=== PATIENT | female | born 1980 | race Caucasian/White ===

== ENCOUNTER 2020-10-21 21:32 | Emergency (ER) | payer SELFPAY ==
[2020-10-21 23:12] LABS: Urine Blood Trace-intact (Negative); Urine Glucose Negative (Negative); Urine Protein Negative (Negative); Urine Specific Gravity 1.025 (1.005-1.030)
[2020-10-21 23:42] LABS: Urine Specific Gravity/Preg 1.025 (1.005-1.030)
[2020-10-21 23:48] LABS: Absolute Lymphocytes (CBC) 2.7 K/uL (0.7-4.9); Basophils % 0.4 % (0-1.3); Hematocrit 35.7 % (36.0-45.0); MPV 7.8 fL (7.6-11.3); RBC Red Blood Cell Count 4.11 M/uL (3.86-4.86)
[2020-10-22 00:04] LABS: ALT/SGPT 15 U/L (12-78); AST/SGOT 9 U/L (15-37); Alkaline Phosphatase 53 U/L (45-117); BUN Blood Urea Nitrogen 12 mg/dL (7-18); Bicarbonate 26 mmol/L (21-32); Bilirubin Direct < 0.1 mg/dL (0-0.2); Bilirubin Total 0.3 mg/dL (0.2-1.0); Glucose Level 130 mg/dL (74-106); Lipase 76 U/L (73-393); Potassium 3.9 mmol/L (3.5-5.1); Protein, Total 6.5 g/dL (6.4-8.2); Sodium Level 141 mmol/L (136-145)
[2020-10-22 00:08] LABS: Urine Bacteria <20 /HPF (<20); Urine RBC <5 /HPF (NONE SEEN)
[2020-10-22] MEDS ORDERED: ONDANSETRON 4 MG/2 ML VIAL ONE (00:38)
[2020-10-22] MEDS ORDERED: NA CHLORIDE 0.9% 1,000 ML ONE (00:38)
[2020-10-22] MEDS ORDERED: KETOROLAC 30 MG/ML INJ ONE (00:38)
[2020-10-22] MEDS ORDERED: HYDROMORPHONE HCL 1 MG/ML INJ ONE (02:13)
--- NOTE | 2020-10-22 02:59 | EDPHYS ---
Physician Documentation [facility] Name: Jo Ann Kowalski Age: 40 yrs Sex: Female : 1980 Arrival Date: 10/21/2020 Time: 21:34 Bed 8 Private MD: ED Physician Krishna Reeves HPI: 10/22 02:57 This 40 yrs old Female presents to ER via Ambulatory with complaints of Flank ma2 Pain, Breathing Difficulty. 02:57 This 40 yrs old Female presents to ER via Ambulatory with complaints of right ma2 lower abdominal pain. 02:57 Onset: The symptoms/episode began/occurred gradually, 2 day(s) ago. Associated signs ma2 and symptoms: Pertinent negatives: fever, headache, hematuria, nausea. Severity of pain: At its worst the pain was moderate in the emergency department the pain is unchanged. The patient has not experienced similar symptoms in the past. 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 - Social history:: Smoking status: Patient denies any tobacco usage or history of. - Family history:: not pertinent. ROS: 10/22 02:57 Constitutional: Negative for fever, chills, and weight loss. ma2 All other systems are negative. Exam: 02:57 Constitutional: This is a well developed, well nourished patient who is awake, alert, ma2 and in no acute distress. Chest/axilla: Normal chest wall appearance and motion. Nontender with no deformity. No lesions are appreciated. Cardiovascular: Regular rate and rhythm with a normal S1 and S2. No gallops, murmurs, or rubs. Normal PMI, no JVD. No pulse deficits. Respiratory: Lungs have equal breath sounds bilaterally, clear to auscultation and percussion. No rales, rhonchi or wheezes noted. No increased work of breathing, no retractions or nasal flaring. Abdomen/GI: Soft, non-tender, with normal bowel sounds. No distension or tympany. No guarding or rebound. No evidence of tenderness throughout. Back: No spinal tenderness. No costovertebral tenderness. Full range of motion. Skin: Warm, dry with normal turgor. Normal color with no rashes, no lesions, and no evidence of cellulitis. MS/ Extremity: Pulses equal, no cyanosis. Neurovascular intact. Full, normal range of motion. Neuro: Awake and alert, GCS 15, oriented to person, place, time, and situation. Cranial nerves II-XII grossly intact. Motor strength 5/5 in all extremities. Sensory grossly intact. Cerebellar exam normal. Normal gait. Vital Signs: 10/21 22:15 BP 128 / 67; Pulse 83; Resp 18; Temp 98.4(O); Pulse Ox 99% on R/A; Weight 86.18 kg (R); lp1 Height 4 ft. 11 in. (149.86 cm); Pain 5/10; 10/22 01:27 BP 108 / 80; Pulse 63; Resp 18; Pulse Ox 97% ; ea 02:06 BP 115 / 72; Pulse 69; Resp 19; Pulse Ox 98% ; rr5 03:16 BP 113 / 62; Pulse 70; Resp 17; Pulse Ox 99% ; rr5 10/21 22:15 Body Mass Index 38.37 (86.18 kg, 149.86 cm) lp1 MDM: 10/21 23:40 Patient medically screened. ma2 10/22 02:57 Differential diagnosis: nephrolithiasis, pyelonephritis, UTI, pancreatitis. Data ma2 reviewed: vital signs, nurses notes. Counseling: I had a detailed discussion with the patient and/or guardian regarding: the historical points, exam findings, and any diagnostic results supporting the discharge/admit diagnosis, the presence of at least one elevated blood pressure reading (>120/80) during this emergency department visit, the need for outpatient follow up. Response to treatment: the patient's symptoms have resolved after treatment. 10/21 23:11 Order name: Urine Dipstick-Ancillary; Complete Time: 01:07 EDMS 10/21 23:20 Order name: Urine --Ancillary (enter results) mw2 10/21 23:20 Order name: Urine --Ancillary; Complete Time: 01:07 EDMS 10/21 23:22 Order name: Urine Microscopic Only rr5 10/21 23:22 Order name: Basic Metabolic Panel rr5 10/21 23:22 Order name: CBC with Diff; Complete Time: 01:07 rr5 10/21 23:22 Order name: Hepatic Function; Complete Time: 01:07 rr5 10/21 23:22 Order name: Lipase; Complete Time: 01:07 rr5 10/21 23:23 Order name: Urine Microscopic Only; Complete Time: 01:07 EDMS 10/21 23:23 Order name: Basic Metabolic Panel; Complete Time: 01:07 EDMS 10/22 01:41 Order name: Abdomen EDMS 10/21 22:50 Order name: Urine Dipstick-Ancillary (obtain specimen); Complete Time: 23:47 lp1 10/21 22:50 Order name: Urine Test (obtain specimen); Complete Time: 23:47 lp1 10/21 23:22 Order name: IV Saline Lock; Complete Time: 23:47 rr5 10/21 23:22 Order name: Labs collected and sent; Complete Time: 23:47 rr5 Administered Medications: 00:24 Drug: Zofran (Ondansetron) 4 mg Route: IVP; Site: left antecubital; ea 01:29 Follow up: Response: No adverse reaction ea 00:25 Drug: NS 0.9% 1000 ml Route: IV; Rate: 1 bolus; Site: left antecubital; ea 01:30 Follow up: Response: No adverse reaction; IV Status: Completed infusion; IV Intake: rr5 1000ml 00:25 Drug: TORadol (ketorolac) 30 mg Route: IVP; Site: left antecubital; ea 01:30 Follow up: Response: No adverse reaction ea 01:55 Drug: Dilaudid (HYDROmorphone) 1 mg {Note: rass 0.} Route: IVP; Site: left forearm; rr5 03:16 Follow up: Response: No adverse reaction; Pain is decreased; RASS: Alert and Calm (0) rr5 Disposition: 10/22/20 02:58 Discharged to Home. Impression: Other ovarian cysts - right. - Condition is Stable. - Discharge Instructions: Ovarian Cyst, [id number]. - Prescriptions for Diclofenac Sodium 75 mg Oral Tablet Sustained Release - take 1 tablet by ORAL route 2 times per day; 30 tablet. - Medication Reconciliation Form, Thank You Letter, Antibiotic Education, Prescription Opioid Use form. - Follow up: Private Physician; When: Tomorrow; Reason: Continuance of care. - Notes: folow up with obgyn for ovarian ultrasound, return to er for any new symptoms or if pain recure Signatures: Dispatcher [employer] [facility] Virginia Sanderson RN RN lp1 Chelsea Arrington RN Krihsna Pichardo ea, MD MD ma2 Deon Olmstead RN RN rr5 Corrections: (The following items were deleted from the chart) 01:41 00:08 Abdomen Pelvis W Con+CT.RAD.BRZ ordered. [facility] 03:17 02:58 10/22/2020 02:58 Discharged to Home. Impression: Other ovarian cysts - right. rr5 Condition is Stable. Forms are Medication Reconciliation Form, Thank You Letter, Antibiotic Education, Prescription Opioid Use. Follow up: Private Physician; When: Tomorrow; Reason: Continuance of care. ma2
--- NOTE | 2020-10-22 02:59 | ER ---
Nurse's Notes [facility] Name: Jo Ann Kowalski Age: 40 yrs Sex: Female : 1980 Arrival Date: 10/21/2020 Time: 21:34 Bed 8 Private MD: Diagnosis: Other ovarian cysts-right Presentation: 10/21 22:11 Chief complaint: Patient states: Pain to right lower abdomen x 2 days; reports pain lp1 makes her short of breath, stabbing pain that is constant; Denies pain with urination; reports when she voids, the pain is intense to RLQ of abdomen; Denies fever; reports noticing bilateral feet swelling today that is painful. Coronavirus screen: Client denies travel out of the [place] in the last 14 days. At this time, the client does not indicate any symptoms associated with coronavirus-19. Ebola Screen: No symptoms or risks identified at this time. Risk Assessment: Do you want to hurt yourself or someone else? Patient reports no desire to harm self or others. Onset of symptoms was October 21, 2020. 22:11 Method Of Arrival: Ambulatory lp1 22:11 Acuity: RAMESH 3 lp1 22:15 Initial Sepsis Screen: Does the patient meet any 2 criteria? No. Patient's initial lp1 sepsis screen is negative. Does the patient have a suspected source of infection? No. Patient's initial sepsis screen is negative. Triage Assessment: 23:30 Respiratory: the patient has mild shortness of breath. 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 - Social history:: Smoking status: Patient denies any tobacco usage or history of. - Family history:: not pertinent. Screenin:14 Abuse screen: Denies threats or abuse. Denies injuries from another. Nutritional lp1 screening: No deficits noted. Tuberculosis screening: No symptoms or risk factors identified. Fall Risk None identified. Assessment: 23:30 General: Appears in no apparent distress. uncomfortable, Behavior is calm, cooperative, rr5 appropriate for age. 23:30 Pain: Complains of pain in right lower quadrant Pain currently is 5 out of 10 on a pain rr5 scale. Quality of pain is described as aching, Pain began gradually. Neuro: Level of Consciousness is awake, alert, obeys commands, Oriented to person, place, time. Cardiovascular: Capillary refill < 3 seconds Patient's skin is warm and dry. Rhythm is regular. Respiratory: Airway is patent Respiratory effort is even, unlabored, Respiratory pattern is regular, symmetrical, GI: Abdomen is round non-distended, Reports lower abdominal pain. : No signs and/or symptoms were reported regarding the genitourinary system. EENT: No signs and/or symptoms were reported regarding the EENT system. Derm: Skin is intact, is healthy with good turgor, Skin temperature is warm. Musculoskeletal: Capillary refill < 3 seconds. 10/22 01:27 Reassessment: Patient and/or family updated on plan of care and expected duration. Pain ea level reassessed. Patient is alert, oriented x 3, equal unlabored respirations, skin warm/dry/pink. 01:50 Reassessment: Patient appears in no apparent distress at this time. Patient is alert, rr5 oriented x 3, equal unlabored respirations, skin warm/dry/pink. complaint of abdominal pain, ED provider aware with order made and carried out. 03:16 Reassessment: Patient appears in no apparent distress at this time. Patient is alert, rr5 oriented x 3, equal unlabored respirations, skin warm/dry/pink. discharge instruction given and explained without complaints made. Vital Signs: 10/21 22:15 BP 128 / 67; Pulse 83; Resp 18; Temp 98.4(O); Pulse Ox 99% on R/A; Weight 86.18 kg (R); lp1 Height 4 ft. 11 in. (149.86 cm); Pain 09/17; 10/22 01:27 BP 108 / 80; Pulse 63; Resp 18; Pulse Ox 97% ; ea 02:06 BP 115 / 72; Pulse 69; Resp 19; Pulse Ox 98% ; rr5 03:16 BP 113 / 62; Pulse 70; Resp 17; Pulse Ox 99% ; rr5 06/13 22:15 Body Mass Index 38.37 (86.18 kg, 149.86 cm) lp1 ED Course: 10/21 21:34 Patient arrived in ED. es 22:13 Triage completed. lp1 22:13 Arm band placed on right wrist. lp1 23:20 Deon Olmstead RN is Primary Nurse. rr5 23:40 Krishna Reeves MD is Attending Physician. ma2 23:40 Patient has correct armband on for positive identification. Bed in low position. Call rr5 light in reach. Pulse ox on. NIBP on. 23:40 Inserted saline lock: 20 gauge in left forearm, using aseptic technique. Blood rr5 collected. 10/22 01:50 Abdomen In Process Unspecified. EDMS 03:15 No provider procedures requiring assistance completed. IV discontinued, intact, rr5 bleeding controlled, No redness/swelling at site. Pressure dressing applied. Administered Medications: 00:24 Drug: Zofran (Ondansetron) 4 mg Route: IVP; Site: left antecubital; ea 01:29 Follow up: Response: No adverse reaction ea 00:25 Drug: NS 0.9% 1000 ml Route: IV; Rate: 1 bolus; Site: left antecubital; ea 01:30 Follow up: Response: No adverse reaction; IV Status: Completed infusion; IV Intake: rr5 1000ml 00:25 Drug: TORadol (ketorolac) 30 mg Route: IVP; Site: left antecubital; ea 01:30 Follow up: Response: No adverse reaction ea 01:55 Drug: Dilaudid (HYDROmorphone) 1 mg {Note: rass 0.} Route: IVP; Site: left forearm; rr5 03:16 Follow up: Response: No adverse reaction; Pain is decreased; RASS: Alert and Calm (0) rr5 Intake: 01:30 IV: 1000ml; Total: 1000ml. rr5 Outcome: 02:58 Discharge ordered by . ma2 03:15 Discharged to home ambulatory, with family. rr5 03:15 Condition: stable 03:15 Discharge instructions given to patient, Instructed on discharge instructions, follow up and referral plans. medication usage, Demonstrated understanding of instructions, follow-up care, medications, Prescriptions given X 1. 03:17 Patient left the ED. rr5 Signatures: Dispatcher [employer] Taina Watkins Laura, RN RN lp1 Chelsea Arrington RN RN Krishna Carlson MD MD ma2 Deon Olmstead RN RN rr5 Corrections: (The following items were deleted from the chart) 10/21 22:17 22:11 Chief complaint: Patient states: Pain to right lower abdomen x 2 days; reports lp1 pain makes her short of breath, stabbing pain that is constant; Denies pain with urination; reports when she voids, the pain is intense to RLQ of abdomen; Denies fever lp1
[2020-10-22 03:25] VITALS: TEMP 98.4
[2020-10-22 03:30] VITALS: BP 113/62; O2SAT 99
--- NOTE | 2020-10-22 19:36 | RAD REPORT ---
EXAM DESCRIPTION: Abdomen Pelvis Wo Contrast 10/22/2020 2:13 AM CDT CLINICAL HISTORY: 40 years, Female, rlq abd pain;Abd pain COMPARISON: None. TECHNIQUE: Multiple transaxial tomograms of the abdomen and pelvis were performed from the lung base s to the symphysis pubis 5 mm slice thickness at 5 mm interval reconstruction, without administration of IV and oral contrast. Multiplanar reformats in the sagittal and coronal plane were generated and reviewed. This exam was performed according to our departmental dose-optimization protocol, which includes auto mated exposure control, adjustment of the mA and/or kV according to patient size and/or use of iterat duke reconstruction technique. FINDINGS: The lack of IV and oral contrast limits evaluation of solid organs, subtle lesions cannot be excluded. The lung bases demonstrate to be clear. Grossly the unopacified liver, pancreas, spleen and adrenal glands demonstrate to be within normal li mits, no significant focal lesions were identified. The gallbladder was contracted with no gross ab normalities. The kidneys demonstrate grossly unremarkable. The right kidney demonstrate to be unremarkable. Ther e is no evidence for right hydronephrosis and/or right nephrolithiasis. The left kidney demonstrated the presence of a tiny ossification along the upper pole measuring appro ximately 1.5 mm on image 27 and mid pole calculus measuring 2.6 cm on image 33. There is no evidence for left hydronephrosis is/or left hydroureter. Grossly the unopacified stomach, small bowel and large bowel demonstrate to be within normal limits. There is no evidence for bowel dilatation/or free air. The appendix is normal. The urinary bladder demonstrate to be within normal limits. The uterus demonstrate to be normal. Ther e is a large right ovarian cyst measuring 7.2 x 6.4 cm. The aorta demonstrate to be within normal rubin its. There is no retroperitoneal lymphadenopathy. There is no evidence for ascites. The rest of t he soft tissue demonstrate to be grossly unremarkable. IMPRESSION: 7.2 cm probably benign ovarian cyst. Recommend follow-up pelvic MRI with IV contrast o r surgical evaluation. Reference: J Am Francisco Radiol 2013;10:675-681 Left nephrolithiasis with no evidence for hydronephrosis. Electronically signed by: Stephane Rose MD 10/22/2020 2:18 AM CDT Due to temporary technical issues with the PACS/Fluency reporting system, reports are being signed by the in house radiologists without review as a courtesy to insure prompt reporting. The interpreting radiologist is fully responsible for the content of the report.
== END 2020-10-22 03:17 | disposition home or self-care (01) ==
LOC: ER 21:32
DX: N83.291 Other ovarian cyst, right side (principal); Z88.5 Allergy status to narcotic agent; Z91.040 Latex allergy status; Z91.048 Other nonmedicinal substance allergy status
CPT/HCPCS: 36415; 74176; 80048; 80076; 81003; 81015; 81025; 83690; 85025; 99284; J1170; J2405; J7030

== ENCOUNTER 2020-10-23 18:40 | Emergency (ER) | payer SELFPAY ==
--- OUTSIDE RECORDS SUMMARY | 2020-10-23 18:45 | XMS REPORT | Continuity of Care Document ---
:1980 Author Organization [facility] t Address [address] [place] [address] Care Team Providers Name Role Phone Sylwia Dinh Attending Clinician Klever Attending Clinician Francisco J Lord Attending Clinician Sylwia Dinh Admitting Clinician Payers Payer Name Policy Type Policy Number Effective Date Expiration Date S ource Problems Condition Condition Condition Status Onset Resolution Last Treating Co mments Source Name Details Category Date Date Treatment Clinician Date ACUTE Diagnosis Active 2019-06-01 Mem [facility]ria CHOLECYSTI 05-30 12:26:00 l TIS ACUTE 00:00: [place] CHOLECYSTI 00 TIS Active 05/30/2019 [facility] ABD PAIN Diagnosis Active 2019-05-30 M emoria 05-30 20:57:00 l ABD PAIN 00:00: Marco Antonio n 00 Active 05/30/2019 [facility] CHEST PAIN Diagnosis Active 2014-052015-02-09 [facility]oria 0-01 01:08:00 l CHEST 00:00: [place] PAIN 00 Active 02/08/2015 [facility] SOB/CHEST Diagnosis Active 2014-07-10 [facility] PAINS 3-01 01:33:00 l 00:00: [place] SOB/CHEST 00 PAINS Active 07/09/2014 [facility] EYE Diagnosis Active 2011-052012-03-28 Mem oria BURNING 05-28 16:08:00 l EYE 00:00: [place] BURNING 00 Active 03/28/2012 [facility] OTHER Diagnosis Active 2011-052012-03-18 Mem oria 05-18 23:35:00 l OTHER 20:00: [place] 00 Active 03/18/2012 [facility] V65.3, Diagnosis Active 2011-052012-03-04 Mem oria 789.09, 0-16 11:30:00 l 536.8, V65.3, 00:00: [place] 278.01, 789.09, 00 787.99, 536.8, V18.51, 278.01, V16.0 787.99, V18.51, V16.0 Active 02/24/2012 [facility] V65.3, Diagnosis Active 2011-052012-04-06 Mem oria 789.09, 0-16 15:42:00 l 536.8, V65.3, 00:00: [place] 278.01, 789.09, 00 787.99, V1 536.8, 278.01, 787.99, V1 Active 02/24/2012 [facility] SHORTNESS Diagnosis Active 2011-12-27 [facility] OF BREATH/ - 22:11:00 l CHEST PAIN 15:00: Marco Antonio n SHORTNESS 00 OF BREATH/ CHEST PAIN Active 12/27/2011 [facility] FOOT Diagnosis Active 2011-11-24 [facility] INJURY 7-02 17:20:00 l FOOT 20:00: [place] INJURY 00 Active 11/10/2011 [facility] VOMITING Diagnosis Active 2011-06-27 M emoria 2-16 23:33:00 l VOMITING 15:00: Marco Antonio n 00 Active 06/26/2011 [facility] BACK Diagnosis Active 2011-01-21 Mem oria PAIN/FELL - 20:55:00 l DEEDEE BACK 00:00: [place] PAIN/FELL 00 DEEDEE Active 01/21/2011 [facility] ABDOMINAL Diagnosis Active 2009-052011-01-21 [facility] PAIN, 2-15 20:55:00 l EVALUATION 20:00: Marco Antonio n OF RIGHT ABDOMINAL 00 ECTOPIC PAIN, EVALUATION OF RIGHT ECTOPIC Active 04/24/2010 [facility] WRIST PAIN Diagnosis Active 2009-052011-01-21 Memoria 1-13 20:55:00 l WRIST 15:30: [place] PAIN 00 Active 03/23/2010 [facility] DIZZY Diagnosis Active 2008-052011-01-21 Mem oria 0-16 20:55:00 l DIZZY 06:00: [place] 00 Active 02/23/2009 [facility] WRIST Diagnosis Active 2011-01-21 Mem o[facility] INJURY - 20:55:00 l WRIST 00:00: [place] INJURY 00 Active 01/26/2009 [facility] ABD PAIN, Diagnosis Active 2006-052011-01-21 [facility] HEADACHE - 20:55:00 l ABD 06:00: [place] PAIN, 00 HEADACHE Active 03/27/2007 [facility] SOB Diagnosis Active 2011-01-21 Mem oria - 20:55:00 l SOB 21:00: [place] 00 Active 12/15/2004 [facility] Anemia Problem Resolve 2019-06-03 Jasper emily (disorder) d 22:34:38 l Anemia [place] (disorder) Resolved Problem 06/03/2019 [facility] Ectopic Problem Active 2012-03-30 Jasper emily 09:28:58 l Ectopic [place] Active Problem 03/30/2012 [facility] Asthma Problem Active 2019-06-03 Memor ia (disorder) 22:34:38 l Asthma [place] (disorder) Active Problem 06/03/2019 [facility] Ectopic Problem Active 2019-06-03 Jasper emily 22:34:38 l (disorder) Ectopic Her stokes (disorder) Active Problem 06/03/2019 [facility] History of Past Illness Condition Condition Condition Status Onset Resolution Last Treating Co mments Source Name Details Category Date Date Treatment Clinician Date Discharge Problem 2014-052015-02-12 2015-02-12 [facility] Diagnosis: 0-02 05:58:15 05:58:15 l Palpitatio 05:00: Marco Antonio holt ns Discharge 00 Diagnosis: Palpitatio ns 02/09/2015 02/12/2015 [facility] Discharge Problem 2014-07-12 2014-07-12 [facility] Diagnosis: 3-02 14:36:00 14:36:00 l Chest pain 06:00: Marco Antonio n Discharge 00 Diagnosis: Chest pain 07/10/2014 07/12/2014 [facility] Allergies, Adverse Reactions, Alerts Allergy Allergy Status Severity Reaction(s) Onset Inactive Treating Comm ents Source Name Type Date Date Clinician iodine DA Active MO 2020-0 [facility] 2[facility] [place] [facility] morphine DA Active [place] 2020-0 [facility] 2[facility]28 [place] [facility] meperidi DA Active MO 2020-0 [facility] ne 2-28 [place] 00:[facility]: [facility] latex DA Active MO 2020-0 [facility] 2[facility]28 [place] 00:[facility]: e [facility] iodine DA Active MO 2020-0 [facility] 2[facility]27 [place] [facility]: e [facility] morphine DA Active MO 2020-0 [facility] 2-27 [place] 00:[facility]: e [facility] meperidi DA Active MO 2020-0 [facility] ne 2-27 [place] 00:00: e 00 [facility] latex DA Active MO 2020-0 [facility] 2-27 [place] 00:[facility]: e [facility] iodine DA Active MO 2019-0 [facility] 7-16 [place] 00:[facility]: e [facility] morphine DA Active MO 2019-0 [facility] 7-16 [place] 00:[facility]: e [facility] meperidi DA Active MO 2019-0 [facility] ne 7-16 [place] 00:00: e 00 [facility] latex DA Active MO 2019-0 [facility] 7-16 [place] 00:[facility]: e [facility] iodine DA Active MO 2018-1 [facility] 1-17 [place] 00:00: Ir[place] 00 [facility] morphine DA Active MO 2018-1 [facility] 1-17 Clear 00:00: Ir[place] 00 [facility] meperidi DA Active MO 2018-1 [facility] ne 1-17 Clear 00:00: Irwin 00 [facility] latex DA Active MO 2018-1 [facility] 1-17 Clear 00:00: Irwin 00 [facility] iodine DA Active MO 2017-0 [facility] 9-30 [place] [facility] e [facility] morphine DA Active MO 2017-0 [facility] 9-30 [place] 00:[facility]: e [facility] meperidi DA Active MO 2017-0 [facility] ne 9-30 [place] 00:[facility]: e [facility] latex DA Active MO 2017-0 [facility] 9-30 [place] [facility]: e [facility] Demerol Demerol Active [facility] HCl HCl l [place] iodine iodine Active [facility] topical topical l [place] morphine morphine Active Memori a l [facility] tetracyc tetracyc Active Memori a lic lic l antidepr antidepr Marco Antonio n essants essants Vicodin Vicodin Active [facility]oria l [facility] codeine codeine Active [facility]oria l [facility] Latex Latex Active Memoria l [place] contrast contrast Active Memori a media media l (iodine- (iodine- Marco Antonio n based) based) Social History Social Habit Start Date Stop Date Quantity Comments Source Social History 2019-05-31 2019-05-31 [facility] 07:49:34 07:49:34 Medications Ordered Filled Start Stop Current Ordering Indication Dosage Frequency Signature Comments Components Source Medication Medication Date Date Medication? Clinician (SIG) Name Name tramadol No Notes: Not Mem oria hydrochlori 06-01 to exceed l de 50 MG 02:30: 400mg/day. Her stokes Oral Tablet 00 (Same As: Ultram) Ibuprofen No Notes: Memori a 400 MG Oral 06-01 (Same as: l Tablet 02:11: Motrin) [place] 00 "Do Not Crush" Give with food. omeprazole Yes 40 mg = 1 Me moria 40 mg oral 05-31 cap, PO, l delayed 20:29: Daily, # Marco Antonio n release 00 30 cap, 1 capsule Refill(s) Dilaudid No Notes: Memoria 05-31 Same as: l 08:17: Dilaudid Lactated 2019-0 No 1,000 mL, Jasper emily Ringers IV 05-31 Rate: 75 l 1,000 mL 08:17: ml/hr, Infuse over: 13.3 hr, Route: IV, Dosing Weight 86.273 kg, Total Volume: 1,000, Priority: STAT, Start date: 05/31/19 2:17:00 [employer], Duration: 30 day, Stop date: 06/30/19 2:16:00 [employer], 1.93, m2, 0 Dextrose 2019-0 No 12.5 gm, Memor ia 50% Syringe 05-31 25 mL, l (D50W) 08:15: Route: Amor 00 IVP, Drug Form: INJ, Dosing Weight 86.273, kg, PRN, PRN Blood Glucose Results, Start date: 05/31/19 2:15:00 [employer], Duration: 30 day, Stop date: 06/30/19 2:14:00 [employer], 0 Glucagon 2020-0 No 1 mg, Memoria 05-31 Route: IM, l 08:15: Drug form: Amor 00 PDR/INJ, PRN, Dosing Weight 86.273, kg, PRN Blood Glucose Results, Start date: 05/31/19 2:15:00 [employer], Duration: 30 day, Stop date: 06/30/19 2:14:00 [employer], 0 Ondansetron 2020-0 No Notes: Jasper emily - (Same as: l 08:15: Zofran) [place] 00 MEDICATION WASTE Product Size: 4 mg Product Wasted: ___ mg Acetaminoph 2019-0 No Notes: Do M emoria en 05-31 not exceed l 08:15: 4 gm/day. Amor 00 (Same as: Tylenol) Zofran 2020-0 No Notes: Mem[facility] 05-31 (Same as: l 05:47: Zofran) [place] 00 MEDICATION WASTE Product Size: 4 mg Product Wasted: ___ mg Dilaudid 2020-0 No Notes: Memoria - (Same as: l 04:48: Dilaudid) [place] 00 Pepcid 2019-0 No 40 mg, 4 Memoria 1-21 mL, Route: l 03:12: IVP, Drug [place] 00 form: INJ, ONCE, Dosing Weight 77.273, kg, Priority: STAT, Start date: 05/30/19 21:12:00 [employer], Stop date: 05/30/19 21:12:00 [employer], 0 Ketorolac 2020-0 No 4 days Memor ia - l 03:12: MEDICATION [place] WASTE Product Size: 30 mg Product Wasted: ___ mg Sodium 2020-0 No 1,000 mL, Memori a Chloride - 1000 l 0.9% 03:09: ml/hr, Amor (Bolus) IV 00 Infuse Over: 1 hr, Route: IV, 1,000, Drug form: INJ, ONCE, Priority: STAT, Dosing Weight 77.273 kg, Start date: 05/30/19 21:09:00 [employer], Stop date: 05/30/19 21:09:00 [employer], 0 Aspirin 2014- No 325 mg, Memoria 0- Route: PO, l 07:33: Drug form: Amor 00 TAB, ONCE, Dosing Weight 84.091, kg, Priority: STAT, Start date: 02/09/15 2:33:00, Stop date: 02/09/15 2:33:00 Ketorolac No 15 mg, Memori a 07-10 Route: l 07:00: IVP, ONCE, Dosing Weight 81.818, kg, Priority: STAT, Start date: 07/10/14 1:00:00, Stop date: 07/10/14 1:00:00 aspirin No 324 mg, Memoria 07-10 Route: PO, l 07:00: ONCE, [place] 00 Dosing Weight 81.818, kg, Priority: STAT, Start date: 07/10/14 1:00:00, Stop date: 07/10/14 1:00:00 Saline No Notes: Memoria Flush 0.9% 07-10 (Same as: l 07:00: BD [place] Posiflush) omeprazole 2011-05 Yes Substituti M emoria 1-18 on Allowed l 21:39: [place] 51 [place] Yes Sadi Posey 1 tab, PO, Jasper emily 10/325 oral 8-19 Andrés Q6H, PRN, l tablet 04:17: 15 tab, Amor 06 for pain, Substituti on Allowed, Soft Stop Medrol Yes Sadi Posey As Silveriooria Dosepak 4 8-19 Andrés directed l mg Tablet 04:16: on package He rmann 40 instructio ns, PO, Daily, 1 Pack, Substituti on Allowed, Take with or without foodTake with or without food Tylenol Yes Marcos 1 tab, PO, Mem oria with 7-03 Garces Q6H, PRN, l Codeine #3 04:49: 16 tab, Herm caesar oral tablet 24 for pain, Substituti on Allowed, Soft Stop ibuprofen Yes Marcos 600 mg, Jasper emily 600 mg oral 7-03 Garces PO, Q6H, l tablet 04:49: PRN, 30 Amor 16 tab, Pain, Substituti on Allowed, Take with foodTake with food acetaminoph No Marcos 1 tab, Mem oria en-hydrocod 11-10 Garces Route: PO, l one 325 03:50: Drug Form: Herm caesar mg-5 mg 00 TAB, ONCE, oral tablet STAT, Start date: 11/10/11 22:50:00, Stop date: 11/10/11 22:50:00 TussiCaps 4 Yes Shakeel A 1 tab, PO, Memoria mg-5 mg 2-18 Epstein Q6H, 20 l oral 05:23: tab, Amor capsule, 55 Substituti extended on release Allowed, Maintenanc e Azithromyci Yes Shakeel A See Memoria n 5 Day 2-18 Epstein Instructio l Dose Pack 05:23: ns, 1 pkg, He rmann 250 mg oral 49 Substituti tablet on Allowed, FORREST Vital Signs Vital Name Observation Time Observation Value Comments Source Temperature Oral (F) 2019-06-01 13:36:00 97.7 F [facility] [place] Heart Rate 2019-06-01 13:36:00 [facility] [place] Respitory Rate 2019-06-01 13:36:00 Memori al [place] Systolic (mm Hg) 2019-06-01 13:36:00 Jasper rial [place] Diastolic (mm Hg) 2019-06-01 13:36:00 Mem orial [place] Temperature Oral (F) 2019-06-01 05:11:00 98.2 F [facility] [place] Heart Rate 2019-06-01 05:11:00 [facility] [place] Respitory Rate 2019-06-01 05:11:00 Memori al [place] Systolic (mm Hg) 2019-06-01 05:11:00 Jasper rial [place] Diastolic (mm Hg) 2019-06-01 05:11:00 Mem orial [place] Temperature Oral (F) 2019-05-31 21:13:00 98.6 F [facility] [place] Heart Rate 2019-05-31 21:13:00 [facility] [place] Respitory Rate 2019-05-31 21:13:00 Memori al [place] Systolic (mm Hg) 2019-05-31 21:13:00 Jasper rial [place] Diastolic (mm Hg) 2019-05-31 21:13:00 Mem orial [facility] Height 2019-05-31 07:31:00 149.86 cm [facility] [place] Weight 2019-05-31 07:31:00 [facility] BMI Calculated 2019-05-31 07:31:00 Memori al [place] Height 2019-05-31 01:44:00 149.86 cm [facility] [place] BMI Calculated 2019-05-31 01:44:00 Memori al [place] Weight 2019-05-31 01:44:00 [facility] [place] Systolic (mm Hg) 2015-02-09 10:08:00 Jasper rial [place] Diastolic (mm Hg) 2015-02-09 10:08:00 Mem orial [place] Temperature Oral (F) 2015-02-09 10:08:00 97.8 F [facility] [place] Respitory Rate 2015-02-09 10:08:00 Memori al [place] Heart Rate 2015-02-09 10:08:00 [facility] Temperature Oral (F) 2015-02-09 09:26:00 97.8 F [facility] Heart Rate 2015-02-09 09:26:00 [facility] [place] Respitory Rate 2015-02-09 09:26:00 Memori al [place] Systolic (mm Hg) 2015-02-09 09:26:00 Jasper rial [place] Diastolic (mm Hg) 2015-02-09 09:26:00 Mem orial [place] Weight 2015-02-09 05:41:00 [facility] [place] Temperature Oral (F) 2015-02-09 05:41:00 97.9 F [facility] [place] Systolic (mm Hg) 2015-02-09 05:41:00 Jasper rial [place] Diastolic (mm Hg) 2015-02-09 05:41:00 Mem orial [place] Heart Rate 2015-02-09 05:41:00 [facility] [place] Respitory Rate 2015-02-09 05:41:00 Memori al [place] Temperature Oral (F) 2014-07-10 09:21:00 98 F [facility] [place] Respitory Rate 2014-07-10 09:21:00 Memori al [place] Systolic (mm Hg) 2014-07-10 09:21:00 Jasper rial [place] Diastolic (mm Hg) 2014-07-10 09:21:00 Mem orial [place] Heart Rate 2014-07-10 09:21:00 [facility] [place] Heart Rate 2014-07-10 06:47:00 [facility] [place] Systolic (mm Hg) 2014-07-10 06:47:00 Jasper rial [place] Diastolic (mm Hg) 2014-07-10 06:47:00 Mem orial [place] Respitory Rate 2014-07-10 06:47:00 Memori al [place] Temperature Oral (F) 2014-07-10 03:57:00 98.1 F [facility] [place] Respitory Rate 2014-07-10 03:57:00 Memori al [place] Heart Rate 2014-07-10 03:57:00 [facility] [place] Systolic (mm Hg) 2014-07-10 03:57:00 Jasper rial [facility] Diastolic (mm Hg) 2014-07-10 03:57:00 Mem orial [place] Weight 2012-03-28 20:48:00 [facility] Height 2012-03-28 20:48:00 149.86 cm [facility] Weight 2011-11-11 03:05:00 [facility] Height 2011-11-11 03:05:00 149.86 cm [facility] [place] Weight 2011-06-28 02:47:00 [facility] [place] Height 2011-06-28 02:47:00 152.40 cm [facility] Procedures Procedure Date / Time Performed Performing Clinician Sour e section [facility] Marco Antonio n Colonoscopy [facility] Dilation and curettage [facility] Upper GI endoscopy [facility] Herm caesar Encounters Start End Encounter Admission Attending Care Care Encounter Source Date/Time Date/Time Type Type Clinicians Facility Department ID 2019-05-30 2019-06-01 Outpatient RAO Dinh [facility] [id number] 19:13:02 11:25:00 Ekatarina 18 Goukasova 2019-05-31 2019-05-31 Outpatient E RAO ISMAEL [id number] MH 00:25:00 00:25:[address] [facility] [facility] 2015-02-09 2015-02-09 Outpatient Klever [facility] [id number] 00:40:00 05:10:00 Zahraa 17 2014-07-09 2014-07-10 Outpatient Risa [facility] [id number] 21:55:00 03:27:00 Nadim B 16 Results Test Description Test Time Test Comments Results Result Comments Source STOMACH 2019-07-12 16:50:00 RUN DATE: 07/12/19 [facility]3] PAGE 1 RUN TIME: 1650 Specimen Inquiry RUN USER: INTERFACE PATIENT: SHANKAR ARROYO LOC: ChrisOBS U #: [id number] AGE/SX: 39/F ROOM: [facility] RE07/10/19REG DR: Ronni Jarrett MD : 76 BED: A DIS: 07/12/19 STATUS: DIS IN TLOC: SPEC #: [id number] RECD: 07/11/19 STATUS: DARON REQ #: [id number] BRITTANY: 07/11/19- SUBM DR: Rodney Sotelo MD ENTERED: 07/11/19 SP TYPE: STOMACH OTHR DR: No Primary or Family Physician Miguel Salazar MD, Alberto J MDORDERED: GROSS COPIES TO: No Primary or Family Physician Rodney Sotelo MD [address] [place] [address] Miguel Salazar MD [address] [place], [place] [id number] José Hylton MD [address] [place], [place] [id number] PROCEDURES: GROSS (07/12/19-1420) TISSUES: 1. DUODENUM, NOS - BX 2. GASTRIC CORPUS - BX 3. COLON, NOS - TERMINAL ILEUM BX CLINICAL HISTORY COLLECTION DATE: 07/11/19 HEMATEMESIS, MELENA, EPIGASTRIC PAIN FINAL DIAGNOSIS Duodenum, biopsy: DUODENAL MUCOSA WITH NO PATHOLOGIC ALTERATION Gastric tissue, biopsy: REACTIVE GASTROPATHY GASTRIC MUCOSA WITH NO PATHOLOGIC ALTERATION NEGATIVE FOR HELICOBACTER ORGANISMS CONTINUED ON NEXT PAGE RUN DATE: 07[facility]12/[facility] 2 RUN TIME: 1650 Specimen Inquiry RUN USER: INTERFACE SPEC #: [id number] PATIENT: SHANKAR ARROYO #[id number] (Continued)--------- --- FINAL DIAGNOSIS (Continued) NEGATIVE FOR MALIGNANCY Terminal ileum, biopsy: SMALL BOWEL MUCOSA WITH UNREMARKABLE VILLOUS ARCHITECTURE AND PROMINENT LYMPHOID AGGREGATES NEGATIVE FOR MALIGNANCY RRB/sm D [id number], 00820 MACROSCOPIC The first specimen is received in formalin, labeled with the patient's name, and identified as "duodenum", and consists of multiple pink biopsy tissue measuring 0.35 cm in aggregate, submitted as (1). The second specimen is received in formalin, labeled with the patient's name, and identified as "gastric", and consists of multiple light pink-contreras biopsy tissue measuring 0.3 cm in aggregate, submitted as (2). The third specimen is received in formalin, labeled with the patient's name, and identified as "terminal ileum", and consists of three of pink-contreras biopsy tissue measuring 0.35 cm in aggregate, submitted as (3). GROSS PERFORMED AT [facility] [address] [place] [address] (p)[phone] MICROSCOPIC All of the stains, including any controls performed, stain appropriately. MICROSCOPIC PERFORMED AT [facility] [address] [place], [place] [address] (p)[phone] PERFORMING SITE Diagnosis performed at: [facility], [place] [id number] CONTINUED ON NEXT PAGE RUN DATE: 07/12/19 [facility]3] PAGE 3 RUN TIME: 1650 Specimen Inquiry RUN USER: INTERFACE SPEC #: [id number] PATIENT: SHANKAR ARROYO #[id number] (Continued)--------- --- PERFORMING SITE (Continued) [phone]-------- ---- Signed SIGNATURE ON FILE Evangelista Danielle MD 07/12/19 6645 END OF REPORT HEPATIC FUNCTION PANEL 2019-07-12 05:45:00 Test Item Value Reference Range Interpretation Comme nts TOTAL PROTEIN (test code = PROT) 6.1 gram/dL 6.4-8.2 L ALBUMIN (test code = ALB) 2.8 g/dL 3.4-5.0 L GLOBULIN (test code = GLOB) 3.3 gram/dL 2.7-4.2 N ALBUMIN/GLOBULIN RATIO (test 0.9 0.75-1.50 N code = A/G) BILIRUBIN TOTAL (test code = 0.30 mg/dL 0.0-1.0 N BILT) BILIRUBIN DIRECT (test code = 0.08 mg/dL 0.0-0.20 N BILD) SGOT/AST (test code = AST) 16 IUnit/L 15-37 N SGPT/ALT (test code = ALT) 25 IUnit/L 12-78 N ALKALINE PHOSPHATASE TOTAL (test 51 IUnit/L 45-117 N Note change in reference code = ALKP) range due to ch ger in reagent. [id number] 05:45:00 Test Item Value Reference Range Interpretation Comments LIPASE (test code = LIP) 91 U/L 73.0-393.0 N CBC W/AUTO [id number] 07:11:00 Test Item Value Reference Range Interpretation Comments WHITE BLOOD CELL (test 6.4 K/mm3 4.5-12.5 N code = WBC) RED BLOOD CELL (test 4.29 mill/mm3 3.7-5.2 N code = RBC) HEMOGLOBIN (test code 12.4 gram/dL 11.5-15.5 N = HGB) HEMATOCRIT (test code 36.9 % 36.0-46.0 N = HCT) MEAN CELL VOLUME (test 86.0 fL 80-98 N code = MCV) MEAN CELL HGB (test 28.9 picogram 27.0-33.0 N code = MCH) MEAN CELL HGB 33.6 gram/dL 33.0-36.0 N CONCETRATION (test code = MCHC) RED CELL DISTRIBUTION 12.6 % 11.6-16.2 N WIDTH (test code = RDW) RED CELL DISTRIBUTION 39.2 fL 37.0-51.0 N WIDTH SD (test code = RDW-SD) PLATELET COUNT (test 234 K/mm3 150-450 RESULT VERIFIED BY code = PLT) REPEAT ANALYSIS MEAN PLATELET VOLUME 9.6 fL 6.7-11.0 N (test code = MPV) NEUTROPHIL % (test 58.6 % 39.0-69.0 N code = NT%) IMMATURE GRANULOCYTE % 0.2 % 0.0-5.0 N (test code = IG%) LYMPHOCYTE % (test 34.5 % 25.0-55.0 N code = LY%) MONOCYTE % (test code 5.6 % 0.0-10.0 N = MO%) EOSINOPHIL % (test 0.9 % 0.0-5.0 N code = EO%) BASOPHIL % (test code 0.2 % 0.0-1.0 N = BA%) NUCLEATED RBC % (test 0.0 % 0-0 N code = NRBC%) NEUTROPHIL # (test 3.76 K/mm3 1.8-7.7 N code = NT#) IMMATURE GRANULOCYTE # 0.01 x10 3/uL 0-0.03 N (test code = IG#) LYMPHOCYTE # (test 2.21 K/mm3 1.0-5.0 N code = LY#) MONOCYTE # (test code 0.36 K/mm3 0-0.8 N = MO#) EOSINOPHIL # (test 0.06 K/mm3 0.0-0.5 N code = EO#) BASOPHIL # (test code 0.01 K/mm3 0.0-0.2 N = BA#) NUCLEATED RBC # (test 0.00 K/mm3 0.0-0.1 N code = NRBC#) HGB [id number] 18:13:00 Test Item Value Reference Range Interpretation Comments HEMOGLOBIN (test code = HGB) 12.1 gram/dL 11.5-15.5 N HEMATOCRIT (test code = HCT) 36.4 % 36.0-46.0 N HGB [id number] 12:15:00 Test Item Value Reference Range Interpretation Comments HEMOGLOBIN (test code 12.7 gram/dL 11.5-15.5 RESULT VERIFIED BY = HGB) REPEAT ANALYSIS HEMATOCRIT (test code 38.6 % 36.0-46.0 N = HCT) - CT ABD PELVIS W/O [id number] 00:05:00 Name: SHANKAR ARROYO [facility] : 1980 Age/S: 39 / F [address] [facility] Unit #: [id number] Loc: JAIR[place] [address] Phys: Waldemar Ortez MD Acct: [id number] Dis Date: Status: ADM IN PHONE #: [phone] Exam Date: 07/07/2019 2335 FAX #: [phone] Reason: mid abd pain vomiting blood and blood in stool EXAMS: CPTCODE: [id number] CT ABD PELVIS W/O CONT 08287 CT abdomen and pelvis without IV contrast. Indication: Mid abdominal pain with vomiting Location: R16 Comparison: Technique: CT images of the abdomen and pelvis were obtained from the diaphragm to the pubic symphysis without the administration ofintravenous contrast contrast. Coronal reformats are provided. One or more of the following dose reduction techniques were used: Automated exposure control, adjustment of the mA and/or kV according to patient size, and/or utilization of iterative reconstruction technique. Findings: Lungs bases: Unremarkable. Liver: Noncontrast appearance is unremarkable. Gallbladder: Noncontrast appearance is unremarkable. Pancreas: Noncontrast appearance is unremarkable. Spleen: Noncontrast appearance is unremarkable.Adrenal glands: Noncontrast appearance is unremarkable. Kidneys: Noncontrast appearance is unremarkable with the exception of nonobstructing bilateral renal calculi. Bowel: No bowel obstruction. The appendix is unremarkable. Peritoneum: Small volume of fluid is seen within thepelvis. Questionable cervical thickening may reflect cervicitis. Clinical setting Pelvis: Likely small 1.2 cm is seen within the left adnexa Skeletal: No acute fracture.. Impression: Exam findings limited by absence of oral andIV contrast No hydronephrosis. Bilateral punctate nonobstructing renal calculi are n oted. Small volume of fluid is seen within the pelvis. Questionable cervical thickening may reflect cervicitis. Additional findings as detailed above PAGE 1 Signed Report (CONTINUED) Name: SHANKAR ARROYO [facility] : 1980 Age/S: 39 / F [address] [facility] Unit #: [id number] Loc: [place] [address] Phys: Waldemar Ortez MD Acct: [id number] Dis Date: Status: ADM IN PHONE #: [phone] Exam Date: 07/07/2019 2335 FAX #: [phone] Reason: mid abd pain vomiting blood and blood in stool EXAMS: CPT CODE: [id number] CT ABD PELVIS W/O CONT 67544 <Continued> at 0005 Reported and signed by: Lorrie Welch M.D. CC: Waldemar Ortez MD Technologist:RADHA AGUILA CTDI: DLP: Trnscb Date/Time: 07/08/2019 (0005) [email or web address] Orig Print D/T: S: 07/08/2019 (7346) PAGE 2 Signed Report- US ABDOMEN [id number] 23:54:00 Name: SHANKAR ARROYO [facility] : 1980 Age/S: 39 / F [address] [facility] Unit #: [id number] Loc: [place] [address] Phys: Waldemar Ortez MD Acct: [id number] Dis Date: Status: REG ER PHONE #: [phone] Exam Date: 07/07/2019 2330 FAX #: [phone] Reason: ruq pain ho gallbladder problem EXAMS: CPTCODE: [id number] US ABDOMEN LTD 28470 DICTATION LOCATION: H48 HISTORY: Female, 39 years of age with right upper quadrant pain, history of gallbladder disease EXAM: ULTRASOUND OF THE RIGHT UPPER QUADRANT COMPARISON: Previous right upper quadrant ultrasound performed 03/25/2019; CT abdomen and pelvis without contrast performed 11/23/2018 TECHNIQUE: Real-time grayscale 2-D imaging, Doppler spectral analysis, and Doppler color flow imaging were performed with the variablemegahertz curved array transducer transabdominally. STATEMENT: Exam quality is acceptable. FINDINGS: PANCREAS: Head and body within normal limits. Tail obscured by bowel gas. GALLBLADDER: Gallbladder is partially contracted. No obvious stones, sludge, or significant wall thickening. There is no pericholecystic fluid. COMMON BILE DUCT:2.3 mm, normal caliber. LIVER: Normal in echogenicity. No focal mass or enlargement. Portal vein is patent with appropriate hepatopedal flow. RIGHT KIDNEY: Unremarkable. OTHER: There is no ascites. IMPRESSION: Unremarkable right upper quadrant ultrasound and no significant change since prior study. at 9855 Reported and signed by: Shelby Anderson MD CC: Waldemar Ortez MD Technologist: DALIA AGARWAL RDMS Trnscb Date/Time: 07/07/2019 (6904) Jeffrey.CLW Orig Print D/T: S: 07/07/2019 (0938) Probe: PAGE 1 Signed ReportBASIC METABOLIC [id number] 23:00:00 Test Item Value Reference Range Interpretation Comments SODIUM (test code = 139 mmol/L 136-145 N NA) POTASSIUM (test code 3.9 mmol/L 3.5-5.1 N = K) CHLORIDE (test code = 107.0 mmol/L 98-107 N CL) CARBON DIOXIDE (test 27.0 mmol/L 21-32 N code = CO2) ANION GAP (test code 8.9 10-20 L = GAP) GLUCOSE (test code = 105 mg/dL 74-106 N GLU) BLOOD UREA NITROGEN 18 mg/dL 7-18 N (test code = BUN) GLOMERULAR FILTRATION > 60 mL/min >=60 Estima dar GFR by RATE (test code = using Nayeli fied MDRD GFR) formula.Chronic kidney disease is defined as eith er kidney damageor GFR <60 mL/min/1.73 m2 for >3 months. CREATININE (test code 0.80 mg/dL 0.55-1.02 N Note change in = CREAT) reference range due to change in reagent. BUN/CREATININE RATIO 22.5 10-20 H (test code = BUN/CREA) CALCIUM (test code = 9.4 mg/dL 8.5-10.1 N CA) HEPATIC FUNCTION [id number] 23:00:00 Test Item Value Reference Range Interpretation Comments TOTAL PROTEIN (test 8.1 gram/dL 6.4-8.2 N code = PROT) ALBUMIN (test code = 3.8 g/dL 3.4-5.0 N ALB) GLOBULIN (test code = 4.3 gram/dL 2.7-4.2 H GLOB) ALBUMIN/GLOBULIN RATIO 0.9 0.75-1.50 N (test code = A/G) BILIRUBIN TOTAL (test 0.50 mg/dL 0.0-1.0 N code = BILT) BILIRUBIN DIRECT (test 0.10 mg/dL 0.0-0.20 N code = BILD) SGOT/AST (test code = 8 IUnit/L 15-37 L AST) SGPT/ALT (test code = 16 IUnit/L 12-78 N ALT) ALKALINE PHOSPHATASE 70 IUnit/L 45-117 N Note change in TOTAL (test code = reference range due ALKP) to change in reagent. [id number] 23:00:00 Test Item Value Reference Range Interpretation Comments LIPASE (test code = LIP) 90 U/L 73.0-393.0 N HCG SERUM [id number] 23:00:00 Test Item Value Reference Range Interpretation Comments HCG SERUM QUAL (test NEGATIVE NEGATIVE This HC GQL test is NOT code = HCGQL) applicable for MALE patients.Check with nurse about probable order error.If Tumor Marker Test needed, nu rse should order test "HCG TU"(Test #550.33461)---- - [id number] 23:00:00 Test Item Value Reference Range Interpretation Comments TROPONIN-I (test code = TROPI) <0.015 ng/mL 0-0.045 N PROTHROMBIN [id number] 22:44:00 Test Item Value Reference Range Interpretation Comments PROTHROMBIN TIME 12.8 seconds 9.0-14.0 N PATIENT (test code = PTP) INTERNATIONAL NORMAL 1.1 0.8-1.2 N The the rapeutic range RATIO (test code = for oral INR) anticoagulant t herapy formost indicat ions is an internati onal normalized rati o (INR)of between 2.0 and 3.0. The recommended therapeutic INR range for various cli nical situations is l isted below: Clinical Situat ion INR range Pulmonary embol ism treatment (2.0-3.0)Venou s thrombosis treatmentVenous thrombosis prophylaxis (hi gh risk surgery)Prevent ion of systemic emboli sm from: A cute myocardial infa rction Valvula r heart disease Atrial fibrilla tion Mechanical pros thetic heart valves (2.5-3.5) IS PATIENT ON ANTICOAGULANTS? NTHROMBOPLASTIN TIME [id number] 22:44:00 Test Item Value Reference Range Interpretation Comments THROMBOPLASTIN TIME PARTIAL 34.5 seconds 25.0-36.5 N (test code = PTT) IS PATIENT ON ANTICOAGULANTS? NBASIC METABOLIC [id number] 22:40:00 Test Item Value Reference Range Interpretation Comments SODIUM (test code = NA) mmol/L 136-145 POTASSIUM (test code = K) mmol/L 3.5-5.1 CHLORIDE (test code = CL) mmol/L 98-107 CARBON DIOXIDE (test code = CO2) mmol/L 21-32 ANION GAP (test code = GAP) 10-20 GLUCOSE (test code = GLU) mg/dL 74-106 BLOOD UREA NITROGEN (test code = BUN) mg/dL 7-18 GLOMERULAR FILTRATION RATE (test code mL/min >=60 = GFR) CREATININE (test code = CREAT) mg/dL 0.55-1.02 BUN/CREATININE RATIO (test code = 10-20 BUN/CREA) CALCIUM (test code = CA) mg/dL 8.5-10.1 HEPATIC FUNCTION [id number] 22:40:00 Test Item Value Reference Range Interpretation Comments TOTAL PROTEIN (test code = PROT) gram/dL 6.4-8.2 ALBUMIN (test code = ALB) g/dL 3.4-5.0 GLOBULIN (test code = GLOB) gram/dL 2.7-4.2 ALBUMIN/GLOBULIN RATIO (test code = 0.75-1.50 A/G) BILIRUBIN TOTAL (test code = BILT) mg/dL 0.0-1.0 BILIRUBIN DIRECT (test code = BILD) mg/dL 0.0-0.20 SGOT/AST (test code = AST) IUnit/L 15-37 SGPT/ALT (test code = ALT) IUnit/L 12-78 ALKALINE PHOSPHATASE TOTAL (test IUnit/L 45-117 code = ALKP) [id number] 22:40:00 Test Item Value Reference Range Interpretation Comments LIPASE (test code = LIP) U/L 73.0-393.0 HCG SERUM [id number] 22:40:00 Test Item Value Reference Range Interpretation Comments HCG SERUM QUAL (test NEGATIVE NEGATIVE This HC GQL test is NOT code = HCGQL) applicable for MALE patients.Check with nurse about probable order error.If Tumor Marker Test needed, nu rse should order test "HCG TU"(Test #550.59160)---- - [id number] 22:40:00 Test Item Value Reference Range Interpretation Comments TROPONIN-I (test code = TROPI) ng/mL 0-0.045 CBC W/O [id number] 22:36:00 Test Item Value Reference Range Interpretation Comments WHITE BLOOD CELL (test code = 10.5 K/mm3 4.5-12.5 N WBC) RED BLOOD CELL (test code = 5.01 mill/mm3 3.7-5.2 N RBC) HEMOGLOBIN (test code = HGB) 14.7 gram/dL 11.5-15.5 N HEMATOCRIT (test code = HCT) 44.0 % 36.0-46.0 N MEAN CELL VOLUME (test code = 87.8 fL 80-98 N MCV) MEAN CELL HGB (test code = MCH) 29.3 picogram 27.0-33.0 N MEAN CELL HGB CONCETRATION 33.4 gram/dL 33.0-36.0 N (test code = MCHC) RED CELL DISTRIBUTION WIDTH 12.6 % 11.6-16.2 N (test code = RDW) PLATELET COUNT (test code = 299 K/mm3 150-450 N PLT) MEAN PLATELET VOLUME (test code 9.7 fL 6.7-11.0 N = MPV) CBC W/O [id number] 22:34:00 Test Item Value Reference Range Interpretation Comments WHITE BLOOD CELL (test code = K/mm3 4.5-12.5 WBC) RED BLOOD CELL (test code = RBC) mill/mm3 3.7-5.2 HEMOGLOBIN (test code = HGB) 14.7 gram/dL 11.5-15.5 N HEMATOCRIT (test code = HCT) 44.0 % 36.0-46.0 N MEAN CELL VOLUME (test code = fL 80-98 MCV) MEAN CELL HGB (test code = MCH) picogram 27.0-33.0 MEAN CELL HGB CONCETRATION (test gram/dL 33.0-36.0 code = MCHC) RED CELL DISTRIBUTION WIDTH % 11.6-16.2 (test code = RDW) PLATELET COUNT (test code = PLT) K/mm3 150-450 MEAN PLATELET VOLUME (test code fL 6.7-11.0 = MPV) [id number] 14:35:0012.9[facility] CajizbyJMPIZDUFJN9407-95-14 14:35:00 38.6[facility] PmodofaCTDFPMALKM9913-55-55 14:35:0087.0[facility]annHEMATOLOGY 2019-05-31 14:35:00 Test Item Value Reference Range Interpretation Comments MCH (test code = MCH) 29.1 pg 27.0-31.0 [id number] 14:35:0033.5[facility]annHEMATOLOGY 2019-05-31 14:35:0013.4[facility] LrnjcttCCIFCUVDCG8228-58-74 14:35:44841Yjjnmnni JuljwdhZWZLXBOEYF3346-66-74 14:35:007.7[facility] ZezqpajGLUJLIZKTE1365-76-21 14:35:00 Test Item Value Reference Range Interpretation Comments PT (test code = PT) 13.6 s 12.0-14.7 [facility] Hospit[id number] 14:35:00 Test Item Value Reference Range Interpretation Comments INR (test code = INR) 1.04 1 0.85-1.17 [facility] HospitalMtewfqqBBFQCQMYZW5384-03-15 14:35:00 Test Item Value Reference Range Interpretation Comments PTT (test code = PTT) 27.8 s 22.9-35.8 [facility] HospitalMflsfpvUVUHWOPQQB4080-65-19 14:35:0058.8[facility]annHEMATOLOGY 2019-05-31 14:35:0033.1[facility] NhbxzqqFOPCZYWEAX5619-43-62 14:35:006.7[facility] DvgkxsmKZNCCWHXPL2582-20-68 14:35:001.1[facility] TiwfzknPGFZBWYPXQ7003-29-85 14:35:000.3[facility] YpxhkpwSHILRKFDPK6877-76-16 14:35:003.6[facility] SWNCYLGGMU0292-40-64 14:35:002.0[facility] OhtkjuoQQDTSGACWF6104-61-29 14:35:000.4 [facility] KqjgvfcDZNVYNETLG9645-61-70 14:35:000.1[facility]annCHEM PANEL 2019-05-31 14:35:0096[facility]annCHEM [id number] 14:35:0016[facility]annCHEM APNFL7562-15-06 14:35:000.69[facility]annCHEM HPRRS0423-18-26 14:35:86476Mzrfvdxo HermannCHEM ZPBQE2052-74-43 14:35:004.2[facility]annCHE[facility] RKCVP7588-63-85 14:35:32844Olmrhxnt HermannCHEM TJUOL9038-77-74 14:35:0028 [facility]annCHE[facility] PBYPK4660-02-96 14:35:008.3[facility]annCHEM PANEL 2019-05-31 14:35:007.2[facility]annCHEM THQSK5667-69-15 14:35:80363Xkwckevo HermannCHEM NODUU7351-92-46 14:35:006.3[facility]annCHE[facility] TJMOB4124-60-03 14:35:003.2[facility]annCHE[facility] DNDES6918-29-22 14:35:0015[facility]annCHE[facility] XCKQW0130-27-55 14:35:007[facility]annCHE[facility] JKAYJ3044-51-61 14:35:0054[facility]annCHE[facility] HAVIF6329-80-74 14:35:000.4[facility]annCHE[facility] XXJDP3082-85-62 14:35:000.1[facility]annCHE[facility] NSQLJ8410-23-53 14:35:003.1[facility]annCHE[facility] MKWFR0110-63-51 14:35:00 Test Item Value Reference Range Interpretation Comments A/G Ratio (test code = A/G Ratio) 1.0 1 0.7-1.6 [facility]annCHE[facility] [id number] 14:35:000.3[facility]annHEMATOLOGY 2019-05-31 14:35:006.1[facility] DjtqlvmHFOOEELISQ1561-60-50 14:35:004.44[facility]annCHEM MCRLO6635-56-91 01:51:16964Rpvrwskq HermannCHEM SMUAW4537-44-32 01:51:0017[facility]annCHEM UNZPC3577-11-83 01:51:000.70[facility]annCHEM VIGLO1026-64-31 01:51:05759Zacpkkzj HermannCHEM APQGV2716-45-75 01:51:004.1 [facility]annCHE[facility] HPNWZ4410-47-36 01:51:90319Xuztmeey HermannCHEM PANEL 2019-05-31 01:51:0028[facility]annCHEM EEVEF6230-83-70 01:51:009.3[facility]annCHE[facility] TWIOO1702-77-23 01:51:007.7[facility]annCHEM RBQXU2795-63-70 01:51:003.9[facility]annCHEM PHBLX5127-19-37 01:51:0017[facility]annCHEM UFIZH0319-71-90 01:51:0011[facility]annCHEM BRISC7479-12-86 01:51:0064 [facility]annCHE[facility] KKRQL9041-45-31 01:51:000.5[facility]annCHEM PANEL 2019-05-31 01:51:008.1[facility]annCHEM VKAFC8175-27-10 01:51:00 Test Item Value Reference Range Interpretation Comments B/C Ratio (test code = B/C Ratio) 24 1 6-25 [facility]annCHE[facility] QWBCM5988-70-13 01:51:003.8[facility]annCHEM PANEL 2019-05-31 01:51:00 Test Item Value Reference Range Interpretation Comments A/G Ratio (test code = A/G Ratio) 1.0 1 0.7-1.6 [facility]annCHEM INSQC7496-84-29 01:51:64111Mikhdhvm HermannCHEM PANEL 2019-05-31 01:51:95561Kcgdbdna PwmmifkECAEFEUMHFDNC2026-31-15 01:51:00Negative *NA*(05/30/19 7:51 PM)[facility] MchfinhMOTMZETSQE9406-17-38 01:51:007.9[facility] RmfkcvyWYQXAGJFSO5473-98-53 01:51:004.88[facility] CaithneEXTNZFOCUC3606-30-65 01:51:0014.1[facility] KsmvgtoKRIAHBEDHR9427-37-08 01:51:0042.2[facility] OJSANLSOHK8580-62-52 01:51:0086.6[facility] RpatutqWJYPKIURRC4434-38-44 01:51:00 Test Item Value Reference Range Interpretation Comments MCH (test code = MCH) 29.0 pg 27.0-31.0 [facility] ZwjrqmpTBDHKNTJWC6523-15-28 01:51:0033.5[facility]annHEMATOLOGY 2019-05-31 01:51:0013.0[facility] RssljssZIVLRWCSXP9774-91-17 01:51:96584Jfnrmnhv TruuagvPFFVQIINVP4671-30-84 01:51:007.6[facility] KcbhcneQBALSHWERB9793-26-88 01:51:0061.5[facility] YivaejsXTIYKOCOAQ1970-07-10 01:51:0032.4[facility] TIVYHLPLLR0716-65-87 01:51:004.8[facility] BiahkenWQVDDAVSNI4804-92-80 01:51:001.0 [facility] VjemzmpHVRLDVJQHU2612-46-58 01:51:000.3[facility]annHEMATOLOGY 2019-05-31 01:51:004.8[facility] HmeusrcOGOVHHKGFZ1216-08-46 01:51:002.5[facility] ZyqizljQPQFUXNWDU7367-53-45 01:51:000.4[facility] FhjvfipYORJIKSURE7279-62-79 01:51:000.1[facility]annURINE AND OZGQJ2968-06-37 01:51:00Clear (05/30/19 7:51 PM)[facility] AND NBOXI8981-11-57 01:51:00 Test Item Value Reference Range Interpretation Comments UA Spec Grav (test code = UA Spec 1.008 1 Grav) [facility] [id number] 01:51:00 Test Item Value Reference Range Interpretation Comments UA pH (test code = UA pH) 7.0 1 5.0-8.0 [facility] DLTMX6405-45-27 01:51:00Negative *NA*(05/30/19 7:51 PM) [facility] LVSOT7591-18-38 01:51:00Small *ABN*(05/30/19 7:51 PM) [facility] NLANC9621-51-59 01:51:00Negative (05/30/19 7:51 PM) [facility] FWLLC3534-93-11 01:51:00Small *ABN*(05/30/19 7:51 PM) [facility] THANF1206-02-80 01:51:001[facility] HUEJZ5717-24-50 01:51:001[facility]annURINALYSIS IPWPQTWJ6455-60-98 21:44:00 Test Item Value Reference Range Interpretation Comments UA COLOR (test code = YELLOW YELLOW COLU) UA APPEARANCE (test code CLEAR CLEAR = APPU) UA GLUCOSE DIPSTICK (test NEGATIVE mg/dL NEGATIVE code = DGLUU) UA BILIRUBIN DIPSTICK NEGATIVE mg/dL NEGATIVE (test code = BILU) UA KETONE DIPSTICK (test 20 (1+) mg/dL NEGATIVE A code = KETU) UA SPECIFIC GRAVITY (test 1.033 1.001-1.035 code = SGU) UA BLOOD DIPSTICK (test 0.1 mg/dL (1+) mg/dL NEGATIVE A code = KRISTIE) UA PH DIPSTICK (test code 5.5 5.0-8.0 = SHANNAN) UA PROTEIN DIPSTICK (test 10 (Trace) mg/dL NEGATIVE A code = PROU) UA UROBILINIOGEN DIPSTICK Normal mg/dL NEGATIVE (test code = URO) UA NITRITE DIPSTICK (test NEGATIVE NEGATIVE code = TACO) UA LEUKOCYTE ESTERASE W 75 Malvin/uL (1+) NEGATIVE A REFLEX (test code = Malvin/uL LEUUR) UA WBC (test code = WBCU) 0-5 per HPF 0-5 UA RBC (test code = RBCU) 3-5 #/HPF 0-5 UA EPITHELIAL CELLS (test FEW per HPF FEW code = EPIU) UA BACTERIA (test code = FEW #/HPF NONE A BACU) UA MUCUS (test code = FEW #/LPF FEW MUCU) Urine Source? Clean CatchURINALYSIS [id number] 21:39:00 Test Item Value Reference Range Interpretation Comments UA COLOR (test code = YELLOW YELLOW COLU) UA APPEARANCE (test code CLEAR CLEAR = APPU) UA GLUCOSE DIPSTICK (test NEGATIVE mg/dL NEGATIVE code = DGLUU) UA BILIRUBIN DIPSTICK NEGATIVE mg/dL NEGATIVE (test code = BILU) UA KETONE DIPSTICK (test 20 (1+) mg/dL NEGATIVE A code = KETU) UA SPECIFIC GRAVITY (test 1.033 1.001-1.035 code = SGU) UA BLOOD DIPSTICK (test 0.1 mg/dL (1+) mg/dL NEGATIVE A code = KRISTIE) UA PH DIPSTICK (test code 5.5 5.0-8.0 = SHANNAN) UA PROTEIN DIPSTICK (test 10 (Trace) mg/dL NEGATIVE A code = PROU) UA UROBILINIOGEN DIPSTICK Normal mg/dL NEGATIVE (test code = URO) UA NITRITE DIPSTICK (test NEGATIVE NEGATIVE code = TACO) UA LEUKOCYTE ESTERASE W 75 Malvin/uL (1+) NEGATIVE A REFLEX (test code = Malvin/uL LEUUR) UA WBC (test code = WBCU) per HPF 0-5 UA RBC (test code = RBCU) per HPF 0-5 UA EPITHELIAL CELLS (test per HPF Few code = EPIU) UA BACTERIA (test code = per HPF NONE BACU) Urine Source? Clean Catch- XR CHEST 1 [id number] 20:59:00 FAX: RITESH ELMORE NP [place]: B St: REG Name: SHANKAR ARROYO [facility] : 1980 Age/S: 39/F [address] [facility] Unit#: [id number] Loc: [place] [address] Phys: RITESH ELMORE NP Acct: [id number] Dis Date: Status: REG ER PHONE #: [phone] Exam Date: 03/25/20191940 FAX #: [phone] Reason: Abdominal Pain EXAMS: CPT CODE: [id number] XR CHEST 1 V 96921 EXAM: Chest X-ray, 1 view; CLINICAL HISTORY: Abdominal pain; FINDINGS: The lungs are clear, no infiltrates, no edema; no effusions; no pneumothorax; normal cardiomediastinal silhouette. IMPRESSION: Normal chest x-ray. Location code: [facility] at 2058 Reported and signed by: Fito Shah M.D. CC: RITESH ELMORE NP Technologist: Ayde Jason) Trnscrd Date/Time/By: 03/25/2019 (2058) : By: KaleGRW Orig Print D/T: S: 03/25/2019 (2101) PAGE 1 Signed ReportBASIC METABOLIC [id number] 20:49:00 Test Item Value Reference Range Interpretation Comments SODIUM (test code = 140 mmol/L 136-145 N NA) POTASSIUM (test code 3.8 mmol/L 3.5-5.1 N = K) CHLORIDE (test code = 107.0 mmol/L 98-107 N CL) CARBON DIOXIDE (test 26.0 mmol/L 21-32 N code = CO2) ANION GAP (test code 10.8 10-20 N = GAP) GLUCOSE (test code = 99 mg/dL 74-106 N GLU) BLOOD UREA NITROGEN 15 mg/dL 7-18 N (test code = BUN) GLOMERULAR FILTRATION > 60 mL/min >=60 Estima dar GFR by RATE (test code = using Nayeli fied MDRD GFR) formula.Chronic kidney disease is defined as ei er kidney damageor GFR <60 mL/min/1.73 m2 for >3 months. CREATININE (test code 0.70 mg/dL 0.55-1.02 N Note change in = CREAT) reference range due to change in reagent. BUN/CREATININE RATIO 21.6 10-20 H (test code = BUN/CREA) CALCIUM (test code = 8.7 mg/dL 8.5-10.1 N CA) HEPATIC FUNCTION [id number] 20:49:00 Test Item Value Reference Range Interpretation Comments TOTAL PROTEIN (test 7.5 gram/dL 6.4-8.2 N code = PROT) ALBUMIN (test code = 3.8 g/dL 3.4-5.0 N ALB) GLOBULIN (test code = 3.7 gram/dL 2.7-4.2 N GLOB) ALBUMIN/GLOBULIN RATIO 1.0 0.75-1.50 N (test code = A/G) BILIRUBIN TOTAL (test 0.40 mg/dL 0.0-1.0 N code = BILT) BILIRUBIN DIRECT (test 0.11 mg/dL 0.0-0.20 N code = BILD) SGOT/AST (test code = 7 IUnit/L 15-37 L AST) SGPT/ALT (test code = 14 IUnit/L 12-78 N ALT) ALKALINE PHOSPHATASE 55 IUnit/L 45-117 N Note change in TOTAL (test code = reference range due ALKP) to change in reagent. [id number] 20:49:00 Test Item Value Reference Range Interpretation Comments LIPASE (test code = LIP) 99 U/L 73.0-393.0 N HCG SERUM [id number] 20:49:00 Test Item Value Reference Range Interpretation Comments HCG SERUM QUAL (test NEGATIVE NEGATIVE This HC GQL test is NOT code = HCGQL) applicable for MALE patients.Check with nurse about probable order error.If Tumor Marker Test needed, nu rse should order test "HCG TU"(Test #550.15578)---- - - ABDOMEN [id number] 20:45:00 Name: SHANKAR ARROYO [facility] : 1980 Age/S: 39 / F [address] [facility] Unit #: [id number] Loc: [place] [address] Phys: RITESH ELMORE NP Acct: [id number] Dis Date: Status: REG ER PHONE #: [phone] Exam Date: 03/25/20191943 FAX #: [phone] Reason: Abdominal Pain EXAMS: CPT CODE: [id number] US ABDOMEN LTD 34662 EXAM: Ultrasound of the abdomen, limited; INFORMATION: Abdominal pain; FINDINGS: The liver is of normal size and shape and shows homogeneous echotexture without focal lesions; the gallbladder is of normal diameter and wall thickness; no evidence of gallstones; no dilatation of intra or extrahepatic bile ducts. Pancreatic head and body show no abnormalities; the right kidney is of normal size and shape. It measures 11 x 4.2 x 4.9 cm; Imaged portions of the abdominal aorta and IVC are unremarkable. IMPRESSION: Normal ultrasound of the right upper quadrant; Location code: [facility] at 2044 Reported and signed by: Fito Shah M.D. CC: RITESH ELMORE NP Technologist: Ambreen Landeros RDMS Trnscb Date/Time: 03/25/2019 (2044) Michela Orig Print D/T: S: 03/25/2019 (2047) Probe: PAGE 1 Signed ReportCBC W/O [id number] 20:39:00 Test Item Value Reference Range Interpretation Comments WHITE BLOOD CELL (test code = 10.3 K/mm3 4.5-12.5 N WBC) RED BLOOD CELL (test code = 4.49 mill/mm3 3.7-5.2 N RBC) HEMOGLOBIN (test code = HGB) 13.2 gram/dL 11.5-15.5 N HEMATOCRIT (test code = HCT) 38.8 % 36.0-46.0 N MEAN CELL VOLUME (test code = 86.4 fL 80-98 N MCV) MEAN CELL HGB (test code = MCH) 29.4 picogram 27.0-33.0 N MEAN CELL HGB CONCETRATION 34.0 gram/dL 33.0-36.0 N (test code = MCHC) RED CELL DISTRIBUTION WIDTH 13.1 % 11.6-16.2 N (test code = RDW) PLATELET COUNT (test code = 270 K/mm3 150-450 N PLT) MEAN PLATELET VOLUME (test code 9.8 fL 6.7-11.0 N = MPV) BASIC METABOLIC [id number] 20:37:00 Test Item Value Reference Range Interpretation Comments SODIUM (test code = NA) mmol/L 136-145 POTASSIUM (test code = K) mmol/L 3.5-5.1 CHLORIDE (test code = CL) mmol/L 98-107 CARBON DIOXIDE (test code = CO2) mmol/L 21-32 ANION GAP (test code = GAP) 10-20 GLUCOSE (test code = GLU) mg/dL 74-106 BLOOD UREA NITROGEN (test code = BUN) mg/dL 7-18 GLOMERULAR FILTRATION RATE (test code mL/min >=60 = GFR) CREATININE (test code = CREAT) mg/dL 0.55-1.02 BUN/CREATININE RATIO (test code = 10-20 BUN/CREA) CALCIUM (test code = CA) mg/dL 8.5-10.1 HEPATIC FUNCTION [id number] 20:37:00 Test Item Value Reference Range Interpretation Comments TOTAL PROTEIN (test code = PROT) gram/dL 6.4-8.2 ALBUMIN (test code = ALB) g/dL 3.4-5.0 GLOBULIN (test code = GLOB) gram/dL 2.7-4.2 ALBUMIN/GLOBULIN RATIO (test code = 0.75-1.50 A/G) BILIRUBIN TOTAL (test code = BILT) mg/dL 0.0-1.0 BILIRUBIN DIRECT (test code = BILD) mg/dL 0.0-0.20 SGOT/AST (test code = AST) IUnit/L 15-37 SGPT/ALT (test code = ALT) IUnit/L 12-78 ALKALINE PHOSPHATASE TOTAL (test IUnit/L 45-117 code = ALKP) [id number] 20:37:00 Test Item Value Reference Range Interpretation Comments LIPASE (test code = LIP) U/L 73.0-393.0 HCG SERUM [id number] 20:37:00 Test Item Value Reference Range Interpretation Comments HCG SERUM QUAL (test NEGATIVE NEGATIVE This HC GQL test is NOT code = HCGQL) applicable for MALE patients.Check with nurse about probable order error.If Tumor Marker Test needed, nu rse should order test "HCG TU"(Test #550.83413)---- - BASIC METABOLIC [id number] 20:37:00 Test Item Value Reference Range Interpretation Comments SODIUM (test code = NA) 140 mmol/L 136-145 N POTASSIUM (test code = K) 3.8 mmol/L 3.5-5.1 N CHLORIDE (test code = CL) 107.0 mmol/L 98-107 N CARBON DIOXIDE (test code = CO2) mmol/L 21-32 ANION GAP (test code = GAP) 10-20 GLUCOSE (test code = GLU) mg/dL 74-106 BLOOD UREA NITROGEN (test code = mg/dL 7-18 BUN) GLOMERULAR FILTRATION RATE (test mL/min >=60 code = GFR) CREATININE (test code = CREAT) mg/dL 0.55-1.02 BUN/CREATININE RATIO (test code 10-20 = BUN/CREA) CALCIUM (test code = CA) mg/dL 8.5-10.1 HEPATIC FUNCTION [id number] 20:37:00 Test Item Value Reference Range Interpretation Comments TOTAL PROTEIN (test code = PROT) gram/dL 6.4-8.2 ALBUMIN (test code = ALB) g/dL 3.4-5.0 GLOBULIN (test code = GLOB) gram/dL 2.7-4.2 ALBUMIN/GLOBULIN RATIO (test code = 0.75-1.50 A/G) BILIRUBIN TOTAL (test code = BILT) mg/dL 0.0-1.0 BILIRUBIN DIRECT (test code = BILD) mg/dL 0.0-0.20 SGOT/AST (test code = AST) IUnit/L 15-37 SGPT/ALT (test code = ALT) IUnit/L 12-78 ALKALINE PHOSPHATASE TOTAL (test IUnit/L 45-117 code = ALKP) [id number] 20:37:00 Test Item Value Reference Range Interpretation Comments LIPASE (test code = LIP) U/L 73.0-393.0 HCG SERUM [id number] 20:37:00 Test Item Value Reference Range Interpretation Comments HCG SERUM QUAL (test NEGATIVE NEGATIVE This HC GQL test is NOT code = HCGQL) applicable for MALE patients.Check with nurse about probable order error.If Tumor Marker Test needed, nu rse should order test "HCG TU"(Test #550.31707)---- - CBC W/O [id number] 20:35:00 Test Item Value Reference Range Interpretation Comments WHITE BLOOD CELL (test code = K/mm3 4.5-12.5 WBC) RED BLOOD CELL (test code = RBC) mill/mm3 3.7-5.2 HEMOGLOBIN (test code = HGB) 13.2 gram/dL 11.5-15.5 N HEMATOCRIT (test code = HCT) 38.8 % 36.0-46.0 N MEAN CELL VOLUME (test code = fL 80-98 MCV) MEAN CELL HGB (test code = MCH) picogram 27.0-33.0 MEAN CELL HGB CONCETRATION (test gram/dL 33.0-36.0 code = MCHC) RED CELL DISTRIBUTION WIDTH % 11.6-16.2 (test code = RDW) PLATELET COUNT (test code = PLT) K/mm3 150-450 MEAN PLATELET VOLUME (test code fL 6.7-11.0 = MPV) - CT ABD PELVIS W/O [id number] 18:38:00 Name: SHANKAR ARROYO [facility] : 1980 Age/S: 38 / F [address] [facility] Unit #: [id number] Loc: JAIRO Gross [address] Phys: Marianna Baeza DO Acct: [id number] Dis Date: Status: REG ER PHONE #: [phone] Exam Date: 11/23/2018 2620 FAX #: [phone] Reason: FLANK PAIN EXAMS: CPTCODE: [id number] CT ABD PELVIS W/O CONT [id number] REASON FOR EXAM: FLANK PAIN EXAM ORDER DATE: 11/23/2018 4:31 PM Ordering Quentin: DO Stevan PROCEDURE: - CT ABD PELVIS W/O CONT noncontrast axial CT images were acquired through the abdomen/pelvis at 5 mm intervals. Sagittal and coronal reformatted images were generated. Automated exposure control was utilized for this reduction.Phases of contrast: None COMPARISON: CT of the abdomen and pelvis December 31, 2016 FINDINGS: The absence of IV contrast limits sensitivity of this exam for the detection of soft tissue pathology Visualized thorax: Normal Hepatobiliary system: Normal Pancreas: Normal Spleen: Normal Adrenal glands: Normal Genitourinary system: Tiny hyperdensities measuring less than 2 mm in size are seen in both kidneys (2/42 left kidney and 2/50 right kidney). No stones in the ureters. No hydronephrosis or hydroureter and no perinephric or periureteral fat stranding. Gastrointestinal tract and appendix: Normal Abdominal vascular structures: Normal Peritoneum and retroperitoneum: No free fluid or free air. No omental or mesenteric masses. No abnormal lymph nodes. Musculoskeletal structures and abdominalwall: Normal IMPRESSION: PAGE 1 Signed Report (CONTINUED) Name: SHANKAR ARROYO [facility] :1980 Age/S: 38 / F [address] [facility] Unit #: [id number] [place]: [place] [address] Phys: Marianna Baeza DO Acct: [id number] Dis Date: Status: REG ER PHONE #: [phone] Exam Date: 11/23/2018 1759 FAX #: [phone] Reason: FLANK PAIN EXAMS: CPT CODE: [id number] CT ABD PELVIS W/O CONT 99682 <Continued> Punctate nonobstructing renal stones bilaterally. Electronic ally Signed by Devendra Rose MD on 11/23/2018 at 1838 Reported and signed by: Devendra Rose MD CC: Marianna Baeza DO Technologist:Ivonne Call RT(R) CTDI: DLP: Trnscb Date/Time: 11/23/2018 (183) [email or web address] Orig Print D/T: S: 11/23/2018 (9217) PAGE 2 Sig olivia ReportURINALYSIS [id number] 18:19:00 Test Item Value Reference Range Interpretation Comments UA COLOR (test code = COLU) COLORLESS YELLOW A UA APPEARANCE (test code = SLIGHT CLOUDY CLEAR A APPU) UA GLUCOSE DIPSTICK (test NEGATIVE mg/dL NEGATIVE code = DGLUU) UA BILIRUBIN DIPSTICK (test NEGATIVE mg/dL NEGATIVE code = BILU) UA KETONE DIPSTICK (test code TRACE mg/dL NEGATIVE A = KETU) UA SPECIFIC GRAVITY (test 1.005 1.001-1.035 code = SGU) UA BLOOD DIPSTICK (test code Negative mg/dL NEGATIVE = KRISTIE) UA PH DIPSTICK (test code = 6.0 5.0-8.0 SHANNAN) UA PROTEIN DIPSTICK (test NEGATIVE mg/dL NEGATIVE code = PROU) UA UROBILINIOGEN DIPSTICK Normal mg/dL NEGATIVE (test code = URO) UA NITRITE DIPSTICK (test NEGATIVE NEGATIVE code = TACO) UA LEUKOCYTE ESTERASE W NEGATIVE Malvin/uL NEGATIVE REFLEX (test code = LEUUR) UA WBC (test code = WBCU) 0-5 per HPF 0-5 UA RBC (test code = RBCU) 0-2 #/HPF 0-5 UA EPITHELIAL CELLS (test MOD per HPF FEW code = EPIU) UA BACTERIA (test code = FEW #/HPF NONE A BACU) Urine Source? Clean CatchHCG SERUM [id number] 17:17:00 Test Item Value Reference Range Interpretation Comments HCG SERUM QUAL (test NEGATIVE NEGATIVE This HC GQL test is NOT code = HCGQL) applicable for MALE patients.Check with nurse about probable order error.If Tumor Marker Test needed, nu rse should order test "HCG TU"(Test #[id number])---- - BASIC METABOLIC [id number] 15:54:00 Test Item Value Reference Range Interpretation Comments SODIUM (test code = 136 mmol/L 136-145 N NA) POTASSIUM (test code 3.9 mmol/L 3.5-5.1 N = K) CHLORIDE (test code = 103.0 mmol/L 98-107 N CL) CARBON DIOXIDE (test 26.0 mmol/L 21-32 N code = CO2) ANION GAP (test code 10.9 10-20 N = GAP) GLUCOSE (test code = 150 mg/dL 74-106 H GLU) BLOOD UREA NITROGEN 14 mg/dL 7-18 N (test code = BUN) GLOMERULAR FILTRATION > 60 mL/min >=60 Estima dar GFR by RATE (test code = using Nayeli fied MDRD GFR) formula.Chronic kidney disease is defined as [facility] er kidney damageor GFR <60 mL/min/1.73 m2 for >3 months. CREATININE (test code 0.80 mg/dL 0.55-1.02 N Note change in = CREAT) reference range due to change in reagent. BUN/CREATININE RATIO 17.0 10-20 N (test code = BUN/CREA) CALCIUM (test code = 8.9 mg/dL 8.5-10.1 N CA) [id number] 15:54:00 Test Item Value Reference Range Interpretation Comments TROPONIN-I (test code = TROPI) <0.015 ng/mL 0-0.045 N - XR CHEST 1 [id number] 15:52:00 FAX: Marianna Baeza DO [place]: B St: REG Name: SHANKAR ARROYO [facility] : 1980 Age/S: 38/F [address] [facility] Unit#: [id number] Loc: [place] [address] Phys: Marianna Baeza DO Acct: [id number] Dis Date: Status: REG ER PHONE #: [phone] Exam Date: 11/23/2018 5314 FAX #: [phone] Reason: CHEST PAIN EXAMS: CPT CODE: [id number] XR CHEST 1 V 19640 REASON FOR EXAM: CHEST PAIN Exam Order Date: 11/23/2018 3:23 PM Ordering MDiamond: Marianna Baeza DO PROCEDURE: - XR CHEST 1 V COMPARISON: 2 view chest x-ray March 27, 2018 FINDINGS: The lungs are clear. There is no pleural effusion or pneumothorax. Pulmonary vascularityis within normal limits. Cardiomediastinal silhouette is normal in size for technique.The mediastinal contours are within normal limits. Musculoskeletal structures are within normal limits. The visualized upper abdomen is within normal limits. IMPRESSION: No acute cardiopulmonary process. at 1552 Reported and signed by: Devendra Rose MD CC: Marianna Baeza DO Technologist: FRANCISCO JAVIER ADAM; STUDENT TECHNOLOGIST Trnscrd Date/Time/By: 11/23/2018 (1043) : By: [email or web address] Orig Print D/T: S: 11/23/2018 (3629) PAGE 1 Signed ReportBASIC METABOLIC [id number] 15:45:00 Test Item Value Reference Range Interpretation Comments SODIUM (test code = NA) 136 mmol/L 136-145 N POTASSIUM (test code = K) 3.9 mmol/L 3.5-5.1 N CHLORIDE (test code = CL) 103.0 mmol/L 98-107 N CARBON DIOXIDE (test code = CO2) mmol/L 21-32 ANION GAP (test code = GAP) 10-20 GLUCOSE (test code = GLU) mg/dL 74-106 BLOOD UREA NITROGEN (test code = mg/dL 7-18 BUN) GLOMERULAR FILTRATION RATE (test mL/min >=60 code = GFR) CREATININE (test code = CREAT) mg/dL 0.55-1.02 BUN/CREATININE RATIO (test code 10-20 = BUN/CREA) CALCIUM (test code = CA) mg/dL 8.5-10.1 [id number] 15:45:00 Test Item Value Reference Range Interpretation Comments TROPONIN-I (test code = TROPI) ng/mL 0-0.045 CBC W/O [id number] 15:37:00 Test Item Value Reference Range Interpretation Comments WHITE BLOOD CELL (test code = 9.1 K/mm3 4.5-12.5 N WBC) RED BLOOD CELL (test code = 4.48 mill/mm3 3.7-5.2 N RBC) HEMOGLOBIN (test code = HGB) 12.9 gram/dL 11.5-15.5 N HEMATOCRIT (test code = HCT) 39.9 % 36.0-46.0 N MEAN CELL VOLUME (test code = 89.1 fL 80-98 N MCV) MEAN CELL HGB (test code = MCH) 28.8 picogram 27.0-33.0 N MEAN CELL HGB CONCETRATION 32.3 gram/dL 33.0-36.0 L (test code = MCHC) RED CELL DISTRIBUTION WIDTH 13.5 % 11.6-16.2 N (test code = RDW) PLATELET COUNT (test code = 259 K/mm3 150-450 N PLT) MEAN PLATELET VOLUME (test code 9.5 fL 6.7-11.0 N = MPV) CBC W/O [id number] 15:34:00 Test Item Value Reference Range Interpretation Comments WHITE BLOOD CELL (test code = K/mm3 4.5-12.5 WBC) RED BLOOD CELL (test code = RBC) mill/mm3 3.7-5.2 HEMOGLOBIN (test code = HGB) 12.9 gram/dL 11.5-15.5 N HEMATOCRIT (test code = HCT) 39.9 % 36.0-46.0 N MEAN CELL VOLUME (test code = fL 80-98 MCV) MEAN CELL HGB (test code = MCH) picogram 27.0-33.0 MEAN CELL HGB CONCETRATION (test gram/dL 33.0-36.0 code = MCHC) RED CELL DISTRIBUTION WIDTH % 11.6-16.2 (test code = RDW) PLATELET COUNT (test code = PLT) K/mm3 150-450 MEAN PLATELET VOLUME (test code fL 6.7-11.0 = MPV) CARDIAC [id number] 06:50:000.9[facility]ann[facility]ARD[facility]AC DDHKWJA5799-51-10 06:50:0011[facility]annCARDIAC FTDFZCD6596-13-17 06:50:00<0.02[facility]annCARD[facility]AC IDHYVWS0032-19-70 06:50:0065[facility]annCARD[facility]AC ENZYMES 2015-02-09 06:50:000.6[facility] MtxcfpjLYGWYBRNUASX2957-14-72 06:50:003.8[facility] GezfnbfOOIIKZBUADEH7680-21-87 06:50:56512Otblyamr JrxubfoOSOETYGKYSJP3303-62-69 06:50:92565Srzpgtzi OxgbznsHVFJFHATGFYV5313-44-50 06:50:0083[facility] JSKGEAEGFMEC4919-22-22 06:50:000.9[facility] QbwwaxmRDZTARHDDFUA9971-42-00 06:50:003.4[facility] EbymgpdHILCMDAPFNTS3789-96-17 06:50:003.7[facility] QRGBOGLSZJIT4703-74-43 06:50:007[facility] GgsrurpOCYKPZDHDUNA5546-99-03 06:50:00 21[facility] MwpzoqyNEKZPZKBWQSW8013-62-62 06:50:008.8[facility] HermannELECTROLYTES 2015-02-09 06:50:0012[facility] RybnqvvZMRLTATTMOUX8673-67-58 06:50:007.1[facility] SskptjnJGPRJMDECVYE7345-97-84 06:50:008.5[facility] PsaawuuIBDRUKYIRDRG3481-36-26 06:50:000.9[facility] NexehjdIJUYDXWYUZRK1994-11-03 06:50:0011[facility] TJMJOHGLNBGY8351-92-89 06:50:000.3[facility] NxslmzhDHNPLXSPVRXN9158-93-74 06:50:0064[facility] EgdbuqlGMBFVQWSKRXO3032-54-08 06:50:0027[facility] NSSGSQMUGTBT3382-98-82 06:50:41506Nttruorj UzbdmmjENONCRZBMI1024-37-63 06:50:00 0.1[facility] UomhvwoQDQFEGUBRK2966-70-92 06:50:000.5[facility] HermannHEMATOLOGY 2015-02-09 06:50:002.6[facility] KfvfcoyWORWAYGCQV9458-43-64 06:50:0057.8[facility] JgpmszyPLHMEYUVEE3278-12-21 06:50:0034.6[facility] BgqsfpcOHPHWURMJQ4752-89-90 06:50:006.1[facility] FzeuvhoJJUJSIRKHD4429-87-17 06:50:001.1[facility] KAPTRZTOGZ8749-26-78 06:50:000.4[facility] PobacdwKRIBSWPUHY5493-15-59 06:50:004.3 [facility] VcgrzzvLJYPCOUTYT9205-98-11 06:50:000.22[facility]annHEMATOLOGY 2015-02-09 06:50:008.2[facility] OfxvlgcAGZSKUJHNY3634-77-80 06:50:74801Vfckyqnw JztbnjjHUUISXHERJ2792-62-28 06:50:0013.1[facility] FqompvkPZROCOAOXL6707-56-45 06:50:00 Test Item Value Reference Range Interpretation Comments MCH (test code = MCH) 28.1 pg 27.0-31.0 [facility] GoaltqlTNPKGYAWJU0162-49-64 06:50:0032.7[facility] HermannHEMATOLOGY 2015-02-09 06:50:0041.0[facility] ClkhiecSYQRWVGJHU4976-40-25 06:50:0086.0[facility] VsgnuhySYYBEGCGPT2581-27-60 06:50:007.5[facility] MonlyxnPJBQHTVCWH3024-97-06 06:50:004.76[facility] HjatccsJYYQPTNYLL2570-84-05 06:50:0013.4[facility] CARDIAC WPHRGIR2845-54-75 07:17:0055[facility]annCARDIAC ITFJQTO6261-34-60 07:17:00<0.02[facility]annCARDIAC IBDTVLU3956-09-80 07:17:000.7[facility]annCARDIAC GOPGAMH5341-32-75 07:17:0010[facility]annCARDIAC ENZYMES 2014-07-10 07:17:001.3[facility] HermannCHEM XQNQA0909-92-62 07:17:006.6[facility] HermannCHEM ZDEOQ1615-98-49 07:17:008.4[facility] HermannCHEM GQWEH9956-94-12 07:17:0095[facility] HermannCHEM WQHMS0661-22-32 07:17:0063[facility] HermannCHEM ABFWA4584-17-66 07:17:000.3[facility] HermannCHEM TIZWM4985-86-11 07:17:003.2 [facility]annCHEM SZHLT5508-73-82 07:17:009.7[facility] HermannCHEM PANEL 2014-07-10 07:17:0017[facility] HermannCHEM LXRAB1927-92-46 07:17:008[facility] HermannCHEM THMZR4392-09-89 07:17:000.9[facility] HermannCHEM WTJNT5084-12-86 07:17:0012[facility] HermannCHEM EVPYP4570-18-29 07:17:003.4[facility] HermannCHEM SIDXI1629-51-68 07:17:0029[facility] HermannCHEM CZEAP2499-89-07 07:17:06463 [facility] HermannCHEM OKAWP4363-83-03 07:17:0010[facility] HermannCHEM PANEL 2014-07-10 07:17:000.8[facility] HermannCHEM FERTE3299-44-58 07:17:80683Zqedkezc HermannCHEM MVUXK6932-38-72 07:17:003.7[facility] HermannCHEM VGUQV4386-65-74 07:17:65570Pzauluhd OzyueldPUUOQAODAB3964-54-34 07:17:83541Jadymzcv Amor FWFBGWERUK8208-66-35 07:17:008.0[facility] SthfpswCRUNSKVWKS1704-53-85 07:17:00 34.3[facility] AonbfszKEMCDMNSWV4378-28-96 07:17:0013.1[facility] HermannHEMATOLOGY 2014-07-10 07:17:00 Test Item Value Reference Range Interpretation Comments MCH (test code = MCH) 29.2 pg 27.0-31.0 [facility] JskwsdsJWKRHSTOIK3411-94-28 07:17:0037.7[facility] HermannHEMATOLOGY 2014-07-10 07:17:0085.2[facility] VgjyrtiICABUWNNWL9547-02-40 07:17:0012.9[facility] TxqrkjcZWZFQLOEGO0460-01-11 07:17:008.3[facility] YdhfvzqJIHPQARKNW1834-48-00 07:17:004.42[facility] AuxqbddOFQZKMVLDS7296-79-37 07:17:001.3[facility] ZIYTJDCGUZ1038-31-92 07:17:0030.8[facility] TwfrweiSGXQNSYDGD2646-10-97 07:17:00 5.5[facility] FrpffvyJJOROJRCSJ3688-46-50 07:17:0061.3[facility] HermannHEMATOLOGY 2014-07-10 07:17:001.1[facility] KrdhfsaKSEAQPKPSU8859-88-45 07:17:000.5[facility] BaqbnioSOROASBWMM6097-27-25 07:17:000.1[facility] GtlmymaTMPBKCZYTW1123-57-59 07:17:005.1[facility] QplgtpeKCXTFVTTHE2378-75-84 07:17:002.5[facility] KZFTQKPJUP4690-74-90 07:17:000.1[facility] XrzuaiwOINNNFKGL3227-20-51 03:05:000.8 [facility] OtvgcrbPIKCGNJGW6935-51-36 03:05:0028[facility] HermannCHEMISTRY 2011-12-28 03:05:009.1[facility] BbbsnznEKWBKZFOD7188-98-62 03:05:54739Kmzpxlyl WcyzrwnVOGNJOBZG6568-70-21 03:05:07953Cvcxtriu HpysqqqAPHORBIKL9221-95-36 03:05:003.9[facility] IusnopjAFSVQEQLT4706-44-56 03:05:009.9[facility] XBJMAYGIW0031-68-50 03:05:009[facility] StuekmeTBLIJHPUT3524-60-49 03:05:0098 [facility] UaztvgyOMVMSCVURL8897-75-06 03:05:000.22[facility]
[2020-10-23 19:25] LABS: Urine Blood 3+ (Negative); Urine Glucose Negative (Negative); Urine Protein Negative (Negative); Urine pH 5.5 (5.0-7.0)
[2020-10-23 19:31] LABS: Absolute Lymphocytes (CBC) 1.9 K/uL (0.7-4.9); Basophils % 0.7 % (0-1.3); Hematocrit 39.5 % (36.0-45.0); Lymphocytes % 20.9 % (15.3-44.8); MPV 7.9 fL (7.6-11.3); RBC Red Blood Cell Count 4.62 M/uL (3.86-4.86)
[2020-10-23 19:43] LABS: Urine Bacteria 20-50 /HPF (<20); Urine RBC 20-50 /HPF (NONE SEEN)
[2020-10-23] MEDS ORDERED: HYDROMORPHONE HCL 1 MG/ML INJ ONE (19:46)
[2020-10-23 19:53] LABS: ALT/SGPT 24 U/L (12-78); AST/SGOT 17 U/L (15-37); Albumin 3.4 g/dL (3.4-5.0); Alkaline Phosphatase 67 U/L (45-117); BUN Blood Urea Nitrogen 10 mg/dL (7-18); Bicarbonate 27 mmol/L (21-32); Bilirubin Direct < 0.1 mg/dL (0-0.2); Bilirubin Total 0.3 mg/dL (0.2-1.0); Glucose Level 129 mg/dL (74-106); Lipase 75 U/L (73-393); Potassium 3.9 mmol/L (3.5-5.1); Protein, Total 7.6 g/dL (6.4-8.2); Sodium Level 138 mmol/L (136-145)
--- NOTE | 2020-10-23 20:02 | RAD REPORT ---
EXAM DESCRIPTION: US - Pelvis Complete - 10/23/2020 7:48 pm CLINICAL HISTORY: Pelvic pain COMPARISON: CT October 22, 2020 FINDINGS: The uterus measures 9 x 4 x 6 centimeters. The endometrial stripe measures 7 millimeters. A fibroid is not visualized. Left ovary normal in size and echotexture. Left adnexum unremarkable 6.7 centimeter right ovarian cyst. Blood flow to the right ovary is present. Right adnexal unremarkab le Small amount free fluid IMPRESSION: 6.7 centimeter right ovarian cyst. Right ovary contains blood flow
--- NOTE | 2020-10-23 20:11 | RAD REPORT ---
EXAM DESCRIPTION: CT - Abdomen Pelvis Wo Contrast - 10/23/2020 7:51 pm CLINICAL HISTORY: Abdominal pain COMPARISON: October 22, 2020 TECHNIQUE: Computed axial tomography of the abdomen and pelvis was obtained. IV and oral contrast we re not requested. All CT scans are performed using dose optimization technique as appropriate and may include automated exposure control or mA/KV adjustment according to patient size. FINDINGS: The evaluation of solid organs, vessels and bowel is limited secondary to the lack of con trast administration. The liver, spleen, pancreas, and adrenals appear grossly normal. Tiny nonobstructing bilateral renal calculi The appendix is normal. There is no evidence of diverticulitis. Right ovarian cyst has decreased in size currently measuring 6.7 centimeters. On the prior exam it me asured 7.5 centimeters. Small amount of free fluid within the pelvis. IMPRESSION: Mild leakage of fluid from the right ovarian cyst since the prior exam. The cyst has dec reased in size from 7.5 to 6.7 centimeters
--- NOTE | 2020-10-23 20:36 | EDPHYS ---
Physician Documentation [facility] Name: Jo Ann Kowalski Age: 40 yrs Sex: Female : 1980 Arrival Date: 10/23/2020 Time: 18:41 Bed 18 Private MD: ED Physician Oscar Madrigal HPI: 10/23 19:13 This 40 yrs old Female presents to ER via Wheelchair with complaints of rn Pelvic Pain, RLQ abd pain. 19:13 The patient presents with abdominal pain right lower quadrant. rn 19:14 Onset: The symptoms/episode began/occurred 2 hour(s) ago. The symptoms do not radiate. rn Associated signs and symptoms: Pertinent positives: dysuria, nausea, Pertinent negatives: blood in stools, fever, vaginal discharge, vomiting. The symptoms are described as intermittent, sharp, stabbing. Modifying factors: The symptoms are alleviated by nothing, the symptoms are aggravated by movement, touching the area. Severity of pain: At its worst the pain was moderate in the emergency department the pain is unchanged. The patient has experienced a previous episode. The patient has been recently seen at the [facility] Emergency Department. Reports seen here 2 days ago for similar pain, but got worse 2 hours ago while in shower, reports lower abd pain assoc with nausea, no fever, + mild dysuria. Diagnosed 2 days ago with right sided ovarian cyst. No trauma. . CONTRACT LEAD: 18:46 LMP 10/09/2020 jd3 Historical: - Allergies: 18:46 Demerol; jd3 18:46 Latex, Natural Rubber; jd3 18:46 Morphine; jd3 18:46 Iodine; jd3 - PMHx: 18:46 Asthma; jd3 - PSHx: 18:46 None; jd3 - Immunization history:: Adult Immunizations up to date. - Social history:: Smoking status: Patient denies any tobacco usage or history of. - Family history:: not pertinent. - Hospitalizations: : No recent hospitalization is reported. ROS: 19:14 Constitutional: Negative for fever, chills, and weight loss, Eyes: Negative for injury, rn pain, redness, and discharge, Neck: Negative for injury, pain, and swelling, Cardiovascular: Negative for chest pain, palpitations, and edema, Respiratory: Negative for shortness of breath, cough, wheezing, and pleuritic chest pain, Abdomen/GI: + right lower abd pain and nausea. Back: + lower back pain : + dysuria MS/Extremity: Negative for injury and deformity, Skin: Negative for injury, rash, and discoloration, Neuro: Negative for headache, weakness, numbness, tingling, and seizure. Exam: 19:14 Constitutional: This is a well developed, well nourished patient who is awake, alert, rn appears uncomfortable Head/Face: Normocephalic, atraumatic. Eyes: Periorbital areas with no swelling, redness, or edema. Cardiovascular: Regular rate and rhythm. No pulse deficits. Respiratory: No increased work of breathing, no retractions or nasal flaring. Abdomen/GI: soft, + RLQ tenderness and suprapubic tenderness and guarding, no rebound, no masses Skin: Warm, dry MS/ Extremity: Pulses equal, no cyanosis. Neuro: Awake and alert, GCS 15 Vital Signs: 18:46 BP 134 / 99; Pulse 60; Resp 17 S; Temp 97.8(TE); Pulse Ox 97% on R/A; Weight 83.91 kg jd3 (R); Height 4 ft. 11 in. (149.86 cm) (R); Pain 10/10; 19:30 BP 118 / 62; Pulse 76; Resp 18; Weight 44.91 kg; jb4 20:30 BP 118 / 69; Pulse 66; Resp 12; Pulse Ox 98% on R/A; jb4 19:30 Body Mass Index 20.00 (44.91 kg, 149.86 cm) jb4 MDM: 19:00 Patient medically screened. rn 20:34 Differential diagnosis: appendicitis, non-specific abd pain, Ureterolithiasis, ruptured rn ovarian cyst. Data reviewed: vital signs, nurses notes, lab test result(s), radiologic studies, CT scan, ultrasound, and as a result, I will discharge patient. Counseling: I had a detailed discussion with the patient and/or guardian regarding: the historical points, exam findings, and any diagnostic results supporting the discharge/admit diagnosis, lab results, radiology results, the need for outpatient follow up, to return to the emergency department if symptoms worsen or persist or if there are any questions or concerns that arise at home. Response to treatment: the patient's symptoms have markedly improved after treatment, and as a result, I will discharge patient. Special discussion: Based on the patient's Hx, exam, and Dx evaluation, there is no indication for emergent surgery or inpatient Tx. It is understood by the patient/guardian that if the Sx's persist or worsen they need to return immediately for re-evaluation. I discussed with the patient/guardian in detail that at this point there is no indication for admission to the hospital. It is understood, however, that if the symptoms persist or worsen the patient needs to return immediately for re-evaluation. 20:34 Special discussion: Based on the history and exam findings, there is no indication for rn further emergent testing or inpatient evaluation. I discussed with the patient/guardian the need to see the OB Gyne specialist for further evaluation of the symptoms. 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 10/23 19:10 Order name: Lipase; Complete Time: 20: 10/23 19:10 Order name: Hepatic Function; Complete Time: 20: 10/23 19:10 Order name: Basic Metabolic Panel; Complete Time: 20: 10/23 19:10 Order name: CBC with Diff; Complete Time: : 10/23 19:12 Order name: Urine Microscopic Only; Complete Time: 20: 10/23 19:25 Order name: Urine Dipstick-Ancillary; Complete Time: 19:40 [facility] 10/23 19:10 Order name: IV Saline Lock; Complete Time: 19: 10/23 19:10 Order name: Labs collected and sent; Complete Time: 19: 10/23 19:10 Order name: CT Abd/Pelvis - Without Contrast; Complete Time: 20: 10/23 19:10 Order name: US Pelvis Complete; Complete Time: 20: 10/23 19:32 Order name: Urine --Ancillary (enter results) [facility] 10/23 19:45 Order name: Urine Culture [facility] 10/23 19:12 Order name: Urine Test (obtain specimen); Complete Time: 19: 10/23 19:12 Order name: Urine Dipstick-Ancillary (obtain specimen); Complete Time: 19:26 rn Administered Medications: 19:29 Drug: Dilaudid (HYDROmorphone) 1 mg Route: IVP; Site: left antecubital; jb4 20:00 Follow up: Response: No adverse reaction; Marked relief of symptoms; Pain is decreased; jb4 RASS: Alert and Calm (0) 20:47 Drug: Dilaudid (HYDROmorphone) 0.5 mg Route: IVP; Site: left antecubital; jb4 21:00 Follow up: Response: No adverse reaction; Marked relief of symptoms; Pain is decreased; jb4 RASS: Alert and Calm (0) Disposition: 10/23/20 20:36 Discharged to Home. Impression: Ruptured ovarian cyst. - Condition is Stable. - Discharge Instructions: Ovarian Cyst. - Medication Reconciliation Form, Thank You Letter, Antibiotic Education, Prescription Opioid Use form. - Follow up: Private Physician; When: As needed; Reason: Recheck today's complaints, Re-evaluation by your physician. - Problem is new. - Symptoms have improved. Signatures: Dispatcher [employer] EDMS Jeffrey Zapata PA PA jmm Nieto, Roman, MD MD rn Bryson, James, RN RN jb4 Kevyn Negrete RN RN jd3 Corrections: (The following items were deleted from the chart) 21:10 20:36 10/23/2020 20:36 Discharged to Home. Impression: Ruptured ovarian cyst. Condition jb4 is Stable. Forms are Medication Reconciliation Form, Thank You Letter, Antibiotic Education, Prescription Opioid Use. Follow up: Private Physician; When: As needed; Reason: Recheck today's complaints, Re-evaluation by your physician. Problem is new. Symptoms have improved. rn
--- NOTE | 2020-10-23 20:36 | ER ---
Nurse's Notes [facility] Name: Jo Ann Kowalski Age: 40 yrs Sex: Female : 1980 Arrival Date: 10/23/2020 Time: 18:41 Bed 18 Private MD: Diagnosis: Ruptured ovarian cyst Presentation: 10/23 18:44 Chief complaint: Patient states: "I was here recently and was sent home with a jd3 diagnosis of ovarian cyst, since then the pain has gotten worse and I have not been able to fallow up with my OB. it has gotten to the point today where it can't even walk because a i get dizzy and vomiting.". Coronavirus screen: At this time, the client does not indicate any symptoms associated with coronavirus-19. Ebola Screen: Patient negative for fever greater than or equal to 101.5 degrees Fahrenheit, and additional compatible Ebola Virus Disease symptoms. Initial Sepsis Screen: Does the patient meet any 2 criteria? No. Patient's initial sepsis screen is negative. Does the patient have a suspected source of infection? No. Patient's initial sepsis screen is negative. Risk Assessment: Do you want to hurt yourself or someone else? Patient reports no desire to harm self or others. Onset of symptoms was October 18, 2020. 18:44 Method Of Arrival: Wheelchair jd3 18:44 Acuity: RAMESH 3 jd3 18:46 Note Motrin taken 2 hrs prior to arrival. jd3 PATROL CONDUCTOR: 18:46 LMP 10/09/2020 jd3 Historical: - Allergies: 18:46 Demerol; jd3 18:46 Latex, Natural Rubber; jd3 18:46 Morphine; jd3 18:46 Iodine; jd3 - PMHx: 18:46 Asthma; jd3 - PSHx: 18:46 None; jd3 - Immunization history:: Adult Immunizations up to date. - Social history:: Smoking status: Patient denies any tobacco usage or history of. - Family history:: not pertinent. - Hospitalizations: : No recent hospitalization is reported. Screenin:00 Abuse screen: Denies threats or abuse. Nutritional screening: No deficits noted. jb4 Tuberculosis screening: No symptoms or risk factors identified. Fall Risk None identified. Assessment: 19:00 General: Appears in no apparent distress. uncomfortable, Behavior is calm, cooperative, jb4 appropriate for age. Pain: Complains of pain in pelvis Pain does not radiate. Pain currently is 10 out of 10 on a pain scale. Neuro: Level of Consciousness is awake, alert, obeys commands, Oriented to person, place, time, situation. Cardiovascular: Patient's skin is warm and dry. Respiratory: Airway is patent Respiratory effort is even, unlabored, Respiratory pattern is regular, symmetrical. GI: No signs and/or symptoms were reported involving the gastrointestinal system. : No signs and/or symptoms were reported regarding the genitourinary system. EENT: No signs and/or symptoms were reported regarding the EENT system. Derm: Skin is intact, Skin is pink, warm \\T\\ dry. Musculoskeletal: Circulation, motion, and sensation intact. Range of motion:. 20:30 Reassessment: Patient appears in no apparent distress at this time. Patient and/or jb4 family updated on plan of care and expected duration. Pain level reassessed. Patient is alert, oriented x 3, equal unlabored respirations, skin warm/dry/pink. Patient states feeling better. Vital Signs: 18:46 BP 134 / 99; Pulse 60; Resp 17 S; Temp 97.8(TE); Pulse Ox 97% on R/A; Weight 83.91 kg jd3 (R); Height 4 ft. 11 in. (149.86 cm) (R); Pain 10/10; 19:30 BP 118 / 62; Pulse 76; Resp 18; Weight 44.91 kg; jb4 20:30 BP 118 / 69; Pulse 66; Resp 12; Pulse Ox 98% on R/A; jb4 19:30 Body Mass Index 20.00 (44.91 kg, 149.86 cm) jb4 ED Course: 18:41 Patient arrived in ED. as 18:46 Triage completed. jd3 18:47 Arm band placed on. jd3 19:00 Oscar Madrigal MD is Attending Physician. rn 19:00 Patient has correct armband on for positive identification. Bed in low position. Call jb4 light in reach. Side rails up X 1. Pulse ox on. NIBP on. 19:01 Jim Parikh, SATYA is Primary Nurse. jb4 19:23 Inserted saline lock: 20 gauge in left antecubital area, using aseptic technique. jb5 19:26 Lipase Sent. jb5 19:26 Hepatic Function Sent. jb5 19:26 Basic Metabolic Panel Sent. jb5 19:26 CBC with Diff Sent. jb5 19:48 US Pelvis Complete In Process Unspecified. EDMS 19:51 CT Abd/Pelvis - Without Contrast In Process Unspecified. EDMS 20:42 No provider procedures requiring assistance completed. jb4 21:00 IV discontinued, intact, bleeding controlled, No redness/swelling at site. Pressure jb4 dressing applied. Administered Medications: 19:29 Drug: Dilaudid (HYDROmorphone) 1 mg Route: IVP; Site: left antecubital; jb4 20:00 Follow up: Response: No adverse reaction; Marked relief of symptoms; Pain is decreased; jb4 RASS: Alert and Calm (0) 20:47 Drug: Dilaudid (HYDROmorphone) 0.5 mg Route: IVP; Site: left antecubital; jb4 21:00 Follow up: Response: No adverse reaction; Marked relief of symptoms; Pain is decreased; jb4 RASS: Alert and Calm (0) Outcome: 20:36 Discharge ordered by . rn 21:09 Discharged to home via wheelchair, with family. jb4 21:09 Condition: stable 21:09 Discharge instructions given to patient, Instructed on discharge instructions, follow up and referral plans. Demonstrated understanding of instructions, follow-up care. 21:10 Patient left the ED. jb4 Signatures: Dispatcher [employer] Alondra Jerez Roman, MD MD rn Bryson, James RN RN jb4 Zandra Bolden jb5 Kevyn Negrete RN RN jd3
[2020-10-23] MEDS ORDERED: HYDROMORPHONE HCL 0.5 MG/0.5 ML INJ ONE (21:04)
[2020-10-23 21:35] VITALS: TEMP 97.8
[2020-10-23 21:38] VITALS: BP 118/69; O2SAT 98
== END 2020-10-23 21:10 | disposition home or self-care (01) ==
LOC: ER 18:40
DX: N83.201 Unspecified ovarian cyst, right side (principal); Z88.5 Allergy status to narcotic agent; Z88.8 Allergy status to other drugs, medicaments and biological substances; Z91.040 Latex allergy status; Z91.048 Other nonmedicinal substance allergy status
CPT/HCPCS: 36415; 74176; 76856; 80048; 80076; 81003; 81015; 81025; 83690; 85025; 87086; 87088; 96374; 99284; J1170

== ENCOUNTER 2020-10-25 16:35 | Emergency (ER) | payer SELFPAY ==
--- OUTSIDE RECORDS SUMMARY | 2020-10-25 16:39 | XMS REPORT | Continuity of Care Document ---
:1980 Author Organization [facility] t Address [address] [place] [address] Care Team Providers Name Role Phone Sylwia [...] ABD PAIN Diagnosis Active 2019-05-30 M emoria 1 20:57:00 l ABD PAIN 00:00: Marco Antonio n 00 Active 05/30/2019 [facility] CHEST PAIN Diagnosis Active 2014-052015-02-09 Memoria 0-01 01:08:00 l CHEST 00:00: [place] PAIN 00 Active 02/08/2015 [facility] SOB/CHEST Diagnosis Active 2014-07-10 Memoria PAINS 3-01 01:33:00 l 00:00: [place] SOB/CHEST 00 PAINS Active 07/09/2014 [facility] EYE Diagnosis Active 2011-052012-03-28 Mem oria BURNING 05-28 16:08:00 l EYE 00:00: Amor BURNING 00 Active 03/28/2012 [facility] OTHER Diagnosis Active 2011-052012-03-18 Mem oria 05-18 23:35:00 l OTHER 20:00: [place] 00 Active 03/18/2012 [facility] V65.3, Diagnosis Active 2011-052012-03-04 Mem oria 789.09, 0-16 11:30:00 l 536.8, V65.3, 00:00: [place] 278.01, 789.09, 00 787.99, 536.8, V18.51, 278.01, V16.0 787.99, V18.51, V16.0 Active 02/24/2012 [facility] V65.3, Diagnosis Active 2011-052012-04-06 Mem oria 789.09, 0-16 15:42:00 l 536.8, V65.3, 00:00: [place] 278.01, 789.09, 00 787.99, V1 536.8, 278.01, [...] PAIN, EVALUATION OF RIGHT ECTOPIC Active 04/24/2010 [facility] WRIST PAIN Diagnosis Active 2009-052011-01-21 Memoria 1-13 20:55:00 l WRIST 15:30: Amor PAIN 00 Active 03/23/2010 [facility] DIZZY Diagnosis Active 2008-052011-01-21 Mem oria 0-16 20:55:00 l DIZZY 06:00: [place] 00 Active 02/23/2009 [facility] WRIST Diagnosis Active 2011-01-21 Mem oria INJURY - 20:55:00 l WRIST 00:00: Amor INJURY 00 Active 01/26/2009 [facility] ABD PAIN, Diagnosis Active 2006-052011-01-21 Memoria HEADACHE - 20:55:00 l ABD 06:00: [place] PAIN, 00 HEADACHE Active 03/27/2007 [facility] SOB Diagnosis Active 2011-01-21 Mem oria - 20:55:00 l SOB 21:00: Amor 00 Active 12/15/2004 [facility] Anemia Problem Resolve 2019-06-03 Jasper emily (disorder) d 22:34:38 l Anemia [place] (disorder) Resolved Problem 06/03/2019 [facility] Ectopic Problem Active 2012-03-30 [place] emily 09:28:58 l Ectopic Amor Active Problem 03/30/2012 [facility] Asthma Problem Active 2019-06-03 Memor ia (disorder) 22:34:38 l Asthma [place] (disorder) Active Problem 06/03/2019 [facility] Ectopic Problem Active 2019-06-03 [place] emily 22:34:38 l (disorder) Ectopic Her stokes (disorder) Active Problem 06/03/2019 [facility] History of Past Illness Condition Condition Condition [...] Discharge 00 Diagnosis: Chest pain 07/10/2014 07/12/2014 [facility] Allergies, Adverse Reactions, Alerts Allergy Allergy Status [...] [facility] meperidi DA Active [place] 2020-0 [facility] ne 2-27 [place] 00:00: e 00 [facility] latex DA Active MO 2020-0 [facility] 2-27 [place] 00:[facility]: e [facility] iodine DA Active MO 2019-0 [facility] 7-16 [place] 00:[facility]: e [facility] morphine DA Active MO 2019-0 [facility] 7-16 [place] 00:00: e 00 [facility] meperidi DA Active MO 2019-0 [facility] ne 7-16 [place] 00:00: e 00 [facility] latex DA Active MO 2019-0 [facility] 7-16 [place] 00:[facility]: e 00 [facility] iodine DA Active MO 2018-1 [facility] 1-17 Clear 00:00: [place] 00 [facility] morphine DA Active MO 2018-1 [facility] 1-17 Clear 00:00: [place] 00 [facility] meperidi DA Active MO 2018-1 [facility] ne 1-17 Clear 00:00: [place] 00 [facility] latex DA Active MO 2018-1 [facility] 1-17 Clear 00:00: [place] 00 [facility] iodine DA Active MO 2017-0 [facility] 9-30 [...] Quantity Comments Source Social History 2019-05-31 2019-05-31 [facility] 07:49:34 07:49:34 Medications Ordered Filled [...] 06-01 (Same as: l Tablet 02:11: Motrin) [place] 00 "Do Not Crush" Give with food. 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 Amor 00 (Same as: Tylenol) Zofran 2020-0 No Notes: Memoria 05-31 (Same as: l 05:47: Zofran) [place] 00 MEDICATION WASTE Product Size: 4 mg Product Wasted: ___ mg Dilaudid 2020-0 No Notes: Memoria - (Same as: l 04:48: Dilaudid) [place] 00 Pepcid 2019-0 No 40 mg, 4 Memoria 1-21 mL, Route: l 03:12: IVP, Drug Nat[place] 00 form: INJ, ONCE, Dosing Weight 77.273, kg, Priority: STAT, Start date: 05/30/19 21:12:00 PROP[employer] SITE MANAGER, Stop date: 05/30/19 21:12:00 PROPERTY SITE MANAGER, 0 Ketorolac 2020-0 No 4 days Memor ia - l 03:12: MEDICATION Amor WASTE Product Size: 30 mg Product Wasted: ___ mg Sodium 2020-0 No 1,000 mL, Memori a Chloride - 1000 l 0.9% 03:09: ml/hr, Amor (Bolus) IV 00 Infuse Over: 1 hr, Route: IV, 1,000, Drug form: INJ, ONCE, Priority: STAT, Dosing Weight 77.273 kg, Start date: 05/30/19 21:09:00 PROPERTY SITE MANAGER, Stop date: 05/30/19 21:09:00 PROPERTY SITE MANAGER, 0 Aspirin 2014- No 325 mg, Memoria [...] Memoria 07-10 Route: PO, l 07:00: ONCE, Nat[place] 00 Dosing Weight 81.818, kg, Priority: STAT, Start date: 07/10/14 1:00:00, Stop date: 07/10/14 1:00:00 Saline No Notes: Memoria Flush 0.9% 07-10 (Same as: l 07:00: BD [place] Posiflush) omeprazole 2011-05 Yes Substituti M emoria 1-18 on Allowed l 21:39: [place] 51 [place] Yes Sadi Posey 1 tab, PO, Jasper [...] Oral (F) 2019-06-01 13:36:00 97.7 F [facility] [place] Heart Rate 2019-06-01 13:36:00 [facility] Respitory Rate 2019-06-01 13:36:00 Memori al [place] Systolic (mm Hg) 2019-06-01 13:36:00 Jasper rial [place] Diastolic (mm Hg) 2019-06-01 13:36:00 Mem orial [facility] Temperature Oral (F) 2019-06-01 05:11:00 98.2 F [facility] Heart Rate 2019-06-01 05:11:00 [facility] [place] Respitory Rate 2019-06-01 05:11:00 Memori al [place] Systolic (mm Hg) 2019-06-01 05:11:00 Jasper rial Amor Diastolic (mm Hg) 2019-06-01 05:11:00 Mem orial [place] Temperature Oral (F) 2019-05-31 21:13:00 98.6 F [facility] Heart Rate 2019-05-31 21:13:00 [facility] Respitory Rate 2019-05-31 21:13:00 Memori al [place] Systolic (mm Hg) 2019-05-31 21:13:00 Jasper rial [place] Diastolic (mm Hg) 2019-05-31 21:13:00 Mem orial [facility] Height 2019-05-31 07:31:00 149.86 cm [facility] [place] Weight 2019-05-31 07:31:00 [facility] BMI Calculated 2019-05-31 07:31:00 Memori al [facility] Height 2019-05-31 01:44:00 149.86 cm [facility] [place] BMI Calculated 2019-05-31 01:44:00 Memori al [facility] Weight 2019-05-31 01:44:00 [facility] [place] Systolic (mm Hg) 2015-02-09 10:08:00 Jasper rial [place] Diastolic (mm Hg) 2015-02-09 10:08:00 Mem orial [place] Temperature Oral (F) 2015-02-09 10:08:00 97.8 F [facility] [place] Respitory Rate 2015-02-09 10:08:00 Memori al [place] Heart Rate 2015-02-09 10:08:00 [facility] Temperature Oral (F) 2015-02-09 09:26:00 97.8 F [facility] Heart Rate 2015-02-09 09:26:00 [facility] [place] Respitory Rate 2015-02-09 09:26:00 Memori al [place] Systolic (mm Hg) 2015-02-09 09:26:00 Jasper rial [place] Diastolic (mm Hg) 2015-02-09 09:26:00 Mem orial Am[facility] Weight 2015-02-09 05:41:00 [facility] [place] Temperature Oral (F) 2015-02-09 05:41:00 97.9 F [facility] Systolic (mm Hg) 2015-02-09 05:41:00 Jasper rial Amor Diastolic (mm Hg) 2015-02-09 05:41:00 Mem orial [place] Heart Rate 2015-02-09 05:41:00 [facility] [place] Respitory Rate 2015-02-09 05:41:00 Memori al [place] Temperature Oral (F) 2014-07-10 09:21:00 98 F [facility] [place] Respitory Rate 2014-07-10 09:21:00 Memori al [place] Systolic (mm Hg) 2014-07-10 09:21:00 Jasper rial [place] Diastolic (mm Hg) 2014-07-10 09:21:00 Mem orial [place] Heart Rate 2014-07-10 09:21:00 [facility] [place] Heart Rate 2014-07-10 06:47:00 [facility] Systolic (mm Hg) 2014-07-10 06:47:00 Jasper rial [place] Diastolic (mm Hg) 2014-07-10 06:47:00 Mem orial Amor Respitory Rate 2014-07-10 06:47:00 Memori al Amor Temperature Oral (F) 2014-07-10 03:57:00 98.1 F [facility] [place] Respitory Rate 2014-07-10 03:57:00 Memori al [place] Heart Rate 2014-07-10 03:57:00 [facility] [place] Systolic (mm Hg) 2014-07-10 03:57:00 Jasper rial Amor Diastolic (mm Hg) 2014-07-10 03:57:00 Mem orial Amor Weight 2012-03-28 20:48:00 [facility] Height 2012-03-28 20:48:00 149.86 cm [facility] Weight 2011-11-11 03:05:00 [facility] Height 2011-11-11 03:05:00 149.86 cm [facility] [place] Weight 2011-06-28 02:47:00 [facility] [place] Height 2011-06-28 02:47:00 152.40 cm [facility] Procedures Procedure Date / Time Performed Performing Clinician Sour e section [facility] Marco Antonio n Colonoscopy [facility] Dilation and curettage [facility] Upper GI endoscopy [facility] Encounters Start End Encounter Admission Attending Care Care Encounter Source Date/Time Date/Time Type Type Clinicians Facility Department ID 2019-05-30 2019-06-01 Outpatient RAO Dinh [facility] [id number] 19:13:02 11:25:00 Ekatarina 18 Goukasova 2019-05-31 2019-05-31 Outpatient E RAO ISMAEL [id number] [facility] 00:25:00 00:25:[address] [facility] [facility] 2015-02-09 2015-02-09 Outpatient Klever [facility] [id number] 00:40:00 05:10:00 Zahraa 17 2014-07-09 2014-07-10 Outpatient Risa [facility] [id number] 21:55:00 03:27:00 Nadim B 16 Results Test Description Test Time Test Comments Results Result Comments Source STOMACH 2019-07-12 16:50:00 RUN DATE: 07/12/19 [facility] PAGE 1 RUN TIME: 1650 Specimen Inquiry RUN USER: INTERFACE PATIENT: SHANKAR ARROYO LOC: ChrisOBS U #: [id number] AGE/SX: 39/F ROOM: [facility] RE07/10/19REG DR: Ronni Jarrett MD : 76 BED: A DIS: 07/12/19 STATUS: DIS IN TLOC: SPEC #: [id number] RECD: 07/11/19 STATUS: DARON REQ #: [id number] BRITTANY: 07/11/19- SUBM DR: Rodney Sotelo MD ENTERED: 07/11/19 SP TYPE: STOMACH OTHR DR: No Primary or Family Physician Miguel Salazar MD, Alberto J MDORDERED: GROSS COPIES TO: No Primary or Family Physician Rodney Sotelo MD [address] [place] [address] Miguel Salazar MD [address] [place], [place] [id number] José Hylton MD [address] [place], [place] [id number] PROCEDURES: GROSS (07/12/19-1420) TISSUES: 1. DUODENUM, NOS - BX 2. GASTRIC CORPUS - BX 3. COLON, NOS - TERMINAL ILEUM BX CLINICAL HISTORY COLLECTION DATE: 07/11/19 HEMATEMESIS, MELENA, EPIGASTRIC PAIN FINAL DIAGNOSIS Duodenum, biopsy: DUODENAL MUCOSA WITH NO PATHOLOGIC ALTERATION Gastric tissue, biopsy: REACTIVE GASTROPATHY GASTRIC MUCOSA WITH NO PATHOLOGIC ALTERATION NEGATIVE FOR HELICOBACTER ORGANISMS CONTINUED ON NEXT PAGE RUN DATE: [facility] RUN TIME: 1650 Specimen Inquiry RUN USER: INTERFACE SPEC #: [id number] PATIENT: SHANKAR ARROYO #[id number] (Continued)--------- --- FINAL DIAGNOSIS (Continued) NEGATIVE FOR MALIGNANCY Terminal ileum, biopsy: SMALL BOWEL MUCOSA WITH UNREMARKABLE VILLOUS ARCHITECTURE AND PROMINENT LYMPHOID AGGREGATES NEGATIVE FOR MALIGNANCY RRB/sm D [id number], 77942 MACROSCOPIC The first specimen is received in [...] aggregate, submitted as (3). GROSS PERFORMED AT [facility] [address] [place] [address] (p)[phone] MICROSCOPIC All of the stains, including any controls performed, stain appropriately. MICROSCOPIC PERFORMED AT [facility] [address] [place], [place] [address] (p)[phone] PERFORMING SITE Diagnosis performed at: [facility], [place] [id number] CONTINUED ON NEXT PAGE RUN DATE: 07/12/19 [facility] PAGE 3 RUN TIME: 1650 Specimen Inquiry RUN USER: INTERFACE SPEC #: [id number] PATIENT: SHANKAR ARROYO #[id number] (Continued)--------- --- PERFORMING SITE (Continued) [phone]-------- ---- Signed SIGNATURE ON FILE Evangelista Danielle MD 07/12/19 1078 END OF REPORT HEPATIC FUNCTION PANEL 2019-07-12 [...] range due to ch ger in reagent. [id number] 05:45:00 Test Item Value Reference Range Interpretation Comments LIPASE (test code = LIP) 91 U/L 73.0-393.0 N CBC W/AUTO [id number] 07:11:00 Test Item Value Reference Range Interpretation [...] K/mm3 0.0-0.1 N code = NRBC#) HGB [id number] 18:13:00 Test Item Value Reference Range Interpretation Comments HEMOGLOBIN (test code = HGB) 12.1 gram/dL 11.5-15.5 N HEMATOCRIT (test code = HCT) 36.4 % 36.0-46.0 N HGB [id number] 12:15:00 Test Item Value Reference Range Interpretation Comments HEMOGLOBIN (test code 12.7 gram/dL 11.5-15.5 RESULT VERIFIED BY = HGB) REPEAT ANALYSIS HEMATOCRIT (test code 38.6 % 36.0-46.0 N = HCT) - CT ABD PELVIS W/O [id number] 00:05:00 Name: SHANKAR ARROYO [facility] : 1980 Age/S: 39 / F [address] [facility] Unit #: [id number] Loc: JAIR[place] [address] Phys: Waldemar Ortez MD Acct: [id number] Dis Date: Status: ADM IN PHONE #: [phone] Exam Date: 07/07/2019 2335 FAX #: [phone] Reason: mid abd pain vomiting blood and blood in stool EXAMS: CPTCODE: [id number] CT ABD PELVIS W/O CONT 60968 CT abdomen and pelvis without IV contrast. [...] 1 Signed Report (CONTINUED) Name: SHANKAR ARROYO [facility] : 1980 Age/S: 39 / F [address] [facility] Unit #: [id number] Loc: [place] [address] Phys: Waldemar Ortez MD Acct: [id number] Dis Date: Status: ADM IN PHONE #: [phone] Exam Date: 07/07/2019 2335 FAX #: [phone] Reason: mid abd pain vomiting blood and blood in stool EXAMS: CPT CODE: [id number] CT ABD PELVIS W/O CONT 23888 <Continued> at 0005 Reported and signed by: Lorrie Welch M.D. CC: Waldemar Ortez MD Technologist:RADHA AGUILA CTDI: DLP: Trnscb Date/Time: 07/08/2019 (0005) [email or web address] Orig Print D/T: S: 07/08/2019 (2210) PAGE 2 Signed Report- US ABDOMEN [id number] 23:54:00 Name: SHANKAR ARROYO [facility] : 1980 Age/S: 39 / F [address] [facility] #: [id number] Loc: [place] JA[place] [address] Phys: Waldemar Ortez MD Acct: [id number] Dis Date: Status: REG ER PHONE #: [phone] Exam Date: 07/07/2019 2330 FAX #: [phone] Reason: ruq pain ho gallbladder problem EXAMS: CPTCODE: [id number] US ABDOMEN LTD 13716 DICTATION LOCATION: H48 HISTORY: Female, 39 years [...] no significant change since prior study. at 0061 Reported and signed by: Shelby Anderson MD CC: Waldemar Ortez MD Technologist: DALIA AGARWAL RDMS Trnscb Date/Time: 07/07/2019 (2627) Jeffrey.[email or web address] Orig Print D/T: S: 07/07/2019 (2388) Probe: PAGE 1 Signed ReportBASIC METABOLIC [id number] 23:00:00 Test Item Value Reference Range Interpretation [...] 9.4 mg/dL 8.5-10.1 N CA) HEPATIC FUNCTION [id number] 23:00:00 Test Item Value Reference Range Interpretation [...] range due ALKP) to change in reagent. [id number] 23:00:00 Test Item Value Reference Range Interpretation Comments LIPASE (test code = LIP) 90 U/L 73.0-393.0 N HCG SERUM [id number] 23:00:00 Test Item Value Reference Range Interpretation Comments HCG SERUM QUAL (test NEGATIVE NEGATIVE This HC GQL test is NOT code = HCGQL) applicable for MALE patients.Check with nurse about probable order error.If Tumor Marker Test needed, nu rse should order test "HCG TU"(Test #550.47988)---- - [id number] 23:00:00 Test Item Value Reference Range Interpretation Comments TROPONIN-I (test code = TROPI) <0.015 ng/mL 0-0.045 N PROTHROMBIN [id number] 22:44:00 Test Item Value Reference Range Interpretation [...] (2.5-3.5) IS PATIENT ON ANTICOAGULANTS? NTHROMBOPLASTIN TIME [id number] 22:44:00 Test Item Value Reference Range Interpretation Comments THROMBOPLASTIN TIME PARTIAL 34.5 seconds 25.0-36.5 N (test code = PTT) IS PATIENT ON ANTICOAGULANTS? NBASIC METABOLIC [id number] 22:40:00 Test Item Value Reference Range Interpretation [...] code = CA) mg/dL 8.5-10.1 HEPATIC FUNCTION [id number] 22:40:00 Test Item Value Reference Range Interpretation [...] TOTAL (test IUnit/L 45-117 code = ALKP) [id number] 22:40:00 Test Item Value Reference Range Interpretation Comments LIPASE (test code = LIP) U/L 73.0-393.0 HCG SERUM [id number] 22:40:00 Test Item Value Reference Range Interpretation Comments HCG SERUM QUAL (test NEGATIVE NEGATIVE This HC GQL test is NOT code = HCGQL) applicable for MALE patients.Check with nurse about probable order error.If Tumor Marker Test needed, nu rse should order test "HCG TU"(Test #550.39211)---- - [id number] 22:40:00 Test Item Value Reference Range Interpretation Comments TROPONIN-I (test code = TROPI) ng/mL 0-0.045 CBC W/O [id number] 22:36:00 Test Item Value Reference Range Interpretation [...] fL 6.7-11.0 N = MPV) CBC W/O [id number] 22:34:00 Test Item Value Reference Range Interpretation [...] VOLUME (test code fL 6.7-11.0 = MPV) [id number] 14:35:0012.9[facility] BjlcjtnXOATJKGDWU1461-78-42 14:35:00 38.6[facility] WidvmypZPMEDOQZWK5224-40-41 14:35:0087.0[facility] 2019-05-31 14:35:00 Test Item Value Reference Range Interpretation Comments MCH (test code = MCH) 29.1 pg 27.0-31.0 [facility]xickqYOIOSLHSUP4242-05-51 14:35:0033.5[facility] 2019-05-31 14:35:0013.4[facility] AexjotuQDGXDHFYKI3326-03-04 14:35:11303Qjnfukdc ZroekbgBGDJMBMYMM7893-05-96 14:35:007.7[facility] DzphcdkHVMERNGIEU0375-31-86 14:35:00 Test Item Value Reference Range Interpretation Comments PT (test code = PT) 13.6 s 12.0-14.7 [facility] CenterYdwxoqbTAVNQSFHVC1436-53-50 14:35:00 Test Item Value Reference Range Interpretation Comments INR (test code = INR) 1.04 1 0.85-1.17 [facility] CenterOkfzwlfGDBJWARCKH2208-50-34 14:35:00 Test Item Value Reference Range Interpretation Comments PTT (test code = PTT) 27.8 s 22.9-35.8 [facility] CenterAuaicmwDFPVDCIMQN7430-47-66 14:35:0058.8[facility] 2019-05-31 14:35:0033.1[facility] EhkztskQFYPEZFFCX1737-51-24 14:35:006.7[facility] QvdqqplBWCUDGUWAY4491-80-33 14:35:001.1[facility] XnaowzmAJZTFGERGN3877-01-52 14:35:000.3[facility] UcbtzicTJQLPGGCFV5215-06-31 14:35:003.6[facility] QQFRAEDGUP2975-31-66 14:35:002.0[facility] LlxzaqsVCEJOIUEHG5719-80-49 14:35:000.4 [facility] TbklonfGVCRQZMSEW7461-42-09 14:35:000.1[facility]annCHEM PANEL 2019-05-31 14:35:0096[facility]annCHEM [id number] 14:35:0016[facility]annCHEM VAEYJ5521-26-39 14:35:000.69[facility]annCHEM EBHNV9048-02-06 14:35:98524Tocfqlqc HermannCHEM NZJEA4841-72-29 14:35:004.2[facility]annCHEM PCWHJ6110-16-74 14:35:96747Qnevjyzy HermannCHEM NUJOH4962-69-87 14:35:0028 [facility]ann[facility] TRCNR1712-81-66 14:35:008.3[facility]annCHEM PANEL 2019-05-31 14:35:007.2[facility]annCHEM LSQMN7266-41-57 14:35:49441Fdtvlbbr HermannCHEM FBBVN1862-91-80 14:35:006.3[facility]annCHEM [id number] 14:35:003.2[facility]annCHE[facility] CLOIM5147-00-20 14:35:0015[facility]annCHEM CFCPX0201-63-45 14:35:007[facility]annCHE[facility] HTMGI8326-19-66 14:35:0054[facility]annCHEM SMVYI2920-22-08 14:35:000.4[facility]annCHE[facility] CLQOF4630-90-28 14:35:000.1[facility]annCHEM [id number] 14:35:003.1[facility]annCHEM [id number] 14:35:00 Test Item Value Reference Range Interpretation Comments A/G Ratio (test code = A/G Ratio) 1.0 1 0.7-1.6 [facility]ann[facility] [id number] 14:35:000.3[facility]annHEMATOLOGY 2019-05-31 14:35:006.1[facility] AdkxuzcBDNXBOGQZY1494-11-01 14:35:004.44[facility]annCHEM MSJIT0410-71-42 01:51:43736Abpdtxxg HermannCHEM GGXLL1278-03-74 01:51:0017[facility]annCHEM [id number] 01:51:000.70[facility]annCHEM SLAOR7146-01-62 01:51:31517Bmbwjpuh HermannCHEM UNPJE9999-04-12 01:51:004.1 [facility]annCHE[facility] HMOYU3557-04-65 01:51:26444Czwwbqfl HermannCHEM PANEL 2019-05-31 01:51:0028[facility]annCHEM RHFQY0553-35-94 01:51:009.3[facility]annCHEM [id number] 01:51:007.7[facility]annCHEM VSCGI3423-28-21 01:51:003.9[facility]annCHEM BXOMK9260-35-36 01:51:0017[facility] HermannCHEM PBMYJ1292-10-37 01:51:0011[facility]annCHEM XUIWD8683-35-96 01:51:0064 [facility]annCHEM GWQGP1260-08-89 01:51:000.5[facility] HermannCHEM PANEL 2019-05-31 01:51:008.1[facility]annCHEM [id number] 01:51:00 Test Item Value Reference Range Interpretation Comments B/C Ratio (test code = B/C Ratio) 24 1 6-25 [facility]annCHEM [id number] 01:51:003.8[facility] HermannCHEM PANEL 2019-05-31 01:51:00 Test Item Value Reference Range Interpretation Comments A/G Ratio (test code = A/G Ratio) 1.0 1 0.7-1.6 [facility]annCHE[facility] [id number] 01:51:74918Mvajqbqg HermannCHEM PANEL 2019-05-31 01:51:79481Qmpanyyy MxnshofDCOGXILGTZCIC2264-45-39 01:51:00Negative *NA*(05/30/19 7:51 PM)[facility] ZotpqpaPBUXBJUOHJ3969-16-29 01:51:007.9[facility] ObzvmmaCCKUQFPIVW4963-16-65 01:51:004.88[facility] LlmorpmAIFSRUFDNF6598-85-17 01:51:0014.1[facility] QoacocsJIDTDYONIG9912-00-45 01:51:0042.2[facility] [place] VZRPCERTRB8745-30-99 01:51:0086.6[facility] WajcizzWUBYYVOSQL9670-79-17 01:51:00 Test Item Value Reference Range Interpretation Comments MCH (test code = MCH) 29.0 pg 27.0-31.0 [facility] DrazhvkHGPKKDTJKD3819-00-12 01:51:0033.5[facility]annHEMATOLOGY 2019-05-31 01:51:0013.0[facility] DagizbuYHOYKYQPTU2598-95-54 01:51:36207Dloywvfh CanyckzGDKEQXFSKX5391-83-78 01:51:007.6[facility] UsrpuibULYRPVLTMZ9306-20-63 01:51:0061.5[facility] SxgmnxwFXPNNLVJHJ6002-52-07 01:51:0032.4[facility]or NMIDISBAGY5981-45-72 01:51:004.8[facility] FsqlztcXXUTBXWVFE6112-91-96 01:51:001.0 [facility] VylfcmyZDVSFHBQQL4409-23-50 01:51:000.3[facility] 2019-05-31 01:51:004.8[facility] UgcvwbzFENOBALQJO0445-37-24 01:51:002.5[facility] IscpoiiMRIOJHFULX6648-35-23 01:51:000.4[facility] ZwascgrTRUUXNFDJS1444-21-91 01:51:000.1[facility] WKKSQ3906-29-01 01:51:00Clear (05/30/19 7:51 PM)[facility] UFTFH9952-16-66 01:51:00 Test Item Value Reference Range Interpretation Comments UA Spec Grav (test code = UA Spec 1.008 1 Grav) [facility] [id number] 01:51:00 Test Item Value Reference Range Interpretation Comments UA pH (test code = UA pH) 7.0 1 5.0-8.0 [facility] ZKURS2270-92-46 01:51:00Negative *NA*(05/30/19 7:51 PM) [facility] RCEDR3067-07-33 01:51:00Small *ABN*(05/30/19 7:51 PM) [facility] QWJRK4943-38-35 01:51:00Negative (05/30/19 7:51 PM) [facility] VFMCJ8244-31-07 01:51:00Small *ABN*(05/30/19 7:51 PM) [facility] CNJQY9799-86-57 01:51:001[facility] FFJWH1552-30-15 01:51:001[facility]annURINALYSIS CNICLANK9799-73-77 21:44:00 Test Item Value Reference Range Interpretation [...] #/LPF FEW MUCU) Urine Source? Clean CatchURINALYSIS JBLNSSWA3670-59-38 21:39:00 Test Item Value Reference Range Interpretation [...] Urine Source? Clean Catch- XR CHEST 1 [id number] 20:59:00 FAX: RITESH ELMORE NP [place]: B St: REG Name: SHANKAR ARROYO [facility] : 1980 Age/S: 39/F [address] [facility] Unit#: [id number] Loc: [place] [address] Phys: RITESH ELMORE NP Acct: [id number] Dis Date: Status: REG ER PHONE #: [phone] Exam Date: 03/25/20191940 FAX #: [phone] Reason: Abdominal Pain EXAMS: CPT CODE: [id number] XR CHEST 1 V 48592 EXAM: Chest X-ray, 1 view; CLINICAL HISTORY: Abdominal pain; FINDINGS: The lungs are clear, no infiltrates, no edema; no effusions; no pneumothorax; normal cardiomediastinal silhouette. IMPRESSION: Normal chest x-ray. Location code: [facility] at 2058 Reported and signed by: Fito Shah M.D. CC: RITESH ELMORE NP Technologist: Ayde Jason) Trnscrd Date/Time/By: 03/25/2019 (2058) : By: [email or web address] Orig Print D/T: S: 03/25/2019 (2101) PAGE 1 Signed ReportBASIC METABOLIC [id number] 20:49:00 Test Item Value Reference Range Interpretation [...] 8.7 mg/dL 8.5-10.1 N CA) HEPATIC FUNCTION [id number] 20:49:00 Test Item Value Reference Range Interpretation [...] range due ALKP) to change in reagent. [id number] 20:49:00 Test Item Value Reference Range Interpretation Comments LIPASE (test code = LIP) 99 U/L 73.0-393.0 N HCG SERUM [id number] 20:49:00 Test Item Value Reference Range Interpretation Comments HCG SERUM QUAL (test NEGATIVE NEGATIVE This HC GQL test is NOT code = HCGQL) applicable for MALE patients.Check with nurse about probable order error.If Tumor Marker Test needed, nu rse should order test "HCG TU"(Test #550.29235)---- - - ABDOMEN [id number] 20:45:00 Name: SHANKAR ARROYO [facility] : 1980 Age/S: 39 / F [address] [facility] Unit #: [id number] Loc: [place] [address] Phys: RITESH ELMORE NP Acct: [id number] Dis Date: Status: REG ER PHONE #: [phone] Exam Date: 03/25/20191943 FAX #: [phone] Reason: Abdominal Pain EXAMS: CPT CODE: [id number] US ABDOMEN LTD 84641 EXAM: Ultrasound of the abdomen, limited; INFORMATION: [...] of the right upper quadrant; Location code: [facility] at 2044 Reported and signed by: Fito Shah M.D. CC: RITESH ELMORE NP Technologist: Ambreen Landeros RDMS Trnscb Date/Time: 03/25/2019 (2044) Michela Orig Print D/T: S: 03/25/2019 (2047) Probe: PAGE 1 Signed ReportCBC W/O [id number] 20:39:00 Test Item Value Reference Range Interpretation [...] fL 6.7-11.0 N = MPV) BASIC METABOLIC [id number] 20:37:00 Test Item Value Reference Range Interpretation [...] code = CA) mg/dL 8.5-10.1 HEPATIC FUNCTION [id number] 20:37:00 Test Item Value Reference Range Interpretation [...] TOTAL (test IUnit/L 45-117 code = ALKP) [id number] 20:37:00 Test Item Value Reference Range Interpretation Comments LIPASE (test code = LIP) U/L 73.0-393.0 HCG SERUM [id number] 20:37:00 Test Item Value Reference Range Interpretation Comments HCG SERUM QUAL (test NEGATIVE NEGATIVE This HC GQL test is NOT code = HCGQL) applicable for MALE patients.Check with nurse about probable order error.If Tumor Marker Test needed, nu rse should order test "HCG TU"(Test #550.57577)---- - BASIC METABOLIC [id number] 20:37:00 Test Item Value Reference Range Interpretation [...] code = CA) mg/dL 8.5-10.1 HEPATIC FUNCTION [id number] 20:37:00 Test Item Value Reference Range Interpretation [...] TOTAL (test IUnit/L 45-117 code = ALKP) [id number] 20:37:00 Test Item Value Reference Range Interpretation Comments LIPASE (test code = LIP) U/L 73.0-393.0 HCG SERUM [id number] 20:37:00 Test Item Value Reference Range Interpretation Comments HCG SERUM QUAL (test NEGATIVE NEGATIVE This HC GQL test is NOT code = HCGQL) applicable for MALE patients.Check with nurse about probable order error.If Tumor Marker Test needed, nu rse should order test "HCG TU"(Test #550.13077)---- - CBC W/O [id number] 20:35:00 Test Item Value Reference Range Interpretation [...] = MPV) - CT ABD PELVIS W/O [id number] 18:38:00 Name: SHANKAR ARROYO [facility] : 1980 Age/S: 38 / F [address] [facility] Unit #: [id number] Loc: [place] [address] Phys: Marianna Baeza DO Acct: [id number] Dis Date: Status: REG ER PHONE #: [phone] Exam Date: 11/23/2018 0407 FAX #: [phone] Reason: FLANK PAIN EXAMS: CPTCODE: [id number] CT ABD PELVIS W/O CONT 23866 REASON FOR EXAM: FLANK PAIN EXAM ORDER [...] 1 Signed Report (CONTINUED) Name: SHANKAR ARROYO [facility] :1980 Age/S: 38 / F [address] [facility] Unit #: [id number] [place]: [place] [address] Phys: Marianna Baeza DO Acct: [id number] Dis Date: Status: REG ER PHONE #: [phone] Exam Date: 11/23/2018 1759 FAX #: [phone] Reason: FLANK PAIN EXAMS: CPT CODE: [id number] CT ABD PELVIS W/O CONT 26637 <Continued> Punctate nonobstructing renal stones bilaterally. Electronic ally Signed by Devendra Rose MD on 11/23/2018 at 1838 Reported and signed by: Devendra Rose MD CC: Marianna Baeza DO Technologist:Ivonne Call RT(R) CTDI: DLP: Trnscb Date/Time: 11/23/2018 (183) [email or web address] Orig Print D/T: S: 11/23/2018 (4385) PAGE 2 Sig olivia ReportURINALYSIS [id number] 18:19:00 Test Item Value Reference Range Interpretation [...] A BACU) Urine Source? Clean CatchHCG SERUM [id number] 17:17:00 Test Item Value Reference Range Interpretation Comments HCG SERUM QUAL (test NEGATIVE NEGATIVE This HC GQL test is NOT code = HCGQL) applicable for MALE patients.Check with nurse about probable order error.If Tumor Marker Test needed, nu rse should order test "HCG TU"(Test #550.30266)---- - BASIC METABOLIC [id number] 15:54:00 Test Item Value Reference Range Interpretation [...] GFR) formula.Chronic kidney disease is defined as [facility] er kidney damageor GFR <60 mL/min/1.73 m2 for >3 months. CREATININE (test code 0.80 mg/dL 0.55-1.02 N Note change in = CREAT) reference range due to change in reagent. BUN/CREATININE RATIO 17.0 10-20 N (test code = BUN/CREA) CALCIUM (test code = 8.9 mg/dL 8.5-10.1 N CA) [id number] 15:54:00 Test Item Value Reference Range Interpretation Comments TROPONIN-I (test code = TROPI) <0.015 ng/mL 0-0.045 N - XR CHEST 1 [id number] 15:52:00 FAX: Marianna Baeaz DO [place]: B St: REG Name: SHANKAR ARROYO [facility] : 1980 Age/S: 38/F [address] [facility] Unit#: [id number] Loc: [place] [address] Phys: Marianna Baeza DO Acct: [id number] Dis Date: Status: REG ER PHONE #: [phone] Exam Date: 11/23/2018 7847 FAX #: [phone] Reason: CHEST PAIN EXAMS: CPT CODE: [id number] XR CHEST 1 V 46671 REASON FOR EXAM: CHEST PAIN Exam Order [...] JAVIER ADAM; STUDENT TECHNOLOGIST Trnscrd Date/Time/By: 11/23/2018 (3821) : By: [email or web address] Orig Print D/T: S: 11/23/2018 (5872) PAGE 1 Signed ReportBASIC METABOLIC [id number] 15:45:00 Test Item Value Reference Range Interpretation [...] CALCIUM (test code = CA) mg/dL 8.5-10.1 [id number] 15:45:00 Test Item Value Reference Range Interpretation Comments TROPONIN-I (test code = TROPI) ng/mL 0-0.045 CBC W/O [id number] 15:37:00 Test Item Value Reference Range Interpretation [...] fL 6.7-11.0 N = MPV) CBC W/O [id number] 15:34:00 Test Item Value Reference Range Interpretation [...] (test code fL 6.7-11.0 = MPV) CARDIAC [id number] 06:50:000.9[facility]annCARDIAC EIWVCPI6394-17-31 06:50:0011[facility]annCARDIAC YZERUYY3898-22-42 06:50:00<0.02[facility]annCARDIAC AAQWGAK2658-65-57 06:50:0065[facility]annCARDIAC ENZYMES 2015-02-09 06:50:000.6[facility] HuaxyykWKUWARMEKPHR0709-38-64 06:50:003.8[facility] AyolahhKDXIAYVHJEEC1518-41-17 06:50:76620[place]aw RzsanljPNGDLYXFTZUA2082-05-57 06:50:15860Qssfshpm UrkayaxNWAHGLVUXJGI9229-35-46 06:50:0083[facility] LDHNEHVBQMZN3769-96-85 06:50:000.9[facility] LchyjrsOQCPUKAYXYHK1722-88-91 06:50:003.4[facility] SxlntbwJXRUNYVQVHOQ5792-90-73 06:50:003.7[facility] DKFDOADSNBTL5634-64-17 06:50:007[facility] RpjxkmuQDRYEYVOIOCB3646-26-82 06:50:00 21[facility] BwtupzvXBWSRTGOOUEZ4391-50-34 06:50:008.8[facility] HermannELECTROLYTES 2015-02-09 06:50:0012[facility] SujrhwlGZTOLUYLUCZY9063-63-30 06:50:007.1[facility] YhrqholBZYQZOTPTPCL8704-72-55 06:50:008.5[facility] OqjitpyIFKWLRGBGLAQ6585-41-39 06:50:000.9[facility] OvumtjfDEHLRFVIRMHB2934-50-52 06:50:0011[facility] VCTAGSVFPDHF6601-09-04 06:50:000.3[facility] QbgewagOCNFKRZAYPWT7875-44-92 06:50:0064[facility] UdwtcmqZPATOGGMANMH7656-61-74 06:50:0027[facility] FQXUDANIBQEJ3318-75-05 06:50:68755Fggjrlsn TtdvcrjWYTNAJEHVZ5190-74-01 06:50:00 0.1[facility] QbfrbobNUXAFCYVFS3421-67-37 06:50:000.5[facility] HermannHEMATOLOGY 2015-02-09 06:50:002.6[facility] UmabcpoEHWWDECMCL2557-84-67 06:50:0057.8[facility] KwpddmiUITLDJSROY7711-68-83 06:50:0034.6[facility] FsmmjsuHOMTUTWSMP3609-80-16 06:50:006.1[facility] WipokzoUTDBACDJNE7100-12-90 06:50:001.1[facility] BWPONLHNQO9910-13-16 06:50:000.4[facility] EbxuncqWBYMXTBMYE3126-07-87 06:50:004.3 [facility] IasvbqsXDXXFMIDLW0653-70-32 06:50:000.22[facility] HermannHEMATOLOGY 2015-02-09 06:50:008.2[facility] OswwnekRADPFXKNHF0921-16-84 06:50:18966Dlteewen OdwwklwGRRABSSNBU0772-71-93 06:50:0013.1[facility] BdkhxcrRIOBUPALDG0511-00-54 06:50:00 Test Item Value Reference Range Interpretation Comments MCH (test code = MCH) 28.1 pg 27.0-31.0 [facility] SowoqlkNOOIFMYEDX9881-98-31 06:50:0032.7[facility] HermannHEMATOLOGY 2015-02-09 06:50:0041.0[facility] ZdixmmxLUFHEPIDAC5291-75-22 06:50:0086.0[facility] VlfirvhCFBLYLDLEE3865-29-00 06:50:007.5[facility] FbunqcjWMZEWQHNXZ6231-98-32 06:50:004.76[facility] AixxnjdKUNBPPFUUM9188-01-33 06:50:0013.4[facility] CARDIAC KJTQPRV4173-30-10 07:17:0055[facility] HermannCARDIAC DVWZKDK1339-01-43 07:17:00<0.02[facility]annCARDIAC APVATUK4236-41-40 07:17:000.7[facility]annCARDIAC PTURXFA7870-38-28 07:17:0010[facility]annCARDIAC ENZYMES 2014-07-10 07:17:001.3[facility] HermannCHEM YIKRW1956-07-65 07:17:006.6[facility] HermannCHEM SDHVD2962-81-21 07:17:008.4[facility] HermannCHEM JSPMR5334-09-01 07:17:0095[facility] HermannCHEM TCPLS6854-02-35 07:17:0063[facility] HermannCHEM UXHEM5702-89-45 07:17:000.3[facility] HermannCHEM VGTWH1478-29-83 07:17:003.2 [facility] HermannCHEM LSDPM5278-97-19 07:17:009.7[facility] HermannCHEM PANEL 2014-07-10 07:17:0017[facility] HermannCHEM PDHFD4315-07-81 07:17:008[facility] HermannCHEM PPYLI3656-73-60 07:17:000.9[facility] HermannCHEM LHOHL1856-17-38 07:17:0012[facility] HermannCHEM PHTUM5125-65-82 07:17:003.4[facility] HermannCHEM RHILD5586-52-55 07:17:0029[facility] HermannCHEM FVGYS1968-76-42 07:17:59143 [facility] HermannCHEM LPNSQ8967-06-93 07:17:0010[facility] HermannCHEM PANEL 2014-07-10 07:17:000.8[facility] HermannCHEM PIRUN4078-92-08 07:17:97450Dqbyjxxr HermannCHEM MJVHM7209-49-21 07:17:003.7[facility] HermannCHEM TJVTS0304-16-53 07:17:55077Zhjoegiz JwbmylsHDBFFLLTZH4649-27-21 07:17:96072Hfhtexsk Amor JYFVJFYGMQ9787-46-96 07:17:008.0[facility] EfqrwriBQJCFOQVZK5680-08-23 07:17:00 34.3[facility] JodnnjoPMRHJCFSVT0405-78-94 07:17:0013.1[facility] HermannHEMATOLOGY 2014-07-10 07:17:00 Test Item Value Reference Range Interpretation Comments MCH (test code = MCH) 29.2 pg 27.0-31.0 Memorial KtdjvpaGXGGWAIPQQ0315-96-50 07:17:0037.7[facility] HermannHEMATOLOGY 2014-07-10 07:17:0085.2[facility] TbynuunPHHOEUUYJZ5457-40-80 07:17:0012.9[facility] NcpurwbWACPUFKHOZ5363-22-06 07:17:008.3[facility] MhgvgotRDIETREYMH8246-73-81 07:17:004.42[facility] XirpzuvROBRRWFEST6914-59-41 07:17:001.3[facility] CAMTNLXWOF0538-21-39 07:17:0030.8[facility] GysgvyjWHWEBGODFE3140-85-56 07:17:00 5.5[facility] FmdjcikIPTHNQCSIR0649-87-27 07:17:0061.3[facility] HermannHEMATOLOGY 2014-07-10 07:17:001.1[facility] UvlgargUMGJIUXDQK7316-20-96 07:17:000.5[facility] SiccbolPGJOVEVOBO6758-81-44 07:17:000.1[facility] PgtzldqDWVDZYRPAS1504-02-32 07:17:005.1[facility] BzaxkupZHZKFKYNBT7710-56-45 07:17:002.5[facility] EUZPFFQKRN0193-50-12 07:17:000.1[facility] XjjzrtdYGZMMBTUA9931-59-05 03:05:000.8 [facility] AnzfpfzMGGQHKXMG9633-53-89 03:05:0028[facility] HermannCHEMISTRY 2011-12-28 03:05:009.1[facility] IbbeqemITCQZXFFL6476-72-78 03:05:82722Xgdclqof UiuhducPIKSPSTFW9862-71-53 03:05:72738Nnlndqhv YrtihsgRZNWNEHNN5334-85-23 03:05:003.9[facility] XksgzatHWSTLIDLK3232-54-88 03:05:009.9[facility] OOGNJZTKJ9092-60-41 03:05:009[facility] UexnixqKZXHIRUYY0996-54-06 03:05:0098 [facility] NvdcomcPPFEOKSIKV1638-43-01 03:05:000.22[facility]
[2020-10-25 18:05] LABS: BUN Blood Urea Nitrogen 12 mg/dL (7-18); Bicarbonate 26 mmol/L (21-32); Glucose Level 135 mg/dL (74-106); Sodium Level 140 mmol/L (136-145)
[2020-10-25 18:22] LABS: Basophils % 0.4 % (0-1.3); Hematocrit 39.7 % (36.0-45.0); Lymphocytes % 22.2 % (15.3-44.8); MPV 8.3 fL (7.6-11.3); RBC Red Blood Cell Count 4.61 M/uL (3.86-4.86)
--- NOTE | 2020-10-25 19:05 | RAD REPORT ---
EXAM DESCRIPTION: RAD - Chest Single View - 10/25/2020 6:58 pm CLINICAL HISTORY: DYSPNEA Chest pain. COMPARISON: <Comparisons> FINDINGS: Portable technique limits examination quality. The lungs are grossly clear. The heart is normal in size. No displaced fractures. IMPRESSION: No acute intrathoracic process suspected.
[2020-10-25] MEDS ORDERED: PROMETHAZINE INJ 25 MG/ML AMP ONE (19:15)
[2020-10-25] MEDS ORDERED: NA CHLORIDE 0.9% 1,000 ML ONE (19:15)
[2020-10-25] MEDS ORDERED: HYDROMORPHONE HCL 0.5 MG/0.5 ML INJ ONE (19:56)
--- NOTE | 2020-10-25 20:39 | ER ---
Nurse's Notes [facility] Name: Jo Ann Kowalski Age: 40 yrs Sex: Female : 1980 Arrival Date: 10/25/2020 Time: 16:37 Bed 7 Private MD: Diagnosis: Lower abdominal pain, unspecified;Shortness of breath Presentation: 10/25 16:40 Chief complaint: Patient states: about a week ago i started having really bad right tw2 pain on my right side, the dr told me it was a cyst and told me to follow up with ob. i was waiting for an appt and started hurting really bad with shortness of breath when i walked. so i came back. the cyst ruptured down to 7 cm and said i was going to be hurting for a while, but now when i walk i cant breathe. when i stand up i feel like i am going to pass out. i cant keep anything down. the bleeding is heavy and goes through 2 pads. Coronavirus screen: At this time, the client does not indicate any symptoms associated with coronavirus-19. Ebola Screen: Patient denies travel to an Ebola-affected area in the 21 days before illness onset. Initial Sepsis Screen: Does the patient meet any 2 criteria? No. Patient's initial sepsis screen is negative. Does the patient have a suspected source of infection? No. Patient's initial sepsis screen is negative. Risk Assessment: Do you want to hurt yourself or someone else? Patient reports no desire to harm self or others. Onset of symptoms was October 25, 2020. 16:40 Method Of Arrival: Wheelchair tw2 16:40 Acuity: RAMESH 3 tw2 Triage Assessment: 16:43 General: Appears uncomfortable, obese, Behavior is calm, cooperative, appropriate for tw2 age. Pain: Complains of pain in pelvis. GI: Reports lower abdominal pain, intolerance of fluids, intolerance of food, nausea, vomiting. : Reports vaginal bleeding that is bright red. 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 - Social history:: Smoking status: . Screenin:50 Abuse screen: Denies threats or abuse. Denies injuries from another. Nutritional ca1 screening: No deficits noted. Tuberculosis screening: No symptoms or risk factors identified. Fall Risk IV access (20 points). Assessment: 16:50 General: Appears in no apparent distress. uncomfortable, Behavior is calm, cooperative, ca1 appropriate for age. Pain: Complains of pain in right lower quadrant Pain radiates to right low back Pain currently is 10 out of 10 on a pain scale. Pain began a week ago Is intermittent. Neuro: Level of Consciousness is awake, alert, obeys commands, Oriented to person, place, time, situation. Cardiovascular: Heart tones S1 S2 present Capillary refill < 3 seconds Patient's skin is warm and dry. Respiratory: Airway is patent Respiratory effort is even, unlabored, Respiratory pattern is regular, symmetrical, Breath sounds are clear bilaterally. GI: Abdomen is round non-distended, Bowel sounds present X 4 quads. Abd is soft X 4 quads Abdomen is tender to palpation in right upper quadrant and right lower quadrant Reports nausea, vomiting. : No signs and/or symptoms were reported regarding the genitourinary system. EENT: No signs and/or symptoms were reported regarding the EENT system. Derm: Skin is intact, is healthy with good turgor, Skin is pink, warm \T\ dry. Musculoskeletal: Circulation, motion, and sensation intact. Capillary refill < 3 seconds. 17:50 Reassessment: Patient appears in no apparent distress at this time. Patient and/or ca1 family updated on plan of care and expected duration. Pain level reassessed. Patient is alert, oriented x 3, equal unlabored respirations, skin warm/dry/pink. 18:55 Reassessment: Patient appears in no apparent distress at this time. Patient and/or ca1 family updated on plan of care and expected duration. Pain level reassessed. Patient is alert, oriented x 3, equal unlabored respirations, skin warm/dry/pink. 19:30 General: Appears in no apparent distress. uncomfortable, Behavior is calm, cooperative, rr5 appropriate for age, ED provider informed for the abdominal pain with order made and carried out. 19:30 Pain: Complains of pain in anterior aspect of right lateral abdomen, right upper rr5 quadrant and right lower quadrant Pain currently is 6 out of 10 on a pain scale. Quality of pain is described as aching, Pain began gradually, Is intermittent. Neuro: Level of Consciousness is awake, alert, obeys commands, Oriented to person, place, time. Cardiovascular: Capillary refill < 3 seconds Patient's skin is warm and dry. Respiratory: Airway is patent Respiratory effort is even, unlabored, Respiratory pattern is regular, symmetrical. GI: Abdomen is round non-distended, Reports Pain is 6 out of 10 on a pain scale. : No signs and/or symptoms were reported regarding the genitourinary system. EENT: No signs and/or symptoms were reported regarding the EENT system. Derm: Skin is intact, is healthy with good turgor, Skin temperature is warm. Musculoskeletal: Capillary refill < 3 seconds. 20:42 Reassessment: Patient appears in no apparent distress at this time. Patient is alert, rr5 oriented x 3, equal unlabored respirations, skin warm/dry/pink. discharge instruction given and explained without complaints made Patient states feeling better. Patient states symptoms have improved. Vital Signs: 16:40 BP 112 / 98; Pulse 92; Resp 19; Temp 98.6(TE); Pulse Ox 100% on R/A; Weight 86.18 kg; tw2 Height 4 ft. 11 in. (149.86 cm); Pain 10/10; 17:50 BP 125 / 83; Pulse 81; Resp 18 S; Pulse Ox 97% on R/A; ca1 18:55 BP 120 / 75; Pulse 81; Resp 18 S; Pulse Ox 96% on R/A; ca1 19:41 BP 126 / 70; Pulse 80; Resp 19; Temp 98.4; Pulse Ox 98% ; rr5 20:44 BP 101 / 59; Pulse 75; Resp 16; Pulse Ox 98% ; rr5 16:40 Body Mass Index 38.37 (86.18 kg, 149.86 cm) tw2 ED Course: 16:37 Patient arrived in ED. as 16:42 Triage completed. tw2 16:43 Arm band placed on. tw2 16:49 Nelson Hidalgo PA is [facility]. jr8 16:49 Carlos Paige MD is Attending Physician. jr8 16:49 Alyssa Renteria, RN is Primary Nurse. ca1 16:50 Patient has correct armband on for positive identification. Placed in gown. Bed in low ca1 position. Call light in reach. Side rails up X2. Pulse ox on. NIBP on. Warm blanket given. 17:31 Initial lab(s) drawn, by me, sent to lab. Inserted saline lock: 20 gauge in left ca1 antecubital area, using aseptic technique. Blood collected. 18:57 XRAY Chest (1 view) In Process Unspecified. EDMS 20:43 No provider procedures requiring assistance completed. IV discontinued, intact, rr5 bleeding controlled, No redness/swelling at site. Pressure dressing applied. Administered Medications: 18:55 Drug: NS 0.9% 1000 ml Route: IV; Rate: 1000 ml; Site: left antecubital; ca1 20:00 Follow up: Response: No adverse reaction; IV Status: Completed infusion; IV Intake: rr5 1000ml 18:56 Drug: Promethazine 12.5 mg Route: IVP; Site: left antecubital; ca1 20:00 Follow up: Response: No adverse reaction; Marked relief of symptoms rr5 19:37 Drug: Dilaudid (HYDROmorphone) 0.5 mg Route: IVP; Site: left antecubital; ak2 20:30 Follow up: Response: No adverse reaction; RASS: Alert and Calm (0) rr5 Intake: 20:00 IV: 1000ml; Total: 1000ml. rr5 Outcome: 20:39 Discharge ordered by . jr8 20:43 Discharged to home ambulatory, with family. rr5 20:43 Condition: stable 20:43 Discharge instructions given to patient, Instructed on discharge instructions, follow up and referral plans. Demonstrated understanding of instructions, follow-up care. 20:45 Patient left the ED. rr5 Signatures: Dispatcher [employer] EDMS Alondra Almeida Josh, PA PA jr8 Selina Mcmanus RN RN tw2 Deon Olmstead RN RN rr5 Alyssa Renteria, RN RN ca1 Saad Nicole ak2 Corrections: (The following items were deleted from the chart) 19:42 19:01 CORONAVIRUS+MR.LAB.BRZ drawn and sent. [facility] EDMS
--- NOTE | 2020-10-25 20:39 | EDPHYS ---
Physician Documentation [facility] Name: Jo Ann Kowalski Age: 40 yrs Sex: Female : 1980 Arrival Date: 10/25/2020 Time: 16:37 Bed 7 Private MD: ED Physician Carlos Paige HPI: 10/25 17:49 This 40 yrs old Female presents to ER via Wheelchair with complaints of jr8 Nausea/Vomiting, Dizziness, Pelvic Pain. 17:49 Patient seen on the of this month and diagnosed with right ovarian cyst. Had come jr8 in with lower abdominal pain. Came back the next day for increased pain. Had another CT and US completed showing partial rupture of cyst with fluid. Was feeling better and was discharged home to f/u with OB. Today came back because she is now having heaving vaginal bleeding with dizziness, n/v, and shortness of breath. Severity of symptoms: At their worst the symptoms were moderate in the emergency department the symptoms are unchanged. The patient has been recently seen by a physician:. 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 - Social history:: Smoking status: . ROS: 17:49 Eyes: Negative for injury, pain, redness, and discharge, ENT: Negative for injury, jr8 pain, and discharge, Neck: Negative for injury, pain, and swelling, Cardiovascular: Negative for chest pain, palpitations, and edema, Back: Negative for injury and pain, MS/Extremity: Negative for injury and deformity, Skin: Negative for injury, rash, and discoloration, Neuro: Negative for headache, weakness, numbness, tingling, and seizure. Positive for dizziness 17:49 Respiratory: Positive for shortness of breath. 17:49 Abdomen/GI: Positive for abdominal pain, nausea and vomiting, Negative for diarrhea, constipation, abdominal cramps, abdominal distension. 17:49 : Positive for vaginal bleeding. Exam: 19:12 Constitutional: This is a well developed, well nourished patient who is awake, alert, jr8 and in no acute distress. Cardiovascular: Regular rate and rhythm with a normal S1 and S2. No gallops, murmurs, or rubs. Normal PMI, no JVD. No pulse deficits. Respiratory: Lungs have equal breath sounds bilaterally, clear to auscultation and percussion. No rales, rhonchi or wheezes noted. No increased work of breathing, no retractions or nasal flaring. Back: No spinal tenderness. No costovertebral tenderness. Full range of motion. Skin: Warm, dry with normal turgor. Normal color with no rashes, no lesions, and no evidence of cellulitis. MS/ Extremity: Pulses equal, no cyanosis. Neurovascular intact. Full, normal range of motion. Neuro: Awake and alert, GCS 15, oriented to person, place, time, and situation. Cranial nerves II-XII grossly intact. Motor strength 5/5 in all extremities. Sensory grossly intact. Cerebellar exam normal. Normal gait. 19:12 Abdomen/GI: Inspection: obese Bowel sounds: active, all quadrants, Palpation: soft, in all quadrants, mild abdominal tenderness, in the anterior aspect of right lateral abdomen and right lower quadrant, mass, is not appreciated, rebound tenderness, is not appreciated, voluntary guarding, is not appreciated, involuntary guarding, is not appreciated, no appreciated organomegaly, Indicators: McBurney's point is not tender, Overton's sign is negative, Rovsing's sign is negative, Liver: tenderness, is not appreciated. Vital Signs: 16:40 BP 112 / 98; Pulse 92; Resp 19; Temp 98.6(TE); Pulse Ox 100% on R/A; Weight 86.18 kg; tw2 Height 4 ft. 11 in. (149.86 cm); Pain 10/10; 17:50 BP 125 / 83; Pulse 81; Resp 18 S; Pulse Ox 97% on R/A; ca1 18:55 BP 120 / 75; Pulse 81; Resp 18 S; Pulse Ox 96% on R/A; ca1 19:41 BP 126 / 70; Pulse 80; Resp 19; Temp 98.4; Pulse Ox 98% ; rr5 20:44 BP 101 / 59; Pulse 75; Resp 16; Pulse Ox 98% ; rr5 16:40 Body Mass Index 38.37 (86.18 kg, 149.86 cm) tw2 MDM: 16:49 Patient medically screened. jr8 19:12 Data reviewed: vital signs, nurses notes, lab test result(s), radiologic studies, plain jr8 films. Data interpreted: Pulse oximetry: on room air is 96 %. Interpretation: normal. Counseling: I had a detailed discussion with the patient and/or guardian regarding: the historical points, exam findings, and any diagnostic results supporting the discharge/admit diagnosis, lab results, radiology results. 20:37 ED course: Patient doing much better. Labs remain stable. Abdomen without rebounding, jr8 rigidity, or guarding. Will send home to f/u with OB. Return precautions given. 10/25 17:18 Order name: CBC with Diff; Complete Time: 18:28 jr8 10/25 17:18 Order name: Basic Metabolic Panel; Complete Time: 18:08 jr8 10/25 18:43 Order name: XRAY Chest (1 view); Complete Time: 19:09 jr8 10/25 20:42 Order name: SARS-COV-2 RT PCR; Complete Time: 09:16 EDMS 10/25 17:18 Order name: IV; Complete Time: 17:30 jr8 Administered Medications: 18:55 Drug: NS 0.9% 1000 ml Route: IV; Rate: 1000 ml; Site: left antecubital; ca1 20:00 Follow up: Response: No adverse reaction; IV Status: Completed infusion; IV Intake: rr5 1000ml 18:56 Drug: Promethazine 12.5 mg Route: IVP; Site: left antecubital; ca1 20:00 Follow up: Response: No adverse reaction; Marked relief of symptoms rr5 19:37 Drug: Dilaudid (HYDROmorphone) 0.5 mg Route: IVP; Site: left antecubital; ak2 20:30 Follow up: Response: No adverse reaction; RASS: Alert and Calm (0) rr5 Disposition: 10/26 07:11 Co-signature as Attending Physician, Carlos Paige MD I agree with the assessment and kdr plan of care. Disposition: 10/25/20 20:39 Discharged to Home. Impression: Lower abdominal pain, unspecified, Shortness of breath. - Condition is Stable. - Discharge Instructions: Abdominal Pain, Adult, Shortness of Breath. - Medication Reconciliation Form, Thank You Letter, Antibiotic Education, Prescription Opioid Use form. - Follow up: Private Physician; When: 2 - 3 days; Reason: Recheck today's complaints, Continuance of care, Re-evaluation by your physician. - Problem is new. - Symptoms have improved. Signatures: Dispatcher [employer] [facility] Carlos Paige MD MD kdr Roszak, Josh, PA PA jr8 Selina Mcmanus RN RN tw2 Deon Olmstead RN RN rr5 Alyssa Renteria RN RN ca1 Saad Nicole nd2 Corrections: (The following items were deleted from the chart) 10/25 19:42 18:44 CORONAVIRUS+MR.LAB.BRZ ordered. [facility] 20:45 20:39 10/25/2020 20:39 Discharged to Home. Impression: Lower abdominal pain, rr5 unspecified; Shortness of breath. Condition is Stable. Forms are Medication Reconciliation Form, Thank You Letter, Antibiotic Education, Prescription Opioid Use. Follow up: Private Physician; When: 2 - 3 days; Reason: Recheck today's complaints, Continuance of care, Re-evaluation by your physician. Problem is new. Symptoms have improved. jr8
[2020-10-25 20:57] VITALS: TEMP 98.4; O2SAT 98
[2020-10-25 20:58] VITALS: BP 101/59
== END 2020-10-25 20:45 | disposition home or self-care (01) ==
LOC: ER 16:35
DX: R10.30 Lower abdominal pain, unspecified (principal); R06.02 Shortness of breath; Z20.822 Contact with and (suspected) exposure to COVID-19; Z88.5 Allergy status to narcotic agent; Z91.040 Latex allergy status; Z91.048 Other nonmedicinal substance allergy status
CPT/HCPCS: 36415; 71045; 80048; 85025; J1170; J2550; J7030; U0003

== ENCOUNTER 2021-02-04 06:21 | Emergency (ER) | payer SELFPAY ==
[2021-02-04 07:13] LABS: Basophils % 0.2 % (0-1.3); Hematocrit 36.9 % (36.0-45.0); Lymphocytes % 30.7 % (15.3-44.8); MPV 7.3 fL (7.6-11.3); RBC Red Blood Cell Count 4.28 M/uL (3.86-4.86)
[2021-02-04 07:22] LABS: Urine Blood 1+ (Negative); Urine Glucose Negative (Negative); Urine Protein Negative (Negative); Urine Specific Gravity >=1.030 (1.005-1.030); Urine pH 5.5 (5.0-7.0)
[2021-02-04 07:36] LABS: ALT/SGPT 19 U/L (12-78); AST/SGOT 8 U/L (15-37); Albumin 3.3 g/dL (3.4-5.0); Alkaline Phosphatase 64 U/L (45-117); BUN Blood Urea Nitrogen 9 mg/dL (7-18); Bicarbonate 24 mmol/L (21-32); Bilirubin Direct < 0.1 mg/dL (0-0.2); Bilirubin Total 0.3 mg/dL (0.2-1.0); Glucose Level 185 mg/dL (74-106); Lipase 99 U/L (73-393); Protein, Total 6.9 g/dL (6.4-8.2); Sodium Level 140 mmol/L (136-145)
[2021-02-04 07:49] LABS: Urine Specific Gravity/Preg >1.030 (1.005-1.030)
--- NOTE | 2021-02-04 07:56 | RAD REPORT ---
EXAM DESCRIPTION: CT - Abdomen Pelvis Wo Contrast - 02/04/2021 7:39 am CLINICAL HISTORY: ABD PAIN COMPARISON: <Comparisons> TECHNIQUE: Axial [address] imaging of the abdomen and pelvis was performed without IV contrast. No IV contrast was given because of allergy, abnormal renal function, patient refusal or physician re quest. No oral contrast was administered. All CT scans are performed using dose optimization technique as appropriate and may include automated exposure control or mA/KV adjustment according to patient size. FINDINGS: No suspicious findings in the lung bases. The liver, spleen and pancreas show no suspicious findings on non-contrast imaging. Gallbladder and b iliary tree are also without suspicious finding. Liver attenuation is borderline fatty infiltrated. No hydronephrosis or suspicious renal mass. Punctate nonobstructing calyx calcification noted on the left. No significant adrenal finding. Isodense renal masses and pyelonephritis cannot be excluded in the absence of IV contrast. Urinary bladder is contracted which limits assessment. Uterus and ovaries show no suspicious findings. No dilated bowel loops or bowel wall thickening. Appendix is normal. No free air, free fluid or infla mmatory stranding. No hernia, mass or bulky lymphadenopathy. No suspicious bony findings. IMPRESSION: Non-contrast enhanced CT abdomen and pelvis imaging show no acute or emergent finding. No suspicious change from prior examination. Full assessment is limited is the absence of IV contrast.
--- NOTE | 2021-02-04 08:05 | EDPHYS ---
Physician Documentation [facility] Name: Jo Ann Kowalski Age: 40 yrs Sex: Female : 1980 Arrival Date: 02/04/2021 Time: 06:25 Bed 13 Private MD: ED Physician Oscar Madrigal HPI: 02/04 07:05 This 40 yrs old Female presents to ER via Ambulatory with complaints of kb Nausea/Vomiting, Dizziness. 07:05 The patient presents to the emergency department with nausea, vomiting, diarrhea, kb abdominal pain. Onset: The symptoms/episode began/occurred 5 day(s) ago. Possible causes: unknown. The symptoms are aggravated by nothing. The symptoms are alleviated by nothing. Associated signs and symptoms: Pertinent positives: abdominal pain, diarrhea, nausea, vomiting. Severity of symptoms: At their worst the symptoms were moderate in the emergency department the symptoms are unchanged. The patient has not experienced similar symptoms in the past. The patient has not recently seen a physician. Pt reports LLQ pain and diarrhea started 5 days ago. States pain moved to upper abd yesterday and she developed nausea, vomiting and lightheadedness. . 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 - Social history:: Smoking status: Patient denies any tobacco usage or history of. ROS: 07:07 Constitutional: Negative for fever, chills, and weight loss. kb 07:07 Abdomen/GI: Positive for abdominal pain, nausea, vomiting, and diarrhea. 07:07 Neuro: Positive for dizziness. 07:07 All other systems are negative. Exam: 07:06 Constitutional: This is a well developed, well nourished patient who is awake, alert, kb and in no acute distress. ENT: Moist Mucous membranes Respiratory: Respirations even and unlabored. No increased work of breathing, no retractions or nasal flaring. Skin: Warm, dry with normal turgor. Normal color. MS/ Extremity: Pulses equal, no cyanosis. Neurovascular intact. Full, normal range of motion. Neuro: Awake and alert, GCS 15, oriented to person, place, time, and situation. Moves all extremities. Normal gait. Psych: Awake, alert, with orientation to person, place and time. Behavior, mood, and affect are within normal limits. 07:06 Abdomen/GI: Inspection: abdomen appears normal, Bowel sounds: normal, in all quadrants, Palpation: soft, in all quadrants, mild abdominal tenderness, in the right upper quadrant and left upper quadrant. Vital Signs: 06:35 BP 131 / 76; Pulse 80; Resp 18; Temp 98.1(O); Pulse Ox 100% ; Weight 83.91 kg; Height 4 lh3 ft. 11 in. (149.86 cm); 07:50 BP 114 / 60 Supine; Pulse 70; Resp 17; Pulse Ox 100% ; oh 07:50 BP 112 / 61 Sitting; Pulse 64; Resp 17; Pulse Ox 99% ; oh 07:50 BP 105 / 63 Standing; Pulse 70; Resp 19; Pulse Ox 100% ; oh 09:56 BP 109 / 65; Pulse 75; Resp 17; Pulse Ox 100% on R/A; oh 06:35 Body Mass Index 37.37 (83.91 kg, 149.86 cm) lh3 MDM: 06:49 Patient medically screened. kb 07:05 Data reviewed: vital signs, nurses notes. Data interpreted: Pulse oximetry: on room air kb is 100 %. Interpretation: normal. 08:03 Counseling: I had a detailed discussion with the patient and/or guardian regarding: the kb historical points, exam findings, and any diagnostic results supporting the discharge/admit diagnosis, lab results, radiology results, the need for outpatient follow up, a family practitioner, to return to the emergency department if symptoms worsen or persist or if there are any questions or concerns that arise at home. 02/04 06:49 Order name: Basic Metabolic Panel kb 02/04 06:49 Order name: CBC with Diff; Complete Time: 07:23 kb 02/04 06:49 Order name: Hepatic Function; Complete Time: 07:37 kb 02/04 06:49 Order name: Lipase; Complete Time: 07:37 kb 02/04 06:49 Order name: Basic Metabolic Panel; Complete Time: 07:37 EDMS 02/04 07:22 Order name: Urine Dipstick-Ancillary; Complete Time: 07:23 EDMS 02/04 06:49 Order name: IV Saline Lock; Complete Time: 07:14 kb 02/04 06:49 Order name: Labs collected and sent; Complete Time: 07:14 kb 02/04 06:49 Order name: CT Abd/Pelvis - Without Contrast; Complete Time: 08:03 kb 02/04 07:29 Order name: Urine --Ancillary (enter results) bd 02/04 07:29 Order name: Urine --Ancillary; Complete Time: 07:50 EDMS 02/04 06:49 Order name: Orthostatics; Complete Time: 07:52 kb 02/04 06:54 Order name: Urine Dipstick-Ancillary (obtain specimen); Complete Time: 07:23 kb 02/04 06:54 Order name: Urine Test (obtain specimen); Complete Time: 07:23 kb Administered Medications: 08:21 Drug: NS 0.9% 1000 ml Route: IV; Rate: 1000 ml; Site: left antecubital; iw 08:21 Drug: Zofran (Ondansetron) 4 mg Route: IVP; Site: left antecubital; iw 08:21 Drug: Ketorolac 30 mg Route: IVP; Site: left antecubital; iw Point of Care Testing: Urine : 07:25 hCG Reading: Negative; oh Disposition Summary: 02/04/21 08:04 Discharge Ordered Location: Home kb Condition: Stable kb Diagnosis - Upper abdominal pain, unspecified kb Followup: kb - With: Emergency Department - When: As needed - Reason: Worsening of condition Followup: kb - With: Private Physician - When: 2 - 3 days - Reason: Recheck today's complaints, Continuance of care, Re-evaluation by your physician Discharge Instructions: - Discharge Summary Sheet kb - Abdominal Pain, Adult, [id number] kb Forms: - Medication Reconciliation Form kb - Thank You Letter kb - Antibiotic Education kb - Prescription Opioid Use kb Prescriptions: - Zofran 4 mg Oral Tablet - take 1 tablet by ORAL route every 6 hours As needed; 20 tablet; Refills: 0, kb Product Selection Permitted - dicyclomine 20 mg Oral Tablet - take 1 tablet by ORAL route 4 times per day As needed; 20 tablet; Refills: 0, kb Product Selection Permitted Addendum: 02/07/2021 07:03 Co-signature as Attending Physician, Oscar Madrigal MD. r n 07:03 I agree with the assessment and plan of care. Attestation: The patient's history, exam r n findings, diagnostics, and a summary of any interventions or procedures was reviewed in detail with Esme GAMBOA. Signatures: Dispatcher [employer] EDEsme Dawson, BEE SPECIAL INVESTIGATOR-CkKamala Ulloa RN RN iw Nieto, Roman, MD MD rn Hardee, Latisha, RN RN 3
--- NOTE | 2021-02-04 08:05 | ER ---
Nurse's Notes [facility] Name: Jo Ann Kowalski Age: 40 yrs Sex: Female : 1980 Arrival Date: 02/04/2021 Time: 06:25 Bed 13 Private MD: Diagnosis: Upper abdominal pain, unspecified Presentation: 02/04 06:35 Chief complaint: Patient states: that she has been having abdominal pain for the past lh3 couple of days, but it got really worse last night. Patient was going to try and go to work this morning and the pain, nausea and dizziness was worse. Pt states that it started off in the LLQ and has moved to the umbilicus. C/O of bloating, diarrhea (mainly right after eating), and the dizziness. Dizziness is generalized, doesn't really worsen with movement, light, or change in positions. Pain 5/10. Coronavirus screen: Vaccine status: Patient reports being unvaccinated. Ebola Screen: No symptoms or risks identified at this time. Initial Sepsis Screen: Does the patient meet any 2 criteria? No. Patient's initial sepsis screen is negative. Does the patient have a suspected source of infection? No. Patient's initial sepsis screen is negative. Risk Assessment: Do you want to hurt yourself or someone else? Patient reports no desire to harm self or others. Onset of symptoms was February 04, 2021. 06:35 Method Of Arrival: Ambulatory 3 06:35 Acuity: RAMESH 3 3 Triage Assessment: 06:40 General: Appears in no apparent distress. well nourished, Behavior is calm, lh3 cooperative, appropriate for age. Pain: Complains of pain in umbilical area Pain does not radiate. Pain level that patient reports is acceptable is 5 out of 10 on a pain scale. GI: Reports bloating, diarrhea, tolerance of fluids, tolerance of food, since 02.02.21. 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 - Social history:: Smoking status: Patient denies any tobacco usage or history of. Screenin:09 Abuse screen: Denies threats or abuse. Nutritional screening: No deficits noted. cw2 Tuberculosis screening: No symptoms or risk factors identified. Fall Risk None identified. IV access (20 points). Assessment: 07:23 Reassessment: Receive pt from previous shift, urine collected, pt away at CT. GI: oh Reports lower abdominal pain, nausea, vomiting. 07:26 GI: Abdomen is. oh 08:22 Reassessment: Patient appears in no apparent distress at this time. Patient and/or iw family updated on plan of care and expected duration. Pain level reassessed. Patient is alert, oriented x 3, equal unlabored respirations, skin warm/dry/pink. pt medicated per MAR, IV fluids infusing freely to LAC, pt updated on POC, dispo home after fluids. Vital Signs: 06:35 BP 131 / 76; Pulse 80; Resp 18; Temp 98.1(O); Pulse Ox 100% ; Weight 83.91 kg; Height 4 lh3 ft. 11 in. (149.86 cm); 07:50 BP 114 / 60 Supine; Pulse 70; Resp 17; Pulse Ox 100% ; oh 07:50 BP 112 / 61 Sitting; Pulse 64; Resp 17; Pulse Ox 99% ; oh 07:50 BP 105 / 63 Standing; Pulse 70; Resp 19; Pulse Ox 100% ; oh 09:56 BP 109 / 65; Pulse 75; Resp 17; Pulse Ox 100% on R/A; oh 06:35 Body Mass Index 37.37 (83.91 kg, 149.86 cm) 3 ED Course: 06:25 Patient arrived in ED. wm 06:40 Triage completed. lh3 06:40 Arm band placed on right wrist. lh3 06:44 Last Cunningham, SATYA is Primary Nurse. cw2 06:48 Esme Dawkins FNP-C is PHCP. kb 06:49 Oscar Madrigal MD is Attending Physician. kb 07:04 Basic Metabolic Panel Sent. cw2 07:04 CBC with Diff Sent. cw2 07:04 Hepatic Function Sent. cw2 07:04 Lipase Sent. cw2 07:07 No provider procedures requiring assistance completed. Initial lab(s) drawn, by pa, neda sent to lab. Inserted saline lock: 20 gauge in left antecubital area, using aseptic technique. Blood collected. 07:25 Bed in low position. Call light in reach. oh 07:30 faxed chart to [email or web address]. bd 07:39 CT Abd/Pelvis - Without Contrast In Process Unspecified. EDMS 09:57 IV discontinued, bleeding controlled, Pressure dressing applied. oh Administered Medications: 08:21 Drug: NS 0.9% 1000 ml Route: IV; Rate: 1000 ml; Site: left antecubital; iw 08:21 Drug: Zofran (Ondansetron) 4 mg Route: IVP; Site: left antecubital; iw 08:21 Drug: Ketorolac 30 mg Route: IVP; Site: left antecubital; iw Point of Care Testing: Urine : 07:25 hCG Reading: Negative; oh Outcome: 08:04 Discharge ordered by . kb 09:57 Discharged to home oh 09:57 Condition: good 09:57 Discharge instructions given to patient. 09:58 Patient left the ED. oh Signatures: Dispatcher [employer] EDMS Esme Dawkins, TALAT-C WATER METER INSTALLER-CkJenn Kraus Irene, RN RN iw Ayde Garcia Latisha, RN RN 3 Last Cunningham, RN RN 2 Catarino Iverson, RN RN oh Corrections: (The following items were deleted from the chart) 08:24 08:22 Reassessment: Patient appears in no apparent distress at this time. Patient iw and/or family updated on plan of care and expected duration. Pain level reassessed. Patient is alert, oriented x 3, equal unlabored respirations, skin warm/dry/pink. iw
[2021-02-04] MEDS ORDERED: ONDANSETRON 4 MG/2 ML VIAL ONE (08:38)
[2021-02-04] MEDS ORDERED: KETOROLAC 30 MG/ML INJ ONE (08:38)
[2021-02-04] MEDS ORDERED: NA CHLORIDE 0.9% 1,000 ML ONE (08:38)
[2021-02-04 10:08] VITALS: TEMP 98.1; O2SAT 100
[2021-02-04 10:13] VITALS: BP 109/65
== END 2021-02-04 09:58 | disposition home or self-care (01) ==
LOC: ER 06:21
DX: R10.10 Upper abdominal pain, unspecified (principal); Z88.5 Allergy status to narcotic agent; Z91.040 Latex allergy status; Z91.048 Other nonmedicinal substance allergy status
CPT/HCPCS: 36415; 74176; 80048; 80076; 81003; 81025; 83690; 85025; 96374; 96375; 99284; J2405; J7030

== ENCOUNTER 2021-03-05 18:33 | Emergency (ER) | payer SELFPAY ==
[2021-03-05] MEDS ORDERED: IBUPROFEN 400 MG TAB ONE (19:44)
--- NOTE | 2021-03-05 20:23 | RAD REPORT ---
EXAM DESCRIPTION: RAD - Ankle Left 3 View - 03/05/2021 7:43 pm CLINICAL HISTORY: fall, injury COMPARISON: No comparisons FINDINGS: No acute fracture. No malalignment. No significant focal degenerative changes. IMPRESSION: No acute osseous abnormality involving the left ankle.
--- NOTE | 2021-03-05 20:23 | RAD REPORT ---
EXAM DESCRIPTION: RAD - Foot Left 3 View - 03/05/2021 7:43 pm CLINICAL HISTORY: fall COMPARISON: No comparisons FINDINGS: No acute fracture. No malalignment. No significant focal degenerative changes. IMPRESSION: No acute osseous abnormality involving the left foot.
--- NOTE | 2021-03-05 20:24 | RAD REPORT ---
EXAM DESCRIPTION: RAD - Tib Fib Left - 03/05/2021 7:43 pm CLINICAL HISTORY: fall, pain COMPARISON: <Comparisons> FINDINGS: No acute fracture. No malalignment. No significant focal degenerative changes. IMPRESSION: No acute osseous abnormality involving the tibia or fibula.
--- NOTE | 2021-03-05 20:28 | ER ---
Nurse's Notes [facility] Name: Jo Ann Kowalski Age: 41 yrs Sex: Female : 1980 Arrival Date: 03/05/2021 Time: 18:37 Bed 25 Private MD: Diagnosis: Sprain of ankle Presentation: 03/05 18:46 Chief complaint: Patient states: " I was using a step stool to get into the bed and I tw5 guess it was uneven and it wobbles and I fell down then the stool twisted and hit my ankle that I had just twisted falling down. I thought I had heard a crack and it really hurts I cannot put any pressure on it". Coronavirus screen: Vaccine status: Patient reports being unvaccinated. Ebola Screen: Patient negative for fever greater than or equal to 101.5 degrees Fahrenheit, and additional compatible Ebola Virus Disease symptoms Patient denies exposure to infectious person. Patient denies travel to an Ebola-affected area in the 21 days before illness onset. Initial Sepsis Screen: Does the patient meet any 2 criteria? No. Patient's initial sepsis screen is negative. Does the patient have a suspected source of infection? No. Patient's initial sepsis screen is negative. Risk Assessment: Do you want to hurt yourself or someone else? Patient reports no desire to harm self or others. Onset of symptoms was March 05, 2021 at 18:00. 18:46 Method Of Arrival: Wheelchair tw5 18:46 Acuity: RAMESH 4 tw5 Triage Assessment: 18:48 General: Appears uncomfortable, Behavior is calm, cooperative. Pain: Complains of pain tw5 in left lateral ankle Pain currently is 10 out of 10 on a pain scale. Musculoskeletal: Swelling present in left lateral ankle. 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 - Social history:: Smoking status: Patient denies any tobacco usage or history of. Screenin:50 Abuse screen: Denies threats or abuse. Denies injuries from another. Nutritional jw6 screening: No deficits noted. Tuberculosis screening: No symptoms or risk factors identified. Fall Risk Fall in past 12 months (25 points). Ambulatory Aid- None/Bed Rest/Nurse Assist (0 pts). Gait- Impaired (20 pts.). Assessment: 18:50 General: Appears uncomfortable, Behavior is cooperative, restless. Pain: Complains of jw6 pain in left lateral ankle and lateral aspect of left foot Pain does not radiate. Pain currently is 10 out of 10 on a pain scale. Quality of pain is described as sharp, shooting. Neuro: No deficits noted. Cardiovascular: No deficits noted. Respiratory: No deficits noted. GI: No deficits noted. : No deficits noted. EENT: No deficits noted. Derm: No deficits noted. Musculoskeletal: Reports weakness in left lateral ankle and lateral aspect of left foot pain in left lateral ankle and lateral aspect of left foot. Injury Description: swollen L ankle and foot. 19:28 Reassessment: Ice pack placed to left ankle / foot and elevated on 3 blanets. Sock dc2 given for left foot. Pt co pain 10/10 AT THIS TIME. Vital Signs: 18:46 BP 129 / 75; Pulse 82; Resp 18; Temp 97.4; Pulse Ox 100% ; Weight 86.18 kg; Height 4 tw5 ft. 11 in. (149.86 cm); Pain 10/10; 18:48 BP 129 / 79; Pulse 89; Resp 16; Temp 98.9; Pulse Ox 98% on R/A; Weight 86.18 kg; Height jw6 4 ft. 11 in. (149.86 cm); Pain 10/10; 20:00 BP 118 / 73; Pulse 73; Resp 19; Pulse Ox 100% ; Pain 10/10; dc2 20:45 BP 131 / 80; Pulse 72; Resp 18; Temp 97.5(O); Pulse Ox 100% on R/A; Pain 4/10; dc2 18:48 Body Mass Index 38.37 (86.18 kg, 149.86 cm) jw6 ED Course: 18:37 Patient arrived in ED. mr 18:38 Jfefrey Zapata PA is PHCP. [facility] 18:38 Oscar Madrigal MD is Attending Physician. jmm 18:48 Triage completed. tw5 18:48 Cherry Baez is Primary Nurse. jw6 18:48 Arm band placed on right wrist. Patient placed in an exam room, on a stretcher, on tw5 pulse oximetry. 18:50 Patient has correct armband on for positive identification. Call light in reach. Side jw6 rails up X 1. Adult w/ patient. 18:52 No provider procedures requiring assistance completed. jw6 19:29 X-ray(s) taken. dc2 19:43 Ankle Left 3 View XRAY In Process Unspecified. EDMS 19:43 Tib Fib Left XRAY In Process Unspecified. EDMS 19:43 Foot Left 3 View XRAY In Process Unspecified. EDMS 20:28 Andres Barfield MD is Referral Physician. jmm 20:40 Patient did not have IV access during this emergency room visit. dc2 Administered Medications: 19:15 Drug: Ibuprofen 800 mg Route: PO; dc2 20:17 Follow up: Response: Pain is unchanged, physician notified dc2 20:26 Drug: lidocain patch 4% 1 application Route: Topical; Site: affected area; dc2 20:49 Follow up: Response: Pain is decreased dc2 Outcome: 20:28 Discharge ordered by MD. [facility] 20:45 Discharged to home via wheelchair, with crutches. dc2 20:45 Condition: stable 20:45 Discharge instructions given to patient, Instructed on discharge instructions, Demonstrated understanding of instructions, follow-up care, medications, Prescriptions given X 2. 20:52 Patient left the ED. dc2 Signatures: Dispatcher [employer] EDMS Jeffrey Zapata PA PA jmm Rivera, Mary mr Sanaz Bray RN RN dc2 Juliet Porter tw5 Cherry Baez jw6
--- NOTE | 2021-03-05 20:28 | EDPHYS ---
Physician Documentation [facility] Name: Jo Ann Kowalski Age: 41 yrs Sex: Female : 1980 Arrival Date: 03/05/2021 Time: 18:37 Bed 25 Private MD: ED Physician Oscar Madrigal HPI: 03/05 19:05 This 41 yrs old Female presents to ER via Wheelchair with complaints of Ankle jmm Injury. 19:05 Onset: The symptoms/episode began/occurred acutely, just prior to arrival. Associated jmm signs and symptoms: Pertinent positives: swelling. Is a 41-year-old female with history of asthma the presents emerged part with complaints of left lower leg pain after she fell off a stool. Patient denies hitting her head.. 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 - Social history:: Smoking status: Patient denies any tobacco usage or history of. ROS: 19:05 Constitutional: Negative for fever, chills, and weight loss, Cardiovascular: Negative jmm for chest pain, palpitations, and edema, Respiratory: Negative for shortness of breath, cough, wheezing, and pleuritic chest pain. 19:05 MS/extremity: Positive for injury or acute deformity. 19:05 Neuro: Positive for 19:05 All other systems are negative. Exam: 19:05 Constitutional: This is a well developed, well nourished patient who is awake, alert, jmm and in no acute distress. Head/Face: atraumatic. Eyes: EOMI, no conjunctival erythema appreciated ENT: Moist Mucus Membranes Neck: Trachea midline, Supple Chest/axilla: Normal chest wall appearance and motion. Cardiovascular: Regular rate and rhythm. No edema appreciated Respiratory: Normal respirations, no respiratory distress appreciated Abdomen/GI: Non distended, soft Back: Normal ROM Skin: General appearance color normal 19:05 Musculoskeletal/extremity: ROM: intact in all extremities, Left lateral ankle pain, compartments are soft, neurovascular intact full dorsalis pedis pulse. 19:05 Skin: Appearance: Color: normal in color. 19:05 Neuro: Orientation: is normal, Mentation: is normal, Memory: is normal. 19:05 Psych: Behavior/mood is pleasant, cooperative. Vital Signs: 18:46 BP 129 / 75; Pulse 82; Resp 18; Temp 97.4; Pulse Ox 100% ; Weight 86.18 kg; Height 4 tw5 ft. 11 in. (149.86 cm); Pain 10/10; 18:48 BP 129 / 79; Pulse 89; Resp 16; Temp 98.9; Pulse Ox 98% on R/A; Weight 86.18 kg; Height jw6 4 ft. 11 in. (149.86 cm); Pain 10/10; 20:00 BP 118 / 73; Pulse 73; Resp 19; Pulse Ox 100% ; Pain 10/10; dc2 20:45 BP 131 / 80; Pulse 72; Resp 18; Temp 97.5(O); Pulse Ox 100% on R/A; Pain 4/10; dc2 18:48 Body Mass Index 38.37 (86.18 kg, 149.86 cm) 6 MDM: 19:04 Patient medically screened. [facility] 20:27 Data reviewed: vital signs, nurses notes. Counseling: I had a detailed discussion with [facility] the patient and/or guardian regarding: the historical points, exam findings, and any diagnostic results supporting the discharge/admit diagnosis, radiology results, the need for outpatient follow up, to return to the emergency department if symptoms worsen or persist or if there are any questions or concerns that arise at home. 03/05 19:04 Order name: Ankle Left 3 View XRAY; Complete Time: 20:26 [facility] 03/05 19:04 Order name: Tib Fib Left XRAY; Complete Time: 20:26 [facility] 03/05 19:05 Order name: Foot Left 3 View XRAY; Complete Time: 20:26 [facility] 03/05 20:27 Order name: Jose Martin wrap-joint; Complete Time: 20:49 [facility] 03/05 20:50 Order name: Crutches; Complete Time: 20:50 dc Administered Medications: 19:15 Drug: Ibuprofen 800 mg Route: PO; dc2 20:17 Follow up: Response: Pain is unchanged, physician notified dc2 20:26 Drug: lidocain patch 4% 1 application Route: Topical; Site: affected area; dc2 20:49 Follow up: Response: Pain is decreased dc2 Disposition: 03/06 07:00 Co-signature as Attending Physician, Oscar Madrigal MD I agree with the assessment and rn plan of care. Attestation: The patient's history, exam findings, diagnostics, and a summary of any interventions or procedures was reviewed in detail with Jeffrey LOVE. Disposition Summary: 03/05/21 20:28 Discharge Ordered Location: Home [facility] Condition: Stable [facility] Diagnosis - Sprain of ankle [facility] Followup: [facility] - With: Andres Barfield MD - When: 2 - 3 days - Reason: Recheck today's complaints, Continuance of care, Re-evaluation by your physician Discharge Instructions: - Discharge Summary Sheet [facility] - Ankle Sprain [facility] Forms: - Medication Reconciliation Form [facility] - Thank You Letter [facility] - Antibiotic Education [facility] - Prescription Opioid Use [facility] Prescriptions: - Ibuprofen 800 mg Oral Tablet - take 1 tablet by ORAL route every 8 hours As needed take with food; 30 tablet; [facility] Refills: 0, Product Selection Permitted - orphenadrine citrate 100 mg Oral Tablet Sustained Release - take 1 tablet by ORAL route 2 times per day As needed; 20 tablet; Refills: 0, [facility] Product Selection Permitted Signatures: Dispatcher [employer] Jeffrey Ortega PA PA [facility] Oscar Madrigal MD MD rn Charters, Denise, RN RN al2 Juliet Porter tw5
[2021-03-05] MEDS ORDERED: LIDOCAINE 4% PATCH ONE (20:46)
[2021-03-05 21:07] VITALS: O2SAT 100
[2021-03-05 21:08] VITALS: BP 131/80; TEMP 97.5
== END 2021-03-05 20:52 | disposition home or self-care (01) ==
LOC: ER 18:33
DX: S93.402A Sprain of unspecified ligament of left ankle, initial encounter (principal); W07.XXXA Fall from chair, initial encounter; Z88.5 Allergy status to narcotic agent; Z91.040 Latex allergy status; Z91.048 Other nonmedicinal substance allergy status
CPT/HCPCS: 99284

== ENCOUNTER 2021-04-09 05:01 | Emergency (ER) | payer SELFPAY ==
--- OUTSIDE RECORDS SUMMARY | 2021-04-09 05:05 | XMS REPORT | Continuity of Care Document ---
:1980 Author Organization [facility] t Address [address] [place] [address] Care Team Providers Name Role Phone Diana Jarrett Attending Clinician Unavailable Andrew Lozoya Attending Clinician Unavailable Dino Ness Attending Clinician Unavailable Jasbir Hylton Admitting Clinician Unavailable Diana Jarrett Admitting Clinician Unavailable Physician, Primary or Family Admitting Clinician Unavailabl e Payers Payer Name Policy Type Policy Number Effective Date Expiration Date S ource Problems This patient has no known problems. Allergies, Adverse Reactions, Alerts Allergy Allergy Status Severity Reaction(s) Onset Inactive Treating Comm ents Source Name Type Date Date Clinician iodine DA Active MO 2020-0 [facility] 2-28 Clear 00:00: Irwin [facility] morphine DA Active MO 2020-0 [facility] 2-28 Clear 00:00: Irwin [facility] meperidi DA Active MO 2020-0 [facility] ne 2-28 Clear 00:00: Irwin [facility] latex DA Active MO 2020-0 [facility] 2-28 Clear 00:00: Irwin [address] [place] [address] iodine DA Active MO RESPIRATORY 2020-0 [facility] DISTRESS 2-28 Clear 00:00: Irwin [facility] morphine DA Active MO RASH-HIVES 2020-0 [facility] 2-28 Clear 00:00: Irwin [facility] meperidi DA Active MO RESPIRATORY 2020-0 [facility] ne DISTRESS 2-28 Clear 00:00: Irwin 00 [facility] latex DA Active MO RASH-HIVES 2020-0 [facility] 2-28 Clear 00:00: Irwin 00 [facility] iodine DA Active MO 2020-0 [facility] 2-27 [place] [facility] morphine DA Active MO 2020-0 [facility] 2-27 [place] 00:[facility]: [facility] meperidi DA Active MO 2020-0 [facility] ne 2-27 [place] 00:[facility]: [facility] latex DA Active MO 2020-0 [facility] 2-27 [place] 00:[facility]: e [facility] iodine DA Active MO RESPIRATORY 2020-0 [facility] 2-27 [place] 00:[facility]: e [facility] morphine DA Active MO RASH-HIVES 2020-0 [facility] 2-27 [place] 00:[facility]: e [facility] meperidi DA Active MO RESPIRATORY 2020-0 [facility] ne DISTRESS 2-27 [place] 00:[facility]: e [facility] latex DA Active MO RASH-HIVES 2020-0 [facility] 2-27 [place] 00:[facility]: e [facility] iodine DA Active MO 2019-0 [facility] 7-16 [place] 00:[facility]: e [facility] morphine DA Active MO 2019-0 [facility] 7-16 [place] 00:[facility]: e [facility] meperidi DA Active MO 2019-0 [facility] ne 7-16 [place] 00:[facility]: e [facility] latex DA Active MO 2019-0 [facility] 7-16 [place] 00:[facility]: e [facility] iodine DA Active MO RESPIRATORY 2019-0 [facility]ESS 7-16 [place] 00:[facility]: e [facility] morphine DA Active MO RASH-HIVES 2019-0 [facility] 7-16 [place] 00:[facility]: e [facility] meperidi DA Active MO RESPIRATORY 2019-0 [facility] ne DISTRESS 7-16 [place] 00:[facility]: e [facility] latex DA Active MO RASH-HIVES 2019-0 [facility] 7-16 [place] 00:[facility]: e [facility] iodine DA Active MO 2018-1 [facility] 1-17 Clear 00:00: Irwin 00 [facility] morphine DA Active MO 2018-1 [facility] 1-17 Clear 00:00: Irwin 00 [facility] meperidi DA Active MO 2018-1 [facility] ne 1-17 Clear 00:00: Irwin 00 [facility] latex DA Active MO 2017- [facility] 1-17 Clear 00:00: Irwin [facility] iodine DA Active MO 2016- [facility] 9-30 [place] [facility] 2016- [facility] Active [facility] 2016- [facility] latex DA Active MO 2016- [facility] Medications This patient has no known medications. Procedures Procedure Date / Time Performed Performing Clinician [facility] e [id number] 2019-07-11 00:00:00 ALI.06 [facility] [id number] 2019-07-11 00:00:00 [facility].06 [facility] [id number] 2019-07-11 00:00:00 [facility].06 [facility] Encounters Start End Encounter Admission Attending Care Care Encounter Source Date/Time Date/Time Type Type Clinicians Facility Department ID 2021-03-04 Inpatient [facility] JHONATAN [id number] [facility] 16:44:00 [id number] [facility] 2019-07-10 Inpatient EM CAROLYNE Jarrett OLAG [id number] [facility] 2019-07-08 Inpatient EM CAROLYNE Jarrett MEDI [id number] [facility]:20[id number] 2019-07-07 Inpatient [facility] JHONATAN [id number] [facility] 21:24:00 [id number] [facility] 2021-03-04 2021-03-04 Emergency EM Devora CAROLYNE ISRAEL [id number] [facility] 16:44:00 21:39:00 Gal 41 [facility] 2021-03-04 2021-03-04 Emergency E MHSE MHSE [id number] MH 17:45:00 17:45:00 Ana [facility] 2020-11-14 2020-11-14 Outpatient MARYELLEN Ness [id number] [facility] 17:12:00 17:12:00 [facility] [id number] [facility] 2020-11-14 2020-11-14 Emergency E MHSE MHSE 7501 10:19:00 10:[facility] [facility] 2020-11-14 2020-11-14 Emergency EM CAROLYNE Ness [id number] [facility] 08:41:00 10:18:00 Phil [id number] [facility] 2019-05-31 2019-05-31 Outpatient E MHSE ISMAEL 7518 00:25:00 00:25:[address] [facility] [facility] Results Test Description Test Time Test Comments Results Result Comments Source URINALYSIS COMPLETE 2020-11-14 09:50:00 Test Item Value Reference Range Interpretation Comme nts UA COLOR (test code = COLU) Light-Yellow YELLOW UA APPEARANCE (test code = APPU) HAZY CLEAR A UA GLUCOSE DIPSTICK (test code = DGLUU) NEGATIVE mg/dL NEGATIVE UA BILIRUBIN DIPSTICK (test code = BILU) NEGATIVE mg/dL NEGATIVE UA KETONE DIPSTICK (test code = KETU) NEGATIVE mg/dL NEGATIVE UA SPECIFIC GRAVITY (test code = SGU) 1.018 1.001-1.035 UA BLOOD DIPSTICK (test code = KRISTIE) 0.2 mg/dL (2+) mg/dL NEGATIVE A UA PH DIPSTICK (test code = SHANNAN) 5.5 5.0-8.0 UA PROTEIN DIPSTICK (test code = PROU) NEGATIVE mg/dL NEGATIVE UA UROBILINIOGEN DIPSTICK (test code = URO) Normal mg/dL NEGATIVE UA NITRITE DIPSTICK (test code = TACO) NEGATIVE NEGATIVE UA LEUKOCYTE ESTERASE W REFLEX (test code = 25 Malvin/uL (Trace) Malvin/u L NEGATIVE A LEUUR) UA WBC (test code = WBCU) 6-10 per HPF 0-5 A UA RBC (test code = RBCU) 0-2 #/HPF 0-5 UA EPITHELIAL CELLS (test code = EPIU) MANY per HPF FEW UA BACTERIA (test code = BACU) NONE SEEN #/HPF NONE UA MUCUS (test code = MUCU) FEW #/LPF FEW Urine Source? Clean CatchUR HCG [id number] 09:50:00 Test Item Value Reference Range Interpretation Comments UR HCG QUAL (test NEGATIVE This HCGQL test is NOT code = HCGQLU) applicable fo r MALE patients.Check with nurse about probable order error.If Tumor Marker Test needed, nu rse should order test "HCG TU"(Test #550.44763)---- - Urine Source? Clean CatchURINALYSIS [id number] 09:44:00 Test Item Value Reference Range Interpretation Comments UA COLOR (test code = COLU) YELLOW UA APPEARANCE (test code = APPU) CLEAR UA BILIRUBIN DIPSTICK (test code = NEGATIVE BILU) UA SPECIFIC GRAVITY (test code = 1.001-1.035 SGU) UA PH DIPSTICK (test code = SHANNAN) 5.0-8.0 UA UROBILINIOGEN DIPSTICK (test code mg/dL 0.0-0.2 = URO) UA NITRITE DIPSTICK (test code = NEGATIVE TACO) UA LEUKOCYTE ESTERASE W REFLEX (test NEGATIVE code = LEUUR) UA WBC (test code = WBCU) per HPF 0-5 UA RBC (test code = RBCU) per HPF 0-5 UA EPITHELIAL CELLS (test code = per HPF Few EPIU) UA BACTERIA (test code = BACU) per HPF NONE Urine Source? Clean CatchUR HCG [id number] 09:44:00 Test Item Value Reference Range Interpretation Comments UR HCG QUAL (test NEGATIVE This HCGQL test is NOT code = HCGQLU) applicable fo r MALE patients.Check with nurse about probable order error.If Tumor Marker Test needed, nu rse should order test "HCG TU"(Test #550.83714)---- - Urine Source? Clean [id number] 16:50:00 RUN DATE: 07/12/19 [facility] PAGE 1 RUN TIME: 1650 Specimen Inquiry RUN USER: INTERFACE PATIENT: SHANKAR ARROYO LOC: VIVI U #: [id number] AGE/SX: 39/F ROOM: [facility] RE07/10/19REG DR: Ronni Jarrett MD : 76 BED: A DIS: 07/12/19 STATUS: DIS IN TLOC: SPEC #: [id number] RECD: 07/11/19 STATUS: DARON HARO #: [id number] BRITTANY: 07/11/19- SUBM DR: Rodney Sotelo MD ENTERED: 07/11/19 SP TYPE: STOMACH OTHR DR: No Primary or Family Physician Miguel Salazar MD, Alberto J MDORDERED: GROSS COPIES TO: No Primary or Family Physician Rodney Sotelo MD [address] [place] [address] [phone] Miguel Salazar MD [address] [place] [address] José Hylton MD [address] [facility] [place] [address] PROCEDURES: GROSS (07/12/19-1420) TISSUES: 1. DUODENUM, NOS - BX 2. GASTRIC CORPUS - BX 3. COLON, NOS- TERMINAL ILEUM BX CLINICAL HISTORY COLLECTION DATE: 07/11/19 HEMATEMESIS, MELENA, EPIGASTRIC PAIN FINAL DIAGNOSIS Duodenum, biopsy: DUODENAL MUCOSA WITH NO PATHOLOGICALTERATION Gastric tissue, biopsy: REACTIVE GASTROPATHY GASTRIC MUCOSA WITH NO PATHOLOGIC ALTERATION NEGATIVE FOR HELICOBACTER ORGANISMS CONTINUED ON NEXT PAGE RUN DATE: 07/12/19 [place] PAGE2 RUN TIME: 1650 Specimen Inquiry RUN USER: INTERFACE SPEC #: [id number] PATIENT: SHANKAR ARROYO #[id number] (Continued) FINAL DIAGNOSIS (Continued) NEGATIVE FOR MALIGNANCY Terminal ileum, biopsy: SMALL BOWEL MUCOSA WITH UNREMARKABLE VILLOUS ARCHITECTURE AND PROMINENT LYMPHOID AGGREGATES NEGATIVE FOR MALIGNANCY RRB/sm D 94831m0, 60977 MACROSCOPIC The first specimen is received in [...] aggregate, submitted as (3). GROSS PERFORMED AT [facility] [address] [place] [address] (P)[phone] MICROSCOPIC All of the stains, including any controls performed, stain appropriately. MICROSCOPIC PERFORMED AT [facility] [address] [place] [address] (P)[phone] PERFORMING SITE Diagnosis performed at: [facility], [address] [address] CONTINUED ON NEXT PAGE RUN DATE: 07/12/19 [facility] PAGE 3 RUN TIME: 1650 Specimen Inquiry RUN USER: INTERFACE SPEC #: [id number] PATIENT: SHANKAR ARROYO #[id number] (Continued) PERFORMING [facility] ([facility]) [phone]---- -------- Signed SIGNATURE ON FILE Evangelista Danielle MD 07/12/19 1650 END OF REPORT HEPATIC FUNCTION [id number] 05:45:00 Test Item Value Reference Range Interpretation Comments TOTAL PROTEIN (test 6.1 gram/dL 6.4-8.2 L code = PROT) ALBUMIN (test code = 2.8 g/dL 3.4-5.0 L ALB) GLOBULIN (test code = 3.3 gram/dL 2.7-4.2 N GLOB) ALBUMIN/GLOBULIN RATIO 0.9 0.75-1.50 N (test code = A/G) BILIRUBIN TOTAL (test 0.30 mg/dL 0.0-1.0 N code = BILT) BILIRUBIN DIRECT (test 0.08 mg/dL 0.0-0.20 N code = BILD) SGOT/AST (test code = 16 IUnit/L 15-37 N AST) SGPT/ALT (test code = 25 IUnit/L 12-78 N ALT) ALKALINE PHOSPHATASE 51 IUnit/L 45-117 N Note change in TOTAL (test code = reference range due ALKP) to change in reagent. [id number] 05:45:00 Test Item Value Reference Range Interpretation Comments LIPASE (test code = LIP) 91 U/L 73.0-393.0 N CBC W/AUTO [id number] 07:11:00 Test Item Value Reference Range Interpretation [...] K/mm3 0.0-0.1 N code = NRBC#) HGB [id number] 18:13:00 Test Item Value Reference Range Interpretation Comments HEMOGLOBIN (test code = HGB) 12.1 gram/dL 11.5-15.5 N HEMATOCRIT (test code = HCT) 36.4 % 36.0-46.0 N HGB [id number] 12:15:00 Test Item Value Reference Range Interpretation Comments HEMOGLOBIN (test code 12.7 gram/dL 11.5-15.5 RESULT VERIFIED BY = HGB) REPEAT ANALYSIS HEMATOCRIT (test code 38.6 % 36.0-46.0 N = HCT) - CT ABD PELVIS W/O [id number] 00:05:00 Name: SHANKAR ARROYO [facility] : 1980 Age/S: 39 / F [address] [facility] Unit #: [id number] Loc: [place] [address] Phys: Waldemar Ortez MD Acct: [id number] Dis Date: Status: ADM IN PHONE #: [phone] Exam Date: 07/07/2019 0749 FAX #: [phone] Reason: mid abd pain vomiting blood and blood in stool EXAMS: CPTCODE: [id number] CT ABD PELVIS W/O CONT 35078 CT abdomen and pelvis without IV contrast. [...] 1 Signed Report (CONTINUED) Name: SHANKAR ARROYO [facility] : 1980 Age/S: 39 / F [address] [facility] Unit #: [id number] Loc: [place] [address] Phys: Waldemar Ortez MD Acct: [id number] Dis Date: Status: ADM IN PHONE #: [phone] Exam Date: 07/07/2019 2335 FAX #: [phone] Reason: mid abd pain vomiting blood and blood in stool EXAMS: CPT CODE: [id number] CT ABD PELVIS W/O CONT 03576 <Continued> at 0005 Reported and signed by: Lorrie Welch M.D. CC: Waldemar Ortez MD Technologist:RADHA MONTANA CT CTDI: DLP: Trnscb Date/Time: 07/08/2019 (0005) [email or web address] Orig Print D/T: S: 07/08/2019 (0452) PAGE 2 Signed Report- US ABDOMEN [id number] 23:54:00 [facility] 1980 Age/S: 39 / F [address] [facility] Unit #: [id number] Loc: [place] [address] Phys: Waldemar Ortez MD Acct: [id number] Dis Date: Status: REG ER PHONE #: [phone] Exam Date: 07/07/2019 2330 FAX #: [phone] Reason: ruq pain ho gallbladder problem EXAMS: CPTCODE: [id number] ABDOMEN [facility] [address]95 DICTATION LOCATION: H48 HISTORY: Female, 39 years [...] no significant change since prior study. at 3143 Reported and signed by: Shelby Anderson MD CC: Waldemar Ortez MD Technologist: DALIA AGARWAL RDMS Trnscb Date/Time: 07/07/2019 (9433) [email or web address] Orig Print D/T: S: 07/07/2019 (5853) Probe: PAGE 1 Signed ReportBASIC METABOLIC [id number] 23:00:00 Test Item Value Reference Range Interpretation [...] GFR) formula.Chronic kidney disease is defined as [facility] er kidney damageor GFR <60 mL/min/1.73 m2 for >3 months. CREATININE (test code 0.80 mg/dL 0.55-1.02 N Note change in = CREAT) reference range due to change in reagent. BUN/CREATININE RATIO 22.5 10-20 H (test code = BUN/CREA) CALCIUM (test code = 9.4 mg/dL 8.5-10.1 N CA) HEPATIC FUNCTION [id number] 23:00:00 Test Item Value Reference Range Interpretation [...] range due ALKP) to change in reagent. [id number] 23:00:00 Test Item Value Reference Range Interpretation Comments LIPASE (test code = LIP) 90 U/L 73.0-393.0 N HCG SERUM [id number] 23:00:00 Test Item Value Reference Range Interpretation Comments HCG SERUM QUAL (test NEGATIVE NEGATIVE This HC GQL test is NOT code = HCGQL) applicable for MALE patients.Check with nurse about probable order error.If Tumor Marker Test needed, nu rse should order test "HCG TU"(Test #550.24878)---- - [id number] 23:00:00 Test Item Value Reference Range Interpretation Comments TROPONIN-I (test code = TROPI) <0.015 ng/mL 0-0.045 N PROTHROMBIN [id number] 22:44:00 Test Item Value Reference Range Interpretation [...] (2.5-3.5) IS PATIENT ON ANTICOAGULANTS? NTHROMBOPLASTIN TIME [id number] 22:44:00 Test Item Value Reference Range Interpretation Comments THROMBOPLASTIN TIME PARTIAL 34.5 seconds 25.0-36.5 N (test code = PTT) IS PATIENT ON ANTICOAGULANTS? NBASIC METABOLIC [id number] 22:40:00 Test Item Value Reference Range Interpretation [...] code = CA) mg/dL 8.5-10.1 HEPATIC FUNCTION [id number] 22:40:00 Test Item Value Reference Range Interpretation [...] TOTAL (test IUnit/L 45-117 code = ALKP) [id number] 22:40:00 Test Item Value Reference Range Interpretation Comments LIPASE (test code = LIP) U/L 73.0-393.0 HCG SERUM [id number] 22:40:00 Test Item Value Reference Range Interpretation Comments HCG SERUM QUAL (test NEGATIVE NEGATIVE This HC GQL test is NOT code = HCGQL) applicable for MALE patients.Check with nurse about probable order error.If Tumor Marker Test needed, nu rse should order test "HCG TU"(Test #550.44241)---- - [id number] 22:40:00 Test Item Value Reference Range Interpretation Comments TROPONIN-I (test code = TROPI) ng/mL 0-0.045 CBC W/O [id number] 22:36:00 Test Item Value Reference Range Interpretation [...] fL 6.7-11.0 N = MPV) CBC W/O [id number] 22:34:00 Test Item Value Reference Range Interpretation [...] VOLUME (test code fL 6.7-11.0 = MPV) URINALYSIS [id number] 21:44:00 Test Item Value Reference Range Interpretation [...] #/LPF FEW MUCU) Urine Source? Clean CatchURINALYSIS [id number] 21:39:00 Test Item Value Reference Range Interpretation [...] Urine Source? Clean Catch- XR CHEST 1 [id number] 20:59:00 FAX: RITESH ELMORE NP [place]: St: REG Name: SHANKAR ARROYO [facility] : 1980 Age/S: 39/F [address] [facility] Unit#: [id number] Loc: [place] [address] Phys: RITESH ELMORE NP Acct: [id number] Dis Date: Status: REG ER PHONE #: [phone] Exam Date: 03/25/20191940 FAX #: [phone] Reason: Abdominal Pain EXAMS: CPT CODE: [id number] XR CHEST 1 V 57426 EXAM: Chest X-ray, 1 view; CLINICAL HISTORY: Abdominal pain; FINDINGS: The lungs are clear, no infiltrates, no edema; no effusions; no pneumothorax; normal cardiomediastinal silhouette. IMPRESSION: Normal chest x-ray. Location code: [facility] at 2058 Reported and signed by: Fito Shah M.D. CC: RITESH ELMORE NP Technologist: Ayde Jason) Trnscrd Date/Time/By: 03/25/2019 (2058) : By: KaleGRW Orig Print D/T: S: 03/25/2019 (2101) PAGE 1 Signed ReportBASIC METABOLIC [id number] 20:49:00 Test Item Value Reference Range Interpretation [...] 8.7 mg/dL 8.5-10.1 N CA) HEPATIC FUNCTION [id number] 20:49:00 Test Item Value Reference Range Interpretation [...] range due ALKP) to change in reagent. [id number] 20:49:00 Test Item Value Reference Range Interpretation Comments LIPASE (test code = LIP) 99 U/L 73.0-393.0 N HCG SERUM [id number] 20:49:00 Test Item Value Reference Range Interpretation Comments HCG SERUM QUAL (test NEGATIVE NEGATIVE This HC GQL test is NOT code = HCGQL) applicable for MALE patients.Check with nurse about probable order error.If Tumor Marker Test needed, nu rse should order test "HCG TU"(Test #550.00471)---- - - US ABDOMEN [id number] 20:45:00 Name: SHANKAR ARROYO [facility] : 1980 Age/S: 39 / F [address] [facility] Unit #: [id number] Loc: [place] [address] Phys: RITESH ELMORE NP Acct: [id number] Dis Date: Status: REG ER PHONE #: [phone] Exam Date: 03/25/20191943 FAX #: [phone] Reason: Abdominal Pain EXAMS: CPT CODE: [id number] US ABDOMEN LTD 35144 EXAM: Ultrasound of the abdomen, limited; INFORMATION: [...] the right upper quadrant; Location code: [facility] at 2044 Reported and signed by: Fito Shah M.D. CC: RITESH ELMORE NP Technologist: Ambreen Landeros RDMS Trnvtb Date/Time: 03/25/2019 (2044) Michela Orig Print D/T: S: 03/25/2019 (2047) Probe: PAGE 1 Signed ReportCBC W/O [id number] 20:39:00 Test Item Value Reference Range Interpretation [...] fL 6.7-11.0 N = MPV) BASIC METABOLIC [id number] 20:37:00 Test Item Value Reference Range Interpretation [...] code = CA) mg/dL 8.5-10.1 HEPATIC FUNCTION [id number] 20:37:00 Test Item Value Reference Range Interpretation [...] TOTAL (test IUnit/L 45-117 code = ALKP) [id number] 20:37:00 Test Item Value Reference Range Interpretation Comments LIPASE (test code = LIP) U/L 73.0-393.0 HCG SERUM [id number] 20:37:00 Test Item Value Reference Range Interpretation Comments HCG SERUM QUAL (test NEGATIVE NEGATIVE This HC GQL test is NOT code = HCGQL) applicable for MALE patients.Check with nurse about probable order error.If Tumor Marker Test needed, nu rse should order test "HCG TU"(Test #550.78476)---- - BASIC METABOLIC [id number] 20:37:00 Test Item Value Reference Range Interpretation [...] code = CA) mg/dL 8.5-10.1 HEPATIC FUNCTION [id number] 20:37:00 Test Item Value Reference Range Interpretation [...] TOTAL (test IUnit/L 45-117 code = ALKP) [id number] 20:37:00 Test Item Value Reference Range Interpretation Comments LIPASE (test code = LIP) U/L 73.0-393.0 HCG SERUM [id number] 20:37:00 Test Item Value Reference Range Interpretation Comments HCG SERUM QUAL (test NEGATIVE NEGATIVE This HC GQL test is NOT code = HCGQL) applicable for MALE patients.Check with nurse about probable order error.If Tumor Marker Test needed, nu rse should order test "HCG TU"(Test #550.90550)---- - CBC W/O [id number] 20:35:00 Test Item Value Reference Range Interpretation [...] = MPV) - CT ABD PELVIS W/O [id number] 18:38:00 Name: SHANKAR ARROYO [facility] : 1980 Age/S: 38 / F [address] [facility] Unit #: [id number] Loc: [place] [address] Phys: Marianna Baeza DO Acct: [id number] Dis Date: Status: REG ER PHONE #: [phone] Exam Date: 11/23/2018 1755 FAX #: [phone] Reason: FLANK PAIN EXAMS: CPTCODE: [id number] CT ABD PELVIS W/O CONT 06973 REASON FOR EXAM: FLANK PAIN EXAM ORDER DATE: 11/23/2018 4:31 PM Ordering MKathyDKathy: DO Stevan PROCEDURE: - CT ABD PELVIS [...] 1 Signed Report (CONTINUED) Name: SHANKAR ARROYO [facility] :1980 Age/S: 38 / F [address] [facility] Unit #: [id number] Loc: [place] [address] Phys: Marianna Baeza DO Acct: [id number] Dis Date: Status: REG ER PHONE #: [phone] Exam Date: 11/23/2018 1759 FAX #: [phone] Reason: FLANK PAIN EXAMS: CPT CODE: [id number] CT ABD PELVIS W/O CONT 47979 <Continued> Punctate nonobstructing renal stones bilaterally. Electronic ally Signed by Devendra Rose MD on 11/23/2018 at 1838 Reported and signed by: Devendra Rose MD CC: Marianna Baeza DO Technologist:Ivonne Call RT(R) CTDI: DLP: Trnscb Date/Time: 11/23/2018 (183) [email or web address] Orig Print D/T: S: 11/23/2018 (184) PAGE 2 Sig olivia ReportURINALYSIS [id number] 18:19:00 Test Item Value Reference Range Interpretation [...] A BACU) Urine Source? Clean CatchHCG SERUM [id number] 17:17:00 Test Item Value Reference Range Interpretation Comments HCG SERUM QUAL (test NEGATIVE NEGATIVE This HC GQL test is NOT code = HCGQL) applicable for MALE patients.Check with nurse about probable order error.If Tumor Marker Test needed, nu rse should order test "HCG TU"(Test #550.61298)---- - BASIC METABOLIC [id number] 15:54:00 Test Item Value Reference Range Interpretation [...] GFR) formula.Chronic kidney disease is defined as [facility] er kidney damageor GFR <60 mL/min/1.73 m2 for >3 months. CREATININE (test code 0.80 mg/dL 0.55-1.02 N Note change in = CREAT) reference range due to change in reagent. BUN/CREATININE RATIO 17.0 10-20 N (test code = BUN/CREA) CALCIUM (test code = 8.9 mg/dL 8.5-10.1 N CA) [id number] 15:54:00 Test Item Value Reference Range Interpretation Comments TROPONIN-I (test code = TROPI) <0.015 ng/mL 0-0.045 N - XR CHEST 1 [id number] 15:52:00 FAX: Marianna Baeza DO [place]: St: REG Name: SHANKAR ARROYO [facility] : 1980 Age/S: 38/F [address] [facility] Unit#: [id number] Loc: [place] [address] Phys: Marianna Baeza DO Acct: [id number] Dis Date: Status: REG ER PHONE #: [phone] Exam Date: 11/23/2018 1544 FAX #: [phone] Reason: CHEST PAIN EXAMS: CPT CODE: [id number] XR CHEST 1 V 42570 REASON FOR EXAM: CHEST PAIN Exam Order [...] JAVIER ADAM; STUDENT TECHNOLOGIST Trnscrd Date/Time/By: 11/23/2018 (7146) : By: [email or web address] Orig Print D/T: S: 11/23/2018 (6911) PAGE 1 Signed ReportBASIC METABOLIC [id number] 15:45:00 Test Item Value Reference Range Interpretation [...] CALCIUM (test code = CA) mg/dL 8.5-10.1 [id number] 15:45:00 Test Item Value Reference Range Interpretation Comments TROPONIN-I (test code = TROPI) ng/mL 0-0.045 CBC W/O [id number] 15:37:00 Test Item Value Reference Range Interpretation [...] fL 6.7-11.0 N = MPV) CBC W/O [id number] 15:34:00 Test Item Value Reference Range Interpretation [...]
--- NOTE | 2021-04-09 05:27 | ER ---
Nurse's Notes [facility] Name: Jo Ann Kowalski Age: 41 yrs Sex: Female : 1980 Arrival Date: 04/09/2021 Time: 05:03 Bed 11 Private MD: Diagnosis: Acute pharyngitis, unspecified Presentation: 04/09 05:16 Chief complaint: Patient states: Headache, sore throat, congestion x 3 days; States lp1 chills, lightheaded, generalized weakness; Denies fever. Coronavirus screen: The client reports previous COVID testing was negative. last week. Ebola Screen: No symptoms or risks identified at this time. Initial Sepsis Screen: Does the patient meet any 2 criteria? No. Patient's initial sepsis screen is negative. Does the patient have a suspected source of infection? No. Patient's initial sepsis screen is negative. Risk Assessment: Do you want to hurt yourself or someone else? Patient reports no desire to harm self or others. Onset of symptoms was April 09, 2021. 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 - Social history:: Smoking status: Patient denies any tobacco usage or history of. - Family history:: not pertinent. - Hospitalizations: : No recent hospitalization is reported. Screenin:20 Abuse screen: Denies threats or abuse. Denies injuries from another. Nutritional lp1 screening: No deficits noted. Tuberculosis screening: No symptoms or risk factors identified. Fall Risk None identified. Assessment: 05:20 General: Appears in no apparent distress. Behavior is calm, cooperative, appropriate lp1 for age. Pain: Complains of pain in throat Pain currently is 8 out of 10 on a pain scale. Quality of pain is described as burning, sharp. Neuro: No deficits noted. Cardiovascular: Patient's skin is warm and dry. Respiratory: Reports cough that is dry, Airway is patent Respiratory effort is even, unlabored, Breath sounds are clear bilaterally. GI: No signs and/or symptoms were reported involving the gastrointestinal system. : No signs and/or symptoms were reported regarding the genitourinary system. EENT: Throat is reddened. Derm: Skin is intact, Skin is dry, Skin is normal. Musculoskeletal: No deficits noted. Vital Signs: 05:16 BP 141 / 99; Pulse 104; Resp 18; Temp 98.6(O); Pulse Ox 98% on R/A; Weight 88.45 kg lp1 (R); Height 4 ft. 11 in. (149.86 cm); Pain 8/10; 05:16 Body Mass Index 39.38 (88.45 kg, 149.86 cm) lp1 ED Course: 05:03 Patient arrived in ED. 05:04 Oscar Madrigal MD is Attending Physician. rn 05:16 Virginia Sanderson, RN is Primary Nurse. lp1 05:19 Triage completed. lp1 05:19 Arm band placed on. lp1 05:20 Patient has correct armband on for positive identification. lp1 05:21 No provider procedures requiring assistance completed. Patient did not have IV access lp1 during this emergency room visit. Administered Medications: No medications were administered Outcome: 05:27 Discharge ordered by . rn 05:32 Discharged to home ambulatory. lp1 05:32 Condition: good 05:32 Discharge instructions given to patient, Instructed on discharge instructions, follow up and referral plans. medication usage, Demonstrated understanding of instructions, follow-up care, medications, Prescriptions given X 1. 05:33 Patient left the ED. lp1 Signatures: Oscar Madrigal MD MD rn Pena, Laura, RN RN mundo1 Ayde Garcia
--- NOTE | 2021-04-09 05:27 | EDPHYS ---
Physician Documentation [facility] Name: Jo Ann Kowalski Age: 41 yrs Sex: Female : 1980 Arrival Date: 04/09/2021 Time: 05:03 Bed 11 Private MD: ED Physician Oscar Madrigal HPI: 04/09 05:16 This 41 yrs old Female presents to ER via Unassigned with complaints of Sore rn Throat. 05:16 The patient presents with sore throat. The patient describes throat pain as raw. Onset: rn The symptoms/episode began/occurred 3 day(s) ago. Severity of symptoms: At their worst the symptoms were moderate, in the emergency department the symptoms are unchanged. Modifying factors: The symptoms are alleviated by nothing, the symptoms are aggravated by swallowing. Associated signs and symptoms: Pertinent positives: cough, headache, Sore throat Pertinent negatives fever, rhinorrhea. The patient has not experienced similar symptoms in the past. The patient has not recently seen a physician. Patient reports 3 days of sore throat and headache. Denies fever. 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 Reports numerous sick contacts including strep and flu this past week. No trouble breathing. No vomiting or diarrhea. Reports worst symptom is the sore throat and pain when swallowing. 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 - Social history:: Smoking status: Patient denies any tobacco usage or history of. - Family history:: not pertinent. - Hospitalizations: : No recent hospitalization is reported. ROS: 05:16 Constitutional: Negative for fever, chills, and weight loss, Eyes: Negative for injury, rn pain, redness, and discharge, ENT: Positive for sore throat Neck: Negative for injury, pain, and swelling, Cardiovascular: Negative for chest pain, palpitations, and edema, Respiratory: Positive for cough, negative for shortness of breath Abdomen/GI: Negative for abdominal pain, nausea, vomiting, diarrhea, and constipation, Back: Negative for injury and pain, : Negative for injury, bleeding, discharge, and swelling, MS/Extremity: Negative for injury and deformity, Skin: Negative for injury, rash, and discoloration, Neuro: Positive for headache Exam: 05:16 Constitutional: This is a well developed, well nourished patient who is awake, alert, rn and in no acute distress. Head/Face: Normocephalic, atraumatic. Eyes: Periorbital areas with no swelling, redness, or edema. ENT: No stridor. Moist mucous membranes. Moderate pharyngeal erythema with spots on uvula. Uvula midline without any swelling. No evidence of peritonsillar abscess. Neck: Tender bilateral cervical lymphadenopathy. No meningismus Cardiovascular: Tachycardic, regular. No pulse deficits Respiratory: Speaking full sentences, unlabored. Skin: Warm, dry MS/ Extremity: Pulses equal, no cyanosis. Neuro: Awake and alert, GCS 15 Vital Signs: 05:16 BP 141 / 99; Pulse 104; Resp 18; Temp 98.6(O); Pulse Ox 98% on R/A; Weight 88.45 kg lp1 (R); Height 4 ft. 11 in. (149.86 cm); Pain 8/10; 05:16 Body Mass Index 39.38 (88.45 kg, 149.86 cm) lp1 MDM: 05:04 Patient medically screened. rn 05:16 Differential diagnosis: mononucleosis, pharyngitis, tonsillitis, upper respiratory rn infection, viral syndrome. 05:26 Data reviewed: vital signs, nurses notes, and as a result, I will discharge patient. rn Counseling: I had a detailed discussion with the patient and/or guardian regarding: the historical points, exam findings, and any diagnostic results supporting the discharge/admit diagnosis, the need for outpatient follow up, to return to the emergency department if symptoms worsen or persist or if there are any questions or concerns that arise at home. Special discussion: I discussed with the patient/guardian in detail that at this point there is no indication for admission to the hospital. It is understood, however, that if the symptoms persist or worsen the patient needs to return immediately for re-evaluation. ED course: We will treat as pharyngitis. Patient states that if needed she can get Covid and flu testing at her urgent care.. 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
[2021-04-09 05:39] VITALS: BP 141/99; TEMP 98.6; O2SAT 98
== END 2021-04-09 05:33 | disposition home or self-care (01) ==
LOC: ER 05:01
DX: J02.9 Acute pharyngitis, unspecified (principal); Z91.040 Latex allergy status
CPT/HCPCS: 99282

== ENCOUNTER 2021-04-11 22:35 | Emergency (ER) | payer SELFPAY ==
--- OUTSIDE RECORDS SUMMARY | 2021-04-11 22:39 | XMS REPORT | Continuity of Care Document ---
:1980 Author Organization [facility] t Address [address] [place] [address] Care Team Providers Name Role Phone Diana [...] ents Source Name Type Date Date Clinician meperidi DA Active MO 2020-0 [facility] ne 2-28 Clear 00:00: Irwin [facility] latex DA Active MO 2020-0 [facility] 2-28 Clear 00:00: Irwin [address] [place] [address] iodine DA Active MO RESPIRATORY 2020-0 [facility] DISTRESS 2-28 Clear 00:00: [address] morphine DA Active MO RASH-HIVES 2020-0 [facility] 2-28 Clear 00:00: Irwin [address] [place] [address] meperidi DA Active MO RESPIRATORY 2020-0 [facility] ne DISTRESS 2-28 Clear 00:00: Irwin [facility] latex DA Active MO RASH-HIVES 2020-0 [facility] 2-28 Clear 00:00: [address] iodine DA Active MO 2020-0 [facility] 2-28 Clear 00:00: Irwin 00 [facility] morphine DA Active MO 2020-0 [facility] 2-28 Clear 00:00: Irwin [facility] iodine DA Active MO 2020-0 [facility] 2-27 [...] MO 2018-1 [facility] 1-17 Clear 00:00: Irwin [facility] morphine DA Active MO 2018-1 HCA 1-17 Clear 00:00: Irwin 00 [facility] meperidi DA Active MO 2018-1 [facility] ne 1-17 Clear 00:00: Irwin 00 [facility] latex DA Active MO 2017- [facility] 1-17 Clear 00:00: Irwin [facility] iodine DA Active MO 2016- [facility] 9-30 [facility] 2016- [facility] me[facility]idi DA Active MO 2016- [facility] latex DA Active MO 2016- [facility] -[facility] Medications This patient has no known medications. Procedures Procedure Date / Time Performed Performing Clinician [facility] e [id number] 2019-07-11 00:00:00 ALI.06 [facility] [id number] 2019-07-11 00:00:[address] [facility].06 [facility] [id number] 2019-07-11 00:00:[address] [facility].06 [facility] Encounters Start End Encounter Admission Attending Care Care Encounter Source Date/Time Date/Time Type Type Clinicians Facility Department ID 2021-03-04 Inpatient [facility] JHONATAN [id number] [facility] 16:44:00 [id number] [facility] 2019-07-10 Inpatient EM CAROLYNE Jarrett OLGA [id number] [facility] 18:25:00 [facility] 2019-07-08 Inpatient EM CAROLYNE Jarrett MEDI [id number] [facility] 00:20:00 [facility] [id number] [facility] 2019-07-07 Inpatient [facility] JHONATAN [id number] [facility] 21:24:00 [id number] [facility] 2021-03-04 2021-03-04 Emergency EM Devora CAROLYNE ISRAEL [id number] [facility] 16:44:00 21:39:00 Gal 41 [facility] 2021-03-04 2021-03-04 Emergency E MHSE MHSE 7519 MH 17:45:00 17:45:00 Ana Laura lundberg [facility] 2020-11-14 2020-11-14 Outpatient MARYELLEN Ness [id number] [facility] 17:12:00 17:12:00 Phil [id number] [facility] 2020-11-14 2020-11-14 Emergency E MHSE MHSE 7501 10:19:00 10:19:[address] [facility] [facility] 2020-11-14 2020-11-14 Emergency EM CAROLYNE Ness [id number] [facility] 08:41:00 10:18:00 Phil [id number] [facility] 2019-05-31 2019-05-31 Outpatient E MHSE ISMAEL 7518 [...] #/LPF FEW Urine Source? Clean CatchUR HCG [id number] 09:50:00 Test Item Value Reference Range Interpretation Comments UR HCG QUAL (test NEGATIVE This HCGQL test is NOT code = HCGQLU) applicable fo r MALE patients.Check with nurse about probable order error.If Tumor Marker Test needed, nu rse should order test "HCG TU"(Test #550.60460)---- - Urine Source? Clean CatchURINALYSIS [id number] 09:44:00 Test Item Value Reference Range Interpretation [...] HPF NONE Urine Source? Clean CatchUR HCG [id number] 09:44:00 Test Item Value Reference Range Interpretation Comments UR HCG QUAL (test NEGATIVE This HCGQL test is NOT code = HCGQLU) applicable fo r MALE patients.Check with nurse about probable order error.If Tumor Marker Test needed, nu rse should order test "HCG TU"(Test #550.02020)---- - Urine Source? Clean [id number] 16:50:00 RUN DATE: 07/12/19 [facility] PAGE 1 RUN TIME: 1650 Specimen Inquiry RUN USER: INTERFACE PATIENT: SHANKAR ARROYO LOC: VIVI U #: [id number] AGE/SX: 39/F ROOM: [facility] RE07/10/19REG DR: Ronni Jarrett MD : 76 BED: A DIS: 07/12/19 STATUS: DIS IN TLOC: SPEC #: [id number] RECD: 07/11/19 STATUS: DARON HARO #: [id number] BRITTANY: 07/11/19- SUBM DR: Rodney Sotelo MD ENTERED: 07/11/19 SP TYPE: STOMACH OTHR DR: No Primary or Family Physician Miguel Salazar MD, Alberto J MDORDERED: GROSS COPIES TO: No Primary or Family Physician Rodney Sotelo MD [address] [place] [address] Miguel Salazar MD [address] [place] [address] José Hylton MD [address] [place] [address] PROCEDURES: GROSS (07/12/19-1420) TISSUES: 1. DUODENUM, NOS - BX 2. GASTRIC CORPUS - BX 3. COLON, NOS- TERMINAL ILEUM BX CLINICAL HISTORY COLLECTION DATE: 07/11/19 HEMATEMESIS, MELENA, EPIGASTRIC PAIN FINAL DIAGNOSIS Duodenum, biopsy: DUODENAL MUCOSA WITH NO PATHOLOGICALTERATION Gastric tissue, biopsy: REACTIVE GASTROPATHY GASTRIC MUCOSA WITH NO PATHOLOGIC ALTERATION NEGATIVE FOR HELICOBACTER ORGANISMS CONTINUED ON NEXT PAGE RUN DATE: 07/12/19 [place] [employer] [facility] PAGE2 RUN TIME: 1650 Specimen Inquiry RUN USER: INTERFACE SPEC #: [id number] PATIENT: SHANKAR ARROYO #[id number] (Continued) FINAL DIAGNOSIS (Continued) NEGATIVE FOR MALIGNANCY Terminal ileum, biopsy: SMALL BOWEL MUCOSA WITH UNREMARKABLE VILLOUS ARCHITECTURE AND PROMINENT LYMPHOID AGGREGATES NEGATIVE FOR MALIGNANCY RRB/sm D 14291m8, 44582 MACROSCOPIC The first specimen is received in [...] aggregate, submitted as (3). GROSS PERFORMED AT [facility] [address] [place] [address] (P)[phone] MICROSCOPIC All of the stains, including any controls performed, stain appropriately. MICROSCOPIC PERFORMED AT [facility] [address] [place] [address] (P)[phone] PERFORMING SITE Diagnosis performed at: [facility], [address] [address] CONTINUED ON NEXT PAGE RUN DATE: 07/12/19 [facility] PAGE 3 RUN TIME: 1650 Specimen Inquiry RUN USER: INTERFACE SPEC #: [id number] PATIENT: SHANKAR ARROYO #[id number] (Continued) PERFORMING [facility] [phone]---- -------- Signed SIGNATURE ON FILE Evangelista Danielle MD 07/12/19 1650 END OF REPORT HEPATIC FUNCTION [id number] 05:45:00 Test Item Value Reference Range Interpretation [...] range due ALKP) to change in reagent. [id number] 05:45:00 Test Item Value Reference Range Interpretation Comments LIPASE (test code = LIP) 91 U/L 73.0-393.0 N CBC W/AUTO [id number] 07:11:00 Test Item Value Reference Range Interpretation [...] K/mm3 0.0-0.1 N code = NRBC#) HGB [id number] 18:13:00 Test Item Value Reference Range Interpretation Comments HEMOGLOBIN (test code = HGB) 12.1 gram/dL 11.5-15.5 N HEMATOCRIT (test code = HCT) 36.4 % 36.0-46.0 N HGB [id number] 12:15:00 Test Item Value Reference Range Interpretation Comments HEMOGLOBIN (test code 12.7 gram/dL 11.5-15.5 RESULT VERIFIED BY = HGB) REPEAT ANALYSIS HEMATOCRIT (test code 38.6 % 36.0-46.0 N = HCT) - CT ABD PELVIS W/O [id number] 00:05:00 Name: SHANKAR ARROYO [facility] : 1980 Age/S: 39 / F [address] [facility] Unit #: [id number] Loc: [place] [address] Phys: Waldemar Ortez MD Acct: [id number] Dis Date: Status: ADM IN PHONE #: [phone] Exam Date: 07/07/2019 8890 FAX #: [phone] Reason: mid abd pain vomiting blood and blood in stool EXAMS: CPTCODE: [id number] CT ABD PELVIS W/O CONT 29780 CT abdomen and pelvis without IV contrast. [...] 1 Signed Report (CONTINUED) Name: SHANKAR ARROYO [facility] : 1980 Age/S: 39 / F [address] [facility] Unit #: [id number] Loc: [place] [address] Phys: Waldemar Ortez MD Acct: [id number] Dis Date: Status: ADM IN PHONE #: [phone] Exam Date: 07/07/2019 2335 FAX #: [phone] Reason: mid abd pain vomiting blood and blood in stool EXAMS: CPT CODE: [id number] CT ABD PELVIS W/O CONT 81783 <Continued> at 0005 Reported and signed by: Lorrie Welch M.D. CC: Waldemar Ortez MD Technologist:RADHA MONTANA CT CTDI: DLP: Trnscb Date/Time: 07/08/2019 (0005) [email or web address] Orig Print D/T: S: 07/08/2019 (0452) PAGE 2 Signed Report- US ABDOMEN [id number] 23:54:00 [facility] 1980 Age/S[facility] 39 / F [address] [facility] Unit #: [id number] Loc: [place] [address] Phys: Waldemar Ortez MD Acct: [id number] Dis Date: Status: REG ER PHONE #: [phone] Exam Date: 07/07/2019 2330 FAX #: [phone] Reason: ruq pain ho gallbladder problem EXAMS: CPTCODE: [id number] ABDOMEN [facility] 464[address] DICTATION LOCATION: H48 HISTORY: Female, 39 years [...] no significant change since prior study. at 0834 Reported and signed by: Shelby Anderson MD CC: Waldemar Ortez MD Technologist: DALIA AGARWAL RDMS Trnscb Date/Time: 07/07/2019 (6225) [email or web address] Orig Print D/T: S: 07/07/2019 (5086) Probe: PAGE 1 Signed ReportBASIC METABOLIC [id number] 23:00:00 Test Item Value Reference Range Interpretation [...] 9.4 mg/dL 8.5-10.1 N CA) HEPATIC FUNCTION [id number] 23:00:00 Test Item Value Reference Range Interpretation [...] range due ALKP) to change in reagent. [id number] 23:00:00 Test Item Value Reference Range Interpretation Comments LIPASE (test code = LIP) 90 U/L 73.0-393.0 N HCG SERUM [id number] 23:00:00 Test Item Value Reference Range Interpretation Comments HCG SERUM QUAL (test NEGATIVE NEGATIVE This HC GQL test is NOT code = HCGQL) applicable for MALE patients.Check with nurse about probable order error.If Tumor Marker Test needed, nu rse should order test "HCG TU"(Test #550.49565)---- - [id number] 23:00:00 Test Item Value Reference Range Interpretation Comments TROPONIN-I (test code = TROPI) <0.015 ng/mL 0-0.045 N PROTHROMBIN [id number] 22:44:00 Test Item Value Reference Range Interpretation [...] (2.5-3.5) IS PATIENT ON ANTICOAGULANTS? NTHROMBOPLASTIN TIME [id number] 22:44:00 Test Item Value Reference Range Interpretation Comments THROMBOPLASTIN TIME PARTIAL 34.5 seconds 25.0-36.5 N (test code = PTT) IS PATIENT ON ANTICOAGULANTS? NBASIC METABOLIC [id number] 22:40:00 Test Item Value Reference Range Interpretation [...] code = CA) mg/dL 8.5-10.1 HEPATIC FUNCTION [id number] 22:40:00 Test Item Value Reference Range Interpretation [...] TOTAL (test IUnit/L 45-117 code = ALKP) [id number] 22:40:00 Test Item Value Reference Range Interpretation Comments LIPASE (test code = LIP) U/L 73.0-393.0 HCG SERUM [id number] 22:40:00 Test Item Value Reference Range Interpretation Comments HCG SERUM QUAL (test NEGATIVE NEGATIVE This HC GQL test is NOT code = HCGQL) applicable for MALE patients.Check with nurse about probable order error.If Tumor Marker Test needed, nu rse should order test "HCG TU"(Test #550.58736)---- - [id number] 22:40:00 Test Item Value Reference Range Interpretation Comments TROPONIN-I (test code = TROPI) ng/mL 0-0.045 CBC W/O [id number] 22:36:00 Test Item Value Reference Range Interpretation [...] fL 6.7-11.0 N = MPV) CBC W/O [id number] 22:34:00 Test Item Value Reference Range Interpretation [...] (test code fL 6.7-11.0 = MPV) URINALYSIS [id number] 21:44:00 Test Item Value Reference Range Interpretation [...] #/LPF FEW MUCU) Urine Source? Clean CatchURINALYSIS [id number] 21:39:00 Test Item Value Reference Range Interpretation [...] Urine Source? Clean Catch- XR CHEST 1 [id number] 20:59:00 FAX: RITESH ELMORE NP [place]: St: REG Name: SHANKAR ARROYO [facility] : 1980 Age/S: 39/F [address] [facility] Unit#: [id number] Loc: [place] [address] Phys: RITESH ELMORE NP Acct: [id number] Dis Date: Status: REG ER PHONE #: [phone] Exam Date: 03/25/20191940 FAX #: [phone] Reason: Abdominal Pain EXAMS: CPT CODE: [id number] XR CHEST 1 V 68721 EXAM: Chest X-ray, 1 view; CLINICAL HISTORY: [...] 03/25/2019 (2101) PAGE 1 Signed ReportBASIC METABOLIC [id number] 20:49:00 Test Item Value Reference Range Interpretation [...] 8.7 mg/dL 8.5-10.1 N CA) HEPATIC FUNCTION [id number] 20:49:00 Test Item Value Reference Range Interpretation [...] range due ALKP) to change in reagent. [id number] 20:49:00 Test Item Value Reference Range Interpretation Comments LIPASE (test code = LIP) 99 U/L 73.0-393.0 N HCG SERUM [id number] 20:49:00 Test Item Value Reference Range Interpretation Comments HCG SERUM QUAL (test NEGATIVE NEGATIVE This HC GQL test is NOT code = HCGQL) applicable for MALE patients.Check with nurse about probable order error.If Tumor Marker Test needed, nu rse should order test "HCG TU"(Test #550.82462)---- - - US ABDOMEN [id number] 20:45:00 Name: SHANKAR ARROYO [facility] : 1980 Age/S: 39 / F [address] [facility] Unit #: [id number] Loc: [place] [address] Phys: RITESH ELMORE NP Acct: [id number] Dis Date: Status: REG ER PHONE #: [phone] Exam Date: 03/25/20191943 FAX #: [phone] Reason: Abdominal Pain EXAMS: CPT CODE: [id number] US ABDOMEN LTD 91206 EXAM: Ultrasound of the abdomen, limited; INFORMATION: [...] RITESH ELMORE NP Technologist: Ambreen Landeros RDMS Trnmeb Date/Time: 03/25/2019 (2044) Michela Orig Print D/T: S: 03/25/2019 (2047) Probe: PAGE 1 Signed ReportCBC W/O [id number] 20:39:00 Test Item Value Reference Range Interpretation [...] fL 6.7-11.0 N = MPV) BASIC METABOLIC [id number] 20:37:00 Test Item Value Reference Range Interpretation [...] code = CA) mg/dL 8.5-10.1 HEPATIC FUNCTION [id number] 20:37:00 Test Item Value Reference Range Interpretation [...] TOTAL (test IUnit/L 45-117 code = ALKP) [id number] 20:37:00 Test Item Value Reference Range Interpretation Comments LIPASE (test code = LIP) U/L 73.0-393.0 HCG SERUM [id number] 20:37:00 Test Item Value Reference Range Interpretation Comments HCG SERUM QUAL (test NEGATIVE NEGATIVE This HC GQL test is NOT code = HCGQL) applicable for MALE patients.Check with nurse about probable order error.If Tumor Marker Test needed, nu rse should order test "HCG TU"(Test #550.66598)---- - BASIC METABOLIC [id number] 20:37:00 Test Item Value Reference Range Interpretation [...] code = CA) mg/dL 8.5-10.1 HEPATIC FUNCTION [id number] 20:37:00 Test Item Value Reference Range Interpretation [...] TOTAL (test IUnit/L 45-117 code = ALKP) [id number] 20:37:00 Test Item Value Reference Range Interpretation Comments LIPASE (test code = LIP) U/L 73.0-393.0 HCG SERUM [id number] 20:37:00 Test Item Value Reference Range Interpretation Comments HCG SERUM QUAL (test NEGATIVE NEGATIVE This HC GQL test is NOT code = HCGQL) applicable for MALE patients.Check with nurse about probable order error.If Tumor Marker Test needed, nu rse should order test "HCG TU"(Test #550.80129)---- - CBC W/O [id number] 20:35:00 Test Item Value Reference Range Interpretation [...] = MPV) - CT ABD PELVIS W/O [id number] 18:38:00 Name: SHANKAR ARROYO [facility] : 1980 Age/S: 38 / F [address] [facility] Unit #: [id number] Loc: [place] [address] Phys: Marianna Baeza DO Acct: [id number] Dis Date: Status: REG ER PHONE #: [phone] Exam Date: 11/23/2018 1757 FAX #: [phone] Reason: FLANK PAIN EXAMS: CPTCODE: [id number] CT ABD PELVIS W/O CONT 06282 REASON FOR EXAM: FLANK PAIN EXAM ORDER [...] 1 Signed Report (CONTINUED) Name: SHANKAR ARROYO [facility] :1980 Age/S: 38 / F [address] [facility] Unit #: [id number] Loc: [place] [address] Phys: Marianna Baeza DO Acct: [id number] Dis Date: Status: REG ER PHONE #: [phone] Exam Date: 11/23/2018 1759 FAX #: [phone] Reason: FLANK PAIN EXAMS: CPT CODE: [id number] CT ABD PELVIS W/O CONT 15847 <Continued> Punctate nonobstructing renal stones bilaterally. Electronic ally Signed by Devendra Rose MD on 11/23/2018 at 1838 Reported and signed by: Devendra Rose MD CC: Marianna Baeza DO Technologist:Ivonne Call RT(R) CTDI: DLP: Trnscb Date/Time: 11/23/2018 (183) [email or web address] Orig Print D/T: S: 11/23/2018 (184) PAGE 2 Sig olivia ReportURINALYSIS [id number] 18:19:00 Test Item Value Reference Range Interpretation [...] A BACU) Urine Source? Clean CatchHCG SERUM [id number] 17:17:00 Test Item Value Reference Range Interpretation Comments HCG SERUM QUAL (test NEGATIVE NEGATIVE This HC GQL test is NOT code = HCGQL) applicable for MALE patients.Check with nurse about probable order error.If Tumor Marker Test needed, nu rse should order test "HCG TU"(Test #550.51454)---- - BASIC METABOLIC [id number] 15:54:00 Test Item Value Reference Range Interpretation [...] code = 8.9 mg/dL 8.5-10.1 N CA) [id number] 15:54:00 Test Item Value Reference Range Interpretation Comments TROPONIN-I (test code = TROPI) <0.015 ng/mL 0-0.045 N - XR CHEST 1 [id number] 15:52:00 FAX: Marianna Baeza DO [place]: St: REG Name: SHANKAR ARROYO [facility] : 1980 Age/S: 38/F [address] [facility] Unit#: [id number] Loc: [place] [address] Phys: Marianna Baeza DO Acct: [id number] Dis Date: Status: REG ER PHONE #: [phone] Exam Date: 11/23/2018 1544 FAX #: [phone] Reason: CHEST PAIN EXAMS: CPT CODE: [id number] XR CHEST 1 V 26178 REASON FOR EXAM: CHEST PAIN Exam Order [...] JAVIER ADAM; STUDENT TECHNOLOGIST Trnscrd Date/Time/By: 11/23/2018 (4027) : By: [email or web address] Orig Print D/T: S: 11/23/2018 (5021) PAGE 1 Signed ReportBASIC METABOLIC [id number] 15:45:00 Test Item Value Reference Range Interpretation [...] CALCIUM (test code = CA) mg/dL 8.5-10.1 [id number] 15:45:00 Test Item Value Reference Range Interpretation Comments TROPONIN-I (test code = TROPI) ng/mL 0-0.045 CBC W/O [id number] 15:37:00 Test Item Value Reference Range Interpretation [...] fL 6.7-11.0 N = MPV) CBC W/O [id number] 15:34:00 Test Item Value Reference Range Interpretation [...]
[2021-04-12] MEDS ORDERED: NA CHLORIDE 0.9% 1,000 ML ONE ×2 (00:17→00:29)
[2021-04-12 00:32] LABS: Urine Blood 3+ (Negative); Urine Glucose Negative (Negative); Urine Protein 2+ (Negative); Urine Specific Gravity >=1.030 (1.005-1.030); Urine pH 5.5 (5.0-7.0)
[2021-04-12 00:35] LABS: Absolute Lymphocytes (CBC) 2.6 K/uL (0.7-4.9); Basophils % 0.3 % (0-1.3); Hematocrit 44.6 % (36.0-45.0); Lymphocytes % 29.8 % (15.3-44.8); MPV 7.5 fL (7.6-11.3); RBC Red Blood Cell Count 5.13 M/uL (3.86-4.86)
[2021-04-12 00:46] LABS: Urine Specific Gravity/Preg >1.030 (1.005-1.030)
[2021-04-12] MEDS ORDERED: CEFTRIAXONE 1000 MG/VIAL ONE (00:52)
--- NOTE | 2021-04-12 00:56 | EDPHYS ---
Physician Documentation [facility] Name: Jo Ann Kowalski Age: 41 yrs Sex: Female : 1980 Arrival Date: 04/11/2021 Time: 22:39 Bed 6 Private MD: JACKIE Physician Neymar Carrillo HPI: 04/12 00:03 This 41 yrs old Female presents to ER via Ambulatory with complaints of israel Vaginal Bleeding. 00:03 The patient presents with vaginal bleeding that is moderate. Onset: The israel symptoms/episode began/occurred 2 day(s) ago. Modifying factors: The symptoms are alleviated by nothing, the symptoms are aggravated by nothing. Associated signs and symptoms: The patient has no apparent associated signs or symptoms. Severity of symptoms: At their worst the symptoms were mild, in the emergency department the symptoms are unchanged. The patient is sexually active, reportedly has a single partner. The patient has not experienced similar symptoms in the past. 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 - Social history:: Smoking status: Patient denies any tobacco usage or history of. Patient uses alcohol, but reports only rare drinking. Patient/guardian denies using street drugs. - Family history:: not pertinent. ROS: 04/12 00:03 Constitutional: Negative for fever, chills, and weight loss, Eyes: Negative for injury, israel pain, redness, and discharge, ENT: Negative for injury, pain, and discharge, Neck: Negative for injury, pain, and swelling, Cardiovascular: Negative for chest pain, palpitations, and edema, Respiratory: Negative for shortness of breath, cough, wheezing, and pleuritic chest pain, Abdomen/GI: Negative for abdominal pain, nausea, vomiting, diarrhea, and constipation, Back: Negative for injury and pain, MS/Extremity: Negative for injury and deformity, Skin: Negative for injury, rash, and discoloration, Neuro: Negative for headache, weakness, numbness, tingling, and seizure, Psych: Negative for depression, anxiety, suicide ideation, homicidal ideation, and hallucinations, Allergy/Immunology: Negative for hives, rash, and allergies, Endocrine: Negative for neck swelling, polydipsia, polyuria, polyphagia, and marked weight changes, Hematologic/Lymphatic: Negative for swollen nodes, abnormal bleeding, and unusual bruising. : Positive for pelvic pain, vaginal bleeding. Exam: 00:03 Constitutional: This is a well developed, well nourished patient who is awake, alert, israel and in no acute distress. Head/Face: Normocephalic, atraumatic. Eyes: Pupils equal round and reactive to light, extra-ocular motions intact. Lids and lashes normal. Conjunctiva and sclera are non-icteric and not injected. Cornea within normal limits. Periorbital areas with no swelling, redness, or edema. ENT: Nares patent. No nasal discharge, no septal abnormalities noted. Tympanic membranes are normal and external auditory canals are clear. Oropharynx with no redness, swelling, or masses, exudates, or evidence of obstruction, uvula midline. Mucous membranes moist. Neck: Trachea midline, no thyromegaly or masses palpated, and no cervical lymphadenopathy. Supple, full range of motion without nuchal rigidity, or vertebral point tenderness. No Meningismus. Chest/axilla: Normal chest wall appearance and motion. Nontender with no deformity. No lesions are appreciated. Cardiovascular: Regular rate and rhythm with a normal S1 and S2. No gallops, murmurs, or rubs. Normal PMI, no JVD. No pulse deficits. Respiratory: Lungs have equal breath sounds bilaterally, clear to auscultation and percussion. No rales, rhonchi or wheezes noted. No increased work of breathing, no retractions or nasal flaring. Abdomen/GI: Soft, non-tender, with normal bowel sounds. No distension or tympany. No guarding or rebound. No evidence of tenderness throughout. Back: No spinal tenderness. No costovertebral tenderness. Full range of motion. Female : Normal external genitalia. Skin: Warm, dry with normal turgor. Normal color with no rashes, no lesions, and no evidence of cellulitis. MS/ Extremity: Pulses equal, no cyanosis. Neurovascular intact. Full, normal range of motion. Neuro: Awake and alert, GCS 15, oriented to person, place, time, and situation. Cranial nerves II-XII grossly intact. Motor strength 5/5 in all extremities. Sensory grossly intact. Cerebellar exam normal. Normal gait. Psych: Awake, alert, with orientation to person, place and time. Behavior, mood, and affect are within normal limits. Vital Signs: 04/11 22:47 BP 138 / 81; Pulse 95; Resp 18; Temp 98.0(TE); Pulse Ox 99% on R/A; Weight 88.45 kg; ld1 Height 4 ft. 11 in. (149.86 cm); Pain 0/10; 04/12 01:12 BP 117 / 66; Pulse 80; Resp 20; Temp 97.7; Pulse Ox 100% on R/A; cc4 04/11 22:47 Body Mass Index 39.38 (88.45 kg, 149.86 cm) ld1 MDM: 04/11 23:54 Patient medically screened. [facility] 04/12 00:05 Differential diagnosis: dysmenorrhea, menometrorrhagia, menorrhea, Data reviewed: [facility] signs, nurses notes, lab test result(s), radiologic studies, ultrasound. 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 Counseling: I had a detailed discussion with the patient and/or guardian regarding: the historical points, exam findings, and any diagnostic results supporting the discharge/admit diagnosis, lab results, the need for outpatient follow up, for definitive care, an OB/Gyne specialist. 04/12 00:02 Order name: Abo/rh Typing [facility] 04/12 00:02 Order name: Basic Metabolic Panel; Complete Time: 01:00 [facility] 04/12 00:02 Order name: CBC with Diff; Complete Time: 01:00 [facility] 04/12 00:32 Order name: Urine Dipstick-Ancillary; Complete Time: 00:45 EDMS 04/12 00:35 Order name: Urine --Ancillary (enter results) mw2 04/12 00:46 Order name: Urine Culture [facility] 04/12 00:02 Order name: IV Saline Lock; Complete Time: 00:15 [facility] 04/12 00:02 Order name: Labs collected and sent; Complete Time: 00:15 [facility] 04/12 00:02 Order name: NPO; Complete Time: 00:15 [facility] 04/12 00:02 Order name: Urine Dipstick-Ancillary (obtain specimen); Complete Time: 00:22 [facility] 04/12 00:02 Order name: US Transvaginal Study (Probe) [facility] 04/12 01:56 Order name: ABO/RH no charge [facility] 04/12 00:02 Order name: Urine Test (obtain specimen); Complete Time: 00:22 [facility] Administered Medications: 00:20 Drug: NS 0.9% 1000 ml Route: IV; Rate: 1 bolus; Site: left antecubital; df1 01:12 Follow up: IV Status: Completed infusion; IV Intake: 1000ml cc4 00:55 Drug: Rocephin (cefTRIAXone) 1 grams Route: IV; Rate: per protocol; Site: left df1 antecubital; 01:12 Follow up: Response: No adverse reaction cc4 Disposition Summary: 04/12/21 00:56 Discharge Ordered Location: Home [facility] Problem: new israel Symptoms: have improved israel Condition: Fair israel Diagnosis - Abnormal uterine and vaginal bleeding, unspecified israel - Leiomyoma of uterus, unspecified israel Followup: israel - With: Private Physician - When: 2 - 3 days - Reason: Recheck today's complaints, Continuance of care, Re-evaluation by your physician Followup: israel - With: - When: 2 - 3 days - Reason: Recheck today's complaints, Continuance of care, Re-evaluation by your physician Discharge Instructions: - Discharge Summary Sheet israel - Abnormal Uterine Bleeding israel - Abnormal Uterine Bleeding, [id number] israel - Uterine Fibroids israel Forms: - Medication Reconciliation Form israel - Thank You Letter israel - Antibiotic Education israel - Prescription Opioid Use [facility] Prescriptions: - Ibuprofen 600 mg Oral Tablet - take 1 tablet by ORAL route every 6 hours As needed take with food; 20 tablet; [facility] Refills: 0, Product Selection Permitted Signatures: Dispatcher [employer] EDNeymar Mcdermott MD MD cha Dibbern, Lauren, RN RN ld1 Kadie Saunders df1 Pau Harvey RN cc4 Corrections: (The following items were deleted from the chart) 01:00 00:56 Anemia, unspecified israel israel
--- NOTE | 2021-04-12 00:56 | ER ---
Nurse's Notes [facility] Name: Jo Ann Kowalski Age: 41 yrs Sex: Female : 1980 Arrival Date: 04/11/2021 Time: 22:39 Bed 6 Private MD: Diagnosis: Abnormal uterine and vaginal bleeding, unspecified;Leiomyoma of uterus, unspecified Presentation: 04/11 22:47 Chief complaint: Patient states: I have been bleeding X 1 month. Pt OB sent her to ER. ld1 Stated, I have anemia and I have been saturating 1 pad every 1-2 hours. Coronavirus screen: At this time, the client does not indicate any symptoms associated with coronavirus-19. Ebola Screen: No symptoms or risks identified at this time. Initial Sepsis Screen: Does the patient meet any 2 criteria? No. Patient's initial sepsis screen is negative. Does the patient have a suspected source of infection? No. Patient's initial sepsis screen is negative. Risk Assessment: Do you want to hurt yourself or someone else? Patient reports no desire to harm self or others. Onset of symptoms was April 11, 2021. 22:47 Method Of Arrival: Ambulatory ld1 22:47 Acuity: RAMESH 3 ld1 Triage Assessment: 22:48 General: Appears in no apparent distress. comfortable, Behavior is calm, cooperative, ld1 appropriate for age. Pain: Denies pain. EENT: No signs and/or symptoms were reported regarding the EENT system. Neuro: Level of Consciousness is awake, alert, obeys commands, Oriented to person, place, time, situation, Appropriate for age. Cardiovascular: Capillary refill < 3 seconds Patient's skin is warm and dry. Respiratory: Airway is patent Respiratory effort is even, unlabored, Respiratory pattern is regular, symmetrical. GI: Abdomen is round non-distended. : Reports vaginal bleeding that is moderate flow. Derm: No signs and/or symptoms reported regarding the dermatologic system. Musculoskeletal: No signs and/or symptoms reported regarding the musculoskeletal system. 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 - Social history:: Smoking status: Patient denies any tobacco usage or history of. Patient uses alcohol, but reports only rare drinking. Patient/guardian denies using street drugs. - Family history:: not pertinent. Screenin/03 00:20 Abuse screen: Denies threats or abuse. Nutritional screening: No deficits noted. df1 Tuberculosis screening: No symptoms or risk factors identified. Fall Risk None identified. Assessment: 00:21 General: Appears in no apparent distress. Behavior is calm, cooperative. Pain: Denies df1 pain. Neuro: No deficits noted. Cardiovascular: No deficits noted. Respiratory: No deficits noted. GI: No deficits noted. Reports. : Reports vaginal bleeding that is heavy flow. EENT: No deficits noted. Derm: No deficits noted. Musculoskeletal: No deficits noted. Vital Signs: 04/11 22:47 BP 138 / 81; Pulse 95; Resp 18; Temp 98.0(TE); Pulse Ox 99% on R/A; Weight 88.45 kg; ld1 Height 4 ft. 11 in. (149.86 cm); Pain 0/10; 04/12 01:12 BP 117 / 66; Pulse 80; Resp 20; Temp 97.7; Pulse Ox 100% on R/A; cc4 04/11 22:47 Body Mass Index 39.38 (88.45 kg, 149.86 cm) ld1 ED Course: 04/11 22:39 Patient arrived in ED. ja2 22:48 Triage completed. ld1 22:48 Arm band placed on right wrist. ld1 23:54 Neymar Carrillo MD is Attending Physician. israel 23:59 Kadie Saunders is Primary Nurse. df1 04/12 00:15 Abo/rh Typing Sent. df1 00:15 Basic Metabolic Panel Sent. df1 00:15 CBC with Diff Sent. df1 00:20 Patient has correct armband on for positive identification. Placed in gown. Bed in low df1 position. Call light in reach. Side rails up X 1. Pulse ox on. NIBP on. 00:20 US Transvaginal Study (Probe) Sent. df1 00:20 No provider procedures requiring assistance completed. Inserted saline lock: 20 gauge df1 in left antecubital area, using aseptic technique. 00:52 US Transvaginal Study (Probe) In Process Unspecified. EDMS 00:56 Tam Kidd MD is Referral Physician. israel 01:48 IV discontinued, intact, bleeding controlled, No redness/swelling at site. Pressure df1 dressing applied. Administered Medications: 00:20 Drug: NS 0.9% 1000 ml Route: IV; Rate: 1 bolus; Site: left antecubital; df1 01:12 Follow up: IV Status: Completed infusion; IV Intake: 1000ml cc4 00:55 Drug: Rocephin (cefTRIAXone) 1 grams Route: IV; Rate: per protocol; Site: left df1 antecubital; 01:12 Follow up: Response: No adverse reaction cc4 Intake: 01:12 IV: 1000ml; Total: 1000ml. cc4 Outcome: 00:56 Discharge ordered by . israel 01:47 Discharged to home ambulatory. df1 01:47 Condition: good 01:47 Discharge instructions given to patient, Instructed on discharge instructions, follow up and referral plans. Demonstrated understanding of instructions, follow-up care. 02:03 Patient left the ED. cc4 Signatures: Dispatcher [employer] Neymar Pineda MD MD cha Dibbern, Lauren, RN RN ld1 Cherry Ross Christie, RN RN cc4 Kadie Saunders df1
[2021-04-12 00:57] LABS: Potassium 3.6 mmol/L (3.5-5.1)
[2021-04-12 02:09] VITALS: BP 138/81; TEMP 98; O2SAT 99
--- NOTE | 2021-04-12 07:37 | RAD REPORT ---
EXAM DESCRIPTION: US - Transvaginal Study Probe - 04/12/2021 12:52 am CLINICAL HISTORY: ABD PAIN Pelvic pain. COMPARISON: Pelvis Complete dated 10/23/2020 FINDINGS: The uterus is normal in size, shape and echotexture. The uterus measures 7.7 cm. Incidenta llanisha noted small nabothian cysts. The endometrial stripe measures 7 millimeters which is within normal limits. The right ovary measures 2.9 x 1.6 x 2.2 cm with volume of 5 cc. The left ovary was not visualized. V ascular flow is present in the right ovary. Normal Doppler blood flow was demonstrated to both ovaries. No significant pelvic ascites. IMPRESSION: Left ovary not visualized, otherwise no significant abnormality. Vascular flow is presen t within the right ovary.
== END 2021-04-12 02:03 | disposition home or self-care (01) ==
LOC: ER 22:35
DX: D25.9 Leiomyoma of uterus, unspecified (principal); N93.8 Other specified abnormal uterine and vaginal bleeding; Z91.040 Latex allergy status
CPT/HCPCS: 36415; 76830; 80048; 81003; 81025; 85025; 86900; 86901; 87086; 87088; 96361; 96374; 99284; J7030

== ENCOUNTER 2021-07-24 20:42 | Emergency (ER) | payer SELFPAY ==
--- OUTSIDE RECORDS SUMMARY | 2021-07-24 20:45 | XMS REPORT | Continuity of Care Document ---
:1980 Author Organization [facility] t Address [address] [place] [address] Care Team Providers Name Role Phone Tamika Jarrett Attending Clinician Unavailable CRISTO LEAVITT Attending Clinician Unavailable Andrew Lozoya Attending Clinician Unavailable Dino Ness Attending Clinician Unavailable CARLINE BEACH Attending Clinician Unavailable Jasbir Hylton Admitting Clinician Unavailable Tamika Jarrett Admitting Clinician Unavailable Physician, Primary or Family Admitting Clinician Unavailabl e Payers Payer Name Policy Type Policy Number Effective Date Expiration Date S ource Problems This patient has no known problems. Allergies, Adverse Reactions, Alerts Allergy Allergy Status Severity Reaction(s) Onset Inactive Treating Comm ents Source Name Type Date Date Clinician iodine DA Active MO 2020-0 [facility] 2-28 Clear 00:00: Irwin 00 [facility] morphine DA Active MO 2020-0 [facility] 2-28 Clear 00:00: Irwin 00 [facility] meperidi DA Active MO 2020-0 [facility] ne 2-28 Clear 00:00: Irwin 00 [facility] latex DA Active MO 2020-0 [facility] 2-28 Clear 00:00: Irwin 00 [facility] iodine DA Active MO RESPIRATORY 2020-0 [facility] DISTRESS 2-28 Clear 00:00: Irwin 00 [facility] morphine DA Active MO RASH-HIVES 2020-0 [facility] 2-28 Clear 00:00: Irwin [facility] meperidi DA Active MO RESPIRATORY 2020-0 [facility] ne DISTRESS 2-28 Clear 00:00: Irwin [facility] latex DA Active MO RASH-HIVES 2020-0 [facility] 2-28 Clear 00:00: Irwin [facility] iodine DA Active MO 2020-0 [facility] 2-27 [...] MO 2018-1 [facility] 1-17 Clear 00:00: Irwin [facility] morphine DA Active MO 2017- [facility] 1-17 Clear 00:00: Irwin 00 [facility] meperidi DA Active MO 2018- [facility] ne 1-17 Clear 00:00: Irwin 00 [facility] latex DA Active MO 2018- [facility] 1-17 Clear 00:00: Irwin 00 [facility] iodine DA Active MO 2017-0 [facility] 9-30 [place] [facility] morphine DA Active MO 2017-0 [facility] 9-30 [place] [facility] meperidi DA Active MO 2017-0 [facility] ne 9-30 [place] [facility] latex DA Active MO 2017-0 [facility] 9-30 [place] 00:[facility]: e [facility] Medications This patient has no known medications. Procedures Procedure Date / Time Performed Performing Clinician [facility] e [id number] 2019-07-11 00:00:00 ALI.06 [facility] [id number] 2019-07-11 00:00:00 ALI.06 [facility] [id number] 2019-07-11 00:00:00 [facility].06 [facility] Encounters Start End Encounter Admission Attending Care Care Encounter Source Date/Time Date/Time Type Type Clinicians Facility Department ID 2021-03-04 Inpatient [facility] JHONATAN [id number] [facility] 16:44:00 [id number] [facility] 2019-07-10 Inpatient EM CAROLYNE Jarrett [facility] [id number] [facility] 18:25:00 [facility] 2019-07-08 Inpatient EM CAROLYNE Jarrett OL[place] [id number] [facility] 00:20:00 [facility] [id number] [facility] 2019-07-07 Inpatient [facility] JHONATAN [id number] [facility] 21:24:00 [id number] [facility] 2021-03-04 2021-03-04 Emergency E MARTIN LEAVITTSE MHSE [id number] 17:45:00 23:49:00 MICHAELA Farris tamika [facility] 2021-03-04 2021-03-04 Emergency EM DevoraCAROLYNE [id number] [facility] 16:44:00 21:39:00 Gal Kinney [facility] 2020-11-14 2020-11-14 Outpatient MARYELLEN Ness LABO [id number] [facility] 17:12:00 17:12:00 Phil [id number] [facility] 2020-11-14 2020-11-14 Emergency E [place] MHSE [facility]SE [id number] [facility] 10:19:00 15:45:[address] [facility] [facility] 2020-11-14 2020-11-14 Emergency EM ANTOLIN NessBM JHONATAN [id number] [facility] 08:41:00 10:18:00 Phil [id number] [facility] 2019-05-31 2019-05-31 Outpatient E MHSE ISMAEL 7518 MH 00:25:00 00:25:00 [facility] Results Test Description Test Time Test Comments [...] #/LPF FEW Urine Source? Clean CatchUR HCG [id number] 09:50:00 Test Item Value Reference Range Interpretation Comments UR HCG QUAL (test NEGATIVE This HCGQL test is NOT code = HCGQLU) applicable fo r MALE patients.Check with nurse about probable order error.If Tumor Marker Test needed, nu rse should order test "HCG TU"(Test #550.43744)---- - Urine Source? Clean CatchURINALYSIS [id number] 09:44:00 Test Item Value Reference Range Interpretation [...] HPF NONE Urine Source? Clean CatchUR HCG [id number] 09:44:00 Test Item Value Reference Range Interpretation Comments UR HCG QUAL (test NEGATIVE This HCGQL test is NOT code = HCGQLU) applicable fo r MALE patients.Check with nurse about probable order error.If Tumor Marker Test needed, nu rse should order test "HCG TU"(Test #550.06961)---- - Urine Source? Clean [id number] 16:50:00 RUN DATE: 07/12/19 [facility] PAGE 1 RUN TIME: 1650 Specimen Inquiry RUN USER: INTERFACE PATIENT: SHANKAR ARROYO LOC: ChrisOBS U #: [id number] AGE/SX: 39/F ROOM: [facility] RE07/10/19REG DR: Ronni Jarrett MD : 76 BED: A DIS: 07/12/19 STATUS: DIS IN TLOC: SPEC #: [id number] RECD: 07/11/19 STATUS: DARON REQ #: [id number] BRITTANY: 07/11/19- SUBM DR: Rodney Sotelo MD ENTERED: 07/11/19 SP TYPE: STOMACH OTHR DR: No Primary or Family Physician Miguel Salazar MD, Alberto J MDORDERED: GROSS COPIES TO: No Primary or Family Physician Rodney Sotelo MD [address] [place] [address] Miguel Salazar MD [address] [place] [address] José Hylton MD [address] [place], [place] [id number] PROCEDURES: GROSS (07/12/19-1420) TISSUES: 1. DUODENUM, NOS - BX 2. GASTRIC CORPUS - BX 3. COLON, NOS- TERMINAL ILEUM BX CLINICAL HISTORY COLLECTION DATE: 07/11/19 HEMATEMESIS, MELENA, EPIGASTRIC PAIN FINAL DIAGNOSIS Duodenum, biopsy: DUODENAL MUCOSA WITH NO PATHOLOGICALTERATION Gastric tissue, biopsy: REACTIVE GASTROPATHY GASTRIC MUCOSA WITH NO PATHOLOGIC ALTERATION NEGATIVE FOR HELICOBACTER ORGANISMS CONTINUED ON NEXT PAGE RUN DATE: 07/12/19 [address] [employer] PAGE2 RUN TIME: 1650 Specimen Inquiry RUN USER: INTERFACE SPEC #: [id number] PATIENT: SHANKAR ARROYO #[id number] (Continued) FINAL DIAGNOSIS (Continued) NEGATIVE FOR MALIGNANCY Terminal ileum, biopsy: SMALL BOWEL MUCOSA WITH UNREMARKABLE VILLOUS ARCHITECTURE AND PROMINENT LYMPHOID AGGREGATES NEGATIVE FOR MALIGNANCY RRB/sm D 58258l1, 84767 MACROSCOPIC The first specimen is received in [...] aggregate, submitted as (3). GROSS PERFORMED AT [facility] [address] [place] [address] (p)[phone] MICROSCOPIC All of the stains, including any controls performed, stain appropriately. MICROSCOPIC PERFORMED AT [facility] [address] [place], [place] [address] (p)[phone] PERFORMING SITE Diagnosis performed at: [facility], [place] [address] CONTINUED ON NEXT PAGE RUN DATE: 07/12/19 [facility] PAGE 3 RUN TIME: 1650 Specimen Inquiry RUN USER: INTERFACE SPEC #: [id number] PATIENT: SHANKAR ARROYO #[id number] (Continued) PERFORMING SITE (Continued) [phone]---- -------- Signed SIGNATURE ON FILE Evangelista Danielle MD 07/12/19 0509 END OF REPORT HEPATIC FUNCTION [id number] 05:45:00 Test Item Value Reference Range Interpretation [...] range due ALKP) to change in reagent. [id number] 05:45:00 Test Item Value Reference Range Interpretation Comments LIPASE (test code = LIP) 91 U/L 73.0-393.0 N CBC W/AUTO [id number] 07:11:00 Test Item Value Reference Range Interpretation [...] K/mm3 0.0-0.1 N code = NRBC#) HGB [id number] 18:13:00 Test Item Value Reference Range Interpretation Comments HEMOGLOBIN (test code = HGB) 12.1 gram/dL 11.5-15.5 N HEMATOCRIT (test code = HCT) 36.4 % 36.0-46.0 N HGB [id number] 12:15:00 Test Item Value Reference Range Interpretation Comments HEMOGLOBIN (test code 12.7 gram/dL 11.5-15.5 RESULT VERIFIED BY = HGB) REPEAT ANALYSIS HEMATOCRIT (test code 38.6 % 36.0-46.0 N = HCT) - CT ABD PELVIS W/O [id number] 00:05:00 Name: SHANKAR ARROYO [facility] : 1980 Age/S: 39 / F [address] [facility] Unit #: [id number] Loc: [place] [address] Phys: Waldemar Ortez MD Acct: [id number] Dis Date: Status: ADM IN PHONE #: [phone] Exam Date: 07/07/2019 2335 FAX #: [phone] Reason: mid abd pain vomiting blood and blood in stool EXAMS: CPTCODE: [id number] CT ABD PELVIS W/O CONT 22322 CT abdomen and pelvis without IV contrast. [...] 1 Signed Report (CONTINUED) Name: SHANKAR ARROYO [facility] : 1980 Age/S: 39 / F [address] [facility] Unit #: [id number] Loc: [place] [address] Phys: Waldemar Ortez MD Acct: [id number] Dis Date: Status: ADM IN PHONE #: [phone] Exam Date: 07/07/2019 2335 FAX #: [phone] Reason: mid abd pain vomiting blood and blood in stool EXAMS: CPT CODE: [id number] CT ABD PELVIS W/O CONT 38798 <Continued> at 0005 Reported and signed by: Lorrie Welch M.D. CC: Waldemar Ortez MD Technologist:RADHA AGUILA CTDI: DLP: Trnscb Date/Time: 07/08/2019 (0005) [email or web address] Orig Print D/T: S: 07/08/2019 (3762) PAGE 2 Signed Report- US ABDOMEN [id number] 23:54:00 Name: SHANKAR ARROYO [facility] : 1980 Age/S: 39 / F [address] [facility] Unit #: [id number] Loc: [place] [address] Phys: Waldemar Ortez MD Acct: [id number] Dis Date: Status: REG ER PHONE #: [phone] Exam Date: 07/07/2019 2330 FAX #: [phone] Reason: ruq pain ho gallbladder problem EXAMS: CPTCODE: [id number] US ABDOMEN LTD 69394 DICTATION LOCATION: H48 HISTORY: Female, 39 years [...] no significant change since prior study. at 2690 Reported and signed by: Shelby Anderson MD CC: Waldemar Ortez MD Technologist: DALIA AGARWAL RDMS Trnscb Date/Time: 07/07/2019 (1773) Jeffrey.[email or web address] Orig Print D/T: S: 07/07/2019 (0003) Probe: PAGE 1 Signed ReportBASIC METABOLIC [id number] 23:00:00 Test Item Value Reference Range Interpretation [...] 9.4 mg/dL 8.5-10.1 N CA) HEPATIC FUNCTION [id number] 23:00:00 Test Item Value Reference Range Interpretation [...] range due ALKP) to change in reagent. [id number] 23:00:00 Test Item Value Reference Range Interpretation Comments LIPASE (test code = LIP) 90 U/L 73.0-393.0 N HCG SERUM [id number] 23:00:00 Test Item Value Reference Range Interpretation Comments HCG SERUM QUAL (test NEGATIVE NEGATIVE This HC GQL test is NOT code = HCGQL) applicable for MALE patients.Check with nurse about probable order error.If Tumor Marker Test needed, nu rse should order test "HCG TU"(Test #550.64075)---- - [id number] 23:00:00 Test Item Value Reference Range Interpretation Comments TROPONIN-I (test code = TROPI) <0.015 ng/mL 0-0.045 N PROTHROMBIN [id number] 22:44:00 Test Item Value Reference Range Interpretation [...] (2.5-3.5) IS PATIENT ON ANTICOAGULANTS? NTHROMBOPLASTIN TIME [id number] 22:44:00 Test Item Value Reference Range Interpretation Comments THROMBOPLASTIN TIME PARTIAL 34.5 seconds 25.0-36.5 N (test code = PTT) IS PATIENT ON ANTICOAGULANTS? NBASIC METABOLIC [id number] 22:40:00 Test Item Value Reference Range Interpretation [...] code = CA) mg/dL 8.5-10.1 HEPATIC FUNCTION [id number] 22:40:00 Test Item Value Reference Range Interpretation [...] TOTAL (test IUnit/L 45-117 code = ALKP) [id number] 22:40:00 Test Item Value Reference Range Interpretation Comments LIPASE (test code = LIP) U/L 73.0-393.0 HCG SERUM [id number] 22:40:00 Test Item Value Reference Range Interpretation Comments HCG SERUM QUAL (test NEGATIVE NEGATIVE This HC GQL test is NOT code = HCGQL) applicable for MALE patients.Check with nurse about probable order error.If Tumor Marker Test needed, nu rse should order test "HCG TU"(Test #550.67423)---- - [id number] 22:40:00 Test Item Value Reference Range Interpretation Comments TROPONIN-I (test code = TROPI) ng/mL 0-0.045 CBC W/O [id number] 22:36:00 Test Item Value Reference Range Interpretation [...] fL 6.7-11.0 N = MPV) CBC W/O [id number] 22:34:00 Test Item Value Reference Range Interpretation [...] (test code fL 6.7-11.0 = MPV) URINALYSIS [id number] 21:44:00 Test Item Value Reference Range Interpretation [...] #/LPF FEW MUCU) Urine Source? Clean CatchURINALYSIS [id number] 21:39:00 Test Item Value Reference Range Interpretation [...] Urine Source? Clean Catch- XR CHEST 1 [id number] 20:59:00 FAX: RITESH ELMORE NP [place]: St: REG Name: SHANKAR ARROYO [facility] : 1980 Age/S: 39/F [address] [facility] Unit#: [id number] Loc: [place] [address] Phys: RITESH ELMORE NP Acct: [id number] Dis Date: Status: REG ER PHONE #: [phone] Exam Date: 03/25/20191940 FAX #: [phone] Reason: Abdominal Pain EXAMS: CPT CODE: [id number] XR CHEST 1 V 97705 EXAM: Chest X-ray, 1 view; CLINICAL HISTORY: Abdominal pain; FINDINGS: The lungs are clear, no infiltrates, no edema; no effusions; no pneumothorax; normal cardiomediastinal silhouette. IMPRESSION: Normal chest x-ray. Location code: [facility] at 2058 Reported and signed by: Fito Shah M.D. CC: RITESH ELMORE NP Technologist: Ayde Lewis(Taty) Trnscrd Date/Time/By: 03/25/2019 (2058) : By: [email or web address] Orig Print D/T: S: 03/25/2019 (2101) PAGE 1 Signed ReportBASIC METABOLIC [id number] 20:49:00 Test Item Value Reference Range Interpretation [...] GFR) formula.Chronic kidney disease is defined as [facility] er kidney damageor GFR <60 mL/min/1.73 m2 for >3 months. CREATININE (test code 0.70 mg/dL 0.55-1.02 N Note change in = CREAT) reference range due to change in reagent. BUN/CREATININE RATIO 21.6 10-20 H (test code = BUN/CREA) CALCIUM (test code = 8.7 mg/dL 8.5-10.1 N CA) HEPATIC FUNCTION [id number] 20:49:00 Test Item Value Reference Range Interpretation [...] range due ALKP) to change in reagent. [id number] 20:49:00 Test Item Value Reference Range Interpretation Comments LIPASE (test code = LIP) 99 U/L 73.0-393.0 N HCG SERUM [id number] 20:49:00 Test Item Value Reference Range Interpretation Comments HCG SERUM QUAL (test NEGATIVE NEGATIVE This HC GQL test is NOT code = HCGQL) applicable for MALE patients.Check with nurse about probable order error.If Tumor Marker Test needed, nu rse should order test "HCG TU"(Test #550.45335)---- - - US ABDOMEN [id number] 20:45:00 Name: SHANKAR ARROYO [facility] : 1980 Age/S: 39 / F [address] [facility] Unit #: [id number] Loc: [place] [address] Phys: RITESH ELMORE NP Acct: [id number] Dis Date: Status: REG ER PHONE #: [phone] Exam Date: 03/25/20191943 FAX #: [phone] Reason: Abdominal Pain EXAMS: CPT CODE: [id number] US ABDOMEN LTD 54536 EXAM: Ultrasound of the abdomen, limited; INFORMATION: [...] of the right upper quadrant; Location code: [facility] at 2044 Reported and signed by: Fito Shah M.D. CC: RITESH ELMORE NP Technologist: Ambreen Landeros RDMS [facility] Date/Time: 03/25/2019 (2044) Michela Orig Print D/T: S: 03/25/2019 (2047) Probe: PAGE 1 Signed ReportCBC W/O [id number] 20:39:00 Test Item Value Reference Range Interpretation [...] fL 6.7-11.0 N = MPV) BASIC METABOLIC [id number] 20:37:00 Test Item Value Reference Range Interpretation [...] code = CA) mg/dL 8.5-10.1 HEPATIC FUNCTION [id number] 20:37:00 Test Item Value Reference Range Interpretation [...] TOTAL (test IUnit/L 45-117 code = ALKP) [id number] 20:37:00 Test Item Value Reference Range Interpretation Comments LIPASE (test code = LIP) U/L 73.0-393.0 HCG SERUM [id number] 20:37:00 Test Item Value Reference Range Interpretation Comments HCG SERUM QUAL (test NEGATIVE NEGATIVE This HC GQL test is NOT code = HCGQL) applicable for MALE patients.Check with nurse about probable order error.If Tumor Marker Test needed, nu rse should order test "HCG TU"(Test #550.06830)---- - BASIC METABOLIC [id number] 20:37:00 Test Item Value Reference Range Interpretation [...] code = CA) mg/dL 8.5-10.1 HEPATIC FUNCTION [id number] 20:37:00 Test Item Value Reference Range Interpretation [...] TOTAL (test IUnit/L 45-117 code = ALKP) [id number] 20:37:00 Test Item Value Reference Range Interpretation Comments LIPASE (test code = LIP) U/L 73.0-393.0 HCG SERUM [id number] 20:37:00 Test Item Value Reference Range Interpretation Comments HCG SERUM QUAL (test NEGATIVE NEGATIVE This HC GQL test is NOT code = HCGQL) applicable for MALE patients.Check with nurse about probable order error.If Tumor Marker Test needed, nu rse should order test "HCG TU"(Test #550.35482)---- - CBC W/O [id number] 20:35:00 Test Item Value Reference Range Interpretation [...] = MPV) - CT ABD PELVIS W/O [id number] 18:38:00 Name: SHANKAR ARROYO [facility] : 1980 Age/S: 38 / F [address] [facility] Unit #: [id number] Loc: [place] [address] Phys: Marianna Baeza DO Acct: [id number] Dis Date: Status: REG ER PHONE #: [phone] Exam Date: 11/23/2018 0152 FAX #: [phone] Reason: FLANK PAIN EXAMS: CPTCODE: [id number] CT ABD PELVIS W/O CONT 99204 REASON FOR EXAM: FLANK PAIN EXAM ORDER DATE: 11/23/2018 4:31 PM Ordering MDiamond: DO Stevan PROCEDURE: - CT ABD PELVIS [...] 1 Signed Report (CONTINUED) Name: SHANKAR ARROYO [facility] :1980 Age/S: 38 / F [address] [facility] Unit #: [id number] Loc: [place] [address] Phys: Marianna Baeza DO Acct: [id number] Dis Date: Status: REG ER PHONE #: [phone] Exam Date: 11/23/2018 1759 FAX #: [phone] Reason: FLANK PAIN EXAMS: CPT CODE: [id number] CT ABD PELVIS W/O CONT 50654 <Continued> Punctate nonobstructing renal stones bilaterally. Electronic ally Signed by Devendra Rose MD on 11/23/2018 at 1838 Reported and signed by: Devendra Rose MD CC: Marianna Baeza DO Technologist:Ivonne Call RT(R) CTDI: DLP: Trnscb Date/Time: 11/23/2018 (183) [email or web address] Orig Print D/T: S: 11/23/2018 (184) PAGE 2 Sig olivia ReportURINALYSIS [id number] 18:19:00 Test Item Value Reference Range Interpretation [...] A BACU) Urine Source? Clean CatchHCG SERUM [id number] 17:17:00 Test Item Value Reference Range Interpretation Comments HCG SERUM QUAL (test NEGATIVE NEGATIVE This HC GQL test is NOT code = HCGQL) applicable for MALE patients.Check with nurse about probable order error.If Tumor Marker Test needed, nu rse should order test "HCG TU"(Test #550.03177)---- - BASIC METABOLIC [id number] 15:54:00 Test Item Value Reference Range Interpretation [...] code = 8.9 mg/dL 8.5-10.1 N CA) [id number] 15:54:00 Test Item Value Reference Range Interpretation Comments TROPONIN-I (test code = TROPI) <0.015 ng/mL 0-0.045 N - XR CHEST 1 [id number] 15:52:00 FAX: Mairanna Baeza DO [place]: B St: REG Name: SHANKAR ARROYO [facility] : 1980 Age/S: 38/F [address] [facility] Unit#: [id number] Loc: [place] [address] Phys: Marianna Baeza DO Acct: [id number] Dis Date: Status: REG ER PHONE #: [phone] Exam Date: 11/23/2018 1544 FAX #: [phone] Reason: CHEST PAIN EXAMS: CPT CODE: [id number] XR CHEST 1 V 22172 REASON FOR EXAM: CHEST PAIN Exam Order [...] JAVIER ADAM; STUDENT TECHNOLOGIST Trnscrd Date/Time/By: 11/23/2018 (3692) : By: [email or web address] Orig Print D/T: S: 11/23/2018 (5573) PAGE 1 Signed ReportBASIC METABOLIC [id number] 15:45:00 Test Item Value Reference Range Interpretation [...] CALCIUM (test code = CA) mg/dL 8.5-10.1 [id number] 15:45:00 Test Item Value Reference Range Interpretation Comments TROPONIN-I (test code = TROPI) ng/mL 0-0.045 CBC W/O [id number] 15:37:00 Test Item Value Reference Range Interpretation [...] fL 6.7-11.0 N = MPV) CBC W/O [id number] 15:34:00 Test Item Value Reference Range Interpretation [...]
[2021-07-24] MEDS ORDERED: BENZONATATE 100 MG CAP PO ONE (21:56)
[2021-07-24] MEDS ORDERED: PROMETH/COD 6.25/10MG SYRUP 5ML ONE ×2 (21:56→22:05)
--- NOTE | 2021-07-24 22:12 | RAD REPORT ---
EXAM DESCRIPTION: Jm Single View07/24/2021 10:02 pm CLINICAL HISTORY: Chest pain COMPARISON: 2020 FINDINGS: The lungs appear clear of acute infiltrate. The heart is normal size IMPRESSION: No acute abnormalities displayed
[2021-07-24 22:35] LABS: Absolute Lymphocytes (CBC) 2.4 K/uL (0.7-4.9); Hematocrit 39.2 % (36.0-45.0); Lymphocytes % 29.2 % (15.3-44.8); MPV 7.7 fL (7.6-11.3); RBC Red Blood Cell Count 4.55 M/uL (3.86-4.86)
[2021-07-24 22:59] LABS: ALT/SGPT 27 U/L (12-78); AST/SGOT 13 U/L (15-37); Albumin 3.8 g/dL (3.4-5.0); Alkaline Phosphatase 80 U/L (45-117); BUN Blood Urea Nitrogen 14 mg/dL (7-18); Bicarbonate 27 mmol/L (21-32); Bilirubin Direct 0.1 mg/dL (0-0.2); Bilirubin Total 0.4 mg/dL (0.2-1.0); Glucose Level 160 mg/dL (74-106); Potassium 3.9 mmol/L (3.5-5.1); Sodium Level 136 mmol/L (136-145)
[2021-07-24 23:00] LABS: Troponin High Sensitivity < 3.00 pg/mL (<58.9)
--- NOTE | 2021-07-24 23:33 | EDPHYS ---
Physician Documentation [facility] Name: Jo Ann Kowalski Age: 41 yrs Sex: Female : 1980 Arrival Date: 07/24/2021 Time: 20:48 Bed 14 Private MD: ED Physician Carlos Paige HPI: 07/25 01:09 This 41 yrs old Female presents to ER via Ambulatory with complaints of Chest Pain, kdr Shortness Of Breath, Wheezing > 1 Year. 01:09 The patient or guardian reports chest pain that is located primarily in the anterior kdr chest wall, chest diffusely. 01:10 The patient or guardian reports airway noise, cough, described as mild, difficulty kdr breathing, Patient has battling upper respiratory symptoms for the past 2 to 3 weeks. She is seen unofficially her colleagues at work for her treatment. She has had intermittent breathing treatments and medications. None have remedied her circumstances. She complains of generalized headache cough congestion, she states that her upper teeth hurt, generalized chest congestion with productive cough.. Onset: The symptoms/episode began/occurred gradually, 3 week(s) ago. Modifying factors: The symptoms are alleviated by nothing. the symptoms are aggravated by activity. Associated signs and symptoms: Pertinent positives: Pertinent negatives: diarrhea, ear ache, fever, nausea, rhinorrhea, sore throat, vomiting. Severity of symptoms: At their worst the symptoms were mild moderate just prior to arrival, in the emergency department the symptoms are unchanged. The patient has not experienced similar symptoms in the past. 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 - Social history:: Smoking status: Patient denies any tobacco usage or history of. ROS: 07/25 01:10 Constitutional: Negative for fever, chills, and weight loss, Eyes: Negative for injury, kdr pain, redness, and discharge, Cardiovascular: Negative for chest pain, palpitations, and edema, Abdomen/GI: Negative for abdominal pain, nausea, vomiting, diarrhea, and constipation, Back: Negative for injury and pain, : Negative for injury, bleeding, discharge, and swelling, MS/Extremity: Negative for injury and deformity, Skin: Negative for injury, rash, and discoloration, Neuro: Negative for headache, weakness, numbness, tingling, and seizure activity. ENT: Positive for sinus pain, Teeth pain Negative for Respiratory: Positive for cough, with green sputum, dyspnea on exertion, pleurisy, shortness of breath, wheezing, Negative for hemoptysis, orthopnea. Exam: 07/24 22:38 ECG was reviewed by the Attending Physician. kdr 07/25 01:10 Constitutional: This is a well developed, well nourished patient who is awake, alert, kdr and in no acute distress. Head/Face: Normocephalic, atraumatic. Eyes: Pupils equal round and reactive to light, extra-ocular motions intact. Lids and lashes normal. Conjunctiva and sclera are non-icteric and not injected. Cornea within normal limits. Periorbital areas with no swelling, redness, or edema. Neck: Trachea midline, no thyromegaly or masses palpated, and no cervical lymphadenopathy. Supple, full range of motion without nuchal rigidity, or vertebral point tenderness. No Meningismus. Chest/axilla: Normal chest wall appearance and motion. Nontender with no deformity. No lesions are appreciated. Cardiovascular: Regular rate and rhythm with a normal S1 and S2. No gallops, murmurs, or rubs. Normal PMI, no JVD. No pulse deficits. Abdomen/GI: Soft, non-tender, with normal bowel sounds. No distension or tympany. No guarding or rebound. No evidence of tenderness throughout. Back: No spinal tenderness. No costovertebral tenderness. Full range of motion. Skin: Warm, dry with normal turgor. Normal color with no rashes, no lesions, and no evidence of cellulitis. MS/ Extremity: Pulses equal, no cyanosis. Neurovascular intact. Full, normal range of motion. Neuro: Awake and alert, GCS 15, oriented to person, place, time, and situation. Cranial nerves II-XII grossly intact. Motor strength 5/5 in all extremities. Sensory grossly intact. Cerebellar exam normal. Normal gait. Psych: Awake, alert, with orientation to person, place and time. Behavior, mood, and affect are within normal limits. Head/face: Sinus tenderness, that is mild, is located over the right maxillary sinus and left maxillary sinus. Vital Signs: 07/24 21:03 BP 135 / 79; Pulse 104; Resp 18; Temp 98.8; Weight 86.18 kg; Height 4 ft. 11 in. ke1 (149.86 cm); Pain 5/10; 21:32 BP 126 / 82; Pulse 100; Resp 20; Pulse Ox 98% on R/A; lr4 23:27 BP 129 / 81; Pulse 97; Resp 20; Pulse Ox 100% ; lr4 07/25 00:52 BP 130 / 88; Pulse 90; Resp 18; Pulse Ox 100% on R/A; ke1 07/24 21:03 Body Mass Index 38.37 (86.18 kg, 149.86 cm) ke1 MDM: 07/24 23:33 Patient medically screened. kdr 07/25 01:10 Data reviewed: vital signs, nurses notes, lab test result(s), radiologic studies. kdr Counseling: I had a detailed discussion with the patient and/or guardian regarding: the historical points, exam findings, and any diagnostic results supporting the discharge/admit diagnosis, lab results, radiology results, the need for outpatient follow up. 07/24 21:41 Order name: Basic Metabolic Panel; Complete Time: 23:24 kdr 07/24 21:41 Order name: CBC with Diff; Complete Time: 23:24 kdr 07/24 21:41 Order name: LFT's; Complete Time: 23:24 kdr 07/24 21:41 Order name: Troponin HS; Complete Time: 23:24 kdr 07/24 21:43 Order name: D-Dimer; Complete Time: 23:24 kdr 07/24 21:41 Order name: XRAY Chest (1 view); Complete Time: 22:38 kdr 07/24 21:41 Order name: EKG; Complete Time: 21:42 kdr 07/24 21:41 Order name: Cardiac monitoring; Complete Time: 22:12 kdr 07/24 21:41 Order name: EKG - Nurse/Tech; Complete Time: 22:27 kdr 07/24 21:41 Order name: IV Saline Lock; Complete Time: 22:12 kdr 07/24 23:27 Order name: COVID-19/FLU A+B (Document "Date of Onset" if Symptomatic); Complete Time: bb 00:45 07/24 21:41 Order name: Labs collected and sent; Complete Time: 22:12 kdr 07/24 21:41 Order name: O2 Per Protocol; Complete Time: 22:12 kdr 07/24 21:41 Order name: O2 Sat Monitoring; Complete Time: 22:12 kdr EC/16 22:38 Rate is 95 beats/min. Rhythm is regular, Normal Sinus Rhythm with No ectopy. QRS [place] kdr is Normal. GA interval is normal. QRS interval is normal. QT interval is normal. Clinical impression: Normal ECG. Administered Medications: 22:03 Drug: Phenergan (promethazine) -Codeine Liquid (6.25mg - 10mg / 5mL) 10 ml Route: PO; lr4 22:28 Follow up: Response: No adverse reaction; Marked relief of symptoms lr4 22:04 Drug: Tessalon Perle (benzonatate) 200 mg Route: PO; lr4 22:27 Follow up: Response: No adverse reaction; Marked relief of symptoms lr4 Disposition Summary: 07/24/21 23:33 Discharge Ordered Location: Home kdr Problem: new kdr Symptoms: have improved kdr Condition: Stable kdr Diagnosis - Acute upper respiratory infection, unspecified kdr - Nasal congestion kdr - Cough kdr Followup: kdr - With: Private Physician - When: 2 - 3 days - Reason: If symptoms return, Further diagnostic work-up, Recheck today's complaints, Continuance of care, Re-evaluation by your physician Discharge Instructions: - Sinusitis, Adult, [id number] kdr - Upper Respiratory Infection, Adult, [id number] kdr - Discharge Summary Sheet cp - Viral Respiratory Infection, [id number] kdr - Cough, Adult kdr Forms: - Medication Reconciliation Form kdr - Thank You Letter kdr - Antibiotic Education kdr Prescriptions: - Tessalon Perles 100 mg Oral Capsule - take 1 capsule by ORAL route every 8 hours As needed; 15 capsule; Refills: 0, kdr Product Selection Permitted - Promethazine VC 6.25-5 mg/5 mL Oral syrup - take 10 milliliter by ORAL route every 4-6 hours As needed; 150 milliliter; cp Refills: 0, Product Selection Permitted - Cipro 500 mg Oral Tablet - take 1 tablet by ORAL route every 12 hours for 10 days; 20 tablet; Refills: 0, kdr Product Selection Permitted Signatures: Dispatcher [employer] Carlos Jennings MD MD kdr Ebrottie, Kouassi, RN RN ke1 Ashley Armando RN RN lr4
--- NOTE | 2021-07-24 23:33 | ER ---
Nurse's Notes [facility] Name: Jo Ann Kowalski Age: 41 yrs Sex: Female : 1980 Arrival Date: 07/24/2021 Time: 20:48 Bed 14 Private MD: Diagnosis: Acute upper respiratory infection, unspecified;Nasal congestion;Cough Presentation: 07/24 21:03 Chief complaint: Patient states: Sore throat , coughing , chest pain, SOB since 2 to 3 ke1 weeks. Coronavirus screen: Vaccine status: Patient reports being unvaccinated. Ebola Screen: No symptoms or risks identified at this time. Initial Sepsis Screen: Does the patient meet any 2 criteria? No. Patient's initial sepsis screen is negative. Does the patient have a suspected source of infection? No. Patient's initial sepsis screen is negative. Risk Assessment: Do you want to hurt yourself or someone else? Patient reports no desire to harm self or others. Onset of symptoms. 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 - Social history:: Smoking status: Patient denies any tobacco usage or history of. Screenin:29 Abuse screen: Denies threats or abuse. Nutritional screening: No deficits noted. lr4 Tuberculosis screening: No symptoms or risk factors identified. Fall Risk None identified. Assessment: 21:27 General: Appears in no apparent distress. comfortable, Behavior is calm, cooperative. lr4 Pain: Pain radiates to head Pain currently is 10 out of 10 on a pain scale. Quality of pain is described as aching, Pain began few wks. Neuro: No deficits noted. Reports headache frontal area. Cardiovascular: Reports chest pain, shortness of breath, Heart tones S1 S2 Capillary refill < 3 seconds Rhythm is regular. Respiratory: Reports shortness of breath pain with cough Breath sounds are clear bilaterally. Onset: The symptoms/episode began/occurred gradually, the patient has mild shortness of breath. Vital Signs: 21:03 BP 135 / 79; Pulse 104; Resp 18; Temp 98.8; Weight 86.18 kg; Height 4 ft. 11 in. ke1 (149.86 cm); Pain 5/10; 21:32 BP 126 / 82; Pulse 100; Resp 20; Pulse Ox 98% on R/A; lr4 23:27 BP 129 / 81; Pulse 97; Resp 20; Pulse Ox 100% ; lr4 07/25 00:52 BP 130 / 88; Pulse 90; Resp 18; Pulse Ox 100% on R/A; ke1 07/24 21:03 Body Mass Index 38.37 (86.18 kg, 149.86 cm) ke1 ED Course: 07/24 20:48 Patient arrived in ED. wm 20:55 Carlos Paige MD is Attending Physician. kdr 21:09 Triage completed. ke1 21:27 Ashley Armando, RN is Primary Nurse. lr4 21:30 No provider procedures requiring assistance completed. Patient maintains SpO2 lr4 saturation greater than 95% on room air. 21:30 Arm band placed on right wrist. lr4 21:30 Patient has correct armband on for positive identification. Bed in low position. Call lr4 light in reach. Side rails up X 1. Pulse ox on. NIBP on. 22:02 XRAY Chest (1 view) In Process Unspecified. EDMS 22:11 Inserted saline lock: 20 gauge in left antecubital area, using aseptic technique. lr4 22:12 D-Dimer Sent. lr4 22:19 EKG done, by ED staff. lr4 23:27 IV discontinued, intact, bleeding controlled, No redness/swelling at site. Pressure lr4 dressing applied. 23:49 COVID-19/FLU A+B (Document "Date of Onset" if Symptomatic) Sent. lr4 Administered Medications: 22:03 Drug: Phenergan (promethazine) -Codeine Liquid (6.25mg - 10mg / 5mL) 10 ml Route: PO; lr4 22:28 Follow up: Response: No adverse reaction; Marked relief of symptoms lr4 22:04 Drug: Tessalon Perle (benzonatate) 200 mg Route: PO; lr4 22:27 Follow up: Response: No adverse reaction; Marked relief of symptoms lr4 Outcome: 21:30 Condition: stable lr4 23:27 Discharged to home ambulatory. lr4 23:27 Discharge instructions given to patient. 23:33 Discharge ordered by . marcus 07/25 00:53 Patient left the ED. ke1 Signatures: Dispatcher [employer] Carlos Jennings MD MD kdr Marsh, Wendy wm Ebrottie, Kouassi, RN RN ke1 Ashley Armando RN RN lr4
[2021-07-25 00:34] LABS: SARS-COV-2 RT PCR NEGATIVE (NEGATIVE)
[2021-07-25 00:59] VITALS: TEMP 98.8
[2021-07-25 01:01] VITALS: O2SAT 100
[2021-07-25 01:02] VITALS: BP 130/88
--- NOTE | 2021-07-29 08:33 | EKG ---
Test Date: 2021-07-24 Test Time: 22:19:30 Electric Meter Repairer: MARIUM MEASUREMENT RESULTS: Intervals: Rate: 95 VA: 138 QRSD: 76 QT: 346 QTc: 434 [place]: P: 63 VA: 138 QRS: 31 T: 38 INTERPRETIVE STATEMENTS: Normal sinus rhythm Normal ECG No previous ECG available for comparison Electronically Signed On 07-29-21 08:24:06 CDT by Jed Hernandez
== END 2021-07-25 00:53 | disposition home or self-care (01) ==
LOC: ER 20:42
DX: J06.9 Acute upper respiratory infection, unspecified (principal); R09.81 Nasal congestion; Z20.822 Contact with and (suspected) exposure to COVID-19; Z88.5 Allergy status to narcotic agent; Z91.040 Latex allergy status; Z91.048 Other nonmedicinal substance allergy status
CPT/HCPCS: 0240U; 36415; 71045; 80048; 80076; 84484; 85025; 85379; 93005; 99284

== ENCOUNTER 2021-09-11 02:37 | Inpatient (IN) | payer OTHER, SELFPAY ==
--- OUTSIDE RECORDS SUMMARY | 2021-09-11 02:40 | XMS REPORT | Continuity of Care Document ---
:1980 Author Organization [facility] t Address [address] [place] [address] Care Team Providers Name Role Phone Tamika [...] 2020-0 [facility] 2-28 Clear 00:00: Irwin 00 [facility] morphine DA Active MO 2020-0 [facility] 2-28 Clear 00:00: Irwin 00 [facility] meperidi DA Active MO 2020-0 [facility] ne 2-28 Clear 00:00: Irwin 00 [facility] latex DA Active MO 2020-0 [facility] 2-28 Clear 00:00: Irwin 00 [facility] iodine DA Active MO RESPIRATORY 2020-0 [facility] DISTRESS 2-28 Clear 00:00: Irwin 00 [facility] morphine DA Active MO RASH-HIVES 2020-0 [facility] 2-28 Clear 00:00: Irwin [facility] meperidi DA Active MO RESPIRATORY 2020-0 [facility] ne DISTRESS 2-28 Clear 00:00: Irwin [facility] latex DA Active MO RASH-HIVES 2020-0 [facility] 2-28 Clear 00:00: Irwin [facility] iodine DA Active MO 2020-0 [...] MO 2018-1 [facility] 1-17 Clear 00:00: Irwin [facility] morphine DA Active MO 2017- [facility] 1-17 Clear 00:00: Irwin 00 [facility] meperidi DA Active MO 2018- [facility] ne 1-17 Clear 00:00: Irwin 00 [facility] latex DA Active MO 2018- [facility] 1-17 Clear 00:00: Irwin 00 [facility] iodine DA Active MO 2017-0 [...] Procedure Date / Time Performed Performing Clinician [facility] e [id number] 2019-07-11 00:00:00 ALI.06 [facility] [id number] 2019-07-11 00:00:00 ALI.06 [facility] [id number] 2019-07-11 00:00:[address] [facility].06 [facility] Encounters Start End Encounter Admission Attending Care Care Encounter Source Date/Time Date/Time Type Type Clinicians Facility Department ID 2021-03-04 Inpatient [facility] JHONATAN [id number] [facility] 16:44:00 [id number] [facility] 2019-07-10 Inpatient EM CAROLYNE Jarrett [facility] [id number] [facility] 18:25:00 [facility] 2019-07-08 Inpatient EM CAROLYNE Jarrett OLGA [id number] [facility] 00:20:00 [facility] [id number] [facility] 2019-07-07 Inpatient [facility] JHONATAN [id number] [facility] 21:24:00 [id number] [facility] 2021-03-04 2021-03-04 Emergency E MARTIN LEAVITTSE MHSE [id number] 17:45:00 23:49:00 MICHAELA Farris tamika [facility] 2021-03-04 2021-03-04 Emergency EM DevoraCAROLYNE [id number] [facility] 16:44:00 21:39:00 Gal Kinney [facility] 2020-11-14 2020-11-14 Outpatient MARYELLEN Ness LABO [id number] [facility] 17:12:00 17:12:00 Phil [id number] [facility] 2020-11-14 2020-11-14 Emergency E [place] [facility]SE [id number] MH 10:19:00 15:45:[address] [facility] 2020-11-14 2020-11-14 Emergency EM ANTOLIN NessBM JHONATAN [id number] [facility] 08:41:00 10:18:00 Phil [id number] [facility] 2019-05-31 2019-05-31 Outpatient E MHSE ISMAEL 7518 MH 00:25:00 00:25:00 [facility] Results Test Description Test Time [...] #/LPF FEW Urine Source? Clean CatchUR HCG [id number] 09:50:00 Test Item Value Reference Range Interpretation Comments UR HCG QUAL (test NEGATIVE This HCGQL test is NOT code = HCGQLU) applicable fo r MALE patients.Check with nurse about probable order error.If Tumor Marker Test needed, nu rse should order test "HCG TU"(Test #550.82934)---- - Urine Source? Clean CatchURINALYSIS [id number] 09:44:00 Test Item Value Reference Range Interpretation [...] HPF NONE Urine Source? Clean CatchUR HCG [id number] 09:44:00 Test Item Value Reference Range Interpretation Comments UR HCG QUAL (test NEGATIVE This HCGQL test is NOT code = HCGQLU) applicable fo r MALE patients.Check with nurse about probable order error.If Tumor Marker Test needed, nu rse should order test "HCG TU"(Test #550.53952)---- - Urine Source? Clean [id number] 16:50:00 RUN DATE: 07/12/19 [facility] PAGE 1 RUN TIME: 1650 Specimen Inquiry RUN USER: INTERFACE PATIENT: SHANKAR ARROYO LOC: ChrisOBS U #: [id number] AGE/SX: 39/F ROOM: [facility] RE07/10/19REG DR: Ronni Jarrett MD : 76 BED: A DIS: 07/12/19 STATUS: DIS IN TLOC: SPEC #: [id number] RECD: 07/11/19 STATUS: DARON REQ #: [id number] BRITTANY: 07/11/19- SUBM DR: Rodney Sotelo MD ENTERED: 07/11/19 SP TYPE: STOMACH OTHR DR: No Primary or Family Physician Miguel Salazar MD, Alberto J MDORDERED: GROSS COPIES TO: No Primary or Family Physician Rodney Sotelo MD [address] [place] [address] Miguel Salazar MD [address] [place] [address] José Hylton MD [address] [place], [place] [id number] PROCEDURES: GROSS (07/12/19-1420) TISSUES: 1. DUODENUM, NOS - BX 2. GASTRIC CORPUS - BX 3. COLON, NOS- TERMINAL ILEUM BX CLINICAL HISTORY COLLECTION DATE: 07/11/19 HEMATEMESIS, MELENA, EPIGASTRIC PAIN FINAL DIAGNOSIS Duodenum, biopsy: DUODENAL MUCOSA WITH NO PATHOLOGICALTERATION Gastric tissue, biopsy: REACTIVE GASTROPATHY GASTRIC MUCOSA WITH NO PATHOLOGIC ALTERATION NEGATIVE FOR HELICOBACTER ORGANISMS CONTINUED ON NEXT PAGE RUN DATE: 07/12/19 [place] [facility] PAGE2 RUN TIME: 1650 Specimen Inquiry RUN USER: INTERFACE SPEC #: [id number] PATIENT: SHANKAR ARROYO #[id number] (Continued) FINAL DIAGNOSIS (Continued) NEGATIVE FOR MALIGNANCY Terminal ileum, biopsy: SMALL BOWEL MUCOSA WITH UNREMARKABLE VILLOUS ARCHITECTURE AND PROMINENT LYMPHOID AGGREGATES NEGATIVE FOR MALIGNANCY RRB/sm D 83157a4, 15384 MACROSCOPIC The first specimen is received in [...] aggregate, submitted as (3). GROSS PERFORMED AT [facility] [address] [place] [address] (p)[phone] MICROSCOPIC All of the stains, including any controls performed, stain appropriately. MICROSCOPIC PERFORMED AT [facility] [address] [place], [place] [address] (p)[phone] PERFORMING SITE Diagnosis performed at: [facility], [place] [address] CONTINUED ON NEXT PAGE RUN DATE: 07/12/19 [facility] PAGE 3 RUN TIME: 1650 Specimen Inquiry RUN USER: INTERFACE SPEC #: [id number] PATIENT: SHANKAR ARROYO #[id number] (Continued) PERFORMING SITE (Continued) [phone]---- -------- Signed SIGNATURE ON FILE Evangelista Danielle MD 07/12/19 3352 END OF REPORT HEPATIC FUNCTION [id number] 05:45:00 Test Item Value Reference Range Interpretation [...] range due ALKP) to change in reagent. [id number] 05:45:00 Test Item Value Reference Range Interpretation Comments LIPASE (test code = LIP) 91 U/L 73.0-393.0 N CBC W/AUTO [id number] 07:11:00 Test Item Value Reference Range Interpretation [...] K/mm3 0.0-0.1 N code = NRBC#) HGB [id number] 18:13:00 Test Item Value Reference Range Interpretation Comments HEMOGLOBIN (test code = HGB) 12.1 gram/dL 11.5-15.5 N HEMATOCRIT (test code = HCT) 36.4 % 36.0-46.0 N HGB [id number] 12:15:00 Test Item Value Reference Range Interpretation Comments HEMOGLOBIN (test code 12.7 gram/dL 11.5-15.5 RESULT VERIFIED BY = HGB) REPEAT ANALYSIS HEMATOCRIT (test code 38.6 % 36.0-46.0 N = HCT) - CT ABD PELVIS W/O [id number] 00:05:00 Name: SHANKAR ARROYO [facility] : 1980 Age/S: 39 / F [address] [facility] Unit #: [id number] Loc: [place] [address] Phys: Waldemar Ortez MD Acct: [id number] Dis Date: Status: ADM IN PHONE #: [phone] Exam Date: 07/07/2019 2335 FAX #: [phone] Reason: mid abd pain vomiting blood and blood in stool EXAMS: CPTCODE: [id number] CT ABD PELVIS W/O CONT 53984 CT abdomen and pelvis without IV contrast. [...] above PAGE 1 Signed Report (CONTINUED) Name: SHAKNAR ARROYO [facility] : 1980 Age/S: 39 / F [address] [facility] Unit #: [id number] Loc: [place] [address] Phys: Waldemar Ortez MD Acct: [id number] Dis Date: Status: ADM IN PHONE #: [phone] Exam Date: 07/07/2019 2335 FAX #: [phone] Reason: mid abd pain vomiting blood and blood in stool EXAMS: CPT CODE: [id number] CT ABD PELVIS W/O CONT 83642 <Continued> at 0005 Reported and signed by: Lorrie Welch M.D. CC: Waldemar Ortez MD Technologist:RADHA AGUILA CTDI: DLP: Trnscb Date/Time: 07/08/2019 (0005) [email or web address] Orig Print D/T: S: 07/08/2019 (3158) PAGE 2 Signed Report- US ABDOMEN [id number] 23:54:00 Name: SHANKAR ARROYO [facility] : 1980 Age/S: 39 / F [address] [facility] Unit #: [id number] Loc: [place] [address] Phys: Waldemar Ortez MD Acct: [id number] Dis Date: Status: REG ER PHONE #: [phone] Exam Date: 07/07/2019 2330 FAX #: [phone] Reason: ruq pain ho gallbladder problem EXAMS: CPTCODE: [id number] US ABDOMEN LTD 02788 DICTATION LOCATION: H48 HISTORY: Female, 39 years [...] no significant change since prior study. at 1851 Reported and signed by: Shelby Anderson MD CC: Waldemar Ortez MD Technologist: DALIA AGARWAL RDMS Trnscb Date/Time: 07/07/2019 (9393) Jeffrey.CLW Orig Print D/T: S: 07/07/2019 (1793) Probe: PAGE 1 Signed ReportBASIC METABOLIC [id number] 23:00:00 Test Item Value Reference Range Interpretation [...] 9.4 mg/dL 8.5-10.1 N CA) HEPATIC FUNCTION [id number] 23:00:00 Test Item Value Reference Range Interpretation [...] range due ALKP) to change in reagent. [id number] 23:00:00 Test Item Value Reference Range Interpretation Comments LIPASE (test code = LIP) 90 U/L 73.0-393.0 N HCG SERUM [id number] 23:00:00 Test Item Value Reference Range Interpretation Comments HCG SERUM QUAL (test NEGATIVE NEGATIVE This HC GQL test is NOT code = HCGQL) applicable for MALE patients.Check with nurse about probable order error.If Tumor Marker Test needed, nu rse should order test "HCG TU"(Test #550.59082)---- - [id number] 23:00:00 Test Item Value Reference Range Interpretation Comments TROPONIN-I (test code = TROPI) <0.015 ng/mL 0-0.045 N PROTHROMBIN [id number] 22:44:00 Test Item Value Reference Range Interpretation [...] (2.5-3.5) IS PATIENT ON ANTICOAGULANTS? NTHROMBOPLASTIN TIME [id number] 22:44:00 Test Item Value Reference Range Interpretation Comments THROMBOPLASTIN TIME PARTIAL 34.5 seconds 25.0-36.5 N (test code = PTT) IS PATIENT ON ANTICOAGULANTS? NBASIC METABOLIC [id number] 22:40:00 Test Item Value Reference Range Interpretation [...] code = CA) mg/dL 8.5-10.1 HEPATIC FUNCTION [id number] 22:40:00 Test Item Value Reference Range Interpretation [...] TOTAL (test IUnit/L 45-117 code = ALKP) [id number] 22:40:00 Test Item Value Reference Range Interpretation Comments LIPASE (test code = LIP) U/L 73.0-393.0 HCG SERUM [id number] 22:40:00 Test Item Value Reference Range Interpretation Comments HCG SERUM QUAL (test NEGATIVE NEGATIVE This HC GQL test is NOT code = HCGQL) applicable for MALE patients.Check with nurse about probable order error.If Tumor Marker Test needed, nu rse should order test "HCG TU"(Test #550.70253)---- - [id number] 22:40:00 Test Item Value Reference Range Interpretation Comments TROPONIN-I (test code = TROPI) ng/mL 0-0.045 CBC W/O [id number] 22:36:00 Test Item Value Reference Range Interpretation [...] fL 6.7-11.0 N = MPV) CBC W/O [id number] 22:34:00 Test Item Value Reference Range Interpretation [...] (test code fL 6.7-11.0 = MPV) URINALYSIS [id number] 21:44:00 Test Item Value Reference Range Interpretation [...] #/LPF FEW MUCU) Urine Source? Clean CatchURINALYSIS [id number] 21:39:00 Test Item Value Reference Range Interpretation [...] Urine Source? Clean Catch- XR CHEST 1 [id number] 20:59:00 FAX: RITESH ELMORE NP [place]: St: REG Name: SHANKAR ARROYO [facility] : 1980 Age/S: 39/F [address] [facility] Unit#: [id number] Loc: [place] [address] Phys: RITESH LEMORE NP Acct: [id number] Dis Date: Status: REG ER PHONE #: [phone] Exam Date: 03/25/20191940 FAX #: [phone] Reason: Abdominal Pain EXAMS: CPT CODE: [id number] XR CHEST 1 V 43798 EXAM: Chest X-ray, 1 view; CLINICAL HISTORY: [...] 03/25/2019 (2101) PAGE 1 Signed ReportBASIC METABOLIC [id number] 20:49:00 Test Item Value Reference Range Interpretation [...] GFR) formula.Chronic kidney disease is defined as [facility] er kidney damageor GFR <60 mL/min/1.73 m2 for >3 months. CREATININE (test code 0.70 mg/dL 0.55-1.02 N Note change in = CREAT) reference range due to change in reagent. BUN/CREATININE RATIO 21.6 10-20 H (test code = BUN/CREA) CALCIUM (test code = 8.7 mg/dL 8.5-10.1 N CA) HEPATIC FUNCTION [id number] 20:49:00 Test Item Value Reference Range Interpretation [...] range due ALKP) to change in reagent. [id number] 20:49:00 Test Item Value Reference Range Interpretation Comments LIPASE (test code = LIP) 99 U/L 73.0-393.0 N HCG SERUM [id number] 20:49:00 Test Item Value Reference Range Interpretation Comments HCG SERUM QUAL (test NEGATIVE NEGATIVE This HC GQL test is NOT code = HCGQL) applicable for MALE patients.Check with nurse about probable order error.If Tumor Marker Test needed, nu rse should order test "HCG TU"(Test #550.50858)---- - - US ABDOMEN [id number] 20:45:00 Name: SHANKAR ARROYO [facility] : 1980 Age/S: 39 / F [address] [facility] Unit #: [id number] Loc: [place] [address] Phys: RITESH ELMORE NP Acct: [id number] Dis Date: Status: REG ER PHONE #: [phone] Exam Date: 03/25/20191943 FAX #: [phone] Reason: Abdominal Pain EXAMS: CPT CODE: [id number] US ABDOMEN LTD [address]2680 EXAM: Ultrasound of the abdomen, limited; INFORMATION: [...] RITESH ELMORE NP Technologist: Ambreen Landeros RDMS [facility] Date/Time: 03/25/2019 (2044) Michela Orig Print D/T: S: 03/25/2019 (2047) Probe: PAGE 1 Signed ReportCBC W/O [id number] 20:39:00 Test Item Value Reference Range Interpretation [...] fL 6.7-11.0 N = MPV) BASIC METABOLIC [id number] 20:37:00 Test Item Value Reference Range Interpretation [...] code = CA) mg/dL 8.5-10.1 HEPATIC FUNCTION [id number] 20:37:00 Test Item Value Reference Range Interpretation [...] TOTAL (test IUnit/L 45-117 code = ALKP) [id number] 20:37:00 Test Item Value Reference Range Interpretation Comments LIPASE (test code = LIP) U/L 73.0-393.0 HCG SERUM [id number] 20:37:00 Test Item Value Reference Range Interpretation Comments HCG SERUM QUAL (test NEGATIVE NEGATIVE This HC GQL test is NOT code = HCGQL) applicable for MALE patients.Check with nurse about probable order error.If Tumor Marker Test needed, nu rse should order test "HCG TU"(Test #550.11436)---- - BASIC METABOLIC [id number] 20:37:00 Test Item Value Reference Range Interpretation [...] code = CA) mg/dL 8.5-10.1 HEPATIC FUNCTION [id number] 20:37:00 Test Item Value Reference Range Interpretation [...] TOTAL (test IUnit/L 45-117 code = ALKP) [id number] 20:37:00 Test Item Value Reference Range Interpretation Comments LIPASE (test code = LIP) U/L 73.0-393.0 HCG SERUM [id number] 20:37:00 Test Item Value Reference Range Interpretation Comments HCG SERUM QUAL (test NEGATIVE NEGATIVE This HC GQL test is NOT code = HCGQL) applicable for MALE patients.Check with nurse about probable order error.If Tumor Marker Test needed, nu rse should order test "HCG TU"(Test #550.36321)---- - CBC W/O [id number] 20:35:00 Test Item Value Reference Range Interpretation [...] = MPV) - CT ABD PELVIS W/O [id number] 18:38:00 Name: SHANKAR ARROYO [facility] : 1980 Age/S: 38 / F [address] [facility] Unit #: [id number] Loc: [place] [address] Phys: Marianna Baeza DO Acct: [id number] Dis Date: Status: REG ER PHONE #: [phone] Exam Date: 11/23/2018 6986 FAX #: [phone] Reason: FLANK PAIN EXAMS: CPTCODE: [id number] CT ABD PELVIS W/O CONT 15013 REASON FOR EXAM: FLANK PAIN EXAM ORDER [...] 1 Signed Report (CONTINUED) Name: SHANKAR ARROYO [facility] :1980 Age/S: 38 / F [address] [facility] Unit #: [id number] Loc: [place] [address] Phys: Marianna Baeza DO Acct: [id number] Dis Date: Status: REG ER PHONE #: [phone] Exam Date: 11/23/2018 1759 FAX #: [phone] Reason: FLANK PAIN EXAMS: CPT CODE: [id number] CT ABD PELVIS W/O CONT 93763 <Continued> Punctate nonobstructing renal stones bilaterally. Electronic ally Signed by Devendra Rose MD on 11/23/2018 at 1838 Reported and signed by: Devendra Rose MD CC: Marianna Baeza DO Technologist:Ivonne Call RT(R) CTDI: DLP: Trnscb Date/Time: 11/23/2018 (183) [email or web address] Orig Print D/T: S: 11/23/2018 (184) PAGE 2 Sig olivia ReportURINALYSIS [id number] 18:19:00 Test Item Value Reference Range Interpretation [...] A BACU) Urine Source? Clean CatchHCG SERUM [id number] 17:17:00 Test Item Value Reference Range Interpretation Comments HCG SERUM QUAL (test NEGATIVE NEGATIVE This HC GQL test is NOT code = HCGQL) applicable for MALE patients.Check with nurse about probable order error.If Tumor Marker Test needed, nu rse should order test "HCG TU"(Test #550.47437)---- - BASIC METABOLIC [id number] 15:54:00 Test Item Value Reference Range Interpretation [...] code = 8.9 mg/dL 8.5-10.1 N CA) [id number] 15:54:00 Test Item Value Reference Range Interpretation Comments TROPONIN-I (test code = TROPI) <0.015 ng/mL 0-0.045 N - XR CHEST 1 [id number] 15:52:00 FAX: Marianna Baeza DO [place]: B St: REG Name: SHANKAR ARROYO [facility] : 1980 Age/S: 38/F [address] [facility] Unit#: [id number] Loc: [place] [address] Phys: Marianna Baeza DO Acct: [id number] Dis Date: Status: REG ER PHONE #: [phone] Exam Date: 11/23/2018 1544 FAX #: [phone] Reason: CHEST PAIN EXAMS: CPT CODE: [id number] XR CHEST 1 V 97556 REASON FOR EXAM: CHEST PAIN Exam Order [...] JAVIER ADAM; STUDENT TECHNOLOGIST Trnscrd Date/Time/By: 11/23/2018 (9368) : By: [email or web address] Orig Print D/T: S: 11/23/2018 (9917) PAGE 1 Signed ReportBASIC METABOLIC [id number] 15:45:00 Test Item Value Reference Range Interpretation [...] CALCIUM (test code = CA) mg/dL 8.5-10.1 [id number] 15:45:00 Test Item Value Reference Range Interpretation Comments TROPONIN-I (test code = TROPI) ng/mL 0-0.045 CBC W/O [id number] 15:37:00 Test Item Value Reference Range Interpretation [...] fL 6.7-11.0 N = MPV) CBC W/O [id number] 15:34:00 Test Item Value Reference Range Interpretation [...]
[2021-09-11] MEDS ORDERED: ONDANSETRON 4 MG/2 ML VIAL ONE ×3 (03:31→11:38)
[2021-09-11] MEDS ORDERED: MORPHINE 2 MG/ML SYR ONE (03:31)
[2021-09-11] MEDS ORDERED: NA CHLORIDE 0.9% 1,000 ML ONE ×2 (03:31→06:45)
[2021-09-11 03:40] LABS: Hematocrit 35.9 % (36.0-45.0); Lymphocytes % 9.4 % (15.3-44.8); MPV 6.9 fL (7.6-11.3); RBC Red Blood Cell Count 4.24 M/uL (3.86-4.86)
[2021-09-11] MEDS ORDERED: HYDROMORPHONE HCL 1 MG/ML INJ ONE ×2 (03:40→05:23)
[2021-09-11 03:41] LABS: Protime INR 1.15
[2021-09-11 04:00] LABS: ALT/SGPT 16 U/L (12-78); AST/SGOT 8 U/L (15-37); Albumin 3.3 g/dL (3.4-5.0); Alkaline Phosphatase 69 U/L (45-117); BUN Blood Urea Nitrogen 9 mg/dL (7-18); Bicarbonate 23 mmol/L (21-32); Bilirubin Direct 0.2 mg/dL (0-0.2); Bilirubin Total 0.8 mg/dL (0.2-1.0); Glomerular Filtration Rate 76 mL/min (=/>90); Glucose Level 177 mg/dL (74-106); Lipase 69 U/L (73-393); Magnesium 1.7 mg/dL (1.8-2.4); NT PRO-BNP 53 pg/mL (<125); Potassium 3.6 mmol/L (3.5-5.1); Protein, Total 7.1 g/dL (6.4-8.2); Sodium Level 137 mmol/L (136-145)
[2021-09-11 04:03] LABS: Troponin High Sensitivity < 3.0 pg/mL (<58.9)
[2021-09-11 04:09] LABS: Urine Blood 1+ (Negative); Urine Glucose Negative (Negative); Urine Protein Negative (Negative); Urine Specific Gravity 1.025 (1.005-1.030)
[2021-09-11] MEDS ORDERED: ACETAMINOPHEN 500 MG TAB ONE (04:09)
[2021-09-11] MEDS ORDERED: PIPERACIL/TAZO 3.375 GM VIAL IV ONE (04:09)
[2021-09-11] MEDS ORDERED: NA CHLORIDE 0.9% 100 ML IV ONE (04:09)
[2021-09-11 04:55] LABS: SARS-COV-2 RT PCR NEGATIVE (NEGATIVE)
--- NOTE | 2021-09-11 05:16 | ER ---
Nurse's Notes [facility] Name: Jo Ann Kowalski Age: 41 yrs Sex: Female : 1980 Arrival Date: 09/11/2021 Time: 02:40 Bed 8 Private MD: Diagnosis: Abdominal tenderness;Fever, unspecified;Dyspnea;Nausea Presentation: 09/11 03:05 Chief complaint: Patient states: right sided upper abdominal pin starting yesterday. ld1 pain worsens when eating.. pain is now increasingly getting worse over time and now radiating to my back making me feel like i cant breathe. Coronavirus screen: Client denies travel out of the [place] in the last 14 days. At this time, the client does not indicate any symptoms associated with coronavirus-19. Ebola Screen: No symptoms or risks identified at this time. Initial Sepsis Screen: Does the patient meet any 2 criteria? No. Patient's initial sepsis screen is negative. Does the patient have a suspected source of infection? No. Patient's initial sepsis screen is negative. Risk Assessment: Do you want to hurt yourself or someone else? Patient reports no desire to harm self or others. Onset of symptoms was September 10, 2021. 03:05 Method Of Arrival: Wheelchair ld1 03:05 Acuity: RAMESH 3 ld1 Triage Assessment: 03:07 General: Appears in no apparent distress. uncomfortable, Behavior is calm, cooperative, ld1 fussy. Pain: Complains of pain in right upper quadrant and right lower quadrant Pain radiates to back. EENT: No deficits noted. No signs and/or symptoms were reported regarding the EENT system. Neuro: No deficits noted. Collins Agitation-Sedation Scale (RASS): 0 - Alert and Calm Level of Consciousness is awake, alert, obeys commands, Oriented to person, place, time, situation, Moves all extremities. Gait is steady, Speech is normal. Cardiovascular: No deficits noted. Denies chest pain, Capillary refill < 3 seconds Clubbing of nail beds is absent JVD is absent Patient's skin is warm and dry. Respiratory: No deficits noted. Airway is patent Trachea midline Respiratory effort is even, unlabored, Respiratory pattern is regular, symmetrical. GI: Reports upper abdominal pain, cramping, intolerance of fluids, intolerance of food, nausea. : No deficits noted. No signs and/or symptoms were reported regarding the genitourinary system. Derm: No deficits noted. No signs and/or symptoms reported regarding the dermatologic system. Skin is intact, is healthy with good turgor, Skin is dry, Skin is pink, warm \\T\\ dry. Skin temperature is warm. Musculoskeletal: No deficits noted. No signs and/or symptoms reported regarding the musculoskeletal system. Circulation, motion, and sensation intact. Range of motion: intact in all extremities. 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 - Social history:: Smoking status: Patient denies any tobacco usage or history of. Patient uses alcohol, occasionally. Screenin:10 Abuse screen: Denies threats or abuse. Denies injuries from another. Nutritional ld1 screening: No deficits noted. Tuberculosis screening: No symptoms or risk factors identified. Fall Risk None identified. Assessment: 03:11 GI: Bowel sounds present X 4 quads. Abd is soft X 4 quads Abdomen is tender to ld1 palpation in right upper quadrant and right lower quadrant. 03:11 General: see triage assessment . ld1 04:51 Reassessment: Patient appears in no apparent distress at this time. No changes from ld1 previously documented assessment. Patient and/or family updated on plan of care and expected duration. Pain level reassessed. Patient is alert, oriented x 3, equal unlabored respirations, skin warm/dry/pink. Vital Signs: 03:05 BP 135 / 74; Pulse 113; Resp 20 S; Temp 100.0(O); Pulse Ox 98% on R/A; Weight 81.65 kg ld1 (R); Height 4 ft. 11 in. (149.86 cm) (R); Pain 10/10; 04:51 BP 147 / 74; Pulse 111; Resp 18; Pulse Ox 98% on R/A; ld1 06:41 BP 94 / 53; Pulse 87; Resp 18; Pulse Ox 95% on R/A; ll3 03:05 Body Mass Index 36.36 (81.65 kg, 149.86 cm) ld1 ED Course: 02:40 Patient arrived in ED. bp1 02:54 Neymar Carrillo MD is Attending Physician. israel 03:05 Marianna Hutchins, SATYA is Primary Nurse. ld1 03:07 Triage completed. ld1 03:07 Arm band placed on right wrist. ld1 03:11 XRAY Chest (1 view) In Process Unspecified. EDMS 03:11 Patient has correct armband on for positive identification. Placed in gown. Bed in low ld1 position. Call light in reach. Side rails up X 1. Client placed on continuous cardiac and pulse oximetry monitoring. NIBP monitoring applied. recruiting specialist on. Door closed. Noise minimized. Warm blanket given. Family accompanied patient. 03:26 Lipase Sent. lg3 03:26 Basic Metabolic Panel Sent. lg3 03:26 CBC with Diff Sent. lg3 03:27 LFT's Sent. lg3 03:27 Magnesium Sent. lg3 03:27 NT PRO-BNP Sent. lg3 03:27 PT-INR Sent. lg3 03:27 Troponin HS Sent. lg3 03:27 Inserted saline lock: 20 gauge in left antecubital area, using aseptic technique. Blood lg3 collected. 03:43 Lipase Sent. ld1 03:43 Basic Metabolic Panel Sent. ld1 03:43 LFT's Sent. ld1 03:43 Magnesium Sent. ld1 03:43 NT PRO-BNP Sent. ld1 03:43 Troponin HS Sent. ld1 04:10 Urine --Ancillary (enter results) Sent. vc1 04:10 COVID-19/FLU A+B (Document "Date of Onset" if Symptomatic) Sent. vc1 04:17 US Abdomen Limited In Process Unspecified. EDMS 04:31 CT Chest Abdomen Pelvis W/O Contrast In Process Unspecified. EDMS 05:14 Noe Aranda is Hospitalizing Provider. israel 06:39 No provider procedures requiring assistance completed. Patient admitted, IV remains in ll3 place. Administered Medications: 03:41 Not Given (allergyy): morphine 2 mg IVP once; (PAIN>8) RASS on ADMN: Combtv4, Very ld1 Agttd3, Agttd2, Rstlss1, AlertClm0, Drwsy-1, LtSdtn-2, ModSdtn-3, DpSdtn-4, UnArsble-5 x2 03:42 Drug: Zofran (Ondansetron) 4 mg Route: IVP; Site: left antecubital; ld1 03:43 Follow up: Response: No adverse reaction ld1 03:42 Drug: Dilaudid (HYDROmorphone) 1 mg Route: IVP; Site: left antecubital; ld1 03:42 Follow up: Response: No adverse reaction; RASS: Alert and Calm (0) ld1 04:14 Drug: Tylenol 1000 mg Route: PO; vc1 04:42 Follow up: Response: No adverse reaction ld1 04:49 Drug: NS 0.9% 1000 ml Route: IV; Rate: 1 bolus; Site: left antecubital; ld1 04:49 Drug: Zosyn (piperacillin-tazobactam) 3.375 grams Route: IVPB; Infused Over: 60 mins; ld1 Site: left antecubital; 07:02 Follow up: Response: No adverse reaction; IV Status: Completed infusion; IV Intake: lg3 100ml 05:21 Drug: Dilaudid (HYDROmorphone) 1 mg Route: IVP; Site: left antecubital; lg3 05:21 Follow up: Response: No adverse reaction; RASS: Alert and Calm (0) lg3 05:21 Drug: Zofran (Ondansetron) 4 mg Route: IVP; Site: left antecubital; lg3 05:21 Follow up: Response: No adverse reaction lg3 05:46 Drug: Magnesium Sulfate 1 grams Route: IVPB; Infused Over: 1 hrs; Site: left lg3 antecubital; 06:41 Follow up: Response: No adverse reaction; IV Status: Completed infusion; IV Intake: lg3 100ml Intake: 06:41 IV: 100ml; Total: 100ml. lg3 07:02 IV: 100ml; Total: 200ml. lg3 Outcome: 05:15 Decision to Hospitalize by Provider. israel 06:39 Admitted to ER Hold. Please see [facility] for further documentation. ll3 06:39 Condition: stable 06:39 Instructed on the need for admit. 12:21 Patient left the ED. ph Signatures: Dispatcher [employer] EDNeymar Mcdermott MD MD cha Hall, Patricia RN RN Kimberlyn Miner, RN RN lg3 Lisa Clark Lauren RN RN ld1 Patricia Goldberg RN RN ll3 Jennifer Marquez RN RN vc1
--- NOTE | 2021-09-11 05:16 | EDPHYS ---
Physician Documentation [facility] Name: Jo Ann Kowalski Age: 41 yrs Sex: Female : 1980 Arrival Date: 09/11/2021 Time: 02:40 Bed 8 Private MD: JACKIE Physician Neymar Carrillo HPI: 09/11 04:58 This 41 yrs old Female presents to ER via Wheelchair with complaints of israel Abdominal Pain, Shortness Of Breath. 04:58 The patient has shortness of breath at rest, with light activity. Onset: The israel symptoms/episode began/occurred 2 day(s) ago. Duration: The symptoms are continuous, and are unchanged since they started. The patient's shortness of breath is aggravated by coughing, walking. Associated signs and symptoms: Pertinent positives: non-productive cough, fever. 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 - Social history:: Smoking status: Patient denies any tobacco usage or history of. Patient uses alcohol, occasionally. ROS: 04:59 Constitutional: Negative for fever, chills, and weight loss, Eyes: Negative for injury, israel pain, redness, and discharge, ENT: Negative for injury, pain, and discharge, Neck: Negative for injury, pain, and swelling, Respiratory: Negative for shortness of breath, cough, wheezing, and pleuritic chest pain, Back: Negative for injury and pain, : Negative for injury, bleeding, discharge, and swelling, MS/Extremity: Negative for injury and deformity, Skin: Negative for injury, rash, and discoloration, Neuro: Negative for headache, weakness, numbness, tingling, and seizure, Psych: Negative for depression, anxiety, suicide ideation, homicidal ideation, and hallucinations, Allergy/Immunology: Negative for hives, rash, and allergies, Endocrine: Negative for neck swelling, polydipsia, polyuria, polyphagia, and marked weight changes, Hematologic/Lymphatic: Negative for swollen nodes, abnormal bleeding, and unusual bruising. 04:59 Cardiovascular: Positive for palpitations. 04:59 Respiratory: Positive for cough. 04:59 Abdomen/GI: Positive for abdominal pain, of the right upper quadrant. Exam: 04:59 Constitutional: This is a well developed, well nourished patient who is awake, alert, israel and in no acute distress. Head/Face: Normocephalic, atraumatic. Eyes: Pupils equal round and reactive to light, extra-ocular motions intact. Lids and lashes normal. Conjunctiva and sclera are non-icteric and not injected. Cornea within normal limits. Periorbital areas with no swelling, redness, or edema. ENT: Nares patent. No nasal discharge, no septal abnormalities noted. Tympanic membranes are normal and external auditory canals are clear. Oropharynx with no redness, swelling, or masses, exudates, or evidence of obstruction, uvula midline. Mucous membranes moist. Neck: Trachea midline, no thyromegaly or masses palpated, and no cervical lymphadenopathy. Supple, full range of motion without nuchal rigidity, or vertebral point tenderness. No Meningismus. Chest/axilla: Normal chest wall appearance and motion. Nontender with no deformity. No lesions are appreciated. Cardiovascular: Regular rate and rhythm with a normal S1 and S2. No gallops, murmurs, or rubs. Normal PMI, no JVD. No pulse deficits. Respiratory: Lungs have equal breath sounds bilaterally, clear to auscultation and percussion. No rales, rhonchi or wheezes noted. No increased work of breathing, no retractions or nasal flaring. Back: No spinal tenderness. No costovertebral tenderness. Full range of motion. Female : Normal external genitalia. Skin: Warm, dry with normal turgor. Normal color with no rashes, no lesions, and no evidence of cellulitis. MS/ Extremity: Pulses equal, no cyanosis. Neurovascular intact. Full, normal range of motion. Neuro: Awake and alert, GCS 15, oriented to person, place, time, and situation. Cranial nerves II-XII grossly intact. Motor strength 5/5 in all extremities. Sensory grossly intact. Cerebellar exam normal. Normal gait. Psych: Awake, alert, with orientation to person, place and time. Behavior, mood, and affect are within normal limits. 04:59 ECG was reviewed by the Attending Physician. 04:59 Abdomen/GI: Inspection: distension, that is mild, Bowel sounds: active, Palpation: mild abdominal tenderness, in the posterior aspect of right lateral abdomen, anterior aspect of right lateral abdomen and right upper quadrant, Liver: no appreciated palpable abnormalities, Hernia: not appreciated. Vital Signs: 03:05 BP 135 / 74; Pulse 113; Resp 20 S; Temp 100.0(O); Pulse Ox 98% on R/A; Weight 81.65 kg ld1 (R); Height 4 ft. 11 in. (149.86 cm) (R); Pain 10/10; 04:51 BP 147 / 74; Pulse 111; Resp 18; Pulse Ox 98% on R/A; ld1 06:41 BP 94 / 53; Pulse 87; Resp 18; Pulse Ox 95% on R/A; ll3 03:05 Body Mass Index 36.36 (81.65 kg, 149.86 cm) ld1 MDM: 02:57 Patient medically screened. israel 05:01 Differential diagnosis: Bronchitis CHF exacerbation, Chronic Obstructive Pulmonary israel Disease pneumonia, AAA, diverticulitis, Hepatitis, Irritable bowel syndrome, non-specific abd pain, pancreatitis, Peritonitis, urinary tract infection. Antibiotic administration: zosyn. The patient's Wells Deep Vein Thrombosis Score was calculated as follows: Heart Rate >100 BPM (1.5 Pts) Total Score: 0-2 Pts- Low Risk. The patient's pulmonary embolism risk score was calculated as follows: the patients heart rate is greater than 100 beats per minute (1.5 Pts) Total Score: 0-2 points. This patient was found to be at low risk for a pulmonary embolism by using the Well's assessment criteria. Immunization status:. Data reviewed: vital signs, nurses notes, lab test result(s), EKG, radiologic studies, plain films. Data interpreted: shelter monitor: rate is 111 beats/min, rhythm is regular, Pulse oximetry: on room air is 98 %. Test interpretation: by ED physician or midlevel provider: ECG, plain radiologic studies. Counseling: I had a detailed discussion with the patient and/or guardian regarding: the historical points, exam findings, and any diagnostic results supporting the discharge/admit diagnosis, lab results, radiology results. 09/11 02:56 Order name: Basic Metabolic Panel; Complete Time: 04:55 [place]rael 09/11 02:56 Order name: CBC with Diff; Complete Time: 03:46 [place] 09/11 02:56 Order name: LFT's; Complete Time: 04:55 [place] 09/11 02:56 Order name: Magnesium; Complete Time: 04:55 [place] 09/11 02:56 Order name: NT PRO-BNP; Complete Time: 04:55 [facility] 09/11 02:56 Order name: PT-INR; Complete Time: 03:46 [place] 09/11 02:56 Order name: Troponin HS; Complete Time: 04:55 [place] 09/11 02:56 Order name: Lipase; Complete Time: 04:55 [facility] 09/11 03:46 Order name: Blood Culture Adult (2) [facility] 09/11 03:46 Order name: Lactate; Complete Time: 04:55 [facility] 09/11 03:46 Order name: Procalcitonin; Complete Time: 05:13 [facility] 09/11 03:46 Order name: Urine Culture [facility] 09/11 03:46 Order name: COVID-19/FLU A+B (Document "Date of Onset" if Symptomatic); Complete Time: [place]rael 04:57 09/11 04:09 Order name: Urine --Ancillary (enter results); Complete Time: 07:09 mw2 09/11 02:56 Order name: XRAY Chest (1 view) [facility] 09/11 03:46 Order name: US Abdomen Limited [facility] 09/11 03:46 Order name: CT Chest Abdomen Pelvis W/O Contrast [facility] 09/11 04:10 Order name: Urine Dipstick-Ancillary; Complete Time: 04:55 EDMS 09/11 07:52 Order name: T4 Free; Complete Time: 08:16 EDMS 09/11 07:52 Order name: Thyroid Stimulating Hormone; Complete Time: 08:16 EDMS 09/11 02:56 Order name: EKG; Complete Time: 02:57 [facility] 09/11 02:56 Order name: Cardiac monitoring; Complete Time: 03:12 [place] 09/11 02:56 Order name: EKG - Nurse/Tech; Complete Time: 03:26 [place] 09/11 02:56 Order name: IV Saline Lock; Complete Time: 03:26 [facility] 09/11 02:56 Order name: Labs collected and sent; Complete Time: 03: [facility] 09/11 02:56 Order name: O2 Per Protocol; Complete Time: 03:12 [facility] 09/11 02:56 Order name: O2 Sat Monitoring; Complete Time: 03:12 [facility] 09/11 02:56 Order name: Urine Dipstick-Ancillary (obtain specimen); Complete Time: 04:08 [facility] 09/11 02:56 Order name: Urine Test (obtain specimen); Complete Time: 04:08 [facility] EC:59 Rate is 103 beats/min. Rhythm is regular. QRS [place] is Normal. IN interval is normal. [facility] QRS interval is normal. QT interval is normal. No Q waves. T waves are Normal. Clinical impression: Sinus tachycardia and No evidence of ischemia. Interpreted by me. Reviewed by me. Administered Medications: 03:41 Not Given (allergyy): morphine 2 mg IVP once; (PAIN>8) RASS on ADMN: Combtv4, Very ld1 Agttd3, Agttd2, Rstlss1, AlertClm0, Drwsy-1, LtSdtn-2, ModSdtn-3, DpSdtn-4, UnArsble-5 x2 03:42 Drug: Zofran (Ondansetron) 4 mg Route: IVP; Site: left antecubital; ld1 03:43 Follow up: Response: No adverse reaction ld1 03:42 Drug: Dilaudid (HYDROmorphone) 1 mg Route: IVP; Site: left antecubital; ld1 03:42 Follow up: Response: No adverse reaction; RASS: Alert and Calm (0) ld1 04:14 Drug: Tylenol 1000 mg Route: PO; vc1 04:42 Follow up: Response: No adverse reaction ld1 04:49 Drug: NS 0.9% 1000 ml Route: IV; Rate: 1 bolus; Site: left antecubital; ld1 04:49 Drug: Zosyn (piperacillin-tazobactam) 3.375 grams Route: IVPB; Infused Over: 60 mins; ld1 Site: left antecubital; 07:02 Follow up: Response: No adverse reaction; IV Status: Completed infusion; IV Intake: lg3 100ml 05:21 Drug: Dilaudid (HYDROmorphone) 1 mg Route: IVP; Site: left antecubital; lg3 05:21 Follow up: Response: No adverse reaction; RASS: Alert and Calm (0) lg3 05:21 Drug: Zofran (Ondansetron) 4 mg Route: IVP; Site: left antecubital; lg3 05:21 Follow up: Response: No adverse reaction lg3 05:46 Drug: Magnesium Sulfate 1 grams Route: IVPB; Infused Over: 1 hrs; Site: left lg3 antecubital; 06:41 Follow up: Response: No adverse reaction; IV Status: Completed infusion; IV Intake: lg3 100ml Disposition Summary: 09/11/21 05:15 Hospitalization Ordered Hospitalization Status: Observation israel Provider: Noe Aranda cha Condition: Fair israel Problem: new israel Symptoms: have improved israel Bed/Room Type: Standard israel Location: Telemetry/MedSurg (observation)(09/11/21 11:20) bd Room Assignment: 219(09/11/21 11:20) bd Diagnosis - Abdominal tenderness israel - Fever, unspecified israel - Dyspnea israel - Nausea israel Forms: - Medication Reconciliation Form israel - SBAR form israel Signatures: Dispatcher [employer] EDMS Jenn Stacy Corey, MD MD cha Garcia, Cindy RN RN Kimberlyn Rogers RN RN lg3 Marianna Hutchins RN RN ld1 Jennifer Marquez RN RN vc1 Zandra Barlow, POINT OF CARE SPECIALIST POINT OF CARE SPECIALIST [id number] Corrections: (The following items were deleted from the chart) 03:52 02:57 Chest For PE Angio+CT.RAD.BRZ ordered. EDMS EDMS 03:52 02:57 Abdomen Pelvis W Con+CT.RAD.BRZ ordered. EDMS EDMS 06:07 05:15 Telemetry/MedSurg (observation) israel cg 06:07 05:15 israel cg 11:20 06:07 [facility] ER HOLD cg bd 11:20 06:07 ERHOLD- cg bd
[2021-09-11] MEDS ORDERED: MAGNESIUM SULFATE 1 gm IVPB 1 GM/100 ML BAG IV ONE (05:36)
[2021-09-11 05:52] LABS: Urine Specific Gravity/Preg 1.025 (1.005-1.030)
--- NOTE | 2021-09-11 05:56 | P.HP ---
Certification for Inpatient Patient admitted to: Inpatient With expected LOS: <2 Midnights Patient will require the following post-hospital care: None Practitioner: I am a practitioner with admitting privileges, knowledge of patient current condition, hospital course, and medical plan of care. Services: Services provided to patient in accordance with Admission requirements found in Title 42 Section 412.3 of the Code of Federal Regulations Patient History Date of Service: 09/11/21 Reason for admission: Fever, RUQ Pain History of Present Illness: Patient is a 41-year-old female who presented to the ED with complaints of RUQ pain that began approximately 12 hours ago. She states the pain started after she ate [place] food and it radiates to her right shoulder. It is associated with fever, fatigue, nausea, vomiting, chills, headache. She states that she had symptoms like this about 3 years ago and it was evaluated and diagnosed with inflammation of her gallbladder. She has not had any issues since. WBC borderline at 10.7 but other labs WNL. Abdominal US unremarkable. CT abdomen pelvis showed mild wall thickening of the urinary bladder, hepatosplenomegaly and hepatic steatosis, and punctuate nonobstructing biliary nephrolithiasis. Patient states that she has a severe allergy to contrast so CT could not be performed with contrast. Patient has been febrile and tachycardic in the ED. Given Zosyn, fluids, and Dilaudid. ED provider wishes to admit for further evaluation and treatment. Home medications list reviewed: Yes (NA) - Past Medical/Surgical History Diabetic: No -: Asthma -: Anxiety -: -: D&C Psychosocial/ Personal History: Patient lives at home with her . - Family History Father -: Heart disease, Diabetes, Cancer Mother -: Heart disease, Hypertension, Diabetes, Kidney disease - Social History Smoking Status: Never smoker Alcohol use: Yes CD- Drugs: No Caffeine use: Yes Place of Residence: Home Review of Systems General: Fever, Chills, Weakness Gastrointestinal: Nausea, Abdominal Pain Physical Examination - Physical Exam General: Alert, In no apparent distress, Oriented x3 HEENT: Atraumatic, PERRLA, Mucous membr. moist/pink, EOMI, Sclerae nonicteric Neck: Supple, 2+ carotid pulse no bruit, No LAD, Without JVD or thyroid abnormality Respiratory: Clear to auscultation bilaterally, Normal air movement Cardiovascular: Regular rate/rhythm, Normal S1 S2 Gastrointestinal: Normal bowel sounds, Soft and benign, Non-distended, Tenderness (mild RUQ ) Musculoskeletal: No tenderness Integumentary: No rashes Neurological: Normal speech, Normal strength at 5/5 x4 extr, Normal tone, Normal affect Lymphatics: No axilla or inguinal lymphadenopathy - Studies Laboratory Data (last 24 hrs) 09/11/21 03:22: PT 12.7 H, INR 1.15 09/11/21 03:22: WBC 10.7, Hgb 12.5, Hct 35.9 L, Plt Count 265 09/11/21 03:22: Sodium 137, Potassium 3.6, BUN 9, Creatinine 0.82, Glucose 177 H, Magnesium 1.7 L, Total Bilirubin 0.8, AST 8 L, ALT 16, Alkaline Phosphatase 69, Lipase 69 L Assessment and Plan - Problems (Diagnosis) (1) Fever of unknown origin Current Visit: Yes Status: Acute (2) RUQ pain Current Visit: Yes Status: Acute (3) Hepatosplenomegaly Current Visit: Yes Status: Acute (4) Hypomagnesemia Current Visit: Yes Status: Acute - Plan -Source of right upper quadrant pain and fever unclear at this time. Abdominal ultrasound negative. hepatitis panel pending. -general surgery consult? NPO -continue Zosyn -morphine as needed pain, and Tylenol as needed fever, zofran prn nausea -replete electrolytes as per protocol -lovenox for VTE ppx Discharge Plan: Home Plan to discharge in: 48 Hours - Advance Directives Does patient have a Living Will: No Does patient have a Durable POA for Healthcare: No - Code Status/Comfort Care Code Status Assessed: Yes (Full) Critical Care: No Time Spent Managing Pts Care (In Minutes): 70
[2021-09-11] MEDS ORDERED: MORPHINE 2 MG/ML SYR IV PRN (06:25)
[2021-09-11 06:27] VITALS: BMI 36.3
[2021-09-11] MEDS: NA CHLORIDE 0.9% 1,000 ML IV SCH ×3 (06:45→22:04)
[2021-09-11 07:52] LABS: Thyroid Stimulating Hormone 1.36 uIU/mL (0.360-3.740)
[2021-09-11] MEDS ORDERED: PIPER TAZO 3.375 GM in NA CHLORIDE 0.9% 100 ML IV SCH (09:00)
[2021-09-11] MEDS: ENOXAPARIN 40 MG/0.4 ML SQ SCH (09:00)
--- NOTE | 2021-09-11 11:14 | RAD REPORT ---
EXAM DESCRIPTION: RAD - Chest Single View - 09/11/2021 3:09 am CLINICAL HISTORY: The patient is 41 years old and is Female; COUGH TECHNIQUE: Frontal view of the chest. COMPARISON: No relevant prior studies available. FINDINGS: LUNGS: Unremarkable. No consolidation. PLEURAL SPACE: Unremarkable. No pneumothorax. HEART: Unremarkable. No cardiomegaly. MEDIASTINUM: Unremarkable. BONES/JOINTS: Unremarkable. UPPER ABDOMEN: Unremarkable as visualized. IMPRESSION: No acute cardiopulmonary process. Electronically signed by: Carrie Walls MD 09/11/2021 3:19 AM CDT Due to temporary technical issues with the PACS/Fluency reporting system, reports are being signed by the in house radiologist without review as a courtesy to ensure prompt reporting. The interpreting r adiologist is fully responsible for the content of the report.
--- NOTE | 2021-09-11 11:22 | RAD REPORT ---
EXAM DESCRIPTION: US - Abdomen Exam Limited - 09/11/2021 5:04 am CLINICAL HISTORY: ABD PAIN COMPARISON: None. TECHNIQUE: Real-time sonographic images of the gallbladder were obtained using a curved multihertz t ransducer. FINDINGS: Liver: The visualized liver has normal contour and increased echogenicity. Focal fatty spa ring along the gallbladder fossa. The common bile duct measures 0.4 cm. Gallbladder: No gallstones identified. Gallbladder wall thickness of 0.2 cm. Sonographic Overton's s ign not provided. The gallbladder is mildly contracted. IMPRESSION: 1. No gallstones identified. 2. Hepatic steatosis. Electronically signed by: Last Price 09/11/2021 4:36 AM CDT Due to temporary technical issues with the PACS/Fluency reporting system, reports are being signed by the in house radiologist without review as a courtesy to ensure prompt reporting. The interpreting r adiologist is fully responsible for the content of the report.
--- NOTE | 2021-09-11 11:26 | RAD REPORT ---
EXAM DESCRIPTION: CT - Chest Abd Pelvis Wo Con - 09/11/2021 6:47 am CLINICAL HISTORY: CP/ABD PAIN COMPARISON: None Available. TECHNIQUE: CT of the chest, abdomen and pelvis performed without IV contrast. Suboptimal evaluation of the soft tissues, solid organs, and vasculature due to lack of IV contrast. This exam was performe d according to our departmental dose-optimization program, which includes automated exposure control, adjustment of the mA and/or kV according to patient size and/or use of iterative reconstruction tech nique. FINDINGS: Chest: Thyroid: No abnormalities of the visualized thyroid. Great Vessels: Great vessels have normal anatomic configuration. Thoracic Aorta: No abnormalities of the thoracic aorta identified. Pulmonary arteries: The main pulmonary artery is not dilated. Heart: No cardiomegaly, significant pericardial effusion, or coronary artery atherosclerosis Lymph Nodes: No enlarged mediastinal lymph nodes identified. Esophagus: No abnormalities of the esophagus identified Other: No additional findings. Lungs: No airspace opacities identified. Pleura: No pleural effusion or pneumothorax. Trachea/Airways: No abnormalities of the visualized trachea or airways. Abdomen: Liver: Hepatomegaly with decreased density. Gallbladder: No calcified gallstones. Spleen, Pancreas, and Adrenal Glands: Splenomegaly. Pancreas and adrenal glands are unremarkable. Kidneys: No hydronephrosis or obstructing ureteral calculus. Punctate nonobstructing nephrolithia sis. Vasculature: The aorta and IVC have normal caliber and position. Stomach: The stomach and duodenum have normal course. Other: No free intraperitoneal air. Trace free fluid. Pelvis: Bladder: Mild wall thickening of the urinary bladder. Bowel: No dilated loops of large or small bowel. Appendix: Normal appendix. Pelvis: Uterus is not enlarged. Bones: No acute fractures identified. Mild multilevel endplate spondylosis. IMPRESSION: 1. Mild wall thickening of the urinary bladder. This could be seen with cystitis. 2. Hepatosplenomegaly and hepatic steatosis. 3. Punctate nonobstructing bilateral nephrolithiasis. Electronically signed by: Last Price 09/11/2021 4:56 AM CDT Due to temporary technical issues with the PACS/Fluency reporting system, reports are being signed by the in house radiologist without review as a courtesy to ensure prompt reporting. The interpreting r adiologist is fully responsible for the content of the report.
[2021-09-11] MEDS ORDERED: HYDROMORPHONE HCL 0.5 MG/0.5 ML INJ ONE (11:38)
[2021-09-11] MEDS: HYDROMORPHONE HCL 0.5 MG/0.5 ML INJ IV PRN ×3 (11:50→20:22)
[2021-09-11] MEDS: ONDANSETRON 4 MG/2 ML VIAL IV PRN ×2 (11:50→20:22)
[2021-09-11] MEDS: PIPER TAZO 3.375 GM in NA CHLORIDE 0.9% 100 ML IV SCH ×2 (12:44→20:23)
--- NOTE | 2021-09-11 12:52 | EKG ---
Test Date: 2021-09-11 Test Time: 03:23:57 Regional Construction Manager: MARY MEASUREMENT RESULTS: Intervals: Rate: 103 MO: 140 QRSD: 74 QT: 320 QTc: 419 [place]: P: 56 MO: 140 QRS: 24 T: 38 INTERPRETIVE STATEMENTS: Sinus tachycardia Otherwise normal ECG Compared to ECG 07/24/2021 22:19:30 Sinus rhythm no longer present Electronically Signed On 09-11-21 12:51:49 CDT by Jed Hernandez
[2021-09-11] MEDS ORDERED: ONDANSETRON 4 MG/2 ML VIAL IV ONE (13:21)
[2021-09-11] MEDS: ACETAMINOPHEN 500 MG TAB PO PRN ×2 (15:55→22:00)
--- NOTE | 2021-09-11 17:10 | P.PN ---
Date of Service: 09/11/21 Patient complaining of uncontrolled pain. Still febrile and complaining of right flank pain and RUQ pain LFT not elevated. Liver ultrasound shows contracted gallbladder, no stones, no CBD dilatation. Doubt cholangitis. Patient with bilateral nonobstructing nephrolithiasis and urinary bladder wall thickening suggestive of cystitis UA with no significant evidence of UTI. I suspect UTI and pyelonephritis. Plan: Continue IV antibiotics. Supportive measures with pain management Antiemetics as needed. Repeat UA. Follow urine culture Follow blood cultures.
[2021-09-11] MEDS: HYDROCODONE/APAP 5/325 MG TAB PO PRN (18:20)
[2021-09-12] MEDS: HYDROMORPHONE HCL 0.5 MG/0.5 ML INJ IV PRN ×4 (02:45→20:38)
[2021-09-12 04:30] LABS: Absolute Lymphocytes (CBC) 1.1 K/uL (0.7-4.9); Hematocrit 31.6 % (36.0-45.0); Lymphocytes % 15.8 % (15.3-44.8); MPV 7.2 fL (7.6-11.3); RBC Red Blood Cell Count 3.65 M/uL (3.86-4.86)
[2021-09-12 04:47] LABS: Albumin 2.8 g/dL (3.4-5.0); Bilirubin Total 0.8 mg/dL (0.2-1.0); Phosphorus 2.2 mg/dL (2.5-4.9); Potassium 3.7 mmol/L (3.5-5.1); Protein, Total 6.1 g/dL (6.4-8.2)
[2021-09-12] MEDS: PIPER TAZO 3.375 GM in NA CHLORIDE 0.9% 100 ML IV SCH ×3 (04:57→20:29)
[2021-09-12] MEDS: HYDROCODONE/APAP 5/325 MG TAB PO PRN ×2 (04:58→11:46)
[2021-09-12] MEDS: ENOXAPARIN 40 MG/0.4 ML SQ SCH (08:40)
[2021-09-12] MEDS: NA CHLORIDE 0.9% 1,000 ML IV SCH ×2 (08:41→20:53)
[2021-09-12] MEDS: ONDANSETRON 4 MG/2 ML VIAL IV PRN (13:23)
--- NOTE | 2021-09-12 14:09 | P.CNS ---
Date of Consult: 09/12/21 Chief Complaint: Fever, RUQ Pain History of Present Illness: The patient is a 41-year-old female who presented to the emergency department secondary to right upper quadrant pain and right flank pain that have been going on for approximately 12 hours. Pain was associated with fever, fatigue, nausea, vomiting, and headache. Abdominal ultrasound unremarkable, LFTs and bilirubin within normal range. Cholecystitis ruled out. CT abdomen pelvis showed signs concerning for cystitis as well as bilateral nonobstructing kidney stones. Urine culture obtained on 09/11 growing GNR. Patient [place] started on Zosyn. Blood cultures obtained on 09/11: All cultures negative however 1 Gram stain grew GPC's, will highly likely this is a contamination. We will repeat a set after 48 hours. Patient states she is currently feeling much better and has been improving on the Zosyn. Vent temperature curve improving, no white count. Allergies iodine Allergy (Verified 09/11/21 06:25) Hives/Rash Latex, Natural Rubber Allergy (Verified 09/11/21 06:25) Hives meperidine [From Demerol] Allergy (Verified 09/11/21 06:25) Hives/Rash morphine Allergy (Verified 09/11/21 06:25) Hives/Rash tramadol Allergy (Verified 09/11/21 06:25) Hives/Rash Home Medications: NK [No Home Meds] 09/11/21 - Past Medical/Surgical History Diabetic: No -: Asthma -: Anxiety -: -: D&C Psychosocial/ Personal History: Patient lives at home with her . - Family History Father Medical History: Heart disease, Diabetes, Cancer Mother Medical History: Heart disease, Hypertension, Diabetes, Kidney disease - Social History Alcohol use: Yes CD- Drugs: No Caffeine use: Yes Place of Residence: Home Review of Systems 10-point ROS is otherwise unremarkable Physical Examination Temp Pulse Resp BP Pulse Ox 99.9 F 85 18 108/58 L 99 09/12/21 11:47 09/12/21 08:00 09/12/21 11:46 09/12/21 08:00 09/12/21 11:46 General: Alert, Obese HEENT: Atraumatic, Normocephalic Neck: Supple Respiratory: Clear to auscultation bilaterally, Normal air movement Cardiovascular: No edema, Normal pulses Gastrointestinal: Normal bowel sounds, Hypoactive, Other (Right CVA tenderness) Musculoskeletal: No clubbing, No swelling Conclusions/Impression: Antibiotics: Zosyn: urrent Assessment/plan Right-sided pyelonephritis CT abdomen pelvis showed cystitis with bilateral nonobstructing kidney stones however patient had severe right CVA tenderness on physical exam as well as temperature on admission. As such we will treat as pyelonephritis Preliminary urine culture growing GNR, will adjust antibiotics based on margaret ceptibility/speciation. -Patient states this is a second time she has been told she has kidney stones, recommend urology follow-up outpatient Bacteremia Blood cultures obtained on 09/11, all cultures were negative however 1 Gram stain grew GPC's. Highly likely this is a contaminant. We will repeat set after 48 hours Anemia Continue to monitor H&H Plan of care discussed with Dr. Ch Thank you for consultation
--- NOTE | 2021-09-12 16:20 | P.PN ---
Subjective Date of Service: 09/12/21 Chief Complaint: Fever, RUQ Pain States she is feeling much better. She had low-grade fever earlier this morning. She is tolerating feeding. She is complaining of persistent right flank pain. Physical Examination - Vital Signs Temperature: 99.9 F Blood Pressure: 108/58 Pulse: 85 Respirations: 18 Pulse Ox (%): 97 - Studies Microbiology Data (last 24 hrs): 09/11/21 04:40 Blood - Blood Gram Stain - Final Assessment And Plan - Current Problems (Diagnosis) (1) Acute pyelonephritis Current Visit: Yes Status: Acute (2) Sepsis Current Visit: Yes Status: Acute (3) Hepatosplenomegaly Current Visit: Yes Status: Acute - Plan Liver enzymes normal. Liver ultrasound and CT abdomen shows no biliary dilatation. Doubt cholangitis. UA growing gram-negative rods. 1 blood culture bottle growing gram-positive cocci. This is likely a skin contaminant. Continue IV Zosyn. Repeat blood culture. Supportive measures with pain management, antiemetics. Diet as tolerated. Infectious disease input appreciated.
[2021-09-12] MEDS: ACETAMINOPHEN 500 MG TAB PO PRN (20:27)
[2021-09-12] MEDS ORDERED: ALPRAZOLAM 0.5 MG TABLET PO PRN (20:54)
--- NOTE | 2021-09-12 21:23 | RAD REPORT ---
EXAM DESCRIPTION: RAD - Chest Single View - 09/12/2021 9:14 pm CLINICAL HISTORY: SHOB COMPARISON: Chest Single View dated 09/11/2021; Chest Single View dated 07/24/2021; Chest Single View d ated 10/25/2020 FINDINGS: Lines: None. Lungs: Mild new linear opacity at the right lung base presumably atelectasis. No acute process identi fied . Pleural: No significant pleural effusions or pneumothorax. Cardiac: The heart size is within normal limits. Bones: No acute fractures. Other: IMPRESSION: No acute cardiopulmonary disease.
[2021-09-13] MEDS: HYDROMORPHONE HCL 0.5 MG/0.5 ML INJ IV PRN ×4 (03:24→22:17)
[2021-09-13] MEDS: PIPER TAZO 3.375 GM in NA CHLORIDE 0.9% 100 ML IV SCH (03:29)
[2021-09-13] MEDS: ALBUTEROL 2.5 MG/3 ML NEB SOL NEB PRN ×2 (03:45→22:35)
[2021-09-13 06:20] LABS: Hematocrit 28.9 % (36.0-45.0); Lymphocytes % 22.9 % (15.3-44.8); MPV 6.9 fL (7.6-11.3); RBC Red Blood Cell Count 3.38 M/uL (3.86-4.86)
[2021-09-13] MEDS: HYDROCODONE/APAP 5/325 MG TAB PO PRN ×2 (06:22→20:29)
[2021-09-13 06:35] LABS: ALT/SGPT 13 U/L (12-78); AST/SGOT 9 U/L (15-37); Albumin 2.6 g/dL (3.4-5.0); Alkaline Phosphatase 54 U/L (45-117); BUN Blood Urea Nitrogen 4 mg/dL (7-18); Bicarbonate 26 mmol/L (21-32); Bilirubin Total 0.4 mg/dL (0.2-1.0); Glomerular Filtration Rate > 90 mL/min (=/>90); Glucose Level 137 mg/dL (74-106); Magnesium 2.1 mg/dL (1.8-2.4); Phosphorus 1.9 mg/dL (2.5-4.9); Potassium 3.6 mmol/L (3.5-5.1); Protein, Total 5.9 g/dL (6.4-8.2); Sodium Level 137 mmol/L (136-145)
[2021-09-13] MEDS: NA CHLORIDE 0.9% 1,000 ML IV SCH ×3 (07:20→18:45)
[2021-09-13] MEDS: ENOXAPARIN 40 MG/0.4 ML SQ SCH (08:08)
[2021-09-13] MEDS: ACETAMINOPHEN 500 MG TAB PO PRN ×3 (09:35→18:42)
--- NOTE | 2021-09-13 11:16 | P.PN ---
Subjective Date of Service: 09/13/21 Chief Complaint: Fever, RUQ Pain Patient seen and examined at bedside, doing better today. Review of Systems 10-point ROS is otherwise unremarkable Physical Examination - Vital Signs Temperature: 99.6 F Blood Pressure: 106/63 Pulse: 85 Respirations: 18 Pulse Ox (%): 98 - Studies Laboratory Last Values WBC 10.7 K/uL (4.3-10.9) 09/11/21 03:22 RBC 4.24 M/uL (3.86-4.86) 09/11/21 03:22 Hgb 12.5 g/dL (12.0-15.0) 09/11/21 03:22 Hct 35.9 % (36.0-45.0) L 09/11/21 03:22 MCV 84.6 fL (80-100) 09/11/21 03:22 MCH 29.4 pg (27.0-35.0) 09/11/21 03:22 MCHC 34.8 g/dL (32.0-36.0) 09/11/21 03:22 RDW 13.7 % (12.1-15.2) 09/11/21 03:22 Plt Count 265 K/uL (152-406) 09/11/21 03:22 MPV 6.9 fL (7.6-11.3) L 09/11/21 03:22 Neutrophils % 84.3 % (41.7-73.7) H 09/11/21 03:22 Lymphocytes % 9.4 % (15.3-44.8) L 09/11/21 03:22 Monocytes % 5.9 % (3.3-12.3) 09/11/21 03:22 Eosinophils % 0.1 % (0-4.4) 09/11/21 03:22 Basophils % 0.3 % (0-1.3) 09/11/21 03:22 Absolute Neutrophils 9.0 K/uL (1.8-8.0) H 09/11/21 03:22 Absolute Lymphocytes 1.0 K/uL (0.7-4.9) 09/11/21 03:22 Absolute Monocytes 0.6 K/uL (0.1-1.3) 09/11/21 03:22 Absolute Eosinophils 0.0 K/uL (0-0.5) 09/11/21 03:22 Absolute Basophils 0.0 K/uL (0-0.5) 09/11/21 03:22 PT 12.7 SECONDS (9.5-12.5) H 09/11/21 03:22 INR 1.15 09/11/21 03:22 Sodium 137 mmol/L (136-145) 09/11/21 03:22 Potassium 3.6 mmol/L (3.5-5.1) 09/11/21 03:22 Chloride 105 mmol/L (98-107) 09/11/21 03:22 Carbon Dioxide 23 mmol/L (21-32) 09/11/21 03:22 Anion Gap 12.6 mEq/L (5.0-15.0) 09/11/21 03:22 BUN 9 mg/dL (7-18) 09/11/21 03:22 Creatinine 0.82 mg/dL (0.55-1.3) 09/11/21 03:22 Estimated GFR 76 mL/min (=/>90) L 09/11/21 03:22 Glucose 177 mg/dL (74-106) H 09/11/21 03:22 Lactic Acid 1.2 mmol/L (0.4-2.0) 09/11/21 04:12 Calcium 8.6 mg/dL (8.5-10.1) 09/11/21 03:22 Magnesium 1.7 mg/dL (1.8-2.4) L 09/11/21 03:22 Total Bilirubin 0.8 mg/dL (0.2-1.0) 09/11/21 03:22 Direct Bilirubin 0.2 mg/dL (0-0.2) 09/11/21 03:22 AST 8 U/L (15-37) L 09/11/21 03:22 ALT 16 U/L (12-78) 09/11/21 03:22 Alkaline Phosphatase 69 U/L (45-117) 09/11/21 03:22 Troponin I High Sens < 3.0 pg/mL (<58.9) 09/11/21 03:22 NT-Pro-B Natriuret Pep 53 pg/mL (<125) 09/11/21 03:22 Serum Total Protein 7.1 g/dL (6.4-8.2) 05/04/22 03:22 Albumin 3.3 g/dL (3.4-5.0) L 09/11/21 03:22 Globulin 3.8 g/dL (2.3-3.5) H 09/11/21 03:22 Albumin/Globulin Ratio 0.9 (1.1-1.8) L 09/11/21 03:22 Lipase 69 U/L (73-393) L 09/11/21 03:22 Procalcitonin < 0.05 ng/mL (<0.050) 09/11/21 03:22 Urine pH 7.0 (5.0-7.0) 09/11/21 04:06 Ur Specific [place] 1.025 (1.005-1.030) 09/11/21 04:06 Glucose (UA)(Auto) Negative (Negative) 09/11/21 04:06 Urine Ketones Negative (Negative) 09/11/21 04:06 Urine Blood 1+ (Negative) H 09/11/21 04:06 Urine Nitrite Negative (Negative) 09/11/21 04:06 Ur Leukocyte Esterase Negative (Negative) 09/11/21 04:06 Urine Total Protein Negative (Negative) 09/11/21 04:06 Ur Specific [place] (HCG) 1.025 (1.005-1.030) 09/11/21 04:09 Urine Test Neg (NEG) 09/11/21 04:09 Influenza Type A RNA Negative (NEGATIVE) 09/11/21 03:48 Influenza Type B RNA Negative (NEGATIVE) 09/11/21 03:48 SARS-CoV-2 RNA (RT-PCR) Negative (NEGATIVE) 09/11/21 03:48 Microbiology Data (last 24 hrs): 09/11/21 04:04 Clean Catch Urine [place] Count - Final >100,000 CFU/ML. 09/11/21 04:04 Clean Catch Urine - Final Escherichia Coli Esbl Gram Neg [place] 09/11/21 04:40 Blood - Blood Gram Stain - Final Assessment And Plan - Plan Physical Exam: General: Alert, Obese HEENT: Atraumatic, Normocephalic Neck: Supple Respiratory: Clear to auscultation bilaterally, Normal air movement Cardiovascular: No edema, Normal pulses Gastrointestinal: Normal bowel sounds, Hypoactive, Other (Right CVA tenderness) Musculoskeletal: No clubbing, No swelling Conclusions/Impression: Antibiotics: merum: 09/13-current Zosyn: Assessment/plan Right-sided pyelonephritis CT abdomen pelvis showed cystitis with bilateral nonobstructing kidney stones however patient had severe right CVA tenderness on physical exam as well as temperature on admission. As such we will treat as pyelonephritis Urine culture growing ESBL producing E. coli, susceptibility pending. As such Zosyn has been been discontinued and meropenem has been started. Patient may need PICC line placement. -Patient states this is a second time she has been told she has kidney stones, recommend urology follow-up outpatient Bacteremia Blood cultures obtained on 09/11, 1 out of 4 culture sets grew coagulase- negative staph. Highly likely this is a contaminant. Repeat set pending. Anemia Continue to monitor H&H Shortness of breath/dyspnea Chest x-ray with no acute findings Patient aerating well on room air Likely related to deconditioning Recommend continuing incentive spirometry use Plan of care discussed with Dr. Ch Thank you for consultation
[2021-09-13] MEDS: ONDANSETRON 4 MG/2 ML VIAL IV PRN ×2 (13:26→18:47)
[2021-09-13] MEDS: Meropenem 1,000 MG in NA CHLORIDE 0.9% 100 ML IV SCH (16:38)
--- NOTE | 2021-09-13 17:56 | P.PN ---
Subjective Date of Service: 09/13/21 Chief Complaint: Fever, RUQ Pain Patient states she feels better today. Low-grade fever today. Physical Examination - Vital Signs Temperature: 98.1 F Blood Pressure: 110/68 Pulse: 80 Respirations: 16 Pulse Ox (%): 97 - Physical Exam General: Alert, In no apparent distress, Oriented x3 HEENT: Mucous membr. moist/pink Neck: Supple, JVD not distended Respiratory: Clear to auscultation bilaterally, Normal air movement Cardiovascular: No edema, Regular rate/rhythm, Normal S1 S2 Gastrointestinal: Normal bowel sounds, Soft and benign, Non-distended Musculoskeletal: No swelling Integumentary: No rashes Neurological: Other (No focal motor deficit) - Studies Microbiology Data (last 24 hrs): 09/11/21 04:04 Clean Catch Urine [place] Count - Final >100,000 CFU/ML. 09/11/21 04:04 Clean Catch Urine - Final Escherichia Coli Esbl Gram Neg [place] 09/11/21 04:40 Blood - Blood Gram Stain - Final Assessment And Plan - Current Problems (Diagnosis) (1) Acute pyelonephritis Current Visit: Yes Status: Acute (2) Sepsis Current Visit: Yes Status: Acute (3) Hepatosplenomegaly Current Visit: Yes Status: Acute - Plan Liver enzymes normal. Liver ultrasound and CT abdomen shows no biliary dilatation. Urine culture growing ESBL E. coli. UA growing gram-negative rods. 1 blood culture bottle growing gram-positive cocci. This is likely a skin contaminant. Repeat blood cultures pending. Antibiotics changed to IV meropenem. Infectious disease input appreciated. PICC line placement for outpatient IV antibiotics. Supportive measures with pain management, antiemetics. Diet as tolerated.
[2021-09-14] MEDS: Meropenem 1,000 MG in NA CHLORIDE 0.9% 100 ML IV SCH ×3 (00:04→16:22)
[2021-09-14] MEDS: ACETAMINOPHEN 500 MG TAB PO PRN ×2 (00:55→12:04)
[2021-09-14] MEDS: NA CHLORIDE 0.9% 1,000 ML IV SCH ×2 (03:52→14:26)
[2021-09-14] MEDS: HYDROCODONE/APAP 5/325 MG TAB PO PRN ×3 (03:55→19:39)
[2021-09-14] MEDS: HYDROMORPHONE HCL 0.5 MG/0.5 ML INJ IV PRN ×3 (06:34→21:39)
[2021-09-14 08:05] LABS: Absolute Lymphocytes (CBC) 1.5 K/uL (0.7-4.9); Hematocrit 29.5 % (36.0-45.0); Lymphocytes % 25.3 % (15.3-44.8); MPV 7.1 fL (7.6-11.3); RBC Red Blood Cell Count 3.47 M/uL (3.86-4.86)
[2021-09-14 08:08] LABS: BUN Blood Urea Nitrogen 4 mg/dL (7-18); Bicarbonate 25 mmol/L (21-32); Glomerular Filtration Rate > 90 mL/min (=/>90); Glucose Level 120 mg/dL (74-106); Potassium 3.9 mmol/L (3.5-5.1); Sodium Level 138 mmol/L (136-145)
[2021-09-14] MEDS: ENOXAPARIN 40 MG/0.4 ML SQ SCH (08:13)
[2021-09-14] MEDS: ONDANSETRON 4 MG/2 ML VIAL IV PRN (13:22)
[2021-09-14] MEDS ORDERED: ZOLPIDEM TARTRATE 5 MG TABLET PO PRN (13:28)
--- NOTE | 2021-09-14 13:28 | P.PN ---
Subjective Date of Service: 09/14/21 Chief Complaint: Fever, RUQ Pain Patient complaining of insomnia. She states her right flank pain has improved. She reports intermittent shortness of breath and anxiety. Physical Examination - Vital Signs Temperature: 99.5 F Blood Pressure: 115/64 Pulse: 89 Respirations: 18 Pulse Ox (%): 96 - Physical Exam General: Alert, In no apparent distress, Oriented x3 HEENT: Mucous membr. moist/pink Neck: Supple, JVD not distended Respiratory: Clear to auscultation bilaterally, Normal air movement Cardiovascular: No edema, Regular rate/rhythm, Normal S1 S2 Gastrointestinal: Normal bowel sounds, Soft and benign, Non-distended Musculoskeletal: No swelling Integumentary: No rashes, No cyanosis Neurological: Normal strength at 5/5 x4 extr Assessment And Plan - Current Problems (Diagnosis) (1) Acute pyelonephritis Current Visit: Yes Status: Acute (2) Sepsis Current Visit: Yes Status: Acute (3) Hepatosplenomegaly Current Visit: Yes Status: Acute - Plan Urine culture growing ESBL E. coli. 1 blood culture bottle growing gram-positive cocci. This is likely a skin contaminant. Repeat blood culture shows no growth. Continue IV meropenem. Infectious disease input appreciated. PICC line placement for outpatient IV antibiotics. Supportive measures with pain management, antiemetics. Diet as tolerated. Zolpidem as needed for insomnia.
[2021-09-15] MEDS: NA CHLORIDE 0.9% 1,000 ML IV SCH ×4 (00:25→20:25)
[2021-09-15] MEDS: Meropenem 1,000 MG in NA CHLORIDE 0.9% 100 ML IV SCH ×3 (00:40→17:19)
[2021-09-15] MEDS: HYDROMORPHONE HCL 0.5 MG/0.5 ML INJ IV PRN ×5 (03:11→23:54)
[2021-09-15] MEDS: HYDROCODONE/APAP 5/325 MG TAB PO PRN (06:40)
[2021-09-15] MEDS: ENOXAPARIN 40 MG/0.4 ML SQ SCH (08:16)
[2021-09-15 11:52] LABS: HBsAG Nonreactive (Nonreactive)
--- NOTE | 2021-09-15 12:10 | P.PN ---
Subjective Date of Service: 09/15/21 Chief Complaint: Fever, RUQ Pain Patient complaining of insomnia. She states her right flank pain has improved. Patient complaining of persistent shortness of breath, worse with exertion. Physical Examination - Vital Signs Temperature: 97.9 F Blood Pressure: 117/60 Pulse: 85 Respirations: 16 Pulse Ox (%): 97 - Physical Exam General: Alert, In no apparent distress, Oriented x3 HEENT: Mucous membr. moist/pink Neck: JVD not distended Respiratory: Clear to auscultation bilaterally, Normal air movement Cardiovascular: No edema, Regular rate/rhythm, Normal S1 S2, No murmurs Gastrointestinal: Soft and benign, Non-distended, No tenderness Musculoskeletal: No swelling Integumentary: No rashes, No cyanosis Neurological: Normal strength at 5/5 x4 extr Assessment And Plan - Current Problems (Diagnosis) (1) Acute pyelonephritis Current Visit: Yes Status: Acute (2) Sepsis Current Visit: Yes Status: Acute (3) Hepatosplenomegaly Current Visit: Yes Status: Acute (4) Asthma Current Visit: Yes Status: Acute - Plan Urine culture growing ESBL E. coli. 1 blood culture bottle growing gram-positive cocci. This is likely a skin contaminant. Repeat blood culture shows no growth. Continue IV meropenem. Infectious disease is following PICC line placed for outpatient IV antibiotics. Supportive measures with pain management, antiemetics. Diet as tolerated. Zolpidem as needed for insomnia. Repeat chest x-ray shows no infiltrate. Given patient persistent complaint of shortness of breath, we will obtain D-dimer followed by VQ scan to rule out pulm embolism. Bronchodilators as needed given history of asthma.
[2021-09-15] MEDS: ONDANSETRON 4 MG/2 ML VIAL IV PRN (15:11)
[2021-09-16] MEDS: Meropenem 1,000 MG in NA CHLORIDE 0.9% 100 ML IV SCH ×2 (00:44→09:00)
[2021-09-16] MEDS: HYDROMORPHONE HCL 0.5 MG/0.5 ML INJ IV PRN ×2 (05:19→12:34)
[2021-09-16] MEDS: NA CHLORIDE 0.9% 1,000 ML IV SCH (05:21)
--- NOTE | 2021-09-16 08:56 | EKG ---
Test Date: 2021-09-15 Test Time: 23:01:02 Brand Marketing Intern: RT-O MEASUREMENT RESULTS: Intervals: Rate: 67 RI: 136 QRSD: 78 QT: 382 QTc: 403 [place]: P: 47 RI: 136 QRS: 12 T: 12 INTERPRETIVE STATEMENTS: Normal sinus rhythm Cannot rule out Anterior infarct, age undetermined Abnormal ECG Compared to ECG 09/11/2021 03:23:57 Myocardial infarct finding now present Sinus tachycardia no longer present Electronically Signed On 09-16-21 08:55:28 CDT by Jed Hernandez
[2021-09-16 09:03] VITALS: O2SAT 94
--- NOTE | 2021-09-16 09:25 | RAD REPORT ---
EXAM DESCRIPTION: NM - Vent Perfusion VQ Scan - 09/16/2021 9:13 am COMPARISON: None. TECHNIQUE: The patient was administered approximately 20 mCi Xenon 133 gas with posterior projection inspiration, equilibrium, and washout views obtained. The patient was then administered approximatel y 7 mCi Tc-99m SC labeled RBCs followed by standard 8 view protocol. FINDINGS: There is good distribution of the Xenon with no ventilation defects identified. No signifi cant air-trapping seen. Perfusion images show no defects suspicious for pulmonary emboli. IMPRESSION: Normal V/Q Scan.
[2021-09-16] MEDS: ENOXAPARIN 40 MG/0.4 ML SQ SCH (10:00)
[2021-09-16] MEDS ORDERED: ERTAPENEM SODIUM 1 GM VIAL IVPB SCH (10:00)
[2021-09-16] MEDS ORDERED: MAGNESIUM CITRATE 300 ML BOT PO ONE (10:30)
[2021-09-16] MEDS ORDERED: ERTAPENEM NA 1 GM in NA CHLORIDE 0.9% 100 ML IVPB SCH (11:00)
--- NOTE | 2021-09-16 11:14 | P.DS ---
Admission Date: 09/11/21 Discharge Date: 09/16/21 Disposition: ROUTINE DISCHARGE Discharge Condition: FAIR Reason for Admission: Fever, RUQ Pain - Problems (1) Acute pyelonephritis Current Visit: Yes Status: Acute (2) Sepsis Current Visit: Yes Status: Acute (3) Hepatosplenomegaly Current Visit: Yes Status: Acute (4) Asthma Current Visit: Yes Status: Acute Brief History of Present Illness: Patient is a 41-year-old female who presented to the ED with complaints of RUQ pain that began approximately 12 hours ago. She states the pain started after she ate Urdu food and it radiates to her right shoulder. It is associated with fever, fatigue, nausea, vomiting, chills, headache. She states that she had symptoms like this about 3 years ago and it was evaluated and diagnosed with inflammation of her gallbladder. She has not had any issues since. WBC borderline at 10.7 but other labs WNL. Abdominal US unremarkable. CT abdomen pelvis showed mild wall thickening of the urinary bladder, hepatosplenomegaly and hepatic steatosis, and punctuate nonobstructing biliary nephrolithiasis. Patient states that she has a severe allergy to contrast so CT could not be performed with contrast. Patient has been febrile and tachycardic in the ED. Given Zosyn, fluids, and Dilaudid. ED provider wishes to admit for further evaluation and treatment. Hospital Course: Patient admitted to the medical floor and treated with broad-spectrum antibiotics. Urine culture grew ESBL E. coli. Antibiotics switched to IV meropenem 1 blood culture bottle growing gram-positive cocci. This is likely a skin contaminant. Repeat blood culture shows no growth. Seen by infectious disease. PICC line placed for outpatient IV antibiotics. Supportive measures with pain management, antiemetics. Diet as tolerated. Zolpidem as needed for insomnia. Patient was complaining of shortness of breath. Multiple chest x-rays shows no infiltrate. Given patient persistent complaint of shortness of breath, D-dimer was done which was elevated. VQ scan done was normal with no evidence of PE She was put on bronchodilators as needed given history of asthma. Patient symptoms improved and deemed stable for discharge. She is prescribed outpatient IV Invanz for 6 more days to complete 10 days of treatment for ESBL E. coli UTI. Vital Signs/Physical Exam: Temp Pulse Resp BP Pulse Ox 97.3 F 66 18 117/82 94 09/16/21 08:00 09/16/21 08:00 09/16/21 08:00 09/16/21 08:00 09/16/21 08:00 General: Alert, In no apparent distress, Oriented x3 HEENT: Mucous membr. moist/pink Neck: Supple, JVD not distended Respiratory: Clear to auscultation bilaterally, Normal air movement Cardiovascular: No edema, Regular rate/rhythm, Normal S1 S2 Gastrointestinal: Normal bowel sounds, Soft and benign, Non-distended Musculoskeletal: No swelling Integumentary: No rashes Neurological: Normal strength at 5/5 x4 extr Laboratory Data at Discharge: WBC 5.8 K/uL (4.3-10.9) D 09/14/21 06:52 Hgb 10.4 g/dL (12.0-15.0) L 09/14/21 06:52 Hct 29.5 % (36.0-45.0) L 09/14/21 06:52 Plt Count 230 K/uL (152-406) 09/14/21 06:52 PT 12.7 SECONDS (9.5-12.5) H 09/11/21 03:22 INR 1.15 09/11/21 03:22 Sodium 138 mmol/L (136-145) 09/14/21 06:52 Potassium 3.9 mmol/L (3.5-5.1) 09/14/21 06:52 BUN 4 mg/dL (7-18) L 09/14/21 06:52 Creatinine 0.57 mg/dL (0.55-1.3) 09/14/21 06:52 Glucose 120 mg/dL (74-106) H 09/14/21 06:52 Phosphorus 1.9 mg/dL (2.5-4.9) L 09/13/21 06:08 Magnesium 2.1 mg/dL (1.8-2.4) 09/13/21 06:08 Total Bilirubin 0.4 mg/dL (0.2-1.0) 09/13/21 06:08 AST 9 U/L (15-37) L 09/13/21 06:08 ALT 13 U/L (12-78) 09/13/21 06:08 Alkaline Phosphatase 54 U/L (45-117) 09/13/21 06:08 Triglycerides 115 mg/dL (<150) 09/12/21 03:20 Cholesterol 130 mg/dL (<200) 09/12/21 03:20 HDL Cholesterol 36 mg/dL (40-60) L 09/12/21 03:20 Cholesterol/HDL Ratio 3.61 09/12/21 03:20 Lipase 69 U/L (73-393) L 09/11/21 03:22 Home Medications: Codeine/APAP [Tylenol W/Codeine #3 tab] 1 tab PO Q6HP PRN #20 tab 09/16/21 Ertapenem Na [Invanz] 1 gm IVPB DAILY #6 vial 09/16/21 New Medications: Codeine/APAP [Tylenol W/Codeine #3 tab] 1 tab PO Q6HP PRN #20 tab PRN Reason: Pain Ertapenem Na [Invanz] 1 gm IVPB DAILY #6 vial Diet: Regular Activity: Ad gabe Followup: Unknown,U [Primary Care Provider] - Time spent managing pt's care (in minutes): 36
[2021-09-16] MEDS: ONDANSETRON 4 MG/2 ML VIAL IV PRN (12:34)
[2021-09-16 13:32] VITALS: BP 131/79; TEMP 98
--- NOTE | 2021-09-16 15:25 | RAD REPORT ---
EXAM DESCRIPTION: RAD - Chest Single View - 09/15/2021 3:34 am CLINICAL HISTORY: The patient is 41 years old and is Female; S/P PICC insertion TECHNIQUE: Single view of the chest. COMPARISON: September 11, 2021. FINDINGS: Lungs: No pulmonary vascular congestion or consolidation. Pleural space: Unremarkable. No pneumothorax. Heart: Unremarkable. No cardiomegaly. Mediastinum: Unremarkable. Bones/joints: The bones and joints are unchanged as visualized. Tubes, lines and devices: Right PICC line is in the SVC. Upper abdomen: No free air in the visualized upper abdomen. IMPRESSION: No acute cardiopulmonary process identified. Electronically signed by: Gissel Lombardi MD 09/15/2021 4:13 AM CDT Due to temporary technical issues with the PACS/Fluency reporting system, reports are being signed by the in house radiologist without review as a courtesy to ensure prompt reporting. The interpreting r adiologist is fully responsible for the content of the report.
== END 2021-09-16 17:00 | disposition home or self-care (01) | DRG 872 ==
LOC: ER 02:37 → ERHOLD 05:51 → 2ND 11:56
PROVIDERS: ADMIT Internal Medicine; ATTEND Internal Medicine
DX: A41.9 Sepsis, unspecified organism (principal); N10 Acute pyelonephritis; Z16.12 Extended spectrum beta lactamase (ESBL) resistance; R16.2 Hepatomegaly with splenomegaly, not elsewhere classified; E83.42 Hypomagnesemia; J45.909 Unspecified asthma, uncomplicated; B96.20 Unspecified Escherichia coli [E. coli] as the cause of diseases classified elsewhere; G47.00 Insomnia, unspecified; D64.9 Anemia, unspecified; Z91.041 Radiographic dye allergy status; Z20.822 Contact with and (suspected) exposure to COVID-19
CPT/HCPCS: 0240U; 36415; 36569; 71045; 71250; 74176; 76705; 78582; 80048; 80053; 80061; 80074; 80076; 81003; 81025; 83605; 83690; 83735; 83880; 84100; 84145; 84439; 84443; 84484; 85025; 85379; 85610; 87040; 87077; 87086; 87088; 87186; 87205; 93005; 94640; 96365; 96375; 99285; A9540; A9558; J1170; J1335; J1650; J2185; J2270; J2405; J2543; J3475; J7030

== ENCOUNTER 2021-10-24 10:41 | Emergency (ER) | payer OTHER ==
--- OUTSIDE RECORDS SUMMARY | 2021-10-24 10:45 | XMS REPORT | Continuity of Care Document ---
:1980 Author Organization [facility] t Address [address] [place] [address] Care Team Providers Name Role Phone Tamika [...] 2020-0 [facility] 2-28 Clear 00:00: Irwin 00 [facility] morphine DA Active MO 2020-0 [facility] 2-28 Clear 00:00: Irwin 00 [facility] meperidi DA Active MO 2020-0 [facility] ne 2-28 Clear 00:00: Irwin 00 [facility] latex DA Active MO 2020-0 [facility] 2-28 Clear 00:00: Irwin 00 [facility] iodine DA Active MO RESPIRATORY 2020-0 [facility] DISTRESS 2-28 Clear 00:00: Irwin 00 [facility] morphine DA Active MO RASH-HIVES 2020-0 [facility] 2-28 Clear 00:00: Irwin [facility] meperidi DA Active MO RESPIRATORY 2020-0 [facility] ne DISTRESS 2-28 Clear 00:00: Irwin [facility] latex DA Active MO RASH-HIVES 2020-0 [facility] 2-28 Clear 00:00: Irwin [facility] iodine DA Active MO 2020-0 [...] MO 2018-1 [facility] 1-17 Clear 00:00: Irwin [facility] morphine DA Active MO 2017- [facility] 1-17 Clear 00:00: Irwin 00 [facility] meperidi DA Active MO 2018- [facility] ne 1-17 Clear 00:00: Irwin 00 [facility] latex DA Active MO 2018- [facility] 1-17 Clear 00:00: Irwin 00 [facility] iodine DA Active MO 2017-0 [...] Time Performed Performing Clinician [facility] e [id number] 2019-07-11 00:00:00 ALI.06 [facility] [id number] 2019-07-11 00:00:00 ALI.06 [facility] [id number] 2019-07-11 00:00:00 [facility].06 [facility] Encounters Start End Encounter Admission Attending Care Care Encounter Source Date/Time Date/Time Type Type Clinicians Facility Department ID 2021-03-04 Inpatient [facility] JHONATAN [id number] [facility] 16:44:00 [id number] [facility] 2019-07-10 Inpatient EM CAROLYNE Jarrett [facility] [id number] [facility] 18:25:00 Yinew [facility] 2019-07-08 Inpatient EM CAROLYNE Jarrett OLGA [id number] [facility] 00:20:00 Yinew [facility] [id number] [facility] 2019-07-07 Inpatient [facility] JHONATAN [id number] [facility] 21:24:00 [id number] [facility] 2021-03-04 2021-03-04 Emergency E MARTIN LEAVITTSE MHSE [id number] 17:45:00 23:49:[address] [facility] 2021-03-04 2021-03-04 Emergency EM DevoraCAROLYNE [id number] [facility] 16:44:00 21:39:00 Gal Kinney [facility] 2020-11-14 2020-11-14 Outpatient MARYELLEN Ness LABO [id number] [facility] 17:12:00 17:12:00 [facility] [id number] [facility]14 2020-11-14 Emergency E [place] [facility] [id number] [facility] 10:19:00 15:45:[address] [facility] [facility] 2020-11-14 2020-11-14 Emergency EM ANTOLIN NessBM JHONATAN [id number] [facility] 08:41:00 10:18:00 Phil [id number] [facility] 2019-05-31 2019-05-31 Outpatient E MHSE ISMAEL 7518 MH 00:25:00 00:25:00 [facility] Results Test Description Test Time Test Comments [...] #/LPF FEW Urine Source? Clean CatchUR HCG [id number] 09:50:00 Test Item Value Reference Range Interpretation Comments UR HCG QUAL (test NEGATIVE This HCGQL test is NOT code = HCGQLU) applicable fo r MALE patients.Check with nurse about probable order error.If Tumor Marker Test needed, nu rse should order test "HCG TU"(Test #550.32405)---- - Urine Source? Clean CatchURINALYSIS [id number] 09:44:00 Test Item Value Reference Range Interpretation [...] HPF NONE Urine Source? Clean CatchUR HCG [id number] 09:44:00 Test Item Value Reference Range Interpretation Comments UR HCG QUAL (test NEGATIVE This HCGQL test is NOT code = HCGQLU) applicable fo r MALE patients.Check with nurse about probable order error.If Tumor Marker Test needed, nu rse should order test "HCG TU"(Test #550.16570)---- - Urine Source? Clean [id number] 16:50:00 RUN DATE: 07/12/19 [facility] PAGE 1 RUN TIME: 1650 Specimen Inquiry RUN USER: INTERFACE PATIENT: SHANKAR ARROYO LOC: ChrisOBS U #: [id number] AGE/SX: 39/F ROOM: [facility] RE07/10/19REG DR: Ronni Jarrett MD : 76 BED: A DIS: 07/12/19 STATUS: DIS IN TLOC: SPEC #: [id number] RECD: 07/11/19 STATUS: DARON REQ #: [id number] BRITTANY: 07/11/19- SUBM DR: Rodney Sotelo MD ENTERED: 07/11/19 SP TYPE: STOMACH OTHR DR: No Primary or Family Physician Miguel Salazar MD, Alberto J MDORDERED: GROSS COPIES TO: No Primary or Family Physician Rodney Sotelo MD [address] [place] [address] Miguel Salazar MD [address], [address] [place] [address] José Hylton MD [address] [place], [place] [id number] PROCEDURES: GROSS (07/12/19-1420) TISSUES: 1. DUODENUM, NOS - BX 2. GASTRIC CORPUS - BX 3. COLON, NOS- TERMINAL ILEUM BX CLINICAL HISTORY COLLECTION DATE: 07/11/19 HEMATEMESIS, MELENA, EPIGASTRIC PAIN FINAL DIAGNOSIS Duodenum, biopsy: DUODENAL MUCOSA WITH NO PATHOLOGICALTERATION Gastric tissue, biopsy: REACTIVE GASTROPATHY GASTRIC MUCOSA WITH NO PATHOLOGIC ALTERATION NEGATIVE FOR HELICOBACTER ORGANISMS CONTINUED ON NEXT PAGE RUN DATE: 07/12/19 [facility] PAGE2 RUN TIME: 1650 Specimen Inquiry RUN USER: INTERFACE SPEC #: [id number] PATIENT: SHANKAR ARROYO #[id number] (Continued) FINAL DIAGNOSIS (Continued) NEGATIVE FOR MALIGNANCY Terminal ileum, biopsy: SMALL BOWEL MUCOSA WITH UNREMARKABLE VILLOUS ARCHITECTURE AND PROMINENT LYMPHOID AGGREGATES NEGATIVE FOR MALIGNANCY RRB/sm D 69189w2, 02210 MACROSCOPIC The first specimen is received in [...] aggregate, submitted as (3). GROSS PERFORMED AT [facility] [address] [place] [address] (p)[phone] MICROSCOPIC All of the stains, including any controls performed, stain appropriately. MICROSCOPIC PERFORMED AT [facility] [address] [place], [place] [address] (p)[phone] PERFORMING SITE Diagnosis performed at: [facility], [place] [address] CONTINUED ON NEXT PAGE RUN DATE: 07/12/19 [facility] PAGE 3 RUN TIME: 1650 Specimen Inquiry RUN USER: INTERFACE SPEC #: [id number] PATIENT: SHANKAR ARROYO #[id number] (Continued) PERFORMING SITE (Continued) [phone]---- -------- Signed SIGNATURE ON FILE Evangelista Danielle MD 07/12/19 2083 END OF REPORT HEPATIC FUNCTION [id number] 05:45:00 Test Item Value Reference Range Interpretation [...] range due ALKP) to change in reagent. [id number] 05:45:00 Test Item Value Reference Range Interpretation Comments LIPASE (test code = LIP) 91 U/L 73.0-393.0 N CBC W/AUTO [id number] 07:11:00 Test Item Value Reference Range Interpretation [...] K/mm3 0.0-0.1 N code = NRBC#) HGB [id number] 18:13:00 Test Item Value Reference Range Interpretation Comments HEMOGLOBIN (test code = HGB) 12.1 gram/dL 11.5-15.5 N HEMATOCRIT (test code = HCT) 36.4 % 36.0-46.0 N HGB [id number] 12:15:00 Test Item Value Reference Range Interpretation Comments HEMOGLOBIN (test code 12.7 gram/dL 11.5-15.5 RESULT VERIFIED BY = HGB) REPEAT ANALYSIS HEMATOCRIT (test code 38.6 % 36.0-46.0 N = HCT) - CT ABD PELVIS W/O [id number] 00:05:00 Name: SHANKAR ARROYO [facility] : 1980 Age/S: 39 / F [address] [facility] Unit #: [id number] Loc: [place] [address] Phys: Waldemar Ortez MD Acct: [id number] Dis Date: Status: ADM IN PHONE #: [phone] Exam Date: 07/07/2019 2335 FAX #: [phone] Reason: mid abd pain vomiting blood and blood in stool EXAMS: CPTCODE: [id number] CT ABD PELVIS W/O CONT 33444 CT abdomen and pelvis without IV contrast. [...] 1 Signed Report (CONTINUED) Name: SHANKAR ARROYO [facility] : 1980 Age/S: 39 / F [address] [facility] Unit #: [id number] Loc: [place] [address] Phys: Wadlemar Ortez MD Acct: [id number] Dis Date: Status: ADM IN PHONE #: [phone] Exam Date: 07/07/2019 2335 FAX #: [phone] Reason: mid abd pain vomiting blood and blood in stool EXAMS: CPT CODE: [id number] CT ABD PELVIS W/O CONT 87311 <Continued> at 0005 Reported and signed by: Lorrie Welch M.D. CC: Waldemar Ortez MD Technologist:RADHA AGUILA CTDI: DLP: Trnscb Date/Time: 07/08/2019 (0005) [email or web address] Orig Print D/T: S: 07/08/2019 (1259) PAGE 2 Signed Report- US ABDOMEN [id number] 23:54:00 Name: SHANKAR ARROYO [facility] : 1980 Age/S: 39 / F [address] [facility] Unit #: [id number] Loc: [place] [address] Phys: Waldemar Ortez MD Acct: [id number] Dis Date: Status: REG ER PHONE #: [phone] Exam Date: 07/07/2019 2330 FAX #: [phone] Reason: ruq pain ho gallbladder problem EXAMS: CPTCODE: [id number] US ABDOMEN LTD 38521 DICTATION LOCATION: H48 HISTORY: Female, 39 years [...] no significant change since prior study. at 5749 Reported and signed by: Shelby Anderson MD CC: Waldemar Ortez MD Technologist: DALIA AGARWAL RDMS Trnscb Date/Time: 07/07/2019 (4494) Jeffrey.CLW Orig Print D/T: S: 07/07/2019 (5714) Probe: PAGE 1 Signed ReportBASIC METABOLIC [id number] 23:00:00 Test Item Value Reference Range Interpretation [...] 9.4 mg/dL 8.5-10.1 N CA) HEPATIC FUNCTION [id number] 23:00:00 Test Item Value Reference Range Interpretation [...] range due ALKP) to change in reagent. [id number] 23:00:00 Test Item Value Reference Range Interpretation Comments LIPASE (test code = LIP) 90 U/L 73.0-393.0 N HCG SERUM [id number] 23:00:00 Test Item Value Reference Range Interpretation Comments HCG SERUM QUAL (test NEGATIVE NEGATIVE This HC GQL test is NOT code = HCGQL) applicable for MALE patients.Check with nurse about probable order error.If Tumor Marker Test needed, nu rse should order test "HCG TU"(Test #550.51289)---- - [id number] 23:00:00 Test Item Value Reference Range Interpretation Comments TROPONIN-I (test code = TROPI) <0.015 ng/mL 0-0.045 N PROTHROMBIN [id number] 22:44:00 Test Item Value Reference Range Interpretation [...] (2.5-3.5) IS PATIENT ON ANTICOAGULANTS? NTHROMBOPLASTIN TIME [id number] 22:44:00 Test Item Value Reference Range Interpretation Comments THROMBOPLASTIN TIME PARTIAL 34.5 seconds 25.0-36.5 N (test code = PTT) IS PATIENT ON ANTICOAGULANTS? NBASIC METABOLIC [id number] 22:40:00 Test Item Value Reference Range Interpretation [...] code = CA) mg/dL 8.5-10.1 HEPATIC FUNCTION [id number] 22:40:00 Test Item Value Reference Range Interpretation [...] TOTAL (test IUnit/L 45-117 code = ALKP) [id number] 22:40:00 Test Item Value Reference Range Interpretation Comments LIPASE (test code = LIP) U/L 73.0-393.0 HCG SERUM [id number] 22:40:00 Test Item Value Reference Range Interpretation Comments HCG SERUM QUAL (test NEGATIVE NEGATIVE This HC GQL test is NOT code = HCGQL) applicable for MALE patients.Check with nurse about probable order error.If Tumor Marker Test needed, nu rse should order test "HCG TU"(Test #550.16970)---- - [id number] 22:40:00 Test Item Value Reference Range Interpretation Comments TROPONIN-I (test code = TROPI) ng/mL 0-0.045 CBC W/O [id number] 22:36:00 Test Item Value Reference Range Interpretation [...] fL 6.7-11.0 N = MPV) CBC W/O [id number] 22:34:00 Test Item Value Reference Range Interpretation [...] (test code fL 6.7-11.0 = MPV) URINALYSIS [id number] 21:44:00 Test Item Value Reference Range Interpretation [...] #/LPF FEW MUCU) Urine Source? Clean CatchURINALYSIS [id number] 21:39:00 Test Item Value Reference Range Interpretation [...] Urine Source? Clean Catch- XR CHEST 1 [id number] 20:59:00 FAX: RITESH ELMORE NP [place]: St: REG Name: SHANKAR ARROYO [facility] : 1980 Age/S: 39/F [address] [facility] Unit#: [id number] Loc: [place] [address] Phys: RITESH ELMORE NP Acct: [id number] Dis Date: Status: REG ER PHONE #: [phone] Exam Date: 03/25/20191940 FAX #: [phone] Reason: Abdominal Pain EXAMS: CPT CODE: [id number] XR CHEST 1 V 48375 EXAM: Chest X-ray, 1 view; CLINICAL HISTORY: Abdominal pain; FINDINGS: The lungs are clear, no infiltrates, no edema; no effusions; no pneumothorax; normal cardiomediastinal silhouette. IMPRESSION: Normal chest x-ray. Location code: [facility] at 2058 Reported and signed by: Fito Shah M.D. CC: RITESH ELMORE NP Technologist: Ayde Lewis(Taty) Trnscrd Date/Time/By: 03/25/2019 (2058) : By: KaleGRW Orig Print D/T: S: 03/25/2019 (2101) PAGE 1 Signed ReportBASIC METABOLIC [id number] 20:49:00 Test Item Value Reference Range Interpretation [...] GFR) formula.Chronic kidney disease is defined as [facility] er kidney damageor GFR <60 mL/min/1.73 m2 for >3 months. CREATININE (test code 0.70 mg/dL 0.55-1.02 N Note change in = CREAT) reference range due to change in reagent. BUN/CREATININE RATIO 21.6 10-20 H (test code = BUN/CREA) CALCIUM (test code = 8.7 mg/dL 8.5-10.1 N CA) HEPATIC FUNCTION [id number] 20:49:00 Test Item Value Reference Range Interpretation [...] range due ALKP) to change in reagent. [id number] 20:49:00 Test Item Value Reference Range Interpretation Comments LIPASE (test code = LIP) 99 U/L 73.0-393.0 N HCG SERUM [id number] 20:49:00 Test Item Value Reference Range Interpretation Comments HCG SERUM QUAL (test NEGATIVE NEGATIVE This HC GQL test is NOT code = HCGQL) applicable for MALE patients.Check with nurse about probable order error.If Tumor Marker Test needed, nu rse should order test "HCG TU"(Test #550.24590)---- - - US ABDOMEN [id number] 20:45:00 Name: SHANKAR ARROYO [facility] : 1980 Age/S: 39 / F [address] [facility] Unit #: [id number] Loc: [place] [address] Phys: RITESH ELMORE NP Acct: [id number] Dis Date: Status: REG ER PHONE #: [phone] Exam Date: 03/25/20191943 FAX #: [phone] Reason: Abdominal Pain EXAMS: CPT CODE: [id number] US ABDOMEN LTD 59780 EXAM: Ultrasound of the abdomen, limited; INFORMATION: [...] of the right upper quadrant; Location code: [facility] at 2044 Reported and signed by: Fito Shah M.D. CC: RITESH ELMORE NP Technologist: Ambreen Landeros RDMS [facility] Date/Time: 03/25/2019 (2044) Michela Orig Print D/T: S: 03/25/2019 (2047) Probe: PAGE 1 Signed ReportCBC W/O [id number] 20:39:00 Test Item Value Reference Range Interpretation [...] fL 6.7-11.0 N = MPV) BASIC METABOLIC [id number] 20:37:00 Test Item Value Reference Range Interpretation [...] code = CA) mg/dL 8.5-10.1 HEPATIC FUNCTION [id number] 20:37:00 Test Item Value Reference Range Interpretation [...] TOTAL (test IUnit/L 45-117 code = ALKP) [id number] 20:37:00 Test Item Value Reference Range Interpretation Comments LIPASE (test code = LIP) U/L 73.0-393.0 HCG SERUM [id number] 20:37:00 Test Item Value Reference Range Interpretation Comments HCG SERUM QUAL (test NEGATIVE NEGATIVE This HC GQL test is NOT code = HCGQL) applicable for MALE patients.Check with nurse about probable order error.If Tumor Marker Test needed, nu rse should order test "HCG TU"(Test #550.42190)---- - BASIC METABOLIC [id number] 20:37:00 Test Item Value Reference Range Interpretation [...] code = CA) mg/dL 8.5-10.1 HEPATIC FUNCTION [id number] 20:37:00 Test Item Value Reference Range Interpretation [...] TOTAL (test IUnit/L 45-117 code = ALKP) [id number] 20:37:00 Test Item Value Reference Range Interpretation Comments LIPASE (test code = LIP) U/L 73.0-393.0 HCG SERUM [id number] 20:37:00 Test Item Value Reference Range Interpretation Comments HCG SERUM QUAL (test NEGATIVE NEGATIVE This HC GQL test is NOT code = HCGQL) applicable for MALE patients.Check with nurse about probable order error.If Tumor Marker Test needed, nu rse should order test "HCG TU"(Test #550.16886)---- - CBC W/O [id number] 20:35:00 Test Item Value Reference Range Interpretation [...] = MPV) - CT ABD PELVIS W/O [id number] 18:38:00 Name: SHANKAR ARROYO [facility] : 1980 Age/S: 38 / F [address] [facility] Unit #: [id number] Loc: [place] [address] Phys: Marianna Baeza DO Acct: [id number] Dis Date: Status: REG ER PHONE #: [phone] Exam Date: 11/23/2018 3736 FAX #: [phone] Reason: FLANK PAIN EXAMS: CPTCODE: [id number] CT ABD PELVIS W/O CONT 43988 REASON FOR EXAM: FLANK PAIN EXAM ORDER [...] 1 Signed Report (CONTINUED) Name: SHANKAR ARROYO [facility] :1980 Age/S: 38 / F [address] [facility] Unit #: [id number] Loc: [place] [address] Phys: Marianna Baeza DO Acct: [id number] Dis Date: Status: REG ER PHONE #: [phone] Exam Date: 11/23/2018 1759 FAX #: [phone] Reason: FLANK PAIN EXAMS: CPT CODE: [id number] CT ABD PELVIS W/O CONT 77343 <Continued> Punctate nonobstructing renal stones bilaterally. Electronic ally Signed by Devendra Rose MD on 11/23/2018 at 1838 Reported and signed by: Devendra Rose MD CC: Marianna Baeza DO Technologist:Ivonne Call RT(R) CTDI: DLP: Trnscb Date/Time: 11/23/2018 (183) t.[email or web address] Orig Print D/T: S: 11/23/2018 (184) PAGE 2 Sig olivia ReportURINALYSIS [id number] 18:19:00 Test Item Value Reference Range Interpretation [...] A BACU) Urine Source? Clean CatchHCG SERUM [id number] 17:17:00 Test Item Value Reference Range Interpretation Comments HCG SERUM QUAL (test NEGATIVE NEGATIVE This HC GQL test is NOT code = HCGQL) applicable for MALE patients.Check with nurse about probable order error.If Tumor Marker Test needed, nu rse should order test "HCG TU"(Test #550.85945)---- - BASIC METABOLIC [id number] 15:54:00 Test Item Value Reference Range Interpretation [...] code = 8.9 mg/dL 8.5-10.1 N CA) [id number] 15:54:00 Test Item Value Reference Range Interpretation Comments TROPONIN-I (test code = TROPI) <0.015 ng/mL 0-0.045 N - XR CHEST 1 [id number] 15:52:00 FAX: Marianna Baeza DO [place]: B St: REG Name: SHANKAR ARROYO [facility] : 1980 Age/S: 38/F [address] [facility] Unit#: [id number] Loc: [place] [address] Phys: Marianna Baeza DO Acct: [id number] Dis Date: Status: REG ER PHONE #: [phone] Exam Date: 11/23/2018 1544 FAX #: [phone] Reason: CHEST PAIN EXAMS: CPT CODE: [id number] XR CHEST 1 V 20351 REASON FOR EXAM: CHEST PAIN Exam Order [...] JAVIER ADAM; STUDENT TECHNOLOGIST Trnscrd Date/Time/By: 11/23/2018 (8049) : By: [email or web address] Orig Print D/T: S: 11/23/2018 (8870) PAGE 1 Signed ReportBASIC METABOLIC [id number] 15:45:00 Test Item Value Reference Range Interpretation [...] CALCIUM (test code = CA) mg/dL 8.5-10.1 [id number] 15:45:00 Test Item Value Reference Range Interpretation Comments TROPONIN-I (test code = TROPI) ng/mL 0-0.045 CBC W/O [id number] 15:37:00 Test Item Value Reference Range Interpretation [...] fL 6.7-11.0 N = MPV) CBC W/O [id number] 15:34:00 Test Item Value Reference Range Interpretation [...]
[2021-10-24 11:02] LABS: Urine Blood Trace-intact (Negative); Urine Glucose Negative (Negative); Urine Protein Negative (Negative); Urine Specific Gravity >=1.030 (1.005-1.030)
[2021-10-24] MEDS ORDERED: NA CHLORIDE 0.9% 1,000 ML ONE (11:20)
[2021-10-24] MEDS ORDERED: ONDANSETRON 4 MG/2 ML VIAL ONE (11:20)
--- NOTE | 2021-10-24 11:23 | RAD REPORT ---
EXAM DESCRIPTION: CT - Stone Protocol - 10/24/2021 11:04 am CLINICAL HISTORY: Flank pain. abd pain COMPARISON: Abdomen Pelvis Wo Contrast dated 02/04/2021 TECHNIQUE: Axial images were obtained without oral or IV contrast. Lack of contrast limits solid org an and vascular assessment. The wputr-mn-weux spans the entirety of the system partially obscuring uppermost abdomen and lung bases. Coronal reformatted images were obtained and reviewed. All CT scans are performed using dose optimization technique as appropriate and may include automated exposure control or mA/KV adjustment according to patient size. FINDINGS: The lower lung lorenzana are clear. Imaged portions of the liver and spleen show no suspicious findings on non-contrast imaging. The panc reas and adrenal glands are normal. No pathologic lymphadenopathy in the abdomen or pelvis. Small calculi are present in both kidneys without hydronephrosis. No bowel obstruction, free air, free fluid or abscess. Normal appendix noted. No significant bony abnormality. IMPRESSION: Small calculi in each kidney noted without hydronephrosis.
[2021-10-24 11:30] LABS: Urine Bacteria <20 /HPF (<20); Urine RBC <5 /HPF (NONE SEEN)
[2021-10-24 11:31] LABS: Absolute Lymphocytes (CBC) 2.2 K/uL (0.7-4.9); Hematocrit 38.5 % (36.0-45.0); Lymphocytes % 28.2 % (15.3-44.8); MPV 7.3 fL (7.6-11.3); RBC Red Blood Cell Count 4.51 M/uL (3.86-4.86)
[2021-10-24 12:08] LABS: Albumin 2.9 g/dL (3.4-5.0); Bilirubin Total 0.3 mg/dL (0.2-1.0); Potassium 3.4 mmol/L (3.5-5.1); Protein, Total 5.8 g/dL (6.4-8.2)
--- NOTE | 2021-10-24 12:59 | ER ---
Nurse's Notes [facility] Name: Jo Ann Kowalski Age: 41 yrs Sex: Female : 1980 Arrival Date: 10/24/2021 Time: 10:43 Bed 5 Private MD: Diagnosis: Abdominal pain, Generalized Presentation: 10/24 10:47 Chief complaint: Patient states: sore throat began yesterday. Pt reports fatigue and aa5 body aches, reports nausea and vomiting today. Also c/o left sided abd pain. Coronavirus screen: fatigue, muscle pain, vomiting. Ebola Screen: No symptoms or risks identified at this time. Initial Sepsis Screen: Does the patient meet any 2 criteria? No. Patient's initial sepsis screen is negative. Does the patient have a suspected source of infection? No. Patient's initial sepsis screen is negative. Risk Assessment: Do you want to hurt yourself or someone else? Patient reports no desire to harm self or others. Onset of symptoms was October 2021. 10:47 Acuity: RAMESH 3 aa5 10:47 Method Of Arrival: Ambulatory aa5 Historical: - Allergies: 10:46 Demerol; aa5 10:46 Iodine; aa5 10:46 Latex, Natural Rubber; aa5 10:46 Morphine; aa5 10:46 tramadol; aa5 - PMHx: 10:46 Anemia; Anxiety; Asthma; aa5 - PSHx: 10:46 section; aa5 - Immunization history:: Adult Immunizations unknown. - Social history:: Smoking status: Patient/guardian denies using tobacco. Screenin:26 Abuse screen: Denies threats or abuse. Nutritional screening: No deficits noted. 6 Tuberculosis screening: No symptoms or risk factors identified. Fall Risk None identified. Assessment: 11:24 General: Appears in no apparent distress. Behavior is calm, cooperative. Pain: jh6 Complains of pain in diaphragm Pain currently is 4 out of 10 on a pain scale. Quality of pain is described as aching, crampy, sharp. GI: Abdomen is flat, non-distended, obese, Bowel sounds present X 4 quads. Abd is soft and non tender Reports nausea. 12:30 Reassessment: No changes from previously documented assessment. Patient and/or family 6 updated on plan of care and expected duration. Pain level reassessed. Patient is alert, oriented x 3, equal unlabored respirations, skin warm/dry/pink. 12:30 Pain: Pain currently is 6 out of 10 on a pain scale. [facility] Vital Signs: 10:47 BP 141 / 63; Pulse 80; Resp 18 S; Temp 97.8(O); Pulse Ox 100% on R/A; Weight 88.45 kg aa5 (R); Height 4 ft. 11 in. (149.86 cm) (R); 11:50 BP 114 / 73; Pulse 80; Resp 15; Pulse Ox 98% ; jl7 13:11 BP 118 / 70; Pulse 76; Resp 16; Pulse Ox 100% ; Pain 4/10; jh6 10:47 Body Mass Index 39.38 (88.45 kg, 149.86 cm) 5 ED Course: 10:43 Patient arrived in ED. mr 10:46 Juancho Esme, [facility] kb 10:46 Pradip Keane DO is Attending Physician. kb 10:46 Arm band placed on. [facility] 10:48 Triage completed. [facility] 11:06 CT Stone Protocol In Process Unspecified. EDMS 11:21 Zandra Clements, RN is Primary Nurse. [facility] 11:25 No provider procedures requiring assistance completed. Urine collected: clean catch [facility] specimen. Inserted saline lock: 20 gauge in right antecubital area, using aseptic technique. Blood collected. 11:26 Placed in gown. Bed in low position. Call light in reach. Side rails up X 1. Adult w/ jh6 patient. 13:12 IV discontinued, intact, bleeding controlled, No redness/swelling at site. Pressure 6 dressing applied. Administered Medications: 11:21 Drug: NS 0.9% 1000 ml Route: IV; Rate: 1 bolus; Site: right antecubital; 6 13:13 Follow up: IV Status: Completed infusion [facility] 11:21 Drug: Zofran (Ondansetron) 4 mg Route: IVP; Site: right antecubital; 6 13:13 Follow up: Response: No adverse reaction [facility] 13:00 Drug: Ketorolac 15 mg Route: IVP; Site: right antecubital; 6 13:10 Follow up: Response: No adverse reaction [facility] Outcome: 12:59 Discharge ordered by MD. kb 13:12 Discharged to home ambulatory. 6 13:12 Condition: stable 13:12 Discharge instructions given to patient, family, Instructed on discharge instructions, follow up and referral plans. Demonstrated understanding of instructions, medications, Prescriptions given X 2. 13:14 Patient left the ED. jh6 Signatures: Dispatcher [employer] EDMS Esme Dawkins, BEE HARVESTING SUPERVISOR-Rica Arely LongSarah, RN RN aa5 Jazmine White RN RN jl7 Zandra Clements RN RN jh6 Corrections: (The following items were deleted from the chart) 10:49 10:47 BP 141 / 63; Pulse 80bpm; Resp 18bpm; Spontaneous; Pulse Ox 100% RA; Temp 97.8F aa5 Oral; aa5
--- NOTE | 2021-10-24 12:59 | EDPHYS ---
Physician Documentation [facility] Name: Jo Ann Kowalski Age: 41 yrs Sex: Female : 1980 Arrival Date: 10/24/2021 Time: 10:43 Bed 5 Private MD: ED Physician Pradip Keane HPI: 10/24 18:44 This 41 yrs old Female presents to ER via Ambulatory with complaints of Abdominal Pain, kb Vomiting/Diarrhea, Headache. 18:44 The patient presents with abdominal pain in the left upper quadrant, in the left lower kb quadrant. Onset: The symptoms/episode began/occurred yesterday. The symptoms do not radiate. Associated signs and symptoms: Pertinent positives: nausea and vomiting. The symptoms are described as constant. Modifying factors: The symptoms are alleviated by nothing, the symptoms are aggravated by nothing. Severity of pain: At its worst the pain was mild moderate in the emergency department the pain is unchanged. The patient has not experienced similar symptoms in the past. The patient has not recently seen a physician. Pt reports sore throat since yesterday. Today she has has LUQ and LLQ abd pain, n/v, bodyaches and fatigue. . Historical: - Allergies: 10:46 Demerol; aa5 10:46 Iodine; aa5 10:46 Latex, Natural Rubber; aa5 10:46 Morphine; aa5 10:46 tramadol; aa5 - PMHx: 10:46 Anemia; Anxiety; Asthma; aa5 - PSHx: 10:46 section; aa5 - Immunization history:: Adult Immunizations unknown. - Social history:: Smoking status: Patient/guardian denies using tobacco. ROS: 18:43 Respiratory: Negative for shortness of breath, cough, wheezing, and pleuritic chest kb pain. 18:43 Constitutional: Positive for body aches, fatigue. 18:43 Abdomen/GI: Positive for abdominal pain, nausea and vomiting. 18:43 All other systems are negative. 18:43 ENT: Positive for sore throat. kb Exam: 18:43 Constitutional: This is a well developed, well nourished patient who is awake, alert, kb and in no acute distress. Head/Face: Normocephalic, atraumatic. ENT: Moist Mucous membranes Cardiovascular: Regular rate and rhythm with a normal S1 and S2. No gallops, murmurs, or rubs. No pulse deficits. Respiratory: Respirations even and unlabored. No increased work of breathing. Talking in full sentences Back: No spinal tenderness. No costovertebral tenderness. Full range of motion. Skin: Warm, dry with normal turgor. Normal color. MS/ Extremity: Pulses equal, no cyanosis. Neurovascular intact. Full, normal range of motion. Neuro: Awake and alert, GCS 15, oriented to person, place, time, and situation. Moves all extremities. Normal gait. Psych: Awake, alert, with orientation to person, place and time. Behavior, mood, and affect are within normal limits. 18:43 Abdomen/GI: Inspection: abdomen appears normal, Bowel sounds: normal, Palpation: soft, in all quadrants, mild abdominal tenderness, in the left upper quadrant and left lower quadrant. Vital Signs: 10:47 BP 141 / 63; Pulse 80; Resp 18 S; Temp 97.8(O); Pulse Ox 100% on R/A; Weight 88.45 kg aa5 (R); Height 4 ft. 11 in. (149.86 cm) (R); 11:50 BP 114 / 73; Pulse 80; Resp 15; Pulse Ox 98% ; jl7 13:11 BP 118 / 70; Pulse 76; Resp 16; Pulse Ox 100% ; Pain 4/10; jh6 10:47 Body Mass Index 39.38 (88.45 kg, 149.86 cm) aa5 MDM: 10:46 Patient medically screened. kb 18:42 Data reviewed: vital signs, nurses notes. Data interpreted: Pulse oximetry: on room air kb is 100 %. Interpretation: normal. Counseling: I had a detailed discussion with the patient and/or guardian regarding: the historical points, exam findings, and any diagnostic results supporting the discharge/admit diagnosis, lab results, radiology results, the need for outpatient follow up, a family practitioner, to return to the emergency department if symptoms worsen or persist or if there are any questions or concerns that arise at home. 10/24 10:50 Order name: CBC with Diff; Complete Time: 11:41 kb 10/24 10:50 Order name: CMP; Complete Time: 12:14 kb 10/24 10:50 Order name: Lipase; Complete Time: 12:14 kb 10/24 10:50 Order name: Urine Microscopic Only; Complete Time: 11:41 kb 10/24 10:50 Order name: Flu; Complete Time: 11:54 kb 10/24 10:50 Order name: COVID-19 SARS RT PCR (Document "Date of Onset" if Symptomatic); Complete kb Time: 12:45 10/24 10:50 Order name: CT Stone Protocol; Complete Time: 11:41 kb 10/24 10:50 Order name: Strep; Complete Time: 12:00 kb 10/24 11:02 Order name: Urine Dipstick-Ancillary; Complete Time: 11:05 EDMS 10/24 12:02 Order name: Throat Culture EDOK 10/24 10:50 Order name: IV Saline Lock; Complete Time: 11:21 kb 10/24 10:50 Order name: Labs collected and sent; Complete Time: 11:22 kb 10/24 10:50 Order name: Urine Dipstick-Ancillary (obtain specimen); Complete Time: 11:22 kb 10/24 11:39 Order name: Labs - recollect needed: please recollect chemistry -sample hemolyzed; em1 Complete Time: 11:48 Administered Medications: 11:21 Drug: NS 0.9% 1000 ml Route: IV; Rate: 1 bolus; Site: right antecubital; [facility] 13:13 Follow up: IV Status: Completed infusion [facility] 11:21 Drug: Zofran (Ondansetron) 4 mg Route: IVP; Site: right antecubital; [facility] 13:13 Follow up: Response: No adverse reaction [facility] 13:00 Drug: Ketorolac 15 mg Route: IVP; Site: right antecubital; [facility] 13:10 Follow up: Response: No adverse reaction [facility] Disposition: 19:52 Co-signature as Attending Physician, Pradip REGALADO was immediately available on-site ms3 in the Emergency Department for consultation in the care of the patient.. Disposition Summary: 10/24/21 12:59 Discharge Ordered Location: Home kb Condition: Stable kb Diagnosis - Abdominal pain, Generalized kb Followup: kb - With: Emergency Department - When: As needed - Reason: Worsening of condition Followup: kb - With: Private Physician - When: 2 - 3 days - Reason: Recheck today's complaints, Continuance of care, Re-evaluation by your physician Discharge Instructions: - Discharge Summary Sheet kb - Abdominal Pain, Adult, [id number] kb Forms: - Medication Reconciliation Form kb - Thank You Letter kb - Antibiotic Education kb - Prescription Opioid Use kb Prescriptions: - Zofran 4 mg Oral Tablet - take 1 tablet by ORAL route every 6 hours As needed; 20 tablet; Refills: 0, kb Product Selection Permitted - dicyclomine 20 mg Oral Tablet - take 1 tablet by ORAL route 4 times per day As needed; 20 tablet; Refills: 0, kb Product Selection Permitted Signatures: Dispatcher [employer] EDEsme Dawson, TALAT-C TALAT-Ayaan Colón em1 Sarah Mansfield, RN RN aa5 Pradip Keane DO DO ms3 Zandra Clements, RN RN jh6
[2021-10-24] MEDS ORDERED: KETOROLAC 30 MG/ML INJ ONE (13:09)
[2021-10-24 13:18] VITALS: TEMP 97.8
[2021-10-24 13:21] VITALS: BP 118/70; O2SAT 100
== END 2021-10-24 13:14 | disposition home or self-care (01) ==
LOC: ER 10:41
DX: R10.84 Generalized abdominal pain (principal); R07.0 Pain in throat; R11.2 Nausea with vomiting, unspecified; Z20.822 Contact with and (suspected) exposure to COVID-19; Z88.5 Allergy status to narcotic agent; Z88.8 Allergy status to other drugs, medicaments and biological substances; Z91.040 Latex allergy status; Z91.048 Other nonmedicinal substance allergy status
CPT/HCPCS: 96361; 87070; 85025; 36415; 87081; 83690; 80053; 87804 ×2; 76377; 74176; 96375; 96374; 99284; U0003; J7030; J2405; 81003; 81015

== ENCOUNTER 2021-11-08 22:21 | Emergency (ER) | payer OTHER ==
[2021-11-08] MEDS ORDERED: SMZ./TMP. 800/160 MG TABLET ONE (23:29)
[2021-11-08] MEDS ORDERED: DOXYCYCLINE 100 MG CAP PO ONE (23:29)
--- NOTE | 2021-11-08 23:47 | ER ---
Nurse's Notes [facility] Name: Jo Ann Kowalski Age: 41 yrs Sex: Female : 1980 Arrival Date: 11/08/2021 Time: 22:24 Bed 11 Private MD: Diagnosis: Cellulitis of the Abdominal Wall Presentation: 11/08 22:49 Chief complaint: Patient states: "Something bit me about 2 days ago, first it had a vc1 little yellow head like an ant bite and it itched it popped and some pus came out, yesterday it got bigger and now today it feels hard all around it, its hot to touch and feels feverish.". Coronavirus screen: Vaccine status: Patient reports being unvaccinated. Ebola Screen: No symptoms or risks identified at this time. Initial Sepsis Screen: Does the patient meet any 2 criteria? No. Patient's initial sepsis screen is negative. Does the patient have a suspected source of infection? No. Patient's initial sepsis screen is negative. Risk Assessment: Do you want to hurt yourself or someone else? Patient reports no desire to harm self or others. Onset of symptoms was November 06, 2021. 22:49 Method Of Arrival: Ambulatory vc1 22:49 Acuity: RAMESH 4 vc1 Triage Assessment: 22:52 Bite description: bite sustained to abdomen by an unknown animal, animal information: vc1 vaccination(s) is not applicable. 23:00 General: Appears in no apparent distress. uncomfortable, Behavior is calm, cooperative, vc1 appropriate for age. Pain: Complains of pain in left upper quadrant Pain does not radiate. Pain currently is 6 out of 10 on a pain scale. Aggravated by shirt rubbbing. 23:00 EENT: No deficits noted. Neuro: Level of Consciousness is awake, alert, obeys commands, vc1 Oriented to person, place, time, situation, Appropriate for age. Cardiovascular: Capillary refill < 3 seconds Patient's skin is warm and dry. Respiratory: Airway is patent Respiratory effort is even, unlabored, Respiratory pattern is regular, symmetrical. GI: No deficits noted. : No deficits noted. Derm: Wound noted right upper quadrant. 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 - Social history:: Smoking status: Patient denies any tobacco usage or history of. Screenin:53 Abuse screen: Denies threats or abuse. Nutritional screening: No deficits noted. vc1 Tuberculosis screening: No symptoms or risk factors identified. Fall Risk None identified. Assessment: 23:00 Reassessment: See triage assessment. vc1 23:55 Reassessment: Patient and/or family updated on plan of care and expected duration. Pain vc1 level reassessed. Patient is alert, oriented x 3, equal unlabored respirations, skin warm/dry/pink. Patient states symptoms have not improved. 23:55 Derm: Skin is intact, Skin is pink. vc1 Vital Signs: 22:49 BP 131 / 69; Pulse 75; Resp 18; Temp 98.1; Pulse Ox 100% ; Weight 83.91 kg; Height 4 vc1 ft. 11 in. (149.86 cm); Pain 4/10; 22:49 Body Mass Index 37.37 (83.91 kg, 149.86 cm) vc1 ED Course: 22:24 Patient arrived in ED. ag3 22:51 Triage completed. vc1 22:52 Arm band placed on right wrist. vc1 22:53 Patient has correct armband on for positive identification. vc1 22:54 Jeffrey Zapata PA is PHCP. jm 22:54 Neymar Carrillo MD is Attending Physician. jmm 23:21 Jennifer Marquez RN is Primary Nurse. vc1 23:30 No provider procedures requiring assistance completed. Patient did not have IV access vc1 during this emergency room visit. Administered Medications: 23:24 Drug: Bactrim (trimethoprim-sulfamethoxazole) (160 mg-800 mg (DS) 1 tablet Route: PO; vc1 23:24 Drug: Doxycycline 100 mg Route: PO; vc1 Medication: 23:55 VIS not applicable for this client. vc1 Outcome: 23:46 Discharge ordered by . arturo 23:55 Discharged to home ambulatory, with significant other. vc1 23:55 Condition: good 23:55 Discharge instructions given to patient, significant other, Instructed on discharge instructions, follow up and referral plans. medication usage, Demonstrated understanding of instructions, follow-up care, medications, Prescriptions given X 2. 23:57 Patient left the ED. vc1 Signatures: Jeffrey Zapata PA PA jmm Gomez, Alice 3 Jennifer Marquez, RN RN vc1
--- NOTE | 2021-11-08 23:47 | EDPHYS ---
Physician Documentation [facility] Name: Jo Ann Kowalski Age: 41 yrs Sex: Female : 1980 Arrival Date: 11/08/2021 Time: 22:24 Bed 11 Private MD: ED Physician Neymar Carrillo HPI: 11/08 22:58 This 41 yrs old Female presents to ER via Ambulatory with complaints of Insect Bite. jmm 22:58 the patient presents with a swollen area of the abdomen. Onset: The symptoms/episode jmm began/occurred gradually, 2 day(s) ago. Possible cause(s): unknown. Associated signs and symptoms: Pertinent positives: erythema. 23:12 Modifying factors: the symptoms are alleviated by nothing, the symptoms are aggravated jmm by nothing. This is a 41 year old female with a history of asthma, anemia, that presents to the ED with complaints of abdominal pain secondary to a lesion on her upper abdomen. Patient states she picked what looked like a pimple on her abdomen and developing increased inflammation over the past day. Patient denies fever but states having a small amount drainage. . 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 - Social history:: Smoking status: Patient denies any tobacco usage or history of. ROS: 23:12 Constitutional: Negative for fever, chills, and weight loss, Cardiovascular: Negative jmm for chest pain, palpitations, and edema, Respiratory: Negative for shortness of breath, cough, wheezing, and pleuritic chest pain. 23:12 Skin: Positive for erythema. 23:12 All other systems are negative. Exam: 23:12 Constitutional: This is a well developed, well nourished patient who is awake, alert, jmm and in no acute distress. Head/Face: atraumatic. Eyes: EOMI, no conjunctival erythema appreciated ENT: Moist Mucus Membranes Neck: Trachea midline, Supple Chest/axilla: Normal chest wall appearance and motion. Cardiovascular: Regular rate and rhythm. No edema appreciated Respiratory: Normal respirations, no respiratory distress appreciated 23:12 Abdomen/GI: Inspection: abdomen appears normal, Bowel sounds: normal, Palpation: mild abdominal tenderness, in the right upper quadrant and left upper quadrant, erythema noted to the epigastric region, ttp, nonfluctuant. 23:12 Skin: erythema and induration noted to the epigastric region, non fluctuant. 23:12 Neuro: Orientation: is normal, Mentation: is normal, Memory: is normal. 23:12 Psych: Behavior/mood is pleasant, cooperative. Vital Signs: 22:49 BP 131 / 69; Pulse 75; Resp 18; Temp 98.1; Pulse Ox 100% ; Weight 83.91 kg; Height 4 vc1 ft. 11 in. (149.86 cm); Pain 4/10; 22:49 Body Mass Index 37.37 (83.91 kg, 149.86 cm) vc1 MDM: 22:58 Patient medically screened. [facility] 23:45 Data reviewed: vital signs, nurses notes. Counseling: I had a detailed discussion with arturo the patient and/or guardian regarding: the historical points, exam findings, and any diagnostic results supporting the discharge/admit diagnosis, the need for outpatient follow up, to return to the emergency department if symptoms worsen or persist or if there are any questions or concerns that arise at home. ED course: Patient is alert and non toxic in appearance in the ED. Advised to follow up with pcp and otherwise given strict return precautions. patient understood and agrees with the plan of care. . 11/08 23:07 [place] [facility]: 4x4 gauze on wound; Complete Time: 23:21 [facility] Administered Medications: 23:24 Drug: Bactrim (trimethoprim-sulfamethoxazole) (160 mg-800 mg (DS) 1 tablet Route: PO; vc1 23:24 Drug: Doxycycline 100 mg Route: PO; vc1 Disposition Summary: 11/08/21 23:46 Discharge Ordered Location: Home [facility] Condition: Stable [facility] Diagnosis - Cellulitis of the Abdominal Wall [facility] Followup: [facility] - With: Private Physician - When: 2 - 3 days - Reason: Recheck today's complaints, Continuance of care, Re-evaluation by your physician Discharge Instructions: - Discharge Summary Sheet jm - Skin Abscess jmm - Cellulitis, Adult [facility] Forms: - Medication Reconciliation Form [facility] - Thank You Letter arturo - Antibiotic Education brionna - Prescription Opioid Use [facility] Prescriptions: - Doxycycline Hyclate 100 mg Oral Tablet - take 1 tablet by ORAL route every 12 hours; 20 tablet; Refills: 0, Product jmm Selection Permitted - Bactrim DS 800-160 mg Oral Tablet - take 1 tablet by ORAL route every 12 hours for 10 days; 20 tablet; Refills: 0, [facility] Product Selection Permitted Signatures: Neymar Carrillo MD MD cha Mickail, Joel, PA PA jmm Calcote, Vanessa RN RN vc1
[2021-11-09 00:44] VITALS: BP 131/69; TEMP 98.1; O2SAT 100
== END 2021-11-08 23:57 | disposition home or self-care (01) ==
LOC: ER 22:21
DX: L03.311 Cellulitis of abdominal wall (principal); Z88.5 Allergy status to narcotic agent; Z91.040 Latex allergy status; Z91.048 Other nonmedicinal substance allergy status
CPT/HCPCS: 99283